=== PATIENT | female | born 1950 | race Caucasian/White ===

== ENCOUNTER 2016-12-21 11:36 | Inpatient (IN) | payer MEDICARE, BC ==
[2016-12-21 12:31] LABS: Potassium 4.2 mmol/L (3.5-5.0)
[2016-12-21 12:32] LABS: Albumin 3.4 g/dL (3.2-5.2); BUN/Creatinine Ratio 57.9 (8-20); Calcium 8.9 mg/dL (8.6-10.3); EGFR African American 36.7 (>60); EGFR Non-African American 28.5 (>60); Globulin 2.3 g/dL (2-4); Total Bilirubin 0.3 mg/dL (0.2-1.0); Total Protein 5.7 g/dL (6.4-8.9)
[2016-12-21 12:34] LABS: Hematocrit 17 % (35-47); Mean Corpuscular HGB Conc 33 g/dl (31-36); Mean Corpuscular Hemoglobin 36 pg (27-31); Mean Corpuscular Volume 108 fL (80-97); Mean Platelet Volume 7 um3 (7.4-10.4); Red Cell Distribution Width 18 % (10.5-15); White Blood Count 10.8 10^3/ul (3.5-10.8)
[2016-12-21 12:35] LABS: Comments Flag Yes
[2016-12-21 12:44] LABS: Hemoglobin 5.7 g/dl (12.0-16.0)
[2016-12-21] MEDS ORDERED: Pantoprazole IV* 40 MG IV ONE (12:58)
--- NOTE | 2016-12-21 13:32 | ED ---
Anirudh Herrera Billy, scribed for Ramesh Macias MD on 12/21/16 at 1255 . Complex/Multi-Sys Presentation - HPI Summary HPI Summary: Patient is a 66 year-old female coming to [facility] for evaluation of anemia. Patient had bloodwork drawn two days ago for evaluation of rheumatoid arthritis pain, and her PCP expressed concern for the results. She states that she felt dizzy when she was being moved onto the stretcher today. Patient, however, denies any blood in the stool or urine. She takes Coumadin for antiphospholipid antibody syndrome. Patient states that 1 month ago, she fell onto her buttocks, but she denies any new pain from that injury. - History Of Current Complaint Chief Complaint: EDBleedingDisorder Time Seen by Provider: 12/21/16 12:40 Hx Obtained From: Patient Onset/Duration: Gradual Onset Timing: Constant Severity Currently: Moderate Severity Initially: Moderate Aggravating Factor(s): none Alleviating Factor(s): none Associated Signs And Symptoms: Positive: Dizziness - Allergies/Home Medications Allergies/Adverse Reactions: Allergies Allergy/AdvReac Type Severity Reaction Status Date / Time Methotrexate Allergy Intermediate Difficulty Verified 12/21/16 11:49 Breathing Cephalexin [From Keflex] Allergy Rash Verified 12/21/16 11:49 Hydroxychloroquine Allergy Unknown Verified 12/21/16 11:49 [From Plaquenil] Reaction Details Home Medications: Home Medications Alendronate (NF) [Fosamax (NF)] 70 mg PO WEEKLY 12/21/16 [History Confirmed ] Cinacalcet TAB* [Sensipar TAB*] 30 mg PO BID 12/21/16 [History Confirmed ] Ferrous Gluconate TAB* [Fergon TAB*] 325 mg PO DAILY 12/21/16 [History Confirmed 12/21/16] Morphine ORAL.SOLN 10 mg* 2.5 ml SL Q6H PRN MDD 10ml 12/21/16 [History Confirmed 12/21/16] Salmeterol DISKUS (NF) [Serevent Diskus (NF)] 1 puff INH BID 12/21/16 [History Confirmed 12/21/16] metFORMIN* [Glucophage 500 MG TAB *] 500 mg PO BID 12/21/16 [History Confirmed 12/21/16] traMADol TAB* [Ultram*] 50 mg PO BID 12/21/16 [History Confirmed 12/21/16] PMH/Surg Hx/FS Hx/Imm Hx Endocrine/Hematology History: Reports: Hx Diabetes - TYPE II Denies: Hx Thyroid Disease Cardiovascular History: Reports: Hx Congestive Heart Failure, Hx Hypercholesterolemia, Hx Hypertension, Other Cardiovascular Problems/Disorders - MITRAL VALVE DISORDER,CHRONIC PUL.HEART DISESE,TACHYCARDIA Denies: Hx Angina, Hx Coronary Artery Disease, Hx Pacemaker/ICD, Hx Valvular Heart Disease Respiratory History: Reports: Hx Chronic Obstructive Pulmonary Disease (COPD) - ALSO OBSTRUCTIVE SLEEP APNEA(USES CPAP), Hx Sleep Apnea - new dx, needs equipment set up, Other Respiratory Problems/Disorders - RHEUMATOID LUNG, RIGHT SIDE LUNG IS PUSHING ON LUNG Denies: Hx Asthma GI History: Denies: Hx Ulcer Musculoskeletal History: Reports: Other Musculoskeletal History - see above surgeries/RA Denies: Hx Osteoporosis Sensory History: Reports: Hx Contacts or Glasses Opthamlomology History: Reports: Hx Contacts or Glasses Psychiatric History: Reports: Hx Anxiety, Hx Depression - Cancer History Hx Chemotherapy: No Hx Radiation Therapy: No - Surgical History Surgery Procedure, Year, and Place: appendix. tonsils. 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 Father - COPD/emphysema - Social History Alcohol Use: None Hx Substance Use: No Substance Use Type: Reports: None Hx Tobacco Use: Yes Smoking Status (MU): Light Every Day Tobacco Smoker Type: Cigarettes Amount Used/How Often: 7-8 cig day Length of Time of Smoking/Using Tobacco: 40 YEARS Have You Smoked in the Last Year: Yes Review of Systems Negative: Fever Neurological: Other - dizzy All Other Systems Reviewed And Are Negative: Yes Physical Exam Triage Information Reviewed: Yes Vital Signs On Initial Exam: Initial Vitals Temp Pulse Resp BP Pulse Ox 97.2 F 82 17 106/83 97 12/21/16 11:39 12/21/16 11:39 12/21/16 11:39 12/21/16 11:39 12/21/16 11:39 Vital Signs Reviewed: Yes Appearance: Positive: Well-Appearing, No Pain Distress Skin: Positive: Warm, Skin Color Reflects Adequate Perfusion Head/Face: Positive: Normal Head/Face Inspection Eyes: Positive: Other: - pallor conjunctiva ENT: Positive: Normal ENT inspection Neck: Positive: Supple Respiratory/Lung Sounds: Positive: Clear to Auscultation, Breath Sounds Present Cardiovascular: Positive: Normal, RRR. Negative: Murmur Abdomen Description: Positive: Nontender, Other: - rectal done and no blood on glove or melena Musculoskeletal: Positive: Normal, Strength/ROM Intact Neurological: Positive: Normal, Sensory/Motor Intact, Alert, Oriented to Person Place, Time, CN Intact II-III Psychiatric: Positive: Normal - Travon Coma Scale Best Eye Response: 4 - Spontaneous Best Motor Response: 6 - Obeys Commands Best Verbal Response: 5 - Oriented Coma Scale Total: 15 Glascow Coma Scale Comments: [id number] Diagnostics - Vital Signs Vital Signs Temp Pulse Resp BP Pulse Ox 12/21/16 12:00 76 9 99 12/21/16 11:40 97.3 F 83 17 106/83 97 12/21/16 11:39 97.2 F 82 17 106/83 97 - Laboratory Lab Results: Lab Results 12/21/16 12/21/16 12/21/16 Range/Units 11:50 11:50 11:50 WBC 10.8 (3.5-10.8) 10^3/ul RBC 1.60 L (4.0-5.4) 10^6/ul Hgb 5.7 L* (12.0-16.0) g/dl Hct 17 L (35-47) % MCV 108 H (80-97) fL MCH 36 H (27-31) pg MCHC 33 (31-36) g/dl RDW 18 H (10.5-15) % Plt Count 262 (150-450) 10^3/ul MPV 7 L (7.4-10.4) um3 Neut % (Auto) 78.4 (38-83) % Lymph % (Auto) 11.8 L (25-47) % [place] % (Auto) 8.7 (1-9) % Eos % (Auto) 0.7 (0-6) % Baso % (Auto) 0.4 (0-2) % Absolute Neuts (auto) 8.5 H (1.5-7.7) 10^3/ul Absolute Lymphs (auto) 1.3 (1.0-4.8) 10^3/ul Absolute Monos (auto) 0.9 H (0-0.8) 10^3/ul Absolute Eos (auto) 0.1 (0-0.6) 10^3/ul Absolute Basos (auto) 0 (0-0.2) 10^3/ul Absolute Nucleated RBC 0.05 10^3/ul Nucleated RBC % 0.5 Sodium 133 (133-145) mmol/L Potassium 4.2 (3.5-5.0) mmol/L Chloride 95 L (101-111) mmol/L Carbon Dioxide 32 (22-32) mmol/L Anion Gap 6 (2-11) mmol/L BUN 103 H (6-24) mg/dL Creatinine 1.78 H (0.51-0.95) mg/dL Est GFR ( Amer) 36.7 (>60) Est GFR (Non-Af Amer) 28.5 (>60) BUN/Creatinine Ratio 57.9 H (8-20) Glucose 228 H (70-100) mg/dL Lactic Acid 1.4 (0.5-2.0) mmol/L Calcium 8.9 (8.6-10.3) mg/dL Total Bilirubin 0.30 (0.2-1.0) mg/dL AST 16 (13-39) U/L ALT 14 (7-52) U/L Alkaline Phosphatase 52 (34-104) U/L Total Protein 5.7 L (6.4-8.9) g/dL Albumin 3.4 (3.2-5.2) g/dL Globulin 2.3 (2-4) g/dL Albumin/Globulin Ratio 1.5 (1-3) Blood Type Antibody Screen 12/21/16 Range/Units 11:50 WBC (3.5-10.8) 10^3/ul RBC (4.0-5.4) 10^6/ul Hgb (12.0-16.0) g/dl Hct (35-47) % MCV (80-97) fL MCH (27-31) pg MCHC (31-36) g/dl RDW (10.5-15) % Plt Count (150-450) 10^3/ul MPV (7.4-10.4) um3 Neut % (Auto) (38-83) % Lymph % (Auto) (25-47) % [place] % (Auto) (1-9) % Eos % (Auto) (0-6) % Baso % (Auto) (0-2) % Absolute Neuts (auto) (1.5-7.7) 10^3/ul Absolute Lymphs (auto) (1.0-4.8) 10^3/ul Absolute Monos (auto) (0-0.8) 10^3/ul Absolute Eos (auto) (0-0.6) 10^3/ul Absolute Basos (auto) (0-0.2) 10^3/ul Absolute Nucleated RBC 10^3/ul Nucleated RBC % Sodium (133-145) mmol/L Potassium (3.5-5.0) mmol/L Chloride (101-111) mmol/L Carbon Dioxide (22-32) mmol/L Anion Gap (2-11) mmol/L BUN (6-24) mg/dL Creatinine (0.51-0.95) mg/dL Est GFR ( Amer) (>60) Est GFR (Non-Af Amer) (>60) BUN/Creatinine Ratio (8-20) Glucose (70-100) mg/dL Lactic Acid (0.5-2.0) mmol/L Calcium (8.6-10.3) mg/dL Total Bilirubin (0.2-1.0) mg/dL AST (13-39) U/L ALT (7-52) U/L Alkaline Phosphatase (34-104) U/L Total Protein (6.4-8.9) g/dL Albumin (3.2-5.2) g/dL Globulin (2-4) g/dL Albumin/Globulin Ratio (1-3) Blood Type B Positive Antibody Screen Pending Result Diagrams: 12/21/16 11:50 12/21/16 11:50 Lab Statement: Any lab studies that have been ordered have been reviewed, and results considered in the medical decision making process. Complex Multi-Symp Course/Dx Course Of Treatment: 66 yr old with high INR, and low h and h . Transfusing ffp and prbc. The patient will be admitted by hospitalists. - Diagnoses Provider Diagnoses: Elevated INR, Anemia, Weakness, Dizziness - Critical Care Time Critical Care Time: 30-74 min - total critical care time 40 minutes Discharge - Discharge Plan Condition: Fair Disposition: ADMITTED TO [facility] Referrals: Kameron Travis MD [Primary Care Provider] - The documentation as recorded by the Anirudh fong Billy accurately reflects the service I personally performed and the decisions made by , Ramesh Macias MD.
[2016-12-21] MEDS ORDERED: Levalbuterol 0.63MG/3ML NEB INH PRN (14:35)
[2016-12-21] MEDS ORDERED: Morphine ORAL.SOLN 10 mg* 2 MG/ML UDC 5 ml PO PRN (14:35)
[2016-12-21] MEDS ORDERED: Dextrose 50% Syringe 50 ML* 25 GM/50 ML SYRINGE IV PUSH PRN (14:39)
[2016-12-21] MEDS ORDERED: Tiotropium CAP.INH* CAP.INH/18 MCG INH SCH (14:45)
[2016-12-21 15:01] LABS: Urine Bacteria 1+ (Absent); Urine Bilirubin Negative (Negative); Urine Glucose Negative (Negative); Urine Nitrite Negative (Negative)
--- NOTE | 2016-12-21 15:09 | RAD ---
Indication: Evaluate for abdominal hematoma, abdominal pain. CT of the abdomen and pelvis was performed without oral or IV contrast administration. Coronal and sagittal reconstructed images were obtained. Lung bases demonstrate some atelectasis noted in the right middle lobe. No masses identified. The heart demonstrates no pericardial effusion. Liver is normal in size. No focal lesions or intrahepatic ductal dilatation is noted although evaluation is limited due to lack of IV contrast. The spleen is normal in size. The pancreas demonstrates no mass or pancreatic duct dilatation. The common duct is prominent however this is unchanged from previous exam. The gallbladder demonstrates no calcified gallstones although low density material is noted within the gallbladder which may represent cholesterol stones. No pericholecystic fluid or wall thickening is noted. Atherosclerotic aorta is noted. No a residual dilatation is noted. Bilateral adrenal hyperplasia is noted. The kidneys demonstrate no focal masses or hydronephrosis. No retroperitoneal lymphadenopathy is noted. No dilated small bowel are noted. Urinary bladder is unremarkable. No hernias are noted. No free fluid is identified in the pelvis. The uterus and ovaries are grossly unremarkable. IMPRESSION: Likely atelectasis in the right middle lobe. Likely cholesterol gallstones in the gallbladder. No other masses or fluid collections are noted.
--- NOTE | 2016-12-21 16:08 | RAD ---
INDICATION: Short of breath COMPARISON: April 27, 2016 TECHNIQUE: An AP portable view obtained at 1544 hours is submitted. FINDINGS: Bones/Soft Tissues: There are no acute bony findings. Cardiomediastinal: The cardiomediastinal silhouette is normal. Lungs: There are no infiltrates. There is hyperinflation with mild chronic interstitial changes Pleura: There are no pleural effusions. Other: None IMPRESSION: HYPERINFLATION WITH MILD CHRONIC INTERSTITIAL CHANGES
[2016-12-21] MEDS: azaTHIOprine TAB(*) 50 MG TAB PO SCH (16:39)
[2016-12-21] MEDS: BuPROPion XL* 300 MG TAB.XL PO SCH (16:39)
[2016-12-21] MEDS: Insulin LISPRO* 1 UNITS UNIT SUBCUT SCH (16:40)
[2016-12-21] MEDS: HYDROcodone/ACETAMIN 5-325 MG* 1 TAB PO PRN (16:40)
--- NOTE | 2016-12-21 17:51 | HP ---
CC: Dr. Travis HISTORY AND PHYSICAL: DATE OF ADMISSION: 12/21/16 PRIMARY CARE PHYSICIAN: Dr. Travis. CHIEF COMPLAINT: Abnormal labs, fatigue, worsening rheumatoid arthritis. HISTORY OF PRESENT ILLNESS: Ms. Del Valle is a 66-year-old female with complicated medical history including COPD, on 2 L of oxygen; rheumatoid arthritis; antiphospholipid syndrome; hyperparathyroidism; diabetes; hypertension; hyperlipidemia; DAREK, on CPAP, who presents to the hospital after she was found to have significant anemia on outpatient labs. The patient states for the past weeks or so, she has felt like her RA is worsening. Pain has been progressively worse. She feels like this may be coinciding with decrease in her azathioprine, which was cut in half last month due to some renal dysfunction. She went to see Devin Cheatham at Dr. Martinez's office yesterday for evaluation. She states that prior to adjusting any medications, they wanted to get some blood work. She was found to have an INR of 6.9 yesterday and at that time, she was called by Devin and told to stop her Coumadin. This morning, her hemoglobin resulted, which was found to be 6.7. At this point, she was called again and told to come to the hospital. The patient does report some significant fatigue over the past days to weeks but she thought that it was mostly pain related. She states she has had good p.o. intake. She has not noticed any blood in the stool, urine or emesis. She has not had any nausea or vomiting. She states that her main issue has been progression of her joint pain due to rheumatoid arthritis. She states the pain extends from her neck all the way to her toes involving all her joints. She has just recently had to use a walker at home and has been having significant trouble getting around. She did note that she had a nosebleed on Sunday or Sunday night; however, this was limited and she did not have significant amount of blood loss with this. She denies any URI symptoms, chest pain, diarrhea, constipation, dyspnea on exertion. PAST MEDICAL HISTORY: COPD, on 2-3 L of oxygen. Depression, antiphospholipid syndrome with previous history of PEs and intracardiac thrombus, hyperlipidemia , hypertension. DAREK, on CPAP. Rheumatoid arthritis, anxiety, diabetes. PAST SURGICAL HISTORY: Appendectomy, tonsillectomy, multiple surgeries for her hand. MEDICATIONS: 1. Alendronate 70 mg by mouth weekly. 2. Lasix 40 mg by mouth daily. 3. Lantus 16 units subcutaneous daily. 4. Magnesium oxide 800 mg by mouth 2 times daily. 5. Vitamin D 1000 units by mouth daily. 6. Ferrous gluconate 325 mg by mouth daily. 7. Toprol XL 50 mg by mouth daily. 8. Zoloft 75 mg by mouth daily. 9. Azathioprine. 10. Bupropion 300 mg by mouth daily. 11. Metformin 500 mg by mouth 2 times daily. 12. Sensipar 30 mg by mouth 2 times daily. 13. Morphine 2.5 mL sublingual as needed every 6 hours for shortness of breath. 14. Tramadol 50 mg by mouth 2 times daily. 15. Atorvastatin 20 mg by mouth at bedtime. 16. Lisinopril 2.5 mg oral daily. 17. Warfarin 10 mg by mouth nightly. 18. Mantoloking 5-325 two tablets by mouth at bedtime as needed for pain. 19. Spiriva 2.5 mcg inhaled daily. 20. Budesonide 0.25 mg inhaled 2 times daily. 21. Atrovent 0.5 mg inhaled 2 times daily. 22. Solu-Medrol Diskus 1 puff inhaled 2 times daily. 23. Xopenex 0.63 mg inhaled 3 times daily as needed for shortness of breath or wheezing. ALLERGIES: KEFLEX, METHOTREXATE, and PLAQUENIL. FAMILY HISTORY: Significant for mother with CHF, father with COPD. SOCIAL HISTORY: The patient still smokes 3 cigarettes a day. She states she has been smoking for almost 40 years about a pack and a half per day at most. Denies any alcohol or illicit drug use. REVIEW OF SYSTEMS: A 12-point review of systems is negative except for that as noted in the HPI. PHYSICAL EXAMINATION GENERAL: The patient is a middle-aged female, appears older than stated age, lying in bed, in no apparent distress. VITAL SIGNS: On admission, temperature 97.2, heart rate of 82, respiratory rate of 17, O2 saturation 97% on room air, blood pressure 106/83. HEENT: Anicteric sclerae. Pale conjunctivae. Pupils are equal, round, and reactive to light and accommodation. Dry mucous membranes. No cervical adenopathy. CARDIOVASCULAR: Regular rate and rhythm. S1, S2 present. No murmurs, gallops , and rubs. LUNGS: Clear to auscultation bilaterally. No wheezes, rales, or rhonchi. ABDOMEN: Soft, nontender, nondistended. Bowel sounds positive. EXTREMITIES: No cyanosis, clubbing, or edema in lower extremities. The patient has chronic ulnar deviation from rheumatoid arthritis in bilateral hands. SKIN: The patient has a discrete 4 cm x 2 cm ecchymosis on her back in the left , also some smaller ecchymoses in the lower abdomen from Lantus injections. DIAGNOSTIC STUDIES/LAB DATA: White blood cell count of 10.8, hemoglobin of 5.7 , hematocrit of 17, platelets of 262, INR of 3.84. Sodium of 133, potassium 4.2 , chloride of 92, carbon dioxide 33, BUN of 103, creatinine of 1.78, glucose of 228, lactic acid of 1.4. LFTs within normal limits. Total protein 5.7. ASSESSMENT AND PLAN: Severe macrocytic anemia in a 66-year-old female with a past medical history of chronic obstructive pulmonary disease, antiphospholipid syndrome with history of pulmonary embolism and intracardiac thrombus, hypertension, hyperlipidemia, rheumatoid arthritis on azathioprine, and obstructive sleep apnea, on CPAP, and diabetes. 1. Anemia. The patient has had a significant drop from just last month. Her hemoglobin was in the 13 range. INR is 3.84. At this point, I will hold off on FFP that was ordered. I don't think she is having a GI bleed with a negative guaiac, normal stools. We will get a CT scan of the abdomen and pelvis to make sure she does not have any occult hematomas. We will transfuse 3 units of packed red blood cells right now that was ordered by the emergency department. I spoke to Dr. Callahan, who will evaluate the patient and added on B12, folate, iron studies, and reticulocyte count. The patient was started on Sensipar recently that can occasionally cause some anemia, also azathioprine can do this as well, although the dose was reduced recently and she has been on this for quite a while. 2. Rheumatoid arthritis. For now, we will continue with her azathioprine and pain medications. I tried to get in touch with Dr. Martinez's office but was unable to today. We can see how she is doing tomorrow and if we need to get Rheumatology involved. The patient is comfort measures only on her MOLST form. So this will obviously factor in to some of her decisions and treatment at this time. 3. Antiphospholipid syndrome. INR is 3.84. I am not clear whether there is bleeding going on, I am going to hold her Coumadin for now. As noted above, I have held FFP. INR is decreased from 6.9 yesterday to this today. We need to follow closely and recheck INR in the morning. 4. Hyperparathyroidism. Continue home Sensipar. 5. Diabetes. Continue home Lantus. Hold the metformin for now. Continue with Humalog insulin sliding scale. 6. Chronic obstructive pulmonary disease. Continue home meds 7. Obstructive sleep apnea. Continue home CPAP at night. 8. Code status. The patient is a DNR with comfort measures only. This was confirmed with the patient was stated she is a "emphatic DNR," May want to consider palliative consult in the future. 9. DVT prophylaxis. Supratherapeutic INR. TIME SPENT: Total time spent on this admission 50 minutes, with over half the time spent [id number] with the patient in counseling and coordinating care. [id number]/CPS #: [id number] LANRE
[2016-12-21] MEDS: Ipratropium 0.5MG/2.5ML NEB* 0.5 MG/2.5 ML NEB.SOLN INH SCH (20:01)
[2016-12-21] MEDS: Mometasone/Formoter 200/5 MDI INH SCH (20:02)
[2016-12-21] MEDS: Budesonide NEB* 0.25 MG/2 ML NEB.SOLN INH SCH (20:02)
[2016-12-21 21:00] LABS: Maturation Factor Retic 2.5
[2016-12-21 21:14] LABS: TSH (Thyroid Stimulating Horm) 2.61 mcIU/mL (0.34-5.60)
[2016-12-21 21:21] LABS: Ferritin 21.9 ng/mL (11-307)
[2016-12-21 21:26] LABS: Folate 7.97 ng/mL (>3.99)
[2016-12-21 21:26] LABS: Corrected Retic Count 3.6 % (0.5-1.5); Immature Retic Fraction 0.78
[2016-12-21] MEDS: SALMETEROL INH SCH (21:30)
[2016-12-21] MEDS: Cinacalcet TAB* 30 MG PO SCH (22:35)
[2016-12-21] MEDS: traMADol TAB* 50 MG PO SCH (22:35)
[2016-12-21] MEDS: Atorvastatin* 20 MG TAB PO SCH (22:35)
[2016-12-21] MEDS: Magnesium Oxide TAB* 400 MG PO SCH (22:36)
[2016-12-22] MEDS: HYDROcodone/ACETAMIN 5-325 MG* 1 TAB PO PRN ×4 (01:10→22:23)
[2016-12-22 06:09] LABS: Comments Flag Yes; Hematocrit 27 % (35-47); Hemoglobin 9.2 g/dl (12.0-16.0); Mean Corpuscular HGB Conc 34 g/dl (31-36); Mean Corpuscular Hemoglobin 33 pg (27-31); Mean Corpuscular Volume 96 fL (80-97); Mean Platelet Volume 7 um3 (7.4-10.4); Red Blood Count 2.77 10^6/ul (4.0-5.4); Red Cell Distribution Width 19 % (10.5-15); White Blood Count 10.6 10^3/ul (3.5-10.8)
[2016-12-22 06:10] LABS: Add Diff/Slide Review? Slide Review Added
[2016-12-22 06:23] LABS: BUN/Creatinine Ratio 41.5 (8-20); Calcium 8.1 mg/dL (8.6-10.3); EGFR African American 41.8 (>60); EGFR Non-African American 32.5 (>60); Potassium 4.1 mmol/L (3.5-5.0)
[2016-12-22] MEDS: Ipratropium 0.5MG/2.5ML NEB* 0.5 MG/2.5 ML NEB.SOLN INH SCH ×2 (07:32→19:59)
[2016-12-22] MEDS: Budesonide NEB* 0.25 MG/2 ML NEB.SOLN INH SCH ×2 (07:32→19:58)
[2016-12-22] MEDS: Mometasone/Formoter 200/5 MDI INH SCH ×2 (07:32→21:12)
[2016-12-22 07:38] LABS: Eosinophils % 2 % (0-6); Hypochromasia 1+; Neutrophil % 74 % (38-83); Polychromasia 1+
[2016-12-22] MEDS: Sertraline* 25 MG TAB PO SCH (08:58)
[2016-12-22] MEDS: Magnesium Oxide TAB* 400 MG PO SCH ×2 (08:58→20:39)
[2016-12-22] MEDS: Cholecalciferol TAB* 1000 UNITS PO SCH (08:58)
[2016-12-22] MEDS: Cinacalcet TAB* 30 MG PO SCH ×2 (08:58→20:39)
[2016-12-22] MEDS: azaTHIOprine TAB(*) 50 MG TAB PO SCH (08:58)
[2016-12-22] MEDS: traMADol TAB* 50 MG PO SCH ×2 (08:59→20:38)
[2016-12-22] MEDS: Ferrous Gluconate TAB* 324 MG TAB PO SCH (08:59)
[2016-12-22] MEDS: BuPROPion XL* 300 MG TAB.XL PO SCH (08:59)
[2016-12-22] MEDS: Insulin LISPRO* 1 UNITS UNIT SUBCUT SCH ×3 (09:00→17:16)
[2016-12-22] MEDS: Insulin GLARGINE(*) 1 UNITS UNIT SUBCUT SCH (09:00)
--- NOTE | 2016-12-22 10:59 | PN ---
Subjective Date of Service: 12/22/16 Interval History: Seen and examined with friend/HCP at bedside Has pain from head to toe consistent with RA, worse in clavicles today 7-8/10 Feels more energy since blood transfusion Objective Active Medications: Hydrocodone Bitart/Acetaminophen ([place] 5-325 Tab*) 2 tab PO BEDTIME PRN PRN Reason: PAIN Last Admin: 12/22/16 01:10 Dose: 2 tab Hydrocodone Bitart/Acetaminophen ([place] 5-325 Tab*) 1 tab PO Q6H PRN PRN Reason: PAIN Last Admin: 12/22/16 08:59 Dose: 1 tab Atorvastatin Calcium (Lipitor*) 20 mg PO BEDTIME [facility] Last Admin: 12/21/16 22:35 Dose: 20 mg Azathioprine (Imuran Tab(*)) 50 mg PO DAILY [facility] Last Admin: 12/22/16 08:58 Dose: 50 mg Budesonide (Pulmicort Neb*) 0.25 mg INH BID [facility] Last Admin: 12/22/16 07:32 Dose: 0.25 mg Bupropion HCl (Bupropion Xl*) 300 mg PO DAILY [facility] PRN Reason: Protocol Last Admin: 12/22/16 08:59 Dose: 300 mg Cholecalciferol (Vitamin D Tab*) 1,000 units PO DAILY [facility] Last Admin: 12/22/16 08:58 Dose: 1,000 units Cinacalcet (Sensipar Tab*) 30 mg PO BID [facility] Last Admin: 12/22/16 08:58 Dose: 30 mg Dextrose (D50w Syringe 50 Ml*) 12.5 gm IV PUSH .FOR FS < 60 - SS PRN PRN Reason: FS < 60 Ferrous Gluconate (Fergon Tab*) 324 mg PO DAILY [facility] Last Admin: 12/22/16 08:59 Dose: 324 mg Heparin Sodium (Porcine) (Heparin Vial(*)) 0 units IV .PER PROTOCOL [facility] PRN Reason: Protocol Heparin Sodium/Dextrose (Heparin Drip 25,000 Units(*)) 25,000 units in 500 mls @ 0 mls/hr IV .NO INITIAL BOLUS [facility]; As Directed PRN Reason: Protocol Insulin Glargine (Lantus(*)) 16 units SUBCUT QAM [facility] Last Admin: 12/22/16 09:00 Dose: 16 units Insulin Human Lispro (Humalog*) 0 - 10 units SUBCUT AC [facility] PRN Reason: Protocol Last Admin: 12/22/16 09:00 Dose: 2 units Ipratropium [place] (Atrovent 0.5 Mg Neb.Sarai*) 0.5 mg INH BID [facility] Last Admin: 12/22/16 07:32 Dose: 0.5 mg Levalbuterol HCl (Xopenex 0.63mg/3ml Neb*) 0.63 mg INH TID PRN PRN Reason: SHORTNESS OF BREATH Magnesium Oxide (Magox 400 Tab*) 800 mg PO BID [facility] Last Admin: 12/22/16 08:58 Dose: 800 mg Mometasone Furoate/Formoterol Fumar (Dulera 200/5 Mdi*) 2 puff INH BID [facility] Last Admin: 12/22/16 07:32 Dose: 2 puff Morphine Sulfate (Morphine Oral.Soln 10 Mg*) 5 mg PO Q6H PRN PRN Reason: Severe shortness of breath Last Admin: 12/22/16 02:26 Dose: 5 mg Salmeterol Xinafoate (Serevent Diskus (Nf)) 1 puff INH BID [facility] PRN Reason: Protocol Last Admin: 12/21/16 21:30 Dose: 1 puff Sertraline HCl (Zoloft*) 75 mg PO DAILY [facility] Last Admin: 12/22/16 08:58 Dose: 75 mg Tiotropium [place] (Spiriva Respimat 2.5 Mcg(Nf)) 1 puff INH DAILY [facility] Tramadol HCl (Ultram*) 50 mg PO BID [facility] Last Admin: 12/22/16 08:59 Dose: 50 mg Vital Signs 12/21/16 12/21/16 12/21/16 13:30 14:00 14:34 Temperature 98.1 F Pulse Rate 75 79 79 Respiratory 9 13 14 Rate Blood Pressure 88/43 107/46 99/51 (mmHg) O2 Sat by Pulse 100 99 Oximetry 12/21/16 12/21/16 12/21/16 15:25 15:30 16:40 Temperature 98.3 F 98.3 F Pulse Rate 84 84 Respiratory 18 18 18 Rate Blood Pressure 92/51 92/51 (mmHg) O2 Sat by Pulse 100 100 Oximetry 12/21/16 12/21/16 12/21/16 19:20 19:58 20:00 Temperature 98.4 F 98.7 F Pulse Rate 97 88 90 Respiratory 20 18 20 Rate Blood Pressure 127/50 96/31 (mmHg) O2 Sat by Pulse 98 97 100 Oximetry 12/21/16 12/21/16 12/21/16 22:35 22:57 23:30 Temperature 98.6 F 98.9 F Pulse Rate 82 87 Respiratory 20 20 20 Rate Blood Pressure 110/49 107/42 (mmHg) O2 Sat by Pulse 100 99 Oximetry 12/22/16 12/22/16 12/22/16 00:35 01:10 02:11 Temperature 98.4 F Pulse Rate 90 Respiratory 18 20 20 Rate Blood Pressure 125/60 (mmHg) O2 Sat by Pulse 95 Oximetry 12/22/16 12/22/16 12/22/16 02:26 02:37 03:10 Temperature 98.6 F Pulse Rate 83 Respiratory 20 20 18 Rate Blood Pressure 107/53 (mmHg) O2 Sat by Pulse 95 Oximetry 12/22/16 12/22/16 12/22/16 04:26 04:40 05:19 Temperature 98.1 F 98.1 F Pulse Rate 84 80 Respiratory 18 18 18 Rate Blood Pressure 110/54 112/54 (mmHg) O2 Sat by Pulse 93 93 Oximetry 12/22/16 12/22/16 12/22/16 05:43 07:23 07:35 Temperature 98.2 F 98.2 F Pulse Rate 78 79 78 Respiratory 18 16 12 Rate Blood Pressure 109/53 115/51 (mmHg) O2 Sat by Pulse 97 98 100 Oximetry 12/22/16 12/22/16 08:59 09:34 Temperature Pulse Rate Respiratory 18 18 Rate Blood Pressure (mmHg) O2 Sat by Pulse Oximetry Oxygen Devices in Use Now: Nasal Cannula Appearance: sitting in chair, older than stated age, NAD Eyes: No Scleral Icterus, PERRLA Ears/Nose/Mouth/Throat: Clear Oropharnyx, Mucous Membranes Moist Neck: NL Appearance and Movements; NL JVP, Trachea Midline Respiratory: Symmetrical Chest Expansion and Respiratory Effort, Clear to Auscultation Cardiovascular: RRR Abdominal: NL Sounds; No Tenderness; No Distention, No Hepatosplenomegaly Lymphatic: No Cervical Adenopathy Extremities: - - contracted hands Neurological: Alert and Oriented x 3 Result Diagrams: 12/22/16 05:54 12/22/16 05:54 Additional Lab and Data: Lab Results 12/21/16 12/21/16 12/21/16 Range/Units 11:50 11:50 11:50 WBC 10.8 (3.5-10.8) 10^3/ul RBC 1.60 L (4.0-5.4) 10^6/ul Hgb 5.7 L* (12.0-16.0) g/dl Hct 17 L (35-47) % MCV 108 H (80-97) fL MCH 36 H (27-31) pg MCHC 33 (31-36) g/dl RDW 18 H (10.5-15) % Plt Count 262 (150-450) 10^3/ul MPV 7 L (7.4-10.4) um3 Neut % (Auto) 78.4 (38-83) % Lymph % (Auto) 11.8 L (25-47) % [place] % (Auto) 8.7 (1-9) % Eos % (Auto) 0.7 (0-6) % Baso % (Auto) 0.4 (0-2) % Absolute Neuts (auto) 8.5 H (1.5-7.7) 10^3/ul Absolute Lymphs (auto) 1.3 (1.0-4.8) 10^3/ul Absolute Monos (auto) 0.9 H (0-0.8) 10^3/ul Absolute Eos (auto) 0.1 (0-0.6) 10^3/ul Absolute Basos (auto) 0 (0-0.2) 10^3/ul Absolute Nucleated RBC 0.05 10^3/ul Nucleated RBC % 0.5 Sodium 133 (133-145) mmol/L Potassium 4.2 (3.5-5.0) mmol/L Chloride 95 L (101-111) mmol/L Carbon Dioxide 32 (22-32) mmol/L Anion Gap 6 (2-11) mmol/L BUN 103 H (6-24) mg/dL Creatinine 1.78 H (0.51-0.95) mg/dL Est GFR ( Amer) 36.7 (>60) Est GFR (Non-Af Amer) 28.5 (>60) BUN/Creatinine Ratio 57.9 H (8-20) Glucose 228 H (70-100) mg/dL Lactic Acid 1.4 (0.5-2.0) mmol/L Calcium 8.9 (8.6-10.3) mg/dL Total Bilirubin 0.30 (0.2-1.0) mg/dL AST 16 (13-39) U/L ALT 14 (7-52) U/L Alkaline Phosphatase 52 (34-104) U/L Total Protein 5.7 L (6.4-8.9) g/dL Albumin 3.4 (3.2-5.2) g/dL Globulin 2.3 (2-4) g/dL Albumin/Globulin Ratio 1.5 (1-3) Blood Type Antibody Screen 12/21/16 Range/Units 11:50 WBC (3.5-10.8) 10^3/ul RBC (4.0-5.4) 10^6/ul Hgb (12.0-16.0) g/dl Hct (35-47) % MCV (80-97) fL MCH (27-31) pg MCHC (31-36) g/dl RDW (10.5-15) % Plt Count (150-450) 10^3/ul MPV (7.4-10.4) um3 Neut % (Auto) (38-83) % Lymph % (Auto) (25-47) % [place] % (Auto) (1-9) % Eos % (Auto) (0-6) % Baso % (Auto) (0-2) % Absolute Neuts (auto) (1.5-7.7) 10^3/ul Absolute Lymphs (auto) (1.0-4.8) 10^3/ul Absolute Monos (auto) (0-0.8) 10^3/ul Absolute Eos (auto) (0-0.6) 10^3/ul Absolute Basos (auto) (0-0.2) 10^3/ul Absolute Nucleated RBC 10^3/ul Nucleated RBC % Sodium (133-145) mmol/L Potassium (3.5-5.0) mmol/L Chloride (101-111) mmol/L Carbon Dioxide (22-32) mmol/L Anion Gap (2-11) mmol/L BUN (6-24) mg/dL Creatinine (0.51-0.95) mg/dL Est GFR ( Amer) (>60) Est GFR (Non-Af Amer) (>60) BUN/Creatinine Ratio (8-20) Glucose (70-100) mg/dL Lactic Acid (0.5-2.0) mmol/L Calcium (8.6-10.3) mg/dL Total Bilirubin (0.2-1.0) mg/dL AST (13-39) U/L ALT (7-52) U/L Alkaline Phosphatase (34-104) U/L Total Protein (6.4-8.9) g/dL Albumin (3.2-5.2) g/dL Globulin (2-4) g/dL Albumin/Globulin Ratio (1-3) Blood Type B Positive Antibody Screen Pending Microbiology and Other Data: Microbiology 12/22/16 23:50 Transfusion Reaction Gram Stain - Final Blood Bag 12/21/16 19:45 Transfusion Reaction Gram Stain - Final Blood Bag Assess/Plan/Problems-Billing Assessment: 66 yo F h/p APLS on AC, severe RA, DVT/PE on AC COPD with chronic respiratory failure (3L), p/w supratherapeutic INR and anemia - Patient Problems (1) Anemia Comment: Acute anemia Suspect slow GI bleed in setting of supratherapeutic anemia received 3 U PRBC 12/21 Repeat H/H this evening (2) Antiphospholipid syndrome Comment: Start heparin no bolus restart coumadin this evening 10mg unclear why she became supratherapeutic, no change in diet or medications except decrease in azathioprine 4 weeks prior last INR 3 weeks prior per pt (3) Rheumatoid arthritis Comment: azathioprine decraesed 1 month prior 2/2 c/f kidney injury Pain has increased since that time manage pain will need appropriate f/u with Zaina Maritnez (4) COPD exacerbation Code(s): J44.1 - CHRONIC OBSTRUCTIVE PULMONARY DISEASE W (ACUTE) EXACERBATION Comment: Not in exacerbation (5) Type 2 diabetes mellitus Comment: Basal bolus insulin (6) Obstructive sleep apnea Comment: Continue CPAP. (7) DVT prophylaxis Comment: coumadin heparin (8) DNR (do not resuscitate)
[2016-12-22] MEDS ORDERED: Heparin VIAL(*) 5000 UNITS/ML VIAL (FIVE THOUSAND) IV SCH (11:00)
[2016-12-22] MEDS: SALMETEROL INH SCH ×2 (11:58→21:54)
[2016-12-22] MEDS: Tiotropium Respimt 2.5 mcg(NF) 1 PUFF MDI INH SCH (11:58)
[2016-12-22] MEDS: Morphine ORAL.SOLN 10 mg* 2 MG/ML UDC 5 ml PO PRN ×2 (12:03→18:56)
[2016-12-22] MEDS: Heparin DRIP 25,000 UNITS(*) 25,000 UNITS/500 ML BAG IV SCH (12:56)
[2016-12-22 16:52] LABS: Hematocrit 27 % (35-47); Hemoglobin 9.5 g/dl (12.0-16.0)
[2016-12-22] MEDS: Warfarin TAB(*) 10 MG PO SCH (17:16)
--- NOTE | 2016-12-22 17:32 | CONS ---
HEMATOLOGY CONSULTATION: DATE OF CONSULT: 12/22/16 REFERRING PHYSICIAN: Dr. Acosta. PRIMARY CARE PHYSICIAN: Dr. Travis. RHEUMATOLOGY: Dr. Martinez. REASON FOR CONSULT: Anemia and fatigue. HISTORY OF PRESENT ILLNESS: Ms. Del Valle is a 66-year-old female with past medical history of rheumatoid arthritis as well as antiphospholipid antibody syndrome. She had been followed up with Dr. Martinez's office and generally sees Nigelofia. She is not treated with methotrexate secondary to shortness of breath. She has been on azathioprine, but with the dose recently reduced secondary to renal insufficiency, currently on 50 mg daily. She has had several weeks of not feeling well, some increasing fatigue, although with a decreased appetite, and had noted some shortness of breath. She also had marked increase in her pain after decreasing the azathioprine. She called Dr. Martinez's office and came in and saw Nigelofia. Blood work was ordered on December 21. She had white count of 10.8, normal differential. Hemoglobin was 5.7 with an MCV of 108. RDW was 18 and platelets of 262. Reticulocyte count was sent that was 9.6, but corrected at 3.6. She received 3 units of packed red blood cells and improved from 5.7 to 9.2. She also was noted to have increased INR 3.84, now improved at 1.67 after FFP. Increased creatinine of 2.2, first baseline of 1.93. Today , she is feeling better than admission. She has not had diarrhea, no change in stool, no change in urination. She has not been having any nosebleeds. PAST MEDICAL HISTORY: 1. Rheumatoid arthritis. Managed by Dr. Martinez. History of methotrexate, but stopped as noted above for pneumonitis. Currently, managed with Imuran. She has never been on steroids. 2. Antiphospholipid antibody syndrome. Complicated by pulmonary embolus. 3. She has a lupus anticoagulant panel from 12/20/16 that showed a dRVVT of 1.3 with a confirmation of 1.2. She is on long-term Coumadin, generally been consistent up until most recently. 4. Renal insufficiency. Creatinine 2.2 on admission, decreased to 1.59 with hydration. 5. COPD, on CPAP. 6. Depression. 7. Osteoarthritis. 8. High cholesterol. 9. Hypertension. 10. Diabetes. HOME MEDICATIONS: 1. Alendronate 70 mg weekly. 2. Lasix 40 mg daily. 3. Lantus mg daily. 4. Mag oxide 800 mg b.i.d. 5. Vitamin D 1000 daily. 6. Ferrous gluconate 125 daily. 7. Toprol-XL 50 mg daily. 8. Zoloft 75 mg daily. 9. Wellbutrin 300 mg daily. 10. Metformin 500 twice a day. 11. Sensipar 30 mg by mouth 2 times a day. 12. Morphine 2.5 mL subcu as needed every 6 hours for pain. 13. Tramadol 50 mg 2 times a day (had not been using as pain increase). 14. Atorvastatin 20 mg by mouth at bedtime. 15. Lisinopril 2.5 daily. 16. Warfarin 10 mg at night. 17. [place] 5/325 at bedtime as needed for pain. 18. Spiriva 2.5 mcg daily. 19. Budesonide 0.25 inhaled 2 times a day. 20. Atrovent 0.5 mg 2 times daily inhaled. 21. Solu-Medrol Diskus 1 puff 2 times daily. 22. Xopenex 0.63 mg inhaled three times daily as needed for shortness of breath. ALLERGIES: KEFLEX, METHOTREXATE, and PLAQUENIL. FAMILY HISTORY: CHF and COPD, no rheumatologic disease. SOCIAL HISTORY: Smokes 3 cigarettes a day. Denies alcohol or drug use. She is in clinic with her aide who is her primary nursing care partner. REVIEW OF SYSTEMS: Very fatigued. HEENT: Negative. Nodes: No swollen glands or lymph nodes. Skin: She has not noted any particular bruising or bleeding. Lungs: Shortness of breath with exertion, but this is chronic. Cardiac: Negative. GI: Eating little bit less, food from [employer]. : Negative. Hematologic: Anemia. Neurologic: Negative. PHYSICAL EXAM: Temperature 98.2, pulse 79, respirations 16, O2 sat 98%, BP 115/ 51. HEENT: She is pale. Mucosa moist. No lesions. No cervical or supraclavicular lymphadenopathy. Nodes: No lymphadenopathy. Lungs: Clear to auscultation. Heart: Regular rate and rhythm. S1, S2. No murmurs, rubs, gallops. Abdomen: I cannot palpate her spleen, soft. No liver edge. Good bowel sounds. Extremities: She has marked deformity consistent with rheumatoid arthritis. She does have pulses x4. Skin: I did not turn her over to do a full exam, but no evidence of bruising. She does have some bleeding around her IV site, but seems little excessive. DIAGNOSTIC STUDIES/LAB DATA: I reviewed the manual blood film, it is fairly unremarkable from yesterday. She has a mild macrocytosis. No evidence of hemolysis and no spherocytes. Hemoglobin today 9.2, normal differential. She does have an ESR of 97, recheck as noted above. Iron sat 84% with ferritin of 22 and she has an elevated serum iron, I am not sure, and a total iron-binding capacity of 336. C-reactive protein is 34. Methylmalonic acid was elevated at 10.7 in June of 2015. Her B12 is normal today at 295. Looking at her abdomen and pelvis CT scan, she has mild hepatomegaly, no splenomegaly, and no evidence of lymphadenopathy. ASSESSMENT AND PLAN: A 66-year-old female with lupus anticoagulant and rheumatoid arthritis, comes in with marked anemia. Differential includes medication effect from Imuran, but she has been on this medicine long-term, consumptive hemolysis, occult bleeding, functional B12 deficiency. 1. We will send additional blood work including Rachel for warm antibody hemolytic anemia as well as cold agglutinin and cryoglobulin. 2. She had elevated methylmalonic acid in the past and has borderline B12, recheck her methylmalonic acid today. 3. Given her lupus phospholipid antibody syndrome and a reduced INR today, I do recommend anticoagulation with Lovenox or heparin drip. Follow up for hemorrhage. 4. Elevated serum iron, difficult to interpret. Question whether or not it was after her blood transfusion. We will wait few days and recheck. 5. CBC daily, and we will see if her hemoglobin drops again. 6. I will put her on daily folic acid given the potential for anemia secondary to hemolysis. [id number]/[facility] #: [id number] [facility]
[2016-12-22] MEDS: Atorvastatin* 20 MG TAB PO SCH (20:39)
[2016-12-23] MEDS: Morphine ORAL.SOLN 10 mg* 2 MG/ML UDC 5 ml PO PRN ×3 (04:36→21:50)
[2016-12-23] MEDS: Ipratropium 0.5MG/2.5ML NEB* 0.5 MG/2.5 ML NEB.SOLN INH SCH ×2 (07:32→19:10)
[2016-12-23] MEDS: Budesonide NEB* 0.25 MG/2 ML NEB.SOLN INH SCH ×2 (07:33→19:09)
[2016-12-23 07:45] LABS: Hematocrit 27 % (35-47); Hemoglobin 9.1 g/dl (12.0-16.0); Mean Corpuscular HGB Conc 34 g/dl (31-36); Mean Corpuscular Hemoglobin 33 pg (27-31); Mean Corpuscular Volume 97 fL (80-97); Mean Platelet Volume 7 um3 (7.4-10.4); Red Blood Count 2.78 10^6/ul (4.0-5.4); Red Cell Distribution Width 21 % (10.5-15); White Blood Count 10.4 10^3/ul (3.5-10.8)
[2016-12-23 07:59] LABS: BUN/Creatinine Ratio 23.4 (8-20); Calcium 8.1 mg/dL (8.6-10.3); EGFR African American 55.7 (>60); EGFR Non-African American 43.3 (>60)
[2016-12-23] MEDS: Mometasone/Formoter 200/5 MDI INH SCH ×2 (08:47→19:10)
[2016-12-23] MEDS: Insulin LISPRO* 1 UNITS UNIT SUBCUT SCH ×3 (09:09→17:41)
[2016-12-23] MEDS: Insulin GLARGINE(*) 1 UNITS UNIT SUBCUT SCH (09:10)
[2016-12-23] MEDS: Ferrous Gluconate TAB* 324 MG TAB PO SCH (09:11)
[2016-12-23] MEDS: traMADol TAB* 50 MG PO SCH ×2 (09:11→21:41)
[2016-12-23] MEDS: Magnesium Oxide TAB* 400 MG PO SCH ×2 (09:11→21:40)
[2016-12-23] MEDS: Cinacalcet TAB* 30 MG PO SCH ×2 (09:11→21:41)
[2016-12-23] MEDS: Cholecalciferol TAB* 1000 UNITS PO SCH (09:11)
[2016-12-23] MEDS: BuPROPion XL* 300 MG TAB.XL PO SCH (09:12)
[2016-12-23] MEDS: Sertraline* 25 MG TAB PO SCH (09:12)
[2016-12-23] MEDS: azaTHIOprine TAB(*) 50 MG TAB PO SCH (09:12)
--- NOTE | 2016-12-23 11:05 | RAD ---
Indication: Right clavicle pain. 2 views of the right clavicle demonstrates no fracture. AC joint arthritis is noted. IMPRESSION: Right AC joint arthritis without fracture.
--- NOTE | 2016-12-23 11:05 | RAD ---
Indication: Left clavicle pain. 2 views of left clavicle demonstrates AC joint arthritis. No fracture is identified. IMPRESSION: AC joint arthritis without fracture.
[2016-12-23] MEDS: Tiotropium Respimt 2.5 mcg(NF) 1 PUFF MDI INH SCH (11:21)
[2016-12-23] MEDS: SALMETEROL INH SCH ×2 (11:22→21:39)
[2016-12-23] MEDS: Heparin DRIP 25,000 UNITS(*) 25,000 UNITS/500 ML BAG IV SCH (13:05)
--- NOTE | 2016-12-23 16:10 | PN ---
Subjective Date of Service: 12/23/16 Interval History: HOSPITALIST PROGRESS NOTE Patient seen and examined at bedside. Her major complaint is bilateral clavicle pain. Has more energy now after transfusions. Family History: Unchanged from Admission Social History: Unchanged from Admission Past Medical History: Unchanged from Admission Objective Active Medications: Hydrocodone Bitart/Acetaminophen ([place] 5-325 Tab*) 2 tab PO BEDTIME PRN PRN Reason: PAIN Last Admin: 12/22/16 22:23 Dose: 2 tab Hydrocodone Bitart/Acetaminophen ([place] 5-325 Tab*) 1 tab PO Q6H PRN PRN Reason: PAIN Last Admin: 12/22/16 16:12 Dose: 1 tab Atorvastatin Calcium (Lipitor*) 20 mg PO BEDTIME [facility] Last Admin: 12/22/16 20:39 Dose: 20 mg Azathioprine (Imuran Tab(*)) 50 mg PO DAILY [facility] Last Admin: 12/23/16 09:12 Dose: 50 mg Budesonide (Pulmicort Neb*) 0.25 mg INH BID [facility] Last Admin: 12/23/16 07:33 Dose: 0.25 mg Bupropion HCl (Bupropion Xl*) 300 mg PO DAILY [facility] PRN Reason: Protocol Last Admin: 12/23/16 09:12 Dose: 300 mg Cholecalciferol (Vitamin D Tab*) 1,000 units PO DAILY [facility] Last Admin: 12/23/16 09:11 Dose: 1,000 units Cinacalcet (Sensipar Tab*) 30 mg PO BID [facility] Last Admin: 12/23/16 09:11 Dose: 30 mg Dextrose (D50w Syringe 50 Ml*) 12.5 gm IV PUSH .FOR FS < 60 - SS PRN PRN Reason: FS < 60 Ferrous Gluconate (Fergon Tab*) 324 mg PO DAILY [facility] Last Admin: 12/23/16 09:11 Dose: 324 mg Heparin Sodium (Porcine) (Heparin Vial(*)) 0 units IV .PER PROTOCOL [facility] PRN Reason: Protocol Heparin Sodium/Dextrose (Heparin Drip 25,000 Units(*)) 25,000 units in 500 mls @ 0 mls/hr IV .NO INITIAL BOLUS [facility]; As Directed PRN Reason: Protocol Last Admin: 12/23/16 13:05 Dose: 19 mls/hr Insulin Glargine (Lantus(*)) 16 units SUBCUT QAM [facility] Last Admin: 12/23/16 09:10 Dose: 16 units Insulin Human Lispro (Humalog*) 0 - 10 units SUBCUT AC [facility] PRN Reason: Protocol Last Admin: 12/23/16 13:04 Dose: 4 units Ipratropium [place] (Atrovent 0.5 Mg Neb.Sarai*) 0.5 mg INH BID [facility] Last Admin: 12/23/16 07:32 Dose: 0.5 mg Levalbuterol HCl (Xopenex 0.63mg/3ml Neb*) 0.63 mg INH TID PRN PRN Reason: SHORTNESS OF BREATH Magnesium Oxide (Magox 400 Tab*) 800 mg PO BID [facility] Last Admin: 12/23/16 09:11 Dose: 800 mg Mometasone Furoate/Formoterol Fumar (Dulera 200/5 Mdi*) 2 puff INH BID [facility] Last Admin: 12/23/16 08:47 Dose: 2 puff Morphine Sulfate (Morphine Oral.Soln 10 Mg*) 5 mg PO Q6H PRN PRN Reason: PAIN Last Admin: 12/23/16 11:33 Dose: 5 mg Salmeterol Xinafoate (Serevent Diskus (Nf)) 1 puff INH BID [facility] PRN Reason: Protocol Last Admin: 12/23/16 11:22 Dose: Not Given Sertraline HCl (Zoloft*) 75 mg PO DAILY [facility] Last Admin: 12/23/16 09:12 Dose: 75 mg Tiotropium [place] (Spiriva Respimat 2.5 Mcg(Nf)) 1 puff INH DAILY [facility] Last Admin: 12/23/16 11:21 Dose: Not Given Tramadol HCl (Ultram*) 50 mg PO BID [facility] Last Admin: 12/23/16 09:11 Dose: 50 mg Warfarin Sodium (Coumadin Tab(*)) 10 mg PO DAILY@1700 [facility] PRN Reason: Protocol Last Admin: 12/22/16 17:16 Dose: 10 mg Vital Signs 12/23/16 12/23/16 12/23/16 07:22 07:39 08:00 Temperature 97.5 F Pulse Rate 94 90 Respiratory 16 16 18 Rate Blood Pressure 149/66 (mmHg) O2 Sat by Pulse 88 94 Oximetry Oxygen Devices in Use Now: Nasal Cannula Appearance: Elderly lady lying in bed in NAD. Eyes: No Scleral Icterus Ears/Nose/Mouth/Throat: Mucous Membranes Moist Neck: Trachea Midline Respiratory: Symmetrical Chest Expansion and Respiratory Effort, Clear to Auscultation Cardiovascular: RRR - Normal S1 and S2 Abdominal: NL Sounds; No Tenderness; No Distention Extremities: No Edema, - - RA deformities Neurological: Alert and Oriented x 3, NL Muscle Strength and Tone Lines/Tubes/Other Access: Clean, Dry and Intact Peripheral IV Nutrition: Taking PO's Result Diagrams: 12/23/16 07:08 12/23/16 07:08 Assess/Plan/Problems-Billing Assessment: Mrs. Del Valle is a 66 yo F h/o Antiphospholipid on AC, severe RA, DVT/PE on AC, COPD with chronic respiratory failure (3L), admitted with supratherapeutic INR and anemia. - Patient Problems (1) Anemia Comment: - Likely multifactorial - suspect slow GI bleed in setting of supratherapeutic INR, but hemolytic anemia, functional B12 deficiency may be playing a role. - S/p 3 PRBC 12/21. - Hb stable around 9, with symptomatic improvement. (2) Clavicle pain Comment: - This is her major concern at this time. - Suspect this is likely RA related, as her Azathioprine dose was recently decreased due to worsening renal function. - Check bilateral clavicles xray. (3) Rheumatoid arthritis Comment: - Continue Azathioprine. - Check sed rate and CRP. (4) Antiphospholipid syndrome Comment: - Continue Warfarin and heparin drip. (5) Type 2 diabetes mellitus Comment: - Increase Lantus to 20 units and continue SS. (6) Obstructive sleep apnea Comment: - Continue CPAP. (7) DVT prophylaxis Comment: - Continue Heparin drip and Warfarin. (8) DNR (do not resuscitate) Status and Disposition: Inpatient.
[2016-12-23] MEDS: HYDROcodone/ACETAMIN 5-325 MG* 1 TAB PO PRN (16:58)
[2016-12-23] MEDS: Warfarin TAB(*) 10 MG PO SCH (17:00)
[2016-12-23] MEDS: Atorvastatin* 20 MG TAB PO SCH (21:41)
[2016-12-24] MEDS: HYDROcodone/ACETAMIN 5-325 MG* 1 TAB PO PRN ×2 (04:18→20:54)
[2016-12-24] MEDS: Morphine ORAL.SOLN 10 mg* 2 MG/ML UDC 5 ml PO PRN (05:57)
[2016-12-24] MEDS: azaTHIOprine TAB(*) 50 MG TAB PO SCH (07:52)
[2016-12-24] MEDS: BuPROPion XL* 300 MG TAB.XL PO SCH (07:53)
[2016-12-24] MEDS: Sertraline* 25 MG TAB PO SCH (07:53)
[2016-12-24] MEDS: Magnesium Oxide TAB* 400 MG PO SCH ×2 (07:53→20:57)
[2016-12-24] MEDS: Ferrous Gluconate TAB* 324 MG TAB PO SCH (07:53)
[2016-12-24] MEDS: Cinacalcet TAB* 30 MG PO SCH ×2 (07:54→20:54)
[2016-12-24] MEDS: traMADol TAB* 50 MG PO SCH ×2 (07:54→20:55)
[2016-12-24] MEDS: Cholecalciferol TAB* 1000 UNITS PO SCH (07:54)
[2016-12-24] MEDS: Budesonide NEB* 0.25 MG/2 ML NEB.SOLN INH SCH ×2 (07:59→19:01)
[2016-12-24] MEDS: Mometasone/Formoter 200/5 MDI INH SCH ×2 (08:02→19:01)
[2016-12-24] MEDS: Ipratropium 0.5MG/2.5ML NEB* 0.5 MG/2.5 ML NEB.SOLN INH SCH ×2 (08:02→19:01)
[2016-12-24] MEDS: Insulin GLARGINE(*) 1 UNITS UNIT SUBCUT SCH (08:27)
[2016-12-24] MEDS: Insulin LISPRO* 1 UNITS UNIT SUBCUT SCH ×4 (08:28→17:52)
[2016-12-24 08:42] LABS: Hematocrit 25 % (35-47); Hemoglobin 8.7 g/dl (12.0-16.0); Mean Corpuscular HGB Conc 34 g/dl (31-36); Mean Corpuscular Hemoglobin 34 pg (27-31); Mean Corpuscular Volume 98 fL (80-97); Mean Platelet Volume 6 um3 (7.4-10.4); Red Blood Count 2.58 10^6/ul (4.0-5.4); Red Cell Distribution Width 22 % (10.5-15); White Blood Count 7.1 10^3/ul (3.5-10.8)
[2016-12-24 08:57] LABS: BUN/Creatinine Ratio 18.5 (8-20); C Reactive Protein 176.02 mg/L (< 5.00); Calcium 7.7 mg/dL (8.6-10.3); EGFR African American 55.7 (>60); EGFR Non-African American 43.3 (>60)
[2016-12-24 09:38] LABS: Erythrocyte Sed Rate 109 mm/Hr (0-40)
[2016-12-24] MEDS: SALMETEROL INH SCH ×3 (11:19→20:57)
[2016-12-24] MEDS: Tiotropium Respimt 2.5 mcg(NF) 1 PUFF MDI INH SCH (11:20)
--- NOTE | 2016-12-24 15:10 | PN ---
Subjective Date of Service: 12/24/16 Interval History: HOSPITALIST PROGRESS NOTE Patient seen and examined at bedside. She c/o clavicular pain and fatigue. Family History: Unchanged from Admission Social History: Unchanged from Admission Past Medical History: Unchanged from Admission Objective Active Medications: Hydrocodone Bitart/Acetaminophen ([place] 5-325 Tab*) 2 tab PO BEDTIME PRN PRN Reason: PAIN Last Admin: 12/23/16 16:58 Dose: 2 tab Hydrocodone Bitart/Acetaminophen ([place] 5-325 Tab*) 1 tab PO Q6H PRN PRN Reason: PAIN Last Admin: 12/24/16 04:18 Dose: 1 tab Atorvastatin Calcium (Lipitor*) 20 mg PO BEDTIME [facility] Last Admin: 12/23/16 21:41 Dose: 20 mg Azathioprine (Imuran Tab(*)) 50 mg PO DAILY [facility] Last Admin: 12/24/16 07:52 Dose: 50 mg Budesonide (Pulmicort Neb*) 0.25 mg INH BID [facility] Last Admin: 12/24/16 07:59 Dose: 0.25 mg Bupropion HCl (Bupropion Xl*) 300 mg PO DAILY [facility] PRN Reason: Protocol Last Admin: 12/24/16 07:53 Dose: 300 mg Cholecalciferol (Vitamin D Tab*) 1,000 units PO DAILY [facility] Last Admin: 12/24/16 07:54 Dose: 1,000 units Cinacalcet (Sensipar Tab*) 30 mg PO BID [facility] Last Admin: 12/24/16 07:54 Dose: 30 mg Dextrose (D50w Syringe 50 Ml*) 12.5 gm IV PUSH .FOR FS < 60 - SS PRN PRN Reason: FS < 60 Ferrous Gluconate (Fergon Tab*) 324 mg PO DAILY [facility] Last Admin: 12/24/16 07:53 Dose: 324 mg Heparin Sodium (Porcine) (Heparin Vial(*)) 0 units IV .PER PROTOCOL [facility] PRN Reason: Protocol Heparin Sodium/Dextrose (Heparin Drip 25,000 Units(*)) 25,000 units in 500 mls @ 0 mls/hr IV .NO INITIAL BOLUS [facility]; As Directed PRN Reason: Protocol Last Admin: 12/23/16 13:05 Dose: 19 mls/hr Insulin Glargine (Lantus(*)) 20 units SUBCUT QAM [facility] Last Admin: 12/24/16 08:27 Dose: 20 units Insulin Human Lispro (Humalog*) 0 - 10 units SUBCUT AC [facility] PRN Reason: Protocol Last Admin: 12/24/16 11:36 Dose: 8 units Ipratropium [place] (Atrovent 0.5 Mg Neb.Sarai*) 0.5 mg INH BID [facility] Last Admin: 12/24/16 08:02 Dose: 0.5 mg Levalbuterol HCl (Xopenex 0.63mg/3ml Neb*) 0.63 mg INH TID PRN PRN Reason: SHORTNESS OF BREATH Magnesium Oxide (Magox 400 Tab*) 800 mg PO BID [facility] Last Admin: 12/24/16 07:53 Dose: 800 mg Mometasone Furoate/Formoterol Fumar (Dulera 200/5 Mdi*) 2 puff INH BID [facility] Last Admin: 12/24/16 08:02 Dose: 2 puff Morphine Sulfate (Morphine Oral.Soln 10 Mg*) 5 mg PO Q6H PRN PRN Reason: PAIN Last Admin: 12/24/16 05:57 Dose: 5 mg Salmeterol Xinafoate (Serevent Diskus (Nf)) 1 puff INH BID [facility] PRN Reason: Protocol Last Admin: 12/24/16 11:32 Dose: 1 puff Sertraline HCl (Zoloft*) 75 mg PO DAILY [facility] Last Admin: 12/24/16 07:53 Dose: 75 mg Tiotropium [place] (Spiriva Respimat 2.5 Mcg(Nf)) 1 puff INH DAILY [facility] Last Admin: 12/24/16 11:20 Dose: Not Given Tramadol HCl (Ultram*) 50 mg PO BID [facility] Last Admin: 12/24/16 07:54 Dose: 50 mg Warfarin Sodium (Coumadin Tab(*)) 10 mg PO DAILY@1700 [facility] PRN Reason: Protocol Last Admin: 12/23/16 17:00 Dose: 10 mg Vital Signs 12/24/16 12/24/16 12/24/16 07:27 07:54 07:57 Temperature 98.1 F Pulse Rate 85 Respiratory 16 16 16 Rate Blood Pressure 114/64 (mmHg) O2 Sat by Pulse 99 Oximetry 12/24/16 12/24/16 12/24/16 08:00 08:04 09:54 Temperature Pulse Rate 85 Respiratory 16 16 16 Rate Blood Pressure (mmHg) O2 Sat by Pulse 98 Oximetry Oxygen Devices in Use Now: Nasal Cannula Appearance: Pleasant elderly lady lying in bed in NAD. Eyes: No Scleral Icterus Ears/Nose/Mouth/Throat: Mucous Membranes Moist Neck: Trachea Midline Respiratory: Symmetrical Chest Expansion and Respiratory Effort, Clear to Auscultation Cardiovascular: RRR - Normal S1 and S2 Abdominal: NL Sounds; No Tenderness; No Distention Neurological: Alert and Oriented x 3, NL Muscle Strength and Tone Lines/Tubes/Other Access: Clean, Dry and Intact Peripheral IV Nutrition: Taking PO's Result Diagrams: 12/24/16 08:08 12/24/16 08:08 Assess/Plan/Problems-Billing Assessment: Mrs. Del Valle is a 66 yo F h/o Antiphospholipid on AC, severe RA, DVT/PE on AC, COPD with chronic respiratory failure (3L), admitted with supratherapeutic INR and anemia. - Patient Problems (1) Anemia Comment: - Likely multifactorial - suspect slow GI bleed in setting of supratherapeutic INR, but hemolytic anemia, functional B12 deficiency may be playing a role. - S/p 3 PRBC 12/21. - Hb stable around 9, with symptomatic improvement. (2) Clavicle pain Comment: - This is her major concern at this time. - Suspect this is likely RA related, as her Azathioprine dose was recently decreased due to worsening renal function. - Clavicles xray show bilateral AC joint arthritis. (3) Rheumatoid arthritis Comment: - Continue Azathioprine. - Sed rate is 109 and CRP 176. - Suspect activity of disease is secondary to lower Azathioprine dose. - Will d/w Dr. Martinez if steroids should be started (especially if anemia is hemolytic - ?Felty syndrome). Will need another DMARD. (4) Antiphospholipid syndrome Comment: - Continue Warfarin and heparin drip. (5) Type 2 diabetes mellitus Comment: - Increase Lantus to 20 units and continue SS. (6) Obstructive sleep apnea Comment: - Continue CPAP. (7) DVT prophylaxis Comment: - Continue Heparin drip and Warfarin. (8) DNR (do not resuscitate) Status and Disposition: Inpatient.
[2016-12-24] MEDS ORDERED: Dextrose 50% Syringe 50 ML* 25 GM/50 ML SYRINGE IV PUSH PRN (15:17)
[2016-12-24] MEDS: Warfarin TAB(*) 10 MG PO SCH (17:51)
[2016-12-24] MEDS: Atorvastatin* 20 MG TAB PO SCH (20:56)
[2016-12-25 06:24] LABS: Hematocrit 28 % (35-47); Hemoglobin 9.1 g/dl (12.0-16.0)
[2016-12-25] MEDS: Budesonide NEB* 0.25 MG/2 ML NEB.SOLN INH SCH ×2 (08:21→20:43)
[2016-12-25] MEDS: traMADol TAB* 50 MG PO SCH ×2 (08:22→21:47)
[2016-12-25] MEDS: Ipratropium 0.5MG/2.5ML NEB* 0.5 MG/2.5 ML NEB.SOLN INH SCH ×2 (08:22→20:43)
[2016-12-25] MEDS: Sertraline* 25 MG TAB PO SCH (08:26)
[2016-12-25] MEDS: BuPROPion XL* 300 MG TAB.XL PO SCH (08:26)
[2016-12-25] MEDS: Ferrous Gluconate TAB* 324 MG TAB PO SCH (08:27)
[2016-12-25] MEDS: Magnesium Oxide TAB* 400 MG PO SCH ×2 (08:27→21:47)
[2016-12-25] MEDS: azaTHIOprine TAB(*) 50 MG TAB PO SCH (08:27)
[2016-12-25] MEDS: Cinacalcet TAB* 30 MG PO SCH ×2 (08:27→21:47)
[2016-12-25] MEDS: Cholecalciferol TAB* 1000 UNITS PO SCH (08:27)
[2016-12-25] MEDS: Mometasone/Formoter 200/5 MDI INH SCH ×2 (08:37→20:43)
[2016-12-25] MEDS: Insulin GLARGINE(*) 1 UNITS UNIT SUBCUT SCH (09:55)
[2016-12-25] MEDS: Insulin LISPRO* 1 UNITS UNIT SUBCUT SCH ×6 (09:56→17:49)
[2016-12-25] MEDS: predniSONE TAB* 20 MG PO SCH (11:21)
[2016-12-25] MEDS: SALMETEROL INH SCH ×2 (11:22→22:24)
[2016-12-25] MEDS: Tiotropium Respimt 2.5 mcg(NF) 1 PUFF MDI INH SCH (11:46)
[2016-12-25 12:11] LABS: Erythropoietin 148 mIU/mL (2.6 - 18.5)
--- NOTE | 2016-12-25 13:04 | CONSULT ---
Consult Consult: Patient seen and examined. Ms. Del Valle is a 66 year old woman with long standing rheumatoid arthritis, chronic anticoagulation related to APL syndrome, now admitted with severe hemolytic anemia, supratherapeutic INR, clavicular pain and elevated inflammatory markers. I agree that her symptoms are consistent with a flare of RA, and she is already noting some benefit from Prednisone at 40mg daily which was started this morning. assisted I agree that Orencia is an excellent steroid sparing medication and could be initiated as an outpatient. As it takes some time to get Orencia approved and then it can take several months for it to take effect, I recommend a very gradual taper of 10mg every week; follow up with us as an outpatient for further monitoring and tapering soon after discharge. I will follow; thanks!
[2016-12-25] MEDS: Morphine ORAL.SOLN 10 mg* 2 MG/ML UDC 5 ml PO PRN (14:11)
--- NOTE | 2016-12-25 15:26 | PN ---
Subjective Date of Service: 12/25/16 Interval History: HOSPITALIST PROGRESS NOTE Patient seen and examined at bedside. She feels better this AM, with more energy and less pain. Family History: Unchanged from Admission Social History: Unchanged from Admission Past Medical History: Unchanged from Admission Objective Active Medications: Hydrocodone Bitart/Acetaminophen ([place] 5-325 Tab*) 2 tab PO BEDTIME PRN PRN Reason: PAIN Last Admin: 12/24/16 20:54 Dose: 2 tab Hydrocodone Bitart/Acetaminophen ([place] 5-325 Tab*) 1 tab PO Q6H PRN PRN Reason: PAIN Last Admin: 12/24/16 04:18 Dose: 1 tab Atorvastatin Calcium (Lipitor*) 20 mg PO BEDTIME [facility] Last Admin: 12/24/16 20:56 Dose: 20 mg Azathioprine (Imuran Tab(*)) 50 mg PO DAILY [facility] Last Admin: 12/25/16 08:27 Dose: 50 mg Budesonide (Pulmicort Neb*) 0.25 mg INH BID [facility] Last Admin: 12/25/16 08:21 Dose: 0.25 mg Bupropion HCl (Bupropion Xl*) 300 mg PO DAILY [facility] PRN Reason: Protocol Last Admin: 12/25/16 08:26 Dose: 300 mg Cholecalciferol (Vitamin D Tab*) 1,000 units PO DAILY [facility] Last Admin: 12/25/16 08:27 Dose: 1,000 units Cinacalcet (Sensipar Tab*) 30 mg PO BID [facility] Last Admin: 12/25/16 08:27 Dose: 30 mg Dextrose (D50w Syringe 50 Ml*) 12.5 gm IV PUSH .FOR FS < 60 - SS PRN PRN Reason: FS < 60 Dextrose (D50w Syringe 50 Ml*) 12.5 gm IV PUSH .FOR FS < 60 - SS PRN PRN Reason: FS < 60 Ferrous Gluconate (Fergon Tab*) 324 mg PO DAILY [facility] Last Admin: 12/25/16 08:27 Dose: 324 mg Insulin Glargine (Lantus(*)) 20 units SUBCUT QAM [facility] Last Admin: 12/25/16 09:55 Dose: 20 units Insulin Human Lispro (Humalog*) 0 - 10 units SUBCUT AC [facility] PRN Reason: Protocol Last Admin: 12/25/16 13:08 Dose: 2 units Insulin Human Lispro (Humalog*) 0 units SUBCUT AC [facility] PRN Reason: Protocol Last Admin: 12/25/16 13:10 Dose: 6 unit Ipratropium [place] (Atrovent 0.5 Mg Neb.Sarai*) 0.5 mg INH BID [facility] Last Admin: 12/25/16 08:22 Dose: 0.5 mg Levalbuterol HCl (Xopenex 0.63mg/3ml Neb*) 0.63 mg INH TID PRN PRN Reason: SHORTNESS OF BREATH Magnesium Oxide (Magox 400 Tab*) 800 mg PO BID [facility] Last Admin: 12/25/16 08:27 Dose: 800 mg Mometasone Furoate/Formoterol Fumar (Dulera 200/5 Mdi*) 2 puff INH BID [facility] Last Admin: 12/25/16 08:37 Dose: 2 puff Morphine Sulfate (Morphine Oral.Soln 10 Mg*) 5 mg PO Q6H PRN PRN Reason: PAIN Last Admin: 12/25/16 14:11 Dose: 5 mg Prednisone (Deltasone Tab*) 40 mg PO DAILY [facility] Last Admin: 12/25/16 11:21 Dose: 40 mg Salmeterol Xinafoate (Serevent Diskus (Nf)) 1 puff INH BID [facility] PRN Reason: Protocol Last Admin: 12/25/16 11:22 Dose: 1 puff Sertraline HCl (Zoloft*) 75 mg PO DAILY [facility] Last Admin: 12/25/16 08:26 Dose: 75 mg Tiotropium [place] (Spiriva Respimat 2.5 Mcg(Nf)) 1 puff INH DAILY [facility] Last Admin: 12/25/16 11:46 Dose: Not Given Tramadol HCl (Ultram*) 50 mg PO BID [facility] Last Admin: 12/25/16 08:22 Dose: 50 mg Warfarin Sodium (Coumadin Tab(*)) 10 mg PO DAILY@1700 [facility] PRN Reason: Protocol Last Admin: 12/24/16 17:51 Dose: 10 mg Vital Signs 12/25/16 12/25/16 12/25/16 10:22 11:56 14:11 Temperature 97.9 F Pulse Rate 97 Respiratory 16 17 20 Rate Blood Pressure 143/69 (mmHg) O2 Sat by Pulse 99 Oximetry Oxygen Devices in Use Now: Nasal Cannula Appearance: Pleasant lady lying in bed in NAD. Eyes: No Scleral Icterus Ears/Nose/Mouth/Throat: Mucous Membranes Moist Neck: Trachea Midline Respiratory: Symmetrical Chest Expansion and Respiratory Effort, Clear to Auscultation Cardiovascular: RRR - Normal S1 and S2 Abdominal: NL Sounds; No Tenderness; No Distention Extremities: No Edema, - - RA deformities Neurological: Alert and Oriented x 3, NL Muscle Strength and Tone Lines/Tubes/Other Access: Clean, Dry and Intact Peripheral IV Nutrition: Taking PO's Result Diagrams: 12/25/16 05:56 12/24/16 08:08 Assess/Plan/Problems-Billing Assessment: Mrs. Del Valle is a 66 yo F h/o Antiphospholipid on AC, severe RA, DVT/PE on AC, COPD with chronic respiratory failure (3L), admitted with supratherapeutic INR and anemia. - Patient Problems (1) Anemia Comment: - Likely multifactorial - suspect slow GI bleed in setting of supratherapeutic INR, but hemolytic anemia, functional B12 deficiency may be playing a role. - S/p 3 PRBC 12/21. - Hb stable around 9, with symptomatic improvement. (2) Clavicle pain Comment: - This is her major concern at this time. - Suspect this is likely RA related, as her Azathioprine dose was recently decreased due to worsening renal function. - Clavicles xray show bilateral AC joint arthritis. (3) Rheumatoid arthritis Comment: - Continue Azathioprine. - Sed rate is 109 and CRP 176. - Suspect activity of disease is secondary to lower Azathioprine dose. - d/w Dr. Martinez - started on prednisone 40mg/day. Plan to start Orencia as outpatient. (4) Antiphospholipid syndrome Comment: - Continue Warfarin. (5) Type 2 diabetes mellitus Comment: - Continue Lantus and Lispro SS. (6) Obstructive sleep apnea Comment: - Continue CPAP. (7) DVT prophylaxis Comment: - Continue Warfarin. (8) DNR (do not resuscitate) Status and Disposition: Inpatient.
[2016-12-25] MEDS: Warfarin TAB(*) 10 MG PO SCH (17:50)
[2016-12-25] MEDS: Atorvastatin* 20 MG TAB PO SCH (21:47)
--- NOTE | 2016-12-26 02:12 | CONS ---
CONSULTATION REPORT: DATE OF CONSULT: 12/25/16 CONSULTING PHYSICIAN: Ingris Quintana MD REASON FOR CONSULTATION: Rheumatoid arthritis flare. HISTORY OF PRESENT ILLNESS: The patient is a 66-year-old woman with a longstanding history of rheumatoid arthritis. She also has emphysema and she is chronically oxygen dependent. She has prior complications of antiphospholipid antibody syndrome, requiring chronic anticoagulation with Coumadin and recently has been very supratherapeutic. She also has a history of hyperparathyroidism, diabetes, hypertension, hyperlipidemia, obstructive sleep apnea, and longstanding osteoarthritis. She presented with a supratherapeutic INR as well as significant anemia, which was hemolytic and found on at her outpatient labs. Symptomatically, she has noted that her rheumatoid arthritis symptoms have been gradually getting worse. She notes that it occurred since she has reduced her azathioprine. Tentatively, she is planning to switch this disease-modifying agent to Orencia. The azathioprine had been decreased because of some renal dysfunction. She was recently seen by Devin Cheatham, her nurse practitioner, and was noted that she had an INR of 6.9 and she was told therefore to stop Coumadin. On further evaluation, she was found to have a significant anemia and she was therefore admitted to the hospital. In terms of her symptoms, she has had worsening symptoms over the past couple of days and weeks, which has improved today. She also has had diffuse shoulder, hand, and wrist pain, which she attributed to her rheumatoid arthritis flares, which has occurred since she has reduced the azathioprine. In terms of her past rheumatologic history, she has been severely undertreated for her rheumatoid arthritis as she could not afford biologics and her RA was only partially controlled on METHOTREXATE 7.5 mg weekly, leflunomide 20 mg daily , diclofenac, and HYDROXYCHLOROQUINE. As noted above, she had the other significant complications including cor pulmonale. She has had bilateral pulmonary embolism, biventricular heart failure, and a possible left LV thrombus in September 2014 with an ejection fraction of 27%. Her labs were positive for lupus anticoagulant at the time and her HYDROXYCHLOROQUINE and prednisone were discontinued. Her treatment was switched to azathioprine as the disease-modifying agent was beneficial for treatment of rheumatoid arthritis with associated lung involvement. She has been seeing Dr. Ramirez, Dr. Flowers, Dr. Ballesteros, and Dr. Travis. For her osteoporosis, she has been on Reclast and she has a history of hyperparathyroidism. She has had recurrent pain as noted in her hands, feet, ankles, and wrist. Today, she is improved when she started the prednisone. She has considerable disabilities from her rheumatoid arthritis including difficulty using her hands and wrists and activities of daily living. She has required help with activities of daily living and able to drive for only short distances. She also has chronic shortness of breath, so that she can only walk a few yards before she gets severely short of breath on oxygen. She ambulates very little. She has been a smoker, but she has recently cut down to 6 cigarettes per day. PAST MEDICAL HISTORY: She has had a flu vaccine, this was a pandemic formulation. Past cardiac history includes cardiomyopathy. MEDICATIONS: Prior to her inpatient visit included: 1. Tramadol 50 mg as needed. 2. Ipratropium bromide. 3. Spiriva. 4. Xopenex. 5. Wellbutrin SR 450 mg daily. 6. Morphine sulfate 2.5 mg every 6 hours as needed. 7. Serevent. 8. Budesonide. 9. Oxygen. 10. Hydrocodone as needed. 11. Ferrous gluconate. 12. Atorvastatin 20 mg daily. 13. Azathioprine 50 mg daily. 14. Sertraline. 15. Vitamin D. 16. CPAP. 17. Lantus SoloSTAR. 18. Furosemide 40 mg daily. 19. Magnesium 400 mg b.i.d. 20. Toprol-XL 50 mg daily. 21. Warfarin 5 mg daily. 22. Lisinopril 5 mg half a tablet daily. 23. Metformin 500 mg b.i.d. 24. Metoprolol succinate ER 50 mg daily. 25. Sensipar 30 mg one daily. ALLERGIES: Include KEFLEX and HYDROXYCHLOROQUINE, which may have associated with cardiomyopathy, but this is questionable and METHOTREXATE per the patient. FAMILY HISTORY: Notable for osteoarthritis with his mother with CHF and father with COPD. SOCIAL HISTORY: She still smokes about 3 to 6 cigarettes per day. She has been smoking for almost 40 years and about a pack and a half per day smoker at most, but denies any alcohol or illicit drug use. She does exercise. REVIEW OF SYSTEMS: Constitutional: She denies fever or chills or significant weight loss or gain. She has had decreased activity level because of disability from her joint pain, which has been worsening. Eyes: Denied acute change in her vision or acute red eyes. ENT: Denies ulcerations in her mouth. Cardiovascular: She has a history of mitral valve disease and tachycardia, but she currently denies chest pain, pressure, chest tightness, or palpitations. Respiratory: She has chronic shortness of breath, emphysema, and use of oxygen as well as a CPAP and shortness of breath with minimal activity, but this has been stable. GI: She denies heartburn, cramping, diarrhea, or tarry stool. Musculoskeletal: As noted above with worsening symptoms. Skin: She denies rash, itching, or ulceration. Psychiatric: History of depression. Other 14-point review of systems were reviewed and were otherwise negative. PHYSICAL EXAM: Vital signs: Temperature of 97.9, pulse rate of 97, respiratory rate of 16 to 20, and blood pressure 143/69. General: She is pleasant, sitting up, nasal cannula in place, in no acute distress. Eyes: No scleral icterus. Ears: No abnormality. ENT: Mucous membranes moist. Pupils equal, round, reactive to light and accommodate. Neck: Trachea was midline. Endocrine: No thyromegaly. Respiratory: Symmetric chest expansion and respiratory effort, otherwise clear with a slightly barrel-shaped chest. Cardiovascular exam revealed regular rate and rhythm. Normal S1 and S2. No S3 or S4. Abdomen: Positive bowel sounds with no organomegaly. No hepatosplenomegaly with no distention. Extremities: No edema. Skin: Otherwise , her skin was intact and normal. : No CVA tenderness. Neurologic: Alert and oriented x3. Muscle strength and tone were intact. Nonfocal with full motor strength. She did have osteoarthritic deformities in her hands, however. Musculoskeletal exam: There is minimal fullness of the MCP joints as well as mild restriction of the shoulders bilaterally, but there is no overt synovitis. DIAGNOSTIC STUDIES/LAB DATA: She had a BUN of 23 and creatinine of 1.24. Hemoglobin of 9.1. She had a CBC on 12/22/16 revealing a white count of 11.5 with a hemoglobin of 6.7 and hematocrit of 20. Now, the hemoglobin is 9.1. ASSESSMENT: 1. Ms. Del Valle is a 66-year-old woman with a history of antiphospholipid antibody syndrome, on chronic anticoagulation, now with a supratherapeutic INR, now with hemolytic anemia, which is improved with packed red blood cell transfusions. At this point in time, I do agree that she most likely has a flare of her underlying rheumatoid arthritis. This is supported by elevated inflammatory markers and improvement already with steroids. She is on 40 mg prednisone. This can be tapered down to 5 or 10 mg daily. She is switching disease-modifying agents and tentatively planning to initiate Orencia therapy, which can be done as an outpatient. She also has severe diabetes mellitus and her sugars will need to be watched closely while she is on steroids. She has severe valvular disease and severe pulmonary dysfunction. We will continue to follow and follow inflammatory markers too. 2. Chronic obstructive pulmonary disease: She is on home oxygen. Continue present therapy. 3. Cardiomyopathy: She has multiple comorbidities. She has been followed by Dr. Ballesteros as well. 4. Chronic renal disease: Her creatinine seems to be stable. 5. History of pulmonary embolism: She is on chronic anticoagulation therapy. 6. Hemolytic anemia: Maybe secondary manifestation from rheumatoid arthritis. We will check a connective tissue panel to screen for lupus and overlap connective tissue disorders. TIME SPENT: Time spent with the patient was greater than 60 minutes with greater than 50% of the time spent counseling the patient and reviewing labs. [id number]/[facility] #: [id number] [place]
[2016-12-26] MEDS: HYDROcodone/ACETAMIN 5-325 MG* 1 TAB PO PRN (03:22)
[2016-12-26 07:43] VITALS: BP 127/58
[2016-12-26] MEDS: Budesonide NEB* 0.25 MG/2 ML NEB.SOLN INH SCH (07:50)
[2016-12-26] MEDS: Ipratropium 0.5MG/2.5ML NEB* 0.5 MG/2.5 ML NEB.SOLN INH SCH (07:50)
[2016-12-26] MEDS: Mometasone/Formoter 200/5 MDI INH SCH (07:50)
[2016-12-26] MEDS: Insulin LISPRO* 1 UNITS UNIT SUBCUT SCH ×2 (09:07→09:08)
[2016-12-26] MEDS: Insulin GLARGINE(*) 1 UNITS UNIT SUBCUT SCH (09:08)
[2016-12-26] MEDS: Cinacalcet TAB* 30 MG PO SCH (09:08)
[2016-12-26] MEDS: Magnesium Oxide TAB* 400 MG PO SCH (09:09)
[2016-12-26] MEDS: Cholecalciferol TAB* 1000 UNITS PO SCH (09:09)
[2016-12-26] MEDS: Ferrous Gluconate TAB* 324 MG TAB PO SCH (09:09)
[2016-12-26] MEDS: predniSONE TAB* 20 MG PO SCH (09:09)
[2016-12-26] MEDS: traMADol TAB* 50 MG PO SCH (09:09)
[2016-12-26] MEDS: BuPROPion XL* 300 MG TAB.XL PO SCH (09:09)
[2016-12-26] MEDS: azaTHIOprine TAB(*) 50 MG TAB PO SCH (09:09)
[2016-12-26] MEDS: Sertraline* 25 MG TAB PO SCH (09:17)
--- NOTE | 2016-12-27 02:09 | DS ---
DISCHARGE SUMMARY: DATE OF ADMISSION: 12/21/16 DATE OF DISCHARGE: 12/26/16 PRIMARY CARE PROVIDER: Kameron Travis MD MATERIALS ASSISTANT: Ivan Callahan MD PRINCIPAL ARCHITECTURAL FIRM: Rocky Martinez MD DISCHARGE DIAGNOSES: 1. 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 2. Rheumatoid arthritis with activity of disease. SECONDARY DIAGNOSES: 1. Antiphospholipid syndrome anticoagulation with history of pulmonary embolism and intracardiac thrombus. 2. Chronic obstructive pulmonary disease, on 2 to 3 L of oxygen at home. 3. Depression. 4. Hyperlipidemia. 5. Hypertension. 6. Obstructive sleep apnea, on CPAP. 7. Rheumatoid arthritis. 8. Anxiety. 9. Diabetes. MEDICATIONS: 1. Alendronate 70 mg p.o. weekly. 2. Atorvastatin 20 mg p.o. at bedtime. 3. Azathioprine 50 p.o. daily. 4. Budesonide 0.25 mg nebulized b.i.d. 5. Bupropion XL 300 mg tablet p.o. daily. 6. Cholecalciferol 1000 units p.o. daily. 7. Cinacalcet 30 mg p.o. b.i.d. 8. Ferrous gluconate 325 mg p.o. daily. 9. Furosemide 40 mg p.o. q.a.m. 10. Hydrocodone/acetaminophen 5/325 mg 1 tablet p.o. q.6 hours p.r.n. pain. 11. Lantus was increased from 16 to 22 units subcutaneous daily. 12. Ipratropium 0.5 mg inhaled b.i.d. 13. Levalbuterol 0.63 mg inhaled t.i.d. as needed for shortness of breath. 14. Lisinopril 2.5 mg p.o. q.p.m. 15. Magnesium oxide 800 mg p.o. b.i.d. 16. Metformin 500 mg p.o. b.i.d. 17. Metoprolol succinate 50 mg p.o. daily. 18. Morphine oral solution 10 mg 2.5 mL subinguinal q.6 hours p.r.n. shortness of breath. 19. Omeprazole 20 mg p.o. daily. 20. Prednisone 40 mg p.o. daily until you see Dr. Martinez. 21. Salmeterol Diskus 1 puff inhaled b.i.d. 22. Sertraline 75 mg p.o. daily. 23. Spiriva 2.5 mcg inhaled daily. 24. Tramadol 50 mg p.o. b.i.d. 25. Warfarin 10 mg p.o. at bedtime. HOSPITAL COURSE: Mrs. Del Valle is a 66-year-old lady with a past medical history as stated above that presented to the emergency room on 12/21/16 with complaints of fatigue, worsening symptoms of rheumatoid arthritis and due to abnormal labs. She was found to have INR of 6.9 and her hemoglobin was 6.7, so she was referred to the emergency room for further evaluation. In the emergency room, she was found to have a hemoglobin of 5.7 and an INR of 3.84. She was admitted to the medical floor and she received a total of 3 PRBCs and 1 FFP. The patient was seen in consultation by Hematology (Dr. Callahan) and his impression was that the patient's anemia differential diagnosis included medication affect from azathioprine, consumptive hemolysis, occult bleeding, and functional B12 deficiency. It was felt that the patient did have a component of possible hemolytic anemia and at the time of the dictation cryoglobulin and cold agglutinin titers are pending. Rachel for warm antibody hemolytic anemia is pending as well as methylmalonic acid. Her vitamin B12 level was 295. He recommended resuming heparin drip and starting warfarin and her last INR prior to discharge was 3.2. Her hemoglobin has remained stable around 9 since her transfusion. The patient was seen in consultation by Rheumatology as it was felt that she had activity of disease. The patient has been on azathioprine for a long time, but 4 weeks ago her dose was decreased due to worsening renal function. Since then, she has developed more joint pain and fatigue. Her ESR was markedly elevated at 109 and her CRP was 176. She was seen in consultation by Dr. Martinez and his impression is that the patient most likely has a flare of her underlying rheumatoid arthritis. This is supported by elevated inflammatory markers and improvement already with steroids. He recommended prednisone 40 mg a day, to be tapered slowly to 10 mg daily. The tentative plan is to initiate Orencia therapy and this will be done as outpatient. For her anemia, he also decided to check a connective tissue panel to screen for lupus and overlap connective tissue disorders. The patient had improvement of her symptoms. Her H and H has remained stable and she is stable for discharge at this time. She will need monitoring of her H and H and INR as outpatient and she will need to follow up with Dr. Callahan after the other test including the methylmalonic acid and Rachel test results are back. PHYSICAL EXAMINATION: Vital Signs: Temperature 98.0, heart rate is 73, respiratory rate is 16, oxygen saturation 98% on 2 L nasal cannula, blood pressure is 127/58. General: The patient is a pleasant elderly lady, lying in bed, in no acute distress. CVS: Normal S1, S2. Regular rate and rhythm. Chest: Breath sounds bilaterally with no added sounds. Extremities: No edema with multiple RA deformities. Neuro: She is alert and oriented x3. Able to move all 4 extremities. DIET: Heart-healthy, consistent carb diet. ACTIVITIES: As tolerated. DISPOSITION: To home. STATUS WHILE IN THE HOSPITAL: Inpatient. Please keep in mind this is a summarized version of this patient's hospital stay. If you need more information, please feel free to call me at [phone] or please obtain the full medical records. TIME SPENT: Approximately 45 minutes were spent to complete this discharge. CC: Dr. Travis; Dr. Callahan; Dr. Martinez* [id number]/[facility] #: [id number] MTDBladimir
== END 2016-12-26 11:30 | disposition home or self-care (01) | DRG 809 ==
LOC: ED 11:36 → MED 13:14
PROVIDERS: ADMIT Hospitalist; ATTEND Internal Medicine
PROC: 30233N1 Transfusion of Nonautologous Red Blood Cells into Peripheral Vein, Percutaneous Approach (ICD-10-PCS; principal; 2016-12-21)
PROC: 30233K1 Transfusion of Nonautologous Frozen Plasma into Peripheral Vein, Percutaneous Approach (ICD-10-PCS; 2016-12-21)
DX: D59.8 Other acquired hemolytic anemias (principal); D68.61 Antiphospholipid syndrome; Z99.81 Dependence on supplemental oxygen; D62 Acute posthemorrhagic anemia; D51.9 Vitamin B12 deficiency anemia, unspecified; M06.9 Rheumatoid arthritis, unspecified; J44.9 Chronic obstructive pulmonary disease, unspecified; F32.9 Major depressive disorder, single episode, unspecified; E78.5 Hyperlipidemia, unspecified; I10 Essential (primary) hypertension; G47.33 Obstructive sleep apnea (adult) (pediatric); F41.9 Anxiety disorder, unspecified; E11.9 Type 2 diabetes mellitus without complications; E21.3 Hyperparathyroidism, unspecified; Z79.84 Long term (current) use of oral hypoglycemic drugs; Z79.01 Long term (current) use of anticoagulants; Z79.4 Long term (current) use of insulin; Z79.899 Other long term (current) drug therapy; Z88.8 Allergy status to other drugs, medicaments and biological substances; Z82.5 Family history of asthma and other chronic lower respiratory diseases; F17.210 Nicotine dependence, cigarettes, uncomplicated; Z86.711 Personal history of pulmonary embolism; Z86.718 Personal history of other venous thrombosis and embolism; Z66 Do not resuscitate; M25.519 Pain in unspecified shoulder
CPT/HCPCS: 36415; 71010; 74176; 80048; 80053; 80074; 81003; 81015; 82272; 82595; 82607; 82668; 82728; 82746; 83540; 83550; 83605; 83921; 84443; 84466; 85014; 85018; 85025; 85027; 85045; 85610; 85613; 85652; 85730; 86038; 86078; 86140; 86147; 86157; 86200; 86480; 86850; 86880; 86900; 86901; 86922; 86927; 87086; 94640; 94660; 94760; 99254; A9270-GY; J7500; J7512; J7644; P9016; P9017; P9040

== ENCOUNTER 2017-01-24 11:55 | Emergency (ER) | payer MEDICARE, BC ==
[2017-01-24 14:38] VITALS: BP 102/58
--- NOTE | 2017-01-24 21:10 | ED ---
Anirudh Herrera Billy, scribed for Ramesh Morales MD on 01/24/17 at 1240 . Complex/Multi-Sys Presentation - HPI Summary HPI Summary: Patient is a 66 year-old female coming to [facility] for evaluation of an INR value of 8.0. She was evaluated by a visiting nurse and sent to the ED by her PCP, Dr. Travis. However, here in the ED, she denies any new symptoms such as bloody/ black stools, hematuria, hemoptysis. She complains of only chronic rheumatoid arthritic pain, no change from normal. - History Of Current Complaint Chief Complaint: EDGeneral Time Seen by Provider: 01/24/17 12:36 Hx Obtained From: Patient Onset/Duration: Gradual Onset Timing: Constant Severity Currently: None Location: Negative Associated Signs And Symptoms: Negative: Hemoptysis, Hematemesis - Allergies/Home Medications Allergies/Adverse Reactions: Allergies Allergy/AdvReac Type Severity Reaction Status Date / Time Methotrexate Allergy Intermediate Difficulty Verified 01/24/17 12:18 Breathing Cephalexin [From Keflex] Allergy Rash Verified 01/24/17 12:18 Hydroxychloroquine Allergy Unknown Verified 01/24/17 12:18 [From Plaquenil] Reaction Details PMH/Surg Hx/FS Hx/Imm Hx Endocrine/Hematology History: Reports: Hx Diabetes - TYPE II Denies: Hx Thyroid Disease Cardiovascular History: Reports: Hx Congestive Heart Failure, Hx Hypercholesterolemia, Hx Hypertension, Other Cardiovascular Problems/Disorders - MITRAL VALVE DISORDER,CHRONIC PUL.HEART DISESE,TACHYCARDIA Denies: Hx Angina, Hx Coronary Artery Disease, Hx Pacemaker/ICD, Hx Valvular Heart Disease Respiratory History: Reports: Hx Chronic Obstructive Pulmonary Disease (COPD) - ALSO OBSTRUCTIVE SLEEP APNEA(USES CPAP), Hx Sleep Apnea, Other Respiratory Problems/Disorders - RHEUMATOID LUNG, RIGHT SIDE LUNG IS PUSHING ON LUNG Denies: Hx Asthma GI History: Denies: Hx Ulcer Musculoskeletal History: Reports: Hx Rheumatoid Arthritis, Other Musculoskeletal History - see above surgeries/RA Denies: Hx Osteoporosis Sensory History: Denies: Hx Contacts or Glasses, Hx Hearing Aid Opthamlomology History: Denies: Hx Contacts or Glasses Psychiatric History: Reports: Hx Anxiety, Hx Depression - Cancer History Hx Chemotherapy: No Hx Radiation Therapy: No - Surgical History Surgery Procedure, Year, and Place: appendix. tonsils. 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 Father - COPD/emphysema - Social History Alcohol Use: Rare Hx Substance Use: No Substance Use Type: Reports: None Hx Tobacco Use: Yes Smoking Status (MU): Light Every Day Tobacco Smoker Type: Cigarettes Amount Used/How Often: 7-8 cig day Length of Time of Smoking/Using Tobacco: 40 YEARS Have You Smoked in the Last Year: Yes Review of Systems Constitutional: Other - INR value of 8.0 Negative: Chest Pain Negative: Shortness Of Breath All Other Systems Reviewed And Are Negative: Yes Physical Exam - Summary Physical Exam Summary: VITAL SIGNS: Reviewed. GENERAL: Patient is a well-developed and nourished female who is lying comfortable in the stretcher. Patient is not in any acute respiratory distress. HEAD AND FACE: No signs of trauma. No ecchymosis, hematomas or skull depressions. No sinus tenderness. EYES: PERRLA, EOMI x 2, No injected conjunctiva, no nystagmus. EARS: Hearing grossly intact. Ear canals and tympanic membranes are within normal limits. MOUTH: Oropharynx within normal limits. NECK: Supple, trachea is midline, no adenopathy, no JVD, no carotid bruit, no c- spine tenderness, neck with full ROM. CHEST: Symmetric, no tenderness at palpation LUNGS: Clear to auscultation bilaterally. No wheezing or crackles. CVS: Regular rate and rhythm, S1 and S2 present, no murmurs or gallops appreciated. ABDOMEN: Soft, non-tender. No signs of distention. No rebound no guarding, and no masses palpated. Bowel sounds are normal. EXTREMITIES: FROM in all major joints, no edema, no cyanosis. There is a visible deformity of the hands secondary to rheumatoid arthritis. NEURO: Alert and oriented x 3. No acute neurological deficits. Speech is normal and follows commands. SKIN: Dry and warm. There are no signs of bleeding, ecchymosis, or hematomas. Triage Information Reviewed: Yes Vital Signs On Initial Exam: Initial Vitals Temp Pulse Resp BP Pulse Ox 97.2 F 70 20 104/74 99 01/24/17 11:57 01/24/17 11:57 01/24/17 11:57 01/24/17 11:57 01/24/17 11:57 Vital Signs Reviewed: Yes - Travon Coma Scale Coma Scale Total: 15 Diagnostics - Vital Signs Vital Signs Temp Pulse Resp BP Pulse Ox 01/24/17 12:18 73 18 95 01/24/17 12:16 104/53 01/24/17 11:59 98.2 F 69 20 104/74 99 01/24/17 11:57 97.2 F 70 20 104/74 99 - Laboratory Lab Statement: Any lab studies that have been ordered have been reviewed, and results considered in the medical decision making process. Complex Multi-Symp Course/Dx Assessment/Plan: Patient is a 66 year-old female coming to [facility] for evaluation of an INR value of 8.0. She was evaluated by a visiting nurse and sent to the ED by her PCP, Dr. Travis. However, here in the ED, she denies any new symptoms such as bloody/black stools, hematuria, hemoptysis. She complains of only chronic rheumatoid arthritic pain, no change from normal. The INR is 6.19 in the ED. The patient continues to be stable and asymptomatic. She has no sites of bleeding, hematomas, or ecchymosis. I discussed the case with Dr. Travis who agrees for the patient to be discharged home to follow up at his office. He also reports that he will be referring the patient to Dr. Ballesteros for possibly changing the bloodthinner. I discussed these findings and test results with the patient and she agreed to return to the ED with epistaxis, rectal bleed, hematuria, or any signs of bleeding. The patient and her daughter agree and understand. She is hemodynamically stable, A&Ox3. - Diagnoses Provider Diagnoses: toxic INR - Physician Notifications Discussed Care Of Patient With: Dr. Travis (PCP) at 1415: recommends for patient to be discharged home. Discharge - Discharge Plan Condition: Stable Disposition: HOME Patient Education Materials: Elevated INR (ED) Referrals: Kameron Travis MD [Primary Care Provider] - The documentation as recorded by the Anirudh fong Billy accurately reflects the service I personally performed and the decisions made by Andrew chaudhary Walter, MD.
== END 2017-01-24 14:39 | disposition home or self-care (01) ==
LOC: ED 11:55
DX: T45.511A Poisoning by anticoagulants, accidental (unintentional), initial encounter (principal); I50.9 Heart failure, unspecified; I10 Essential (primary) hypertension; Z95.810 Presence of automatic (implantable) cardiac defibrillator; J44.9 Chronic obstructive pulmonary disease, unspecified; M06.9 Rheumatoid arthritis, unspecified; F41.9 Anxiety disorder, unspecified; F32.9 Major depressive disorder, single episode, unspecified; F17.210 Nicotine dependence, cigarettes, uncomplicated
CPT/HCPCS: 36415; 85610; 99282

== ENCOUNTER 2017-10-26 01:31 | Inpatient (IN) | payer MEDICARE, BC ==
[2017-10-26] MEDS ORDERED: methylPREDNISolone 125 MG* 2 ML VIAL IV ONE (01:53)
[2017-10-26] MEDS ORDERED: Albuterol/Ipratropium NEB.SOL* Albuterol 2.5 MG/Ipratropium 0.5 MG 3 ML INH ONE (01:53)
--- OUTSIDE RECORDS SUMMARY | 2017-10-26 01:56 | XMS REPORT ---
:1950 External Reference #:[id number] Author Organization [facility] Address [address] [place] [address] Phone [phone] Care Team Providers Name Role Phone Kameron Travis M.D. Primary Care Physician Unavailable Payers Type Date Identification Numbers Payment Provider Subscriber Medicare Primary Policy Number: [id number] Medicare - [employer] Delmi Aikenson PayID: [id number] [address] [place] [address] Medigap Part B Policy Number: [id number] [place] [employer] Delmi Aikenson Group Number: [id number] [address] [address] PayID: [id number] [place] [address] Problems Date Description Provider Status Onset: Essential hypertension Active Onset: Hypercholesterolemia Active Onset: Osteoarthritis Active Onset: Type 2 diabetes mellitus Active Onset: Rheumatoid arthritis Active Onset: 06/03/2015 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 Active Onset: 06/03/2015 Myopia Kiarra Guevara O.D. Active Onset: 06/03/2015 Regular astigmatism Kiarra Guevara O.D. Active Onset: 06/09/2016 Type 2 diab with mild nonp rtnop Kiarra Guevara O.D. Active without mclr edema, r eye Onset: 06/09/2016 Type 2 diab with mild nonp rtnop Kiarra Guevara O.D. Active without mclr edema, l eye Onset: Anemia Active Onset: Hyperparathyroidism Active Onset: 04/18/2017 Abnormal pupillary function Zena Carrington O.D. Active Onset: 04/18/2017 Type 2 diab with mild nonp rtnop Zena Carrington O.D. Active without macular edema, bi Onset: 04/18/2017 Combined form of senile cataract Zena Carrington O.D. Active Family History Date Family Member(s) Problem(s) Comments General No Current Problems Father No Current Problems Mother No Current Problems Social History Type Date Description Comments Marital Status Single Occupation [employer] Work Status Retired ETOH Use Denies alcohol use Smoking Heavy tobacco smoker (more than 10 cigarettes/day) Recreational Drug Use Denies Drug Use Daily Caffeine Does Not Consume Caffeine Allergies, Adverse Reactions, Alerts Date Description Reaction Status Severity Comments 06/03/2015 Keflex active 06/09/2016 Methotrexate active 06/09/2016 Plaquenil active Medications Medication Date Status Form Strength Qnty SIG Indications Ordering Provider Lantus Solostar / Active Solution 22Unit/ML Darlow, 0000 Pen-Inject Kameron A M.DAnnelise Furosemide / Active Tablets 40mg Darlow, 0000 Kameron A M.D. Azathioprine / Active Tablets 50mg 1 per Darlow, 0000 day Kameron A M.DAnnelise Sertraline HCL / Active Tablets 25mg Enrique Alan 0000 M.D. Magnesium Oxide / Active Tablets 250mg Unknown -MG Supplement 0000 Cholecalciferol / Active Powder Unknown 0000 Ferrous Gluconate / Active Tablets 225(27Fe) Unknown 0000 mg Metformin HCL ER / Active Tablets ER 500mg Unknown (Osm) 0000 24HR Warfarin Sodium / Active Tablets 1mg Unknown 0000 Lisinopril / Active Tablets 5mg Unknown 0000 Atorvastatin / Active Tablets 20mg Unknown Calcium 0000 Metoprolol / Active Tablets ER 50mg Darlow, Succinate ER 0000 24HR Kameron A M.DAnnelise Bupropion HCL ER / Active Tablets ER 150mg 2 tabs Unknown (SR) 0000 12HR po daily Omeprazole / Active Capsules 20mg Unknown [address] Censipar / Active 1pill Unknown 0000 2x per day Fosamax / Active Tablets 70mg 1x per Unknown 0000 week Tramadol HCL / Active Tablets 50mg 2x per Unknown 0000 day Prednisone 00/ Active Tablets 10mg 1x per Unknown 0000 day Orencia / Active Solution 250mg 1x per Unknown 0000 Rec week Metformin HCL / Hx Tablets 500mg Joselow, 0000 - Kameron A 04/16/ MAnneliseDAnnelise 2016 Tramadol HCL / Hx Tablets 50mg [place], 0000 - Zsofia [employer] 2015 Ferrous Gluconate / Hx Powder Unknown Dihydrate 0000 - 2015 Spiriva Handihaler / Hx Capsules 18mcg Unknown - 2015 Lovenox / Hx Solution 30mg/0.3ML Unknown - 2015 Results Description No Information Procedures Date CPT Code Description Status 04/18/2017 68846 Determination Of Refractive State Completed 04/18/2017 26104 Est Patient Comprehensive Exam Completed 06/09/2016 36993 Est Patient Comprehensive Exam Completed 06/03/2015 57440 Determination Of Refractive State Completed 06/03/2015 48880 Est Patient Comprehensive Exam Completed 06/03/2014 75794 Est Patient Comprehensive Exam Completed 02/26/2013 37613 Est Patient Comprehensive Exam Completed 02/07/2012 67958 Est Patient Comprehensive Exam Completed 02/14/2011 23413 Est Patient Comprehensive Exam Completed 01/11/2010 89450 Determination Of Refractive State Completed 01/11/2010 93797 Est Patient Comprehensive Exam Completed 07/14/2009 02649 Est Patient Comprehensive Exam Completed 06/04/2008 85075 Determination Of Refractive State Completed 06/04/2008 66298 New Patient Comprehensive Exam Completed Plan of Care 10/17/2017 - Zena Carrington O.D.[id number] Type 2 diab with mild nonp rtnop without macular edema, biComments:Smoking can increase the risk of developing or worsening any eye related disease, as well as affect your overall health. If you are a smoker, we strongly recommend that you quit.If you are not a smoker , we strongly recommend that you do not start.Follow up:6 Month Follow Up OCT MAC You can expect to have your eyes dilated at your next visit. If Dr. Carrington orders any additional testing, it may require extra time. We recommend that you bring sunglasses,as dilation drops often make you light sensitive until they wear off. We always recommend you bring someone to drive you home if you are uncomfortable driving with your eyes dilated. If you have any questions before your next visit, feel free to call our office at .H22.815 Combined forms of age-related cataract, bilateralComments:You have been diagnosed with cataracts. If you are happy with your vision as it is now, then we willsee you at your next scheduled appointment. If you feel like your vision is getting worse before your scheduled appointment, please call Lynn or Cally at [phone].
[2017-10-26 02:20] LABS: ABS Basophils 0 10^3/ul (0-0.2); ABS Eosinophils 0 10^3/ul (0-0.6); ABS Lymphocytes 0.2 10^3/ul (1.0-4.8); ABS Monocytes 0.8 10^3/ul (0-0.8); ABS Neutrophils 6.6 10^3/ul (1.5-7.7); ABS Nucleated RBC 0 10^3/ul; Eosinophil % 0.5 % (0-6); Hematocrit 37 % (35-47); Hemoglobin 12.5 g/dl (12.0-16.0); Lymphocyte % 2.9 % (25-47); Mean Corpuscular HGB Conc 34 g/dl (31-36); Mean Corpuscular Hemoglobin 31 pg (27-31); Mean Corpuscular Volume 94 fL (80-97); Mean Platelet Volume 7 um3 (7.4-10.4); Nucleated Red Blood Cells % 0.1; Platelet Count 232 10^3/ul (150-450); Red Blood Count 3.98 10^6/ul (4.0-5.4); Red Cell Distribution Width 17 % (10.5-15); White Blood Count 7.6 10^3/ul (3.5-10.8)
[2017-10-26 02:35] LABS: EGFR Non-African American 41.7 (>60)
[2017-10-26] MEDS ORDERED: Oseltamivir SUSP 75 MG dose* 75 MG/12.5 ML ORAL.SYRIN PO ONE (03:29)
[2017-10-26] MEDS ORDERED: Oseltamivir CAP* 75 MG CAP PO ONE (03:43)
--- NOTE | 2017-10-26 04:16 | HP ---
H&P (Free Text) History and Physical: PCP: Yvonne Travis MD Date/Time: 10/26/2017 0410 CC: SOB, fatigue HPI: Mrs Del Valle is a 66YO female HX 3L NC oxygen dependant COPD, RA on abatacept (next inj due 10/26/2017), antiphospholipid syndrome, pulmonary embolism, CKD, AFIB, & DAREK on CPAP who reports 2 days increasing fatigue, SOB, non-productive cough & congestion, decreased appetite, but no F/C, sweats, chest pain, palpitations, light-headedness, N/V, diarrhea, or other issues. She denies known sick contacts. ED evaluation is notable for positive influenza B and COPD exacerbation. PMedHx COPD, 3L NC oxygen continuously antiphospholipid syndrome pulmonary embolism intracardiac thrombus rheumatoid arthritis on abatacept DM2 HTN HLD DAREK on CPAP depression anxiety Ambulatory Orders Atorvastatin* [Lipitor 20 MG*] 20 mg PO BEDTIME 09/01/13 azaTHIOprine TAB(*) [Imuran TAB(*)] 50 mg PO DAILY 05/26/14 Budesonide NEB* [Pulmicort Neb*] 0.25 mg INH BID 04/27/16 Bupropion XL* [Wellbutrin XL *] 300 tab PO DAILY 04/27/16 Cholecalciferol TAB* [Vitamin D TAB*] 1,000 unit PO DAILY 04/27/16 Furosemide TAB* [Lasix TAB*] 40 mg PO QAM 04/27/16 Ipratropium 0.5MG/2.5ML NEB* [Atrovent 0.5 MG NEB.KARLY*] 0.5 mg INH BID 04/27/16 Levalbuterol 0.63MG/3ML NEB* [Xopenex 0.63MG/3ML NEB*] 0.63 mg INH TID PRN 04/27 Magnesium Oxide TAB* [MagOx 400 TAB*] 800 mg PO BID 04/27/16 Metoprolol Succinate XL TAB* [Toprol XL TAB*] 50 mg PO DAILY 04/27/16 Warfarin TAB(*) [Coumadin TAB(*)] 6 mg PO QPM 04/27/16 Sertraline* [Zoloft*] 75 mg PO DAILY tab 05/01/16 Tiotropium [place] [Spiriva Respimat] 2.5 mcg IN DAILY #1 aer 05/01/16 Alendronate (NF) [Fosamax (NF)] 70 mg PO WEEKLY 12/21/16 Cinacalcet TAB* [Sensipar TAB*] 30 mg PO BID 12/21/16 Ferrous Gluconate TAB* [Fergon TAB*] 325 mg PO DAILY 12/21/16 Morphine ORAL.SOLN 10 mg* 2.5 ml SL Q6H PRN MDD 10ml 12/21/16 Salmeterol DISKUS (NF) [Serevent Diskus (NF)] 1 puff INH BID 12/21/16 metFORMIN* [Glucophage 500 MG TAB *] 500 mg PO BID 12/21/16 HYDROcodone/ACETAMIN 5-325 MG* [[place] 5-325 TAB*] 1 tab PO Q6H PRN #0 12/26/16 Insulin GLARGINE(*) [Lantus(*)] 22 units SUBCUT QAM unit 12/26/16 Omeprazole CAP* [Prilosec CAP* 20 MG] 20 mg PO DAILY #30 cap. 12/26/16 Calcium 630 mg PO DAILY 10/26/17 Orencia Clickject WEEKLY 10/26/17 predniSONE TAB* [Deltasone TAB*] 5 mg PO DAILY 10/26/17 Allergies methotrexate Allergy (Severe, Verified 10/26/17 04:33) Difficulty Breathing cephalexin Allergy (Verified 10/26/17 04:33) Rash hydroxychloroquine Allergy (Verified 10/26/17 04:33) Unknown Reaction Details PSurgHx B hand tendon surgery for RA tonsillectomy SocHx: 1-2 cigarettes/day, no alcohol or recreational drugs; lives alone; DNR/I code status FamHx: reviewed and non-contributory to presentation ROS: as above, otherwise reviewed and all were negative vitals: Vital Signs Temp 37.1 C 10/26/17 05:30 Pulse 96 10/26/17 05:30 Resp 20 10/26/17 05:51 BP 97/73 10/26/17 05:30 Pulse Ox 95 10/26/17 05:30 Intake & Output 10/25/17 10/25/17 10/26/17 11:59 23:59 11:59 Intake Total 136 Output Total 0 Balance 136 Weight 67.812 kg Intake: IV Fluids 136 NS (0.9%) 136 Oral 0 Output: Urine 0 Other: # Bowel Movements 0 Constitutional: NAD, normally developed, well-nourished white female HEENM: atraumatic; sclera/conjunctiva: anicteric/clear; hearing: clinically intact; oropharynx: clear, mucosa tacky Neck: soft tissue: non-tender; thyroid: normal Pulmonary: markedly diminished B with bernal-expiratory wheeze, very poor aeration , no accessory muscle use CV: RR/RR, normal S1S2, no carotid bruit, no jugular venous distention, 2+ B DP/ PT, trace BLE edema Abdominal: soft, non-distended, non-tender, no rebound/guarding/rigidity, normoactive bowel sounds, no hepatosplenomegaly or masses, no costovertebral angle tenderness Musculoskeletal: general: grossly intact, no tenderness with palpation Integumental: normal appearance and texture of exposed skin Psychiatric orientation: AA&O to PPS affect: calm mood: cooperative eye contact: fair to good content: reliable responses: timely insight: fair Testing: Lab Results 10/26/17 10/26/17 10/26/17 Range/Units 02:09 02:09 02:09 WBC 7.6 (3.5-10.8) 10^3/ul RBC 3.98 L (4.0-5.4) 10^6/ul Hgb 12.5 (12.0-16.0) g/dl Hct 37 (35-47) % MCV 94 (80-97) fL MCH 31 (27-31) pg MCHC 34 (31-36) g/dl RDW 17 H (10.5-15) % Plt Count 232 (150-450) 10^3/ul MPV 7 L (7.4-10.4) um3 Neut % (Auto) 86.3 H (38-83) % Lymph % (Auto) 2.9 L (25-47) % [place] % (Auto) 10.0 H (0-7) % Eos % (Auto) 0.5 (0-6) % Baso % (Auto) 0.3 (0-2) % Absolute Neuts (auto) 6.6 (1.5-7.7) 10^3/ul Absolute Lymphs (auto) 0.2 L (1.0-4.8) 10^3/ul Absolute Monos (auto) 0.8 (0-0.8) 10^3/ul Absolute Eos (auto) 0 (0-0.6) 10^3/ul Absolute Basos (auto) 0 (0-0.2) 10^3/ul Absolute Nucleated RBC 0 10^3/ul Nucleated RBC % 0.1 INR (Anticoag Therapy) (0.77-1.02) APTT (26.0-36.3) seconds Patient Temperature ABG pH (7.35-7.45) ABG pH (Temp Correct) ABG pCO2 (35-45) mmHg ABG pCO2 (Temp Corrct ABG pO2 (80-100) mmHg ABG pO2 (Temp Correct ABG HCO3 (19-31) mmol/L ABG O2 Saturation (95-98) % ABG Base Excess (-2.0-2.0) Respiration Rate O2 Delivery Device Ventilator Type Vent Mode FiO2 Inspiratory Time PEEP Pressure Support Pressure Control EPAP IPAP BiPAP Sodium 134 (133-145) mmol/L Potassium 3.6 (3.5-5.0) mmol/L Chloride 92 L (101-111) mmol/L Carbon Dioxide 35 H (22-32) mmol/L Anion Gap 7 (2-11) mmol/L BUN 23 (6-24) mg/dL Creatinine 1.28 H (0.51-0.95) mg/dL Est GFR ( Amer) 53.7 (>60) Est GFR (Non-Af Amer) 41.7 (>60) BUN/Creatinine Ratio 18.0 (8-20) Glucose 115 H (70-100) mg/dL Lactic Acid (0.5-2.0) mmol/L Calcium 9.5 (8.6-10.3) mg/dL Total Bilirubin 0.20 (0.2-1.0) mg/dL AST 16 (13-39) U/L ALT 11 (7-52) U/L Alkaline Phosphatase 86 (34-104) U/L Troponin I 0.01 (<0.04) ng/mL B-Natriuretic Peptide 56 ( - 100) pg/mL Total Protein 7.1 (6.4-8.9) g/dL Albumin 4.1 (3.2-5.2) g/dL Globulin 3.0 (2-4) g/dL Albumin/Globulin Ratio 1.4 (1-3) Influenza A (Rapid) (Negative) Influenza B (Rapid) (Negative) 10/26/17 10/26/17 10/26/17 Range/Units 02:09 02:36 02:43 WBC (3.5-10.8) 10^3/ul RBC (4.0-5.4) 10^6/ul Hgb (12.0-16.0) g/dl Hct (35-47) % MCV (80-97) fL MCH (27-31) pg MCHC (31-36) g/dl RDW (10.5-15) % Plt Count (150-450) 10^3/ul MPV (7.4-10.4) um3 Neut % (Auto) (38-83) % Lymph % (Auto) (25-47) % [place] % (Auto) (0-7) % Eos % (Auto) (0-6) % Baso % (Auto) (0-2) % Absolute Neuts (auto) (1.5-7.7) 10^3/ul Absolute Lymphs (auto) (1.0-4.8) 10^3/ul Absolute Monos (auto) (0-0.8) 10^3/ul Absolute Eos (auto) (0-0.6) 10^3/ul Absolute Basos (auto) (0-0.2) 10^3/ul Absolute Nucleated RBC 10^3/ul Nucleated RBC % INR (Anticoag Therapy) (0.77-1.02) APTT (26.0-36.3) seconds Patient Temperature Not Reportable ABG pH 7.40 (7.35-7.45) ABG pH (Temp Correct) Not Reportable ABG pCO2 59 H (35-45) mmHg ABG pCO2 (Temp Corrct Not Reportable ABG pO2 100 (80-100) mmHg ABG pO2 (Temp Correct Not Reportable ABG HCO3 32.4 H (19-31) mmol/L ABG O2 Saturation 98.2 H (95-98) % ABG Base Excess 9.6 H (-2.0-2.0) Respiration Rate Not Reportable O2 Delivery Device nasal cannula Ventilator Type Not Reportable Vent Mode Not Reportable FiO2 40 Inspiratory Time Not Reportable PEEP Not Reportable Pressure Support Not Reportable Pressure Control Not Reportable EPAP Not Reportable IPAP Not Reportable BiPAP Not Reportable Sodium (133-145) mmol/L Potassium (3.5-5.0) mmol/L Chloride (101-111) mmol/L Carbon Dioxide (22-32) mmol/L Anion Gap (2-11) mmol/L BUN (6-24) mg/dL Creatinine (0.51-0.95) mg/dL Est GFR ( Amer) (>60) Est GFR (Non-Af Amer) (>60) BUN/Creatinine Ratio (8-20) Glucose (70-100) mg/dL Lactic Acid 1.7 (0.5-2.0) mmol/L Calcium (8.6-10.3) mg/dL Total Bilirubin (0.2-1.0) mg/dL AST (13-39) U/L ALT (7-52) U/L Alkaline Phosphatase (34-104) U/L Troponin I (<0.04) ng/mL B-Natriuretic Peptide ( - 100) pg/mL Total Protein (6.4-8.9) g/dL Albumin (3.2-5.2) g/dL Globulin (2-4) g/dL Albumin/Globulin Ratio (1-3) Influenza A (Rapid) Negative (Negative) Influenza B (Rapid) Positive H (Negative) 10/26/17 10/26/17 Range/Units 05:15 05:15 WBC (3.5-10.8) 10^3/ul RBC (4.0-5.4) 10^6/ul Hgb (12.0-16.0) g/dl Hct (35-47) % MCV (80-97) fL MCH (27-31) pg MCHC (31-36) g/dl RDW (10.5-15) % Plt Count (150-450) 10^3/ul MPV (7.4-10.4) um3 Neut % (Auto) (38-83) % Lymph % (Auto) (25-47) % [place] % (Auto) (0-7) % Eos % (Auto) (0-6) % Baso % (Auto) (0-2) % Absolute Neuts (auto) (1.5-7.7) 10^3/ul Absolute Lymphs (auto) (1.0-4.8) 10^3/ul Absolute Monos (auto) (0-0.8) 10^3/ul Absolute Eos (auto) (0-0.6) 10^3/ul Absolute Basos (auto) (0-0.2) 10^3/ul Absolute Nucleated RBC 10^3/ul Nucleated RBC % INR (Anticoag Therapy) 2.76 H (0.77-1.02) APTT 47.0 H (26.0-36.3) seconds Patient Temperature ABG pH (7.35-7.45) ABG pH (Temp Correct) ABG pCO2 (35-45) mmHg ABG pCO2 (Temp Corrct ABG pO2 (80-100) mmHg ABG pO2 (Temp Correct ABG HCO3 (19-31) mmol/L ABG O2 Saturation (95-98) % ABG Base Excess (-2.0-2.0) Respiration Rate O2 Delivery Device Ventilator Type Vent Mode FiO2 Inspiratory Time PEEP Pressure Support Pressure Control EPAP IPAP BiPAP Sodium 136 (133-145) mmol/L Potassium 4.0 (3.5-5.0) mmol/L Chloride 92 L (101-111) mmol/L Carbon Dioxide 35 H (22-32) mmol/L Anion Gap 9 (2-11) mmol/L BUN 23 (6-24) mg/dL Creatinine 1.31 H (0.51-0.95) mg/dL Est GFR ( Amer) 52.2 (>60) Est GFR (Non-Af Amer) 40.6 (>60) BUN/Creatinine Ratio 17.6 (8-20) Glucose 132 H (70-100) mg/dL Lactic Acid (0.5-2.0) mmol/L Calcium 9.5 (8.6-10.3) mg/dL Total Bilirubin (0.2-1.0) mg/dL AST (13-39) U/L ALT (7-52) U/L Alkaline Phosphatase (34-104) U/L Troponin I (<0.04) ng/mL B-Natriuretic Peptide ( - 100) pg/mL Total Protein (6.4-8.9) g/dL Albumin (3.2-5.2) g/dL Globulin (2-4) g/dL Albumin/Globulin Ratio (1-3) Influenza A (Rapid) (Negative) Influenza B (Rapid) (Negative) ECG, personally reviewed: NSR rate 90, mild ST depression V4-6 CXR, personally reviewed: stigmata of COPD Impression: 66F presenting with SIRS 2nd influenza B & COPD exacerbation DIAGNOSIS & PLAN Primary SIRS 2nd influenza B : renally dosed oseltamivir : IVFs : droplet isolation : supportive care COPD exacerbation : albuterol nebs : mometasone/formoterol : tiotropium : IV methylprednisolone : supplemental oxygen : smoking cessation counseled/advised, low motivation Secondary antiphospholipid syndrome HX pulmonary embolism HX intracardiac thrombus : continue warfarin rheumatoid arthritis : hold abatacept in setting of acute influenza : pain control DM2 : update A1c : decrease glargine from 22 to 16 units daily : insulin carb ratio diet : add bolus/correctional insulin while hospitalized HTN : review meds once reconciled HLD : review meds once reconciled DAREK : continue CPAP depression : review meds once reconciled anxiety : review meds once reconciled Admission Rational: inpatient for SIRS 2nd influenza B & COPD exacerbation in patient at high risk of mortality; inappropriate for outpatient setting DVTp: continue warfarin Code Status: DNR/I HCP: friendSvetlana
[2017-10-26] MEDS ORDERED: Acetaminophen TAB* 325 MG PO PRN (04:21)
[2017-10-26] MEDS ORDERED: Melatonin (NF) 3 MG TAB PO PRN (04:21)
[2017-10-26] MEDS ORDERED: Ondansetron INJ* 2 MG/ML VIAL IV PRN (04:22)
[2017-10-26] MEDS ORDERED: Nicotine Inhaler* 10 MG AMP INH PRN (04:22)
[2017-10-26] MEDS ORDERED: Mouth Piece, Nicotine* 1 EACH CARTRIDGE INH PRN (04:23)
[2017-10-26] MEDS ORDERED: Morphine ORAL.SOLN 10 mg* 2 MG/ML UDC 5 ml PO PRN (04:24)
--- NOTE | 2017-10-26 04:58 | ED ---
Steven Herrera Angela, scribed for Khang Camacho on 10/26/17 at 0253 . Shortness of Breath - HPI Summary HPI Summary: This pt is a 66 y/o female presenting to [facility] via EMS c/o increased SOB for 1 day. Pt reports she has a history of COPD and does wear 3L of O2 at home. She denies fever, swelling in LE. Per nurse's note, pt was administered 1 duoneb by EMS [employer] SERVIC[employer] REPRESENTATIVE. Pt states she smokes 1 cigarette every day. PMHx: atrial fibrillation, COPD. - History of Current Complaint Chief Complaint: EDShortnessOfBreath Time Seen by Provider: 10/26/17 01:37 Hx Obtained From: Patient Onset/Duration: Lasting Days - 1, Still Present Timing: Constant Current Severity: Moderate Dyspnea At: Rest Aggrevating Factors: Nothing Alleviating Factors: EMS Tx, Oxygen Associated Signs & Symptoms: Wheezing - Allergy/Home Medications Allergies/Adverse Reactions: Allergies Allergy/AdvReac Type Severity Reaction Status Date / Time methotrexate Allergy Severe Difficulty Verified 10/26/17 04:33 Breathing cephalexin Allergy Rash Verified 10/26/17 04:33 hydroxychloroquine Allergy Unknown Verified 10/26/17 04:33 Reaction Details Home Medications: Home Medications Calcium 630 mg PO DAILY 10/26/17 [History Confirmed 10/26/17] Orencia Clickject WEEKLY 10/26/17 [History] predniSONE TAB* [Deltasone TAB*] 5 mg PO DAILY 10/26/17 [History Confirmed 10/26] PMH/Surg Hx/FS Hx/Imm Hx Endocrine/Hematology History: Reports: Hx Diabetes - TYPE II Denies: Hx Thyroid Disease Cardiovascular History: Reports: Hx Atrial Fibrillation, Hx Congestive Heart Failure, Hx Hypercholesterolemia, Hx Hypertension, Other Cardiovascular Problems /Disorders - MITRAL VALVE DISORDER,CHRONIC PUL.HEART DISESE,TACHYCARDIA Denies: Hx Angina, Hx Coronary Artery Disease, Hx Pacemaker/ICD, Hx Valvular Heart Disease Respiratory History: Reports: Hx Chronic Obstructive Pulmonary Disease (COPD) - ALSO OBSTRUCTIVE SLEEP APNEA(USES CPAP), Hx Sleep Apnea, Other Respiratory Problems/Disorders - RHEUMATOID LUNG, RIGHT SIDE LUNG IS PUSHING ON LUNG Denies: Hx Asthma GI History: Denies: Hx Ulcer Musculoskeletal History: Reports: Hx Rheumatoid Arthritis, Other Musculoskeletal History - see above surgeries/RA Denies: Hx Osteoporosis Sensory History: Denies: Hx Contacts or Glasses, Hx Hearing Aid Opthamlomology History: Denies: Hx Contacts or Glasses Psychiatric History: Reports: Hx Anxiety, Hx Depression - Cancer History Hx Chemotherapy: No Hx Radiation Therapy: No - Surgical History Surgery Procedure, Year, and Place: appendix. tonsils. 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 Father - COPD/emphysema - Social History Alcohol Use: None Hx Substance Use: No Substance Use Type: Reports: None Hx Tobacco Use: Yes Smoking Status (MU): Light Every Day Tobacco Smoker Type: Cigarettes Amount Used/How Often: 7-8 cig day Length of Time of Smoking/Using Tobacco: 40 YEARS Have You Smoked in the Last Year: Yes Review of Systems Negative: Fever, Fatigue Positive: Shortness Of Breath, Cough Negative: Edema All Other Systems Reviewed And Are Negative: Yes Physical Exam - Summary Physical Exam Summary: Appearance: Well appearing, no pain distress Skin: warm, dry, reflects adequate perfusion Head/face: normal Eyes: EOMI, NOEL ENT: normal Neck: supple, nontender Respiratory: Bilateral wheezes Cardiovascular: Irregularly irregular rate and rhythm, pulses symmetrical Abdomen: nontender, soft Bowel: present Musculoskeletal: normal, strength/ROM intact Neuro: normal, sensory motor intact, A&Ox3 Triage Information Reviewed: Yes Vital Signs On Initial Exam: Initial Vitals Temp Pulse Resp BP Pulse Ox 97.6 F 87 20 103/69 98 10/26/17 01:31 10/26/17 01:31 10/26/17 01:31 10/26/17 01:31 10/26/17 01:31 Vital Signs Reviewed: Yes Diagnostics - Vital Signs Vital Signs Temp Pulse Resp BP Pulse Ox 10/26/17 01:48 87 23 98 10/26/17 01:46 92/72 10/26/17 01:31 97.6 F 87 20 103/69 98 - Laboratory Lab Results: Lab Results 10/26/17 10/26/17 10/26/17 Range/Units 02:09 02:09 02:09 WBC 7.6 (3.5-10.8) 10^3/ul RBC 3.98 L (4.0-5.4) 10^6/ul Hgb 12.5 (12.0-16.0) g/dl Hct 37 (35-47) % MCV 94 (80-97) fL MCH 31 (27-31) pg MCHC 34 (31-36) g/dl RDW 17 H (10.5-15) % Plt Count 232 (150-450) 10^3/ul MPV 7 L (7.4-10.4) um3 Neut % (Auto) 86.3 H (38-83) % Lymph % (Auto) 2.9 L (25-47) % [place] % (Auto) 10.0 H (0-7) % Eos % (Auto) 0.5 (0-6) % Baso % (Auto) 0.3 (0-2) % Absolute Neuts (auto) 6.6 (1.5-7.7) 10^3/ul Absolute Lymphs (auto) 0.2 L (1.0-4.8) 10^3/ul Absolute Monos (auto) 0.8 (0-0.8) 10^3/ul Absolute Eos (auto) 0 (0-0.6) 10^3/ul Absolute Basos (auto) 0 (0-0.2) 10^3/ul Absolute Nucleated RBC 0 10^3/ul Nucleated RBC % 0.1 Sodium 134 (133-145) mmol/L Potassium 3.6 (3.5-5.0) mmol/L Chloride 92 L (101-111) mmol/L Carbon Dioxide 35 H (22-32) mmol/L Anion Gap 7 (2-11) mmol/L BUN 23 (6-24) mg/dL Creatinine 1.28 H (0.51-0.95) mg/dL Est GFR ( Amer) 53.7 (>60) Est GFR (Non-Af Amer) 41.7 (>60) BUN/Creatinine Ratio 18.0 (8-20) Glucose 115 H (70-100) mg/dL Lactic Acid (0.5-2.0) mmol/L Calcium 9.5 (8.6-10.3) mg/dL Total Bilirubin 0.20 (0.2-1.0) mg/dL AST 16 (13-39) U/L ALT 11 (7-52) U/L Alkaline Phosphatase 86 (34-104) U/L Troponin I 0.01 (<0.04) ng/mL B-Natriuretic Peptide 56 ( - 100) pg/mL Total Protein 7.1 (6.4-8.9) g/dL Albumin 4.1 (3.2-5.2) g/dL Globulin 3.0 (2-4) g/dL Albumin/Globulin Ratio 1.4 (1-3) 10/26/17 Range/Units 02:09 WBC (3.5-10.8) 10^3/ul RBC (4.0-5.4) 10^6/ul Hgb (12.0-16.0) g/dl Hct (35-47) % MCV (80-97) fL MCH (27-31) pg MCHC (31-36) g/dl RDW (10.5-15) % Plt Count (150-450) 10^3/ul MPV (7.4-10.4) um3 Neut % (Auto) (38-83) % Lymph % (Auto) (25-47) % [place] % (Auto) (0-7) % Eos % (Auto) (0-6) % Baso % (Auto) (0-2) % Absolute Neuts (auto) (1.5-7.7) 10^3/ul Absolute Lymphs (auto) (1.0-4.8) 10^3/ul Absolute Monos (auto) (0-0.8) 10^3/ul Absolute Eos (auto) (0-0.6) 10^3/ul Absolute Basos (auto) (0-0.2) 10^3/ul Absolute Nucleated RBC 10^3/ul Nucleated RBC % Sodium (133-145) mmol/L Potassium (3.5-5.0) mmol/L Chloride (101-111) mmol/L Carbon Dioxide (22-32) mmol/L Anion Gap (2-11) mmol/L BUN (6-24) mg/dL Creatinine (0.51-0.95) mg/dL Est GFR ( Amer) (>60) Est GFR (Non-Af Amer) (>60) BUN/Creatinine Ratio (8-20) Glucose (70-100) mg/dL Lactic Acid 1.7 (0.5-2.0) mmol/L Calcium (8.6-10.3) mg/dL Total Bilirubin (0.2-1.0) mg/dL AST (13-39) U/L ALT (7-52) U/L Alkaline Phosphatase (34-104) U/L Troponin I (<0.04) ng/mL B-Natriuretic Peptide ( - 100) pg/mL Total Protein (6.4-8.9) g/dL Albumin (3.2-5.2) g/dL Globulin (2-4) g/dL Albumin/Globulin Ratio (1-3) Result Diagrams: 10/26/17 02:09 10/26/17 02:09 Lab Statement: Any lab studies that have been ordered have been reviewed, and results considered in the medical decision making process. - Radiology Chest XR Xray Interpretation: No Acute Changes - Negative chest XR. Radiology Interpretation Completed By: ED Physician - EKG 01:55 Cardiac Rate: NL EKG Rhythm: Sinus Rhythm - at [address] Segment: Non-Specific Course/Dx - Course Course Of Treatment: Pt is a 66 y/o female who presents with increased SOB x1 day. Pt reports she has a history of COPD and does wear 3L of O2 at home. Bloodwork and chest XR were obtained. In the ED course, the pt was given duoneb , solu-medrol, and Tamiflu. Chest XR is negative. I discussed pt care with Dr. Melendez, hospitalist, who has agreed to admit the pt. - Diagnoses Differential Diagnosis/HQI/PQRI: Positive: Asthma, Bronchitis, CHF, COPD Exacerbation, [place], Pneumonia, Pulmonary Edema Provider Diagnoses: COPD exacerbation, Influenza - Physician Notifications Discussed Care of Patient With: Abdiel Melendez Time Discussed With Above Provider: 03:34 Instructed by Provider To: Other - I discussed pt care with Dr. Melendez, hospitalist, who has agreed to admit the pt. - Critical Care Time Critical Care Time: 30-74 min Discharge - Discharge Plan Condition: Stable Disposition: ADMITTED TO [facility] Referrals: Kameron Travis MD [Primary Care Provider] - The documentation as recorded by the scribSteven quezada Angela accurately reflects the service I personally performed and the decisions made by me, Khang Camacho.
[2017-10-26 05:45] LABS: INR 2.76 (0.77-1.02)
[2017-10-26] MEDS ORDERED: Omeprazole CAP* 20 MG PO SCH (06:00)
[2017-10-26 06:43] LABS: EGFR Non-African American 40.6 (>60)
[2017-10-26] MEDS ORDERED: Spiriva Inhaler DEVICE* 1 EACH DEVICE SCH (08:00)
[2017-10-26] MEDS: Albuterol 2.5 MG/3 ML NEB.SOL* (0.083%) INH SCH ×3 (08:02→19:44)
--- NOTE | 2017-10-26 08:09 | RAD ---
INDICATION: Shortness of breath COMPARISON: Most recent comparison chest x-rays dated April 25, 2017 TECHNIQUE: Single AP portable view of the chest was obtained. FINDINGS: Image quality is compromised due to the relative inferiority of a portable chest x-ray. The heart and mediastinum exhibit normal size and contour. Similar the prior chest x-ray, the lungs appear hyperaerated in the AP projection. There is density obscuring the right lung base and bilateral costophrenic angle blunting similar in appearance to the previous chest x-ray. Visualized bones are normal for the patient's age. IMPRESSION: Chronic findings include appearance of obstructive pulmonary disease with bibasilar costophrenic angle blunting which could be seen with effusions or other consolidation at the lung bases.
[2017-10-26] MEDS: Mometasone/Formoter 200/5 MDI INH SCH ×2 (08:36→19:45)
[2017-10-26] MEDS: Tiotropium CAP.INH* CAP.INH/18 MCG (USE ORDER SET !) INH SCH (08:36)
[2017-10-26] MEDS ORDERED: predniSONE TAB* 10 MG PO SCH (09:00)
[2017-10-26] MEDS: azaTHIOprine TAB(*) 50 MG TAB PO SCH (09:41)
[2017-10-26] MEDS: Sertraline* 25 MG TAB PO SCH (09:42)
[2017-10-26] MEDS: Magnesium Oxide TAB* 400 MG PO SCH ×2 (09:42→21:48)
[2017-10-26] MEDS: oxyCODONE TAB* 5 MG TAB PO SCH ×3 (09:42→21:48)
[2017-10-26] MEDS: BuPROPion XL* 300 MG TAB.XL PO SCH (09:43)
[2017-10-26] MEDS: Docusate CAP* 100 MG PO SCH ×2 (09:43→21:48)
[2017-10-26] MEDS: guaiFENesin ER TAB 600 MG PO SCH ×2 (09:43→21:50)
[2017-10-26] MEDS: Omeprazole CAP* 20 MG PO SCH (09:43)
[2017-10-26] MEDS: Cinacalcet TAB* 30 MG PO SCH ×2 (09:43→21:47)
[2017-10-26] MEDS: Oseltamivir CAP* 30 MG CAP PO SCH ×2 (09:43→21:47)
[2017-10-26] MEDS: Metoprolol Succinate XL TAB* 50 MG PO SCH (09:44)
[2017-10-26] MEDS: Insulin LISPRO* 1 UNITS UNIT SUBCUT SCH ×5 (13:15→22:02)
--- NOTE | 2017-10-26 16:36 | PN ---
Subjective Date of Service: 10/26/17 Interval History: Patient states her breathing feels much better. Patient denies F/C, N/V, abdominal pain, diarrhea, CP, dysuria, or other new pain. Patient states her joint pain is at baseline. Patient states she is having trouble with coughing and feels like she is unable to bring up her phlegm. Family History: Unchanged from Admission Social History: Unchanged from Admission Past Medical History: Unchanged from Admission Objective Active Medications: Acetaminophen (Tylenol Tab*) 650 mg PO Q6H PRN PRN Reason: FEVER/PAIN Albuterol (Ventolin 2.5 Mg/3 Ml Neb.Sarai*) 2.5 mg INH Q2H PRN PRN Reason: SOB/WHEEZING Albuterol (Ventolin 2.5 Mg/3 Ml Neb.Sarai*) 2.5 mg INH RT.[id number] AWAKE [facility] Last Admin: 10/26/17 13:01 Dose: 2.5 mg Atorvastatin Calcium (Lipitor*) 20 mg PO BEDTIME [facility] Azathioprine (Imuran Tab(*)) 50 mg PO DAILY [facility] Last Admin: 10/26/17 09:41 Dose: 50 mg Bupropion HCl (Bupropion Xl*) 300 mg PO DAILY [facility] PRN Reason: Protocol Last Admin: 10/26/17 09:43 Dose: 300 mg Cinacalcet (Sensipar Tab*) 30 mg PO BID [facility] Last Admin: 10/26/17 09:43 Dose: 30 mg Device (Nicotine Mouth Piece*) 1 each INH .USE WITH NICOTROL PRN PRN Reason: CRAVING Device (Tiotropium Inhaler Device*) 1 each .SEE ORDER .USE w/ SPIRIVA CAPS [facility] Docusate Sodium (Colace Cap*) 200 mg PO BID [facility] Last Admin: 10/26/17 09:43 Dose: 200 mg Guaifenesin (Mucinex*) 1,200 mg PO BID [facility] Stop: 10/30/17 09:01 Last Admin: 10/26/17 09:43 Dose: 1,200 mg Sodium Chloride (Ns 0.9% 1000 Ml*) 1,000 mls @ 75 mls/hr IV PER RATE [facility] Insulin Glargine (Lantus(*)) 16 units 0.24 units/kg (16 units) SUBCUT 2100 [facility] Stop: 10/27/17 20:00 Insulin Human Lispro (Humalog*) 0 units SUBCUT AC [facility] PRN Reason: Protocol Last Admin: 10/26/17 13:15 Dose: 4 units Insulin Human Lispro (Humalog*) 0 units SUBCUT ACHS [facility] PRN Reason: Protocol Last Admin: 10/26/17 13:16 Dose: 3 units Magnesium Oxide (Magox 400 Tab*) 800 mg PO BID [facility] Last Admin: 10/26/17 09:42 Dose: 800 mg Melatonin (Melatonin (Nf)) 3 mg PO BEDTIME PRN; Protocol PRN Reason: Sleep Methylprednisolone Sodium Succinate (Solu-Medrol 40 Mg) 40 mg IV Q8H [facility] Metoprolol Succinate (Toprol Xl Tab*) 50 mg PO DAILY [facility] Last Admin: 10/26/17 09:44 Dose: Not Given Mometasone Furoate/Formoterol Fumar (Dulera 200/5 Mdi*) 2 puff INH BID [facility] Last Admin: 10/26/17 08:36 Dose: 2 puff Morphine Sulfate (Morphine Oral.Soln 10 Mg*) 5 mg PO Q6H PRN PRN Reason: Severe shortness of breath Nicotine (Nicotine Inhaler*) 10 mg INH Q2H PRN PRN Reason: CRAVING Omeprazole (Prilosec Cap*) 20 mg PO DAILY [facility] Last Admin: 10/26/17 09:43 Dose: 20 mg Ondansetron HCl (Zofran Inj*) 4 mg IV Q6H PRN PRN Reason: NAUSEA Oseltamivir Phosphate (Tamiflu Cap*) 30 mg PO BID [facility] Stop: 10/30/17 09:01 Last Admin: 10/26/17 09:43 Dose: 30 mg Oxycodone HCl (Roxycodone Tab*) 5 mg PO Q6H [facility] Last Admin: 10/26/17 13:15 Dose: 5 mg Sertraline HCl (Zoloft*) 75 mg PO DAILY [facility] Last Admin: 10/26/17 09:42 Dose: 75 mg Tiotropium [place] (Spiriva Cap.Inh*) 1 cap INH DAILY [facility] Last Admin: 10/26/17 08:36 Dose: 1 cap Warfarin Sodium (Coumadin Tab(*)) 6 mg PO 1700 [facility] PRN Reason: Protocol Vital Signs - 8 hr 10/26/17 10/26/17 10/26/17 09:42 11:20 13:03 Temperature 98.4 F Pulse Rate 83 78 Respiratory 22 16 20 Rate Blood Pressure 101/73 (mmHg) O2 Sat by Pulse 96 96 Oximetry 10/26/17 10/26/17 10/26/17 13:15 14:21 16:06 Temperature Pulse Rate Respiratory 20 20 20 Rate Blood Pressure (mmHg) O2 Sat by Pulse Oximetry Oxygen Devices in Use Now: Nasal Cannula - 3L Appearance: Patient is a 66yo female who appears stated age and is sitting in the bed in NAD. Eyes: No Scleral Icterus, PERRLA Ears/Nose/Mouth/Throat: NL Teeth, Lips, Gums, Clear Oropharnyx, Mucous Membranes Moist Neck: NL Appearance and Movements; NL JVP, Trachea Midline Respiratory: Symmetrical Chest Expansion and Respiratory Effort, - - Diminished throughout. Occasional slight wheezes. Cardiovascular: NL Sounds; No Murmurs; No JVD, RRR, No Edema, - - Pulses 2+. Abdominal: NL Sounds; No Tenderness; No Distention, No Hepatosplenomegaly Lymphatic: No Cervical Adenopathy Extremities: No Edema, No Clubbing, Cyanosis, - - Contractures and swollen joints consistent with advanced Rheumatoid Arthritis Skin: No Rash or Ulcers, No Nodules or Sclerosis Neurological: Alert and Oriented x 3, NL Sensation, NL Muscle Strength and Tone , - - CN II-XII intact. Result Diagrams: 10/26/17 02:09 10/26/17 05:15 Additional Lab and Data: Lab Results Assess/Plan/Problems-Billing Assessment: Patient is a 66yo female with a PMH significant for COPD with chronic hypoxic respiratory failure, RA, DM II, APL, DAREK, HTN, HLD who presents with Influenza B and COPD exacerbation. - Patient Problems (1) COPD exacerbation Current Visit: No Status: Acute Code(s): J44.1 - CHRONIC OBSTRUCTIVE PULMONARY DISEASE W (ACUTE) EXACERBATION SNOMED Code(s): 055356501410864 Comment: Improving. Continue steroids, plan to transition to oral tomorrow morning. Continue antibiotics, inhalers and follow up with Dr. Ramirez outpatient. On Home oxygen with improved lung exam. Likely exacerbated by flu. (2) Influenza B Current Visit: Yes Status: Acute Code(s): J10.1 - FLU DUE TO OTH IDENT INFLUENZA VIRUS W OTH RESP MANIFEST SNOMED Code(s): 48415516 Comment: Continue Tamiflu, on Home O2. (3) Chronic respiratory failure with hypoxia Current Visit: Yes Status: Acute Comment: On 3L O2 at home. O2 requirement at home level. ABG consistent with chronic respiratory failure. (4) Antiphospholipid syndrome Current Visit: No Status: Acute Code(s): D68.61 - ANTIPHOSPHOLIPID SYNDROME SNOMED Code(s): 11514162 Comment: Continue Warfarin. INR therapeutic (5) Depression Current Visit: No Status: Acute Code(s): F32.9 - MAJOR DEPRESSIVE DISORDER, SINGLE EPISODE, UNSPECIFIED SNOMED Code(s): 33360882 Comment: Euthymic, continue zoloft. (6) Pulmonary embolism Current Visit: No Status: Acute Priority: High Onset Date: 09/10/14 Code (s): I26.99 - OTHER PULMONARY EMBOLISM WITHOUT ACUTE COR PULMONALE SNOMED Code (s): 98514027 Comment: The patient has a h/o PE and is on coumadin. Her INR is therapeutic. Monitor INR. (7) Rheumatoid arthritis Current Visit: No Status: Acute Code(s): M06.9 - RHEUMATOID ARTHRITIS, UNSPECIFIED SNOMED Code(s): 88276114 Comment: Continue Azathioprine. High dose steroids for COPD exacerbation. Taper to 5mg PO daily which is outpatient dose. (8) Hyperlipidemia Current Visit: No Status: Chronic Code(s): E78.5 - HYPERLIPIDEMIA, UNSPECIFIED SNOMED Code(s): 75301564 Comment: Continue lipitor. (9) Hypertension Current Visit: No Status: Chronic Code(s): I10 - ESSENTIAL (PRIMARY) HYPERTENSION SNOMED Code(s): 81717046 Comment: BP borderline low. Metoprolol held today due to borderline hypotension. Will monitor. (10) Obstructive sleep apnea Current Visit: No Status: Chronic Code(s): G47.33 - OBSTRUCTIVE SLEEP APNEA (ADULT) (PEDIATRIC) SNOMED Code(s): 78184478 Comment: Continue CPAP. (11) Rheumatoid arthritis Current Visit: No Status: Chronic Code(s): M06.9 - RHEUMATOID ARTHRITIS, UNSPECIFIED SNOMED Code(s): 24064606 Comment: Continue azothioprine. (12) Type 2 diabetes mellitus Current Visit: No Status: Chronic Comment: Continue Lantus and Lispro SS. Blood Sugar slightly elevated. (13) DVT prophylaxis Current Visit: No Status: Acute Priority: Medium Onset Date: 09/10/14 Code(s): TQF8562 - SNOMED Code(s): 486997211 Comment: Continue Warfarin. Therapeutic.
[2017-10-26] MEDS: Warfarin TAB(*) 6 MG PO SCH (18:28)
[2017-10-26] MEDS: NS 0.9% 1000 ML* 1,000 ML IV SCH (19:43)
[2017-10-26] MEDS ORDERED: Insulin GLARGINE(*) 1 UNITS UNIT SUBCUT SCH (21:00)
[2017-10-26 21:44] LABS: Urine Appearance Clear; Urine Blood 2+ (Negative); Urine Color Yellow; Urine Ketones Negative (Negative); Urine Protein 1+(30 mg/dL) (Negative); Urine Specific Gravity 1.012 (1.010-1.030); Urine Urobilinogen Negative (Negative)
[2017-10-26] MEDS: Atorvastatin* 20 MG TAB PO SCH (21:48)
[2017-10-26] MEDS: Albuterol 2.5 MG/3 ML NEB.SOL* (0.083%) INH PRN (22:15)
[2017-10-27] MEDS: Albuterol 2.5 MG/3 ML NEB.SOL* (0.083%) INH SCH ×4 (01:16→19:21)
[2017-10-27] MEDS: Albuterol 2.5 MG/3 ML NEB.SOL* (0.083%) INH PRN ×2 (03:20→10:51)
[2017-10-27] MEDS: oxyCODONE TAB* 5 MG TAB PO SCH ×4 (03:24→19:52)
[2017-10-27] MEDS ORDERED: Heparin VIAL(*) 5000 UNITS/ML VIAL (FIVE THOUSAND) SUBCUT SCH (06:00)
[2017-10-27 06:03] LABS: ABS Basophils 0 10^3/ul (0-0.2); ABS Eosinophils 0 10^3/ul (0-0.6); ABS Lymphocytes 0.6 10^3/ul (1.0-4.8); ABS Monocytes 0.8 10^3/ul (0-0.8); ABS Nucleated RBC 0 10^3/ul; Eosinophil % 0.2 % (0-6); Hematocrit 33 % (35-47); Hemoglobin 11.1 g/dl (12.0-16.0); Lymphocyte % 9.2 % (25-47); Mean Corpuscular HGB Conc 34 g/dl (31-36); Mean Corpuscular Hemoglobin 32 pg (27-31); Mean Corpuscular Volume 94 fL (80-97); Mean Platelet Volume 7 um3 (7.4-10.4); Nucleated Red Blood Cells % 0.1; Platelet Count 204 10^3/ul (150-450); Red Blood Count 3.53 10^6/ul (4.0-5.4); Red Cell Distribution Width 17 % (10.5-15); White Blood Count 6.4 10^3/ul (3.5-10.8)
[2017-10-27 06:17] LABS: EGFR Non-African American 46.7 (>60)
[2017-10-27] MEDS: Mometasone/Formoter 200/5 MDI INH SCH ×2 (07:46→19:21)
[2017-10-27] MEDS: Tiotropium CAP.INH* CAP.INH/18 MCG (USE ORDER SET !) INH SCH (07:46)
[2017-10-27] MEDS: Insulin LISPRO* 1 UNITS UNIT SUBCUT SCH ×7 (09:22→21:07)
[2017-10-27] MEDS: Sertraline* 25 MG TAB PO SCH (09:25)
[2017-10-27] MEDS: Metoprolol Succinate XL TAB* 50 MG PO SCH (09:25)
[2017-10-27] MEDS: Magnesium Oxide TAB* 400 MG PO SCH ×2 (09:25→19:54)
[2017-10-27] MEDS: guaiFENesin ER TAB 600 MG PO SCH ×2 (09:25→19:55)
[2017-10-27] MEDS: Omeprazole CAP* 20 MG PO SCH (09:25)
[2017-10-27] MEDS: Oseltamivir CAP* 30 MG CAP PO SCH ×2 (09:25→19:54)
[2017-10-27] MEDS: Docusate CAP* 100 MG PO SCH ×2 (09:26→19:53)
[2017-10-27] MEDS: azaTHIOprine TAB(*) 50 MG TAB PO SCH (09:26)
[2017-10-27] MEDS: BuPROPion XL* 300 MG TAB.XL PO SCH (09:26)
[2017-10-27] MEDS: Cinacalcet TAB* 30 MG PO SCH ×2 (09:26→19:54)
[2017-10-27] MEDS: methylPREDNISolone SOD 40 MG* 1 ML VIAL IV SCH ×2 (09:28→17:55)
[2017-10-27] MEDS: NS 0.9% 1000 ML* 1,000 ML IV SCH (09:31)
[2017-10-27 13:33] LABS: INR 2.44 (0.77-1.02)
--- NOTE | 2017-10-27 15:08 | PN ---
Subjective Date of Service: 10/27/17 Interval History: Patient in general feeling about the same as yesterday but has been having repeated episodes of feeling like she's suffocating with increased oxygen demand and hyperventilation. Patient denies CP or other symptoms with these episodes. Patient states that these are consistent with what she felt like previously when she had a PE. Patient denies F/C, N/V, ABdominal pain, diarrhea , constipation, dysuria, or other pain. Family History: Unchanged from Admission Social History: Unchanged from Admission Past Medical History: Unchanged from Admission Objective Active Medications: Acetaminophen (Tylenol Tab*) 650 mg PO Q6H PRN PRN Reason: FEVER/PAIN Albuterol (Ventolin 2.5 Mg/3 Ml Neb.Sarai*) 2.5 mg INH Q2H PRN PRN Reason: SOB/WHEEZING Last Admin: 10/27/17 10:51 Dose: 2.5 mg Albuterol (Ventolin 2.5 Mg/3 Ml Neb.Sarai*) 2.5 mg INH [id number] AWAKE [facility] Last Admin: 10/27/17 14:09 Dose: 2.5 mg Atorvastatin Calcium (Lipitor*) 20 mg PO BEDTIME [facility] Last Admin: 10/26/17 21:48 Dose: 20 mg Azathioprine (Imuran Tab(*)) 50 mg PO DAILY [facility] Last Admin: 10/27/17 09:26 Dose: 50 mg Bupropion HCl (Bupropion Xl*) 300 mg PO DAILY [facility] PRN Reason: Protocol Last Admin: 10/27/17 09:26 Dose: 300 mg Cinacalcet (Sensipar Tab*) 30 mg PO BID [facility] Last Admin: 10/27/17 09:26 Dose: 30 mg Device (Nicotine Mouth Piece*) 1 each INH .USE WITH NICOTROL PRN PRN Reason: CRAVING Device (Tiotropium Inhaler Device*) 1 each .SEE ORDER .USE w/ SPIRIVA CAPS [facility] Docusate Sodium (Colace Cap*) 200 mg PO BID [facility] Last Admin: 10/27/17 09:26 Dose: 200 mg Guaifenesin (Mucinex*) 1,200 mg PO BID [facility] Stop: 10/30/17 09:01 Last Admin: 10/27/17 09:25 Dose: 1,200 mg Sodium Chloride (Ns 0.9% 1000 Ml*) 1,000 mls @ 75 mls/hr IV PER RATE [facility] Last Admin: 10/27/17 09:31 Dose: 75 mls/hr Insulin Glargine (Lantus(*)) 16 units 0.24 units/kg (16 units) SUBCUT 2100 [facility] Stop: 10/27/17 20:00 Last Admin: 10/26/17 21:50 Dose: 16 unit Insulin Human Lispro (Humalog*) 0 units SUBCUT AC [facility] PRN Reason: Protocol Last Admin: 10/27/17 13:06 Dose: 3 units Insulin Human Lispro (Humalog*) 0 units SUBCUT ACHS [facility] PRN Reason: Protocol Last Admin: 10/27/17 13:06 Dose: 1 units Lorazepam (Ativan Inj*) 0.5 mg IV PUSH Q4H PRN PRN Reason: ANXIETY Magnesium Oxide (Magox 400 Tab*) 800 mg PO BID [facility] Last Admin: 10/27/17 09:25 Dose: 800 mg Melatonin (Melatonin (Nf)) 3 mg PO BEDTIME PRN; Protocol PRN Reason: Sleep Methylprednisolone Sodium Succinate (Solu-Medrol 40 Mg) 40 mg IV Q8H [facility] Last Admin: 10/27/17 09:28 Dose: 40 mg Metoprolol Succinate (Toprol Xl Tab*) 50 mg PO DAILY [facility] Last Admin: 10/27/17 09:25 Dose: 50 mg Mometasone Furoate/Formoterol Fumar (Dulera 200/5 Mdi*) 2 puff INH BID [facility] Last Admin: 10/27/17 07:46 Dose: 2 puff Morphine Sulfate (Morphine Oral.Soln 10 Mg*) 5 mg PO Q6H PRN PRN Reason: Severe shortness of breath Nicotine (Nicotine Inhaler*) 10 mg INH Q2H PRN PRN Reason: CRAVING Omeprazole (Prilosec Cap*) 20 mg PO DAILY [facility] Last Admin: 10/27/17 09:25 Dose: 20 mg Ondansetron HCl (Zofran Inj*) 4 mg IV Q6H PRN PRN Reason: NAUSEA Oseltamivir Phosphate (Tamiflu Cap*) 30 mg PO BID [facility] Stop: 10/30/17 09:01 Last Admin: 10/27/17 09:25 Dose: 30 mg Oxycodone HCl (Roxycodone Tab*) 5 mg PO Q6H [facility] Last Admin: 10/27/17 13:05 Dose: 5 mg Sertraline HCl (Zoloft*) 75 mg PO DAILY [facility] Last Admin: 10/27/17 09:25 Dose: 75 mg Tiotropium [place] (Spiriva Cap.Inh*) 1 cap INH DAILY [facility] Last Admin: 10/27/17 07:46 Dose: 1 cap Warfarin Sodium (Coumadin Tab(*)) 6 mg PO 1700 [facility] PRN Reason: Protocol Last Admin: 10/26/17 18:28 Dose: 6 mg Vital Signs - 8 hr 10/27/17 10/27/17 10/27/17 07:27 07:49 07:54 Temperature 98.5 F Pulse Rate 91 88 Respiratory 18 20 20 Rate Blood Pressure 121/77 (mmHg) O2 Sat by Pulse 99 99 Oximetry 10/27/17 10/27/17 10/27/17 08:00 10:55 11:09 Temperature 97.7 F Pulse Rate 115 94 Respiratory 20 24 16 Rate Blood Pressure 105/79 (mmHg) O2 Sat by Pulse 97 99 Oximetry 10/27/17 13:05 Temperature Pulse Rate Respiratory 16 Rate Blood Pressure (mmHg) O2 Sat by Pulse Oximetry Oxygen Devices in Use Now: Nasal Cannula - 3-5L Appearance: Patient is a 66yo female who appears stated age and is sitting in the bed in [facility]. Eyes: No Scleral Icterus, PERRLA Ears/Nose/Mouth/Throat: NL Teeth, Lips, Gums, Clear Oropharnyx, Mucous Membranes Moist Neck: NL Appearance and Movements; NL JVP, Trachea Midline Respiratory: Symmetrical Chest Expansion and Respiratory Effort, Clear to Auscultation, - - Severely diminished. Cardiovascular: NL Sounds; No Murmurs; No JVD, RRR, No Edema Abdominal: NL Sounds; No Tenderness; No Distention, No Hepatosplenomegaly Lymphatic: No Cervical Adenopathy Extremities: No Edema, No Clubbing, Cyanosis, - - Contractures and swollen joints consistent with history of Rheumatoid Arthritis. Skin: No Rash or Ulcers, No Nodules or Sclerosis Neurological: Alert and Oriented x 3, NL Sensation, NL Muscle Strength and Tone , - - CN II-XII intact Result Diagrams: 10/27/17 05:49 10/27/17 05:49 Additional Lab and Data: Lab Results Assess/Plan/Problems-Billing Assessment: Patient is a 66yo female with a PMH significant for COPD with chronic hypoxic respiratory failure, RA, DM II, APL, DAREK, HTN, HLD who presents with Influenza B and COPD exacerbation. - Patient Problems (1) COPD exacerbation Current Visit: No Status: Acute Code(s): J44.1 - CHRONIC OBSTRUCTIVE PULMONARY DISEASE W (ACUTE) EXACERBATION SNOMED Code(s): 910423866089038 Comment: Improving. Continue steroids IV, plan to transition to oral tomorrow morning. Continue antibiotics, inhalers and follow up with Dr. Ramirez outpatient. On Home oxygen with improved lung exam. Likely exacerbated by flu. Intermittent episodes of increased hypoxia. Likely related to anxiety and air hunger from poor respiratory status. D-Dimer negative. (2) Influenza B Current Visit: Yes Status: Acute Code(s): J10.1 - FLU DUE TO OTH IDENT INFLUENZA VIRUS W OTH RESP MANIFEST SNOMED Code(s): 97093054 Comment: Continue Tamiflu, on Home O2. With intermittent episodes of increased hypoxia. (3) Anemia Current Visit: No Status: Acute Code(s): D64.9 - ANEMIA, UNSPECIFIED SNOMED Code(s): 604044040 Comment: Previous history of profound anemia from A[place], B12 deficiency and a combination of GI bleed and AOCD. Current Hgb at 11.1. Likely dilutiuonal from fluids. Will monitor. (4) Chronic respiratory failure with hypoxia Current Visit: Yes Status: Acute Comment: On 3L O2 at home. O2 requirement at home level. ABG consistent with chronic respiratory failure. (5) Antiphospholipid syndrome Current Visit: No Status: Acute Code(s): D68.61 - ANTIPHOSPHOLIPID SYNDROME SNOMED Code(s): 25861884 Comment: Continue Warfarin. INR therapeutic. D-Dimer negative. (6) Depression Current Visit: No Status: Acute Code(s): F32.9 - MAJOR DEPRESSIVE DISORDER, SINGLE EPISODE, UNSPECIFIED SNOMED Code(s): 64814097 Comment: Euthymic, continue zoloft. (7) Pulmonary embolism Current Visit: No Status: Acute Priority: High Onset Date: 09/10/14 Code (s): I26.99 - OTHER PULMONARY EMBOLISM WITHOUT ACUTE COR PULMONALE SNOMED Code (s): 10334362 Comment: The patient has a h/o PE and is on coumadin. Her INR is therapeutic. Monitor INR. (8) Rheumatoid arthritis Current Visit: No Status: Acute Code(s): M06.9 - RHEUMATOID ARTHRITIS, UNSPECIFIED SNOMED Code(s): 24554911 Comment: Continue Azathioprine. High dose steroids for COPD exacerbation. Taper to 5mg PO daily which is outpatient dose. (9) Hyperlipidemia Current Visit: No Status: Chronic Code(s): E78.5 - HYPERLIPIDEMIA, UNSPECIFIED SNOMED Code(s): 98628425 Comment: Continue lipitor. (10) Hypertension Current Visit: No Status: Chronic Code(s): I10 - ESSENTIAL (PRIMARY) HYPERTENSION SNOMED Code(s): 07509018 Comment: BP borderline low. Metoprolol held today due to borderline hypotension. Will monitor. (11) Obstructive sleep apnea Current Visit: No Status: Chronic Code(s): G47.33 - OBSTRUCTIVE SLEEP APNEA (ADULT) (PEDIATRIC) SNOMED Code(s): 18029371 Comment: Continue CPAP. (12) Rheumatoid arthritis Current Visit: No Status: Chronic Code(s): M06.9 - RHEUMATOID ARTHRITIS, UNSPECIFIED SNOMED Code(s): 94223726 Comment: Continue azothioprine. Hold Abatacept (13) Type 2 diabetes mellitus Current Visit: No Status: Chronic Comment: Continue Lantus and Lispro SS. Blood Sugar slightly elevated. (14) DVT prophylaxis Current Visit: No Status: Acute Priority: Medium Onset Date: 09/10/14 Code(s): JOZ4296 - SNOMED Code(s): 144228196 Comment: Continue Warfarin. Therapeutic.
[2017-10-27] MEDS: Warfarin TAB(*) 6 MG PO SCH (17:55)
[2017-10-27] MEDS: Atorvastatin* 20 MG TAB PO SCH (19:53)
[2017-10-27] MEDS: LORazepam INJ* 2 MG/ML 1 ML VIAL IV PUSH PRN (21:26)
[2017-10-28] MEDS: NS 0.9% 1000 ML* 1,000 ML IV SCH (00:46)
[2017-10-28] MEDS: Albuterol 2.5 MG/3 ML NEB.SOL* (0.083%) INH SCH ×4 (01:06→19:32)
[2017-10-28] MEDS: oxyCODONE TAB* 5 MG TAB PO SCH ×4 (02:08→21:01)
[2017-10-28] MEDS: methylPREDNISolone SOD 40 MG* 1 ML VIAL IV SCH ×3 (02:10→17:53)
[2017-10-28 05:43] LABS: ABS Basophils 0 10^3/ul (0-0.2); ABS Eosinophils 0 10^3/ul (0-0.6); ABS Lymphocytes 0.4 10^3/ul (1.0-4.8); ABS Monocytes 0.4 10^3/ul (0-0.8); ABS Neutrophils 4.6 10^3/ul (1.5-7.7); ABS Nucleated RBC 0 10^3/ul; Eosinophil % 0 % (0-6); Hematocrit 33 % (35-47); Hemoglobin 10.9 g/dl (12.0-16.0); Lymphocyte % 6.9 % (25-47); Mean Corpuscular HGB Conc 33 g/dl (31-36); Mean Corpuscular Hemoglobin 31 pg (27-31); Mean Corpuscular Volume 95 fL (80-97); Mean Platelet Volume 7 um3 (7.4-10.4); Nucleated Red Blood Cells % 0.2; Platelet Count 185 10^3/ul (150-450); Red Blood Count 3.52 10^6/ul (4.0-5.4); Red Cell Distribution Width 17 % (10.5-15); White Blood Count 5.4 10^3/ul (3.5-10.8)
[2017-10-28 05:58] LABS: EGFR Non-African American 52.4 (>60)
[2017-10-28] MEDS: Tiotropium CAP.INH* CAP.INH/18 MCG (USE ORDER SET !) INH SCH (07:12)
[2017-10-28] MEDS: Mometasone/Formoter 200/5 MDI INH SCH ×2 (07:13→19:33)
[2017-10-28] MEDS: azaTHIOprine TAB(*) 50 MG TAB PO SCH (08:46)
[2017-10-28] MEDS: Docusate CAP* 100 MG PO SCH ×2 (08:46→21:00)
[2017-10-28] MEDS: Magnesium Oxide TAB* 400 MG PO SCH ×2 (08:47→21:00)
[2017-10-28] MEDS: Cinacalcet TAB* 30 MG PO SCH ×2 (08:47→21:01)
[2017-10-28] MEDS: Sertraline* 25 MG TAB PO SCH (08:47)
[2017-10-28] MEDS: guaiFENesin ER TAB 600 MG PO SCH ×2 (08:47→21:01)
[2017-10-28] MEDS: Omeprazole CAP* 20 MG PO SCH (08:47)
[2017-10-28] MEDS: Metoprolol Succinate XL TAB* 50 MG PO SCH (08:48)
[2017-10-28] MEDS: BuPROPion XL* 300 MG TAB.XL PO SCH (08:48)
[2017-10-28] MEDS: Insulin LISPRO* 1 UNITS UNIT SUBCUT SCH ×7 (08:48→21:03)
[2017-10-28] MEDS: Oseltamivir CAP* 30 MG CAP PO SCH ×2 (08:48→21:01)
[2017-10-28] MEDS: LORazepam INJ* 2 MG/ML 1 ML VIAL IV PUSH PRN (08:49)
--- NOTE | 2017-10-28 11:56 | PN ---
Subjective Date of Service: 10/28/17 Interval History: Episodes of dyspnea with minimal exertion continue. Patient feels like she is suffocating when this happens. Patient denies chest pain with this. Patient requires long recovery time after ambulation to bathroom. Patient states that this is helped significantly with ativan. Patient denies any use of PRN anxiolytics outpatient. Patient denies F/C, N/V, abdominal pain, diarrhea, constipation, dysuria, or other pain. Patient does not feel as if she could function at home as her walk to the bathroom is much longer than it is here. Family History: Unchanged from Admission Social History: Unchanged from Admission Past Medical History: Unchanged from Admission Objective Active Medications: Acetaminophen (Tylenol Tab*) 650 mg PO Q6H PRN PRN Reason: FEVER/PAIN Albuterol (Ventolin 2.5 Mg/3 Ml Neb.Sarai*) 2.5 mg INH Q2H PRN PRN Reason: SOB/WHEEZING Last Admin: 10/27/17 10:51 Dose: 2.5 mg Albuterol (Ventolin 2.5 Mg/3 Ml Neb.Sarai*) 2.5 mg INH [id number] AWAKE [facility] Last Admin: 10/28/17 07:13 Dose: 2.5 mg Atorvastatin Calcium (Lipitor*) 20 mg PO BEDTIME [facility] Last Admin: 10/27/17 19:53 Dose: 20 mg Azathioprine (Imuran Tab(*)) 50 mg PO DAILY [facility] Last Admin: 10/28/17 08:46 Dose: 50 mg Bupropion HCl (Bupropion Xl*) 300 mg PO DAILY [facility] PRN Reason: Protocol Last Admin: 10/28/17 08:48 Dose: 300 mg Cinacalcet (Sensipar Tab*) 30 mg PO BID [facility] Last Admin: 10/28/17 08:47 Dose: 30 mg Device (Nicotine Mouth Piece*) 1 each INH .USE WITH NICOTROL PRN PRN Reason: CRAVING Device (Tiotropium Inhaler Device*) 1 each .SEE ORDER .USE w/ SPIRIVA CAPS [facility] Docusate Sodium (Colace Cap*) 200 mg PO BID [facility] Last Admin: 10/28/17 08:46 Dose: 200 mg Guaifenesin (Mucinex*) 1,200 mg PO BID [facility] Stop: 10/30/17 09:01 Last Admin: 10/28/17 08:47 Dose: 1,200 mg Insulin Human Lispro (Humalog*) 0 units SUBCUT AC [facility] PRN Reason: Protocol Last Admin: 10/28/17 08:48 Dose: 3 units Insulin Human Lispro (Humalog*) 0 units SUBCUT ACHS [facility] PRN Reason: Protocol Last Admin: 10/28/17 08:48 Dose: 1 units Lorazepam (Ativan Inj*) 0.5 mg IV PUSH Q4H PRN PRN Reason: ANXIETY Last Admin: 10/28/17 08:49 Dose: 0.5 mg Magnesium Oxide (Magox 400 Tab*) 800 mg PO BID [facility] Last Admin: 10/28/17 08:47 Dose: 800 mg Melatonin (Melatonin (Nf)) 3 mg PO BEDTIME PRN; Protocol PRN Reason: Sleep Methylprednisolone Sodium Succinate (Solu-Medrol 40 Mg) 40 mg IV Q8H [facility] Last Admin: 10/28/17 08:49 Dose: 40 mg Metoprolol Succinate (Toprol Xl Tab*) 50 mg PO DAILY [facility] Last Admin: 10/28/17 08:48 Dose: Not Given Mometasone Furoate/Formoterol Fumar (Dulera 200/5 Mdi*) 2 puff INH BID [facility] Last Admin: 10/28/17 07:13 Dose: 2 puff Morphine Sulfate (Morphine Oral.Soln 10 Mg*) 5 mg PO Q6H PRN PRN Reason: Severe shortness of breath Nicotine (Nicotine Inhaler*) 10 mg INH Q2H PRN PRN Reason: CRAVING Omeprazole (Prilosec Cap*) 20 mg PO DAILY [facility] Last Admin: 10/28/17 08:47 Dose: 20 mg Ondansetron HCl (Zofran Inj*) 4 mg IV Q6H PRN PRN Reason: NAUSEA Oseltamivir Phosphate (Tamiflu Cap*) 30 mg PO BID [facility] Stop: 10/30/17 09:01 Last Admin: 10/28/17 08:48 Dose: 30 mg Oxycodone HCl (Roxycodone Tab*) 5 mg PO Q6H [facility] Last Admin: 10/28/17 08:47 Dose: 5 mg Sertraline HCl (Zoloft*) 75 mg PO DAILY [facility] Last Admin: 10/28/17 08:47 Dose: 75 mg Tiotropium [place] (Spiriva Cap.Inh*) 1 cap INH DAILY [facility] Last Admin: 10/28/17 07:12 Dose: 1 cap Warfarin Sodium (Coumadin Tab(*)) 6 mg PO 1700 [facility] PRN Reason: Protocol Last Admin: 10/27/17 17:55 Dose: 6 mg Vital Signs - 8 hr 10/28/17 10/28/17 10/28/17 07:16 07:51 08:00 Temperature 97.5 F Pulse Rate 77 88 Respiratory 16 22 26 Rate Blood Pressure 114/59 (mmHg) O2 Sat by Pulse 98 96 Oximetry 10/28/17 10/28/17 10/28/17 08:47 08:49 10:15 Temperature Pulse Rate Respiratory 22 22 20 Rate Blood Pressure (mmHg) O2 Sat by Pulse Oximetry Oxygen Devices in Use Now: Nasal Cannula - 3L Appearance: Patient is a 66yo male who appears stated age and is sitting in the bed with moderately increased WOB. Eyes: No Scleral Icterus, PERRLA Ears/Nose/Mouth/Throat: NL Teeth, Lips, Gums, Clear Oropharnyx, Mucous Membranes Moist Neck: NL Appearance and Movements; NL JVP, Trachea Midline Respiratory: Symmetrical Chest Expansion and Respiratory Effort, - - Severely diminished throughout. Slight intermittent wheezes. Cardiovascular: NL Sounds; No Murmurs; No JVD, RRR, No Edema Abdominal: NL Sounds; No Tenderness; No Distention, No Hepatosplenomegaly Lymphatic: No Cervical Adenopathy Extremities: No Edema, No Clubbing, Cyanosis Skin: No Rash or Ulcers, No Nodules or Sclerosis Neurological: Alert and Oriented x 3, NL Sensation, NL Muscle Strength and Tone , - - CN II-XII Result Diagrams: 10/28/17 05:34 10/28/17 05:34 Additional Lab and Data: Lab Results Assess/Plan/Problems-Billing Assessment: Patient is a 66yo female with a PMH significant for COPD with chronic hypoxic respiratory failure, RA, DM II, APL, DAREK, HTN, HLD who presents with Influenza B and COPD exacerbation. - Patient Problems (1) COPD exacerbation Current Visit: No Status: Acute Code(s): J44.1 - CHRONIC OBSTRUCTIVE PULMONARY DISEASE W (ACUTE) EXACERBATION SNOMED Code(s): 819842797125022 Comment: Improving. Continue steroids IV, plan to transition to oral tomorrow morning. Continue antibiotics, inhalers and follow up with Dr. Ramirez outpatient. On Home oxygen with improved lung exam. Likely exacerbated by flu. Intermittent episodes of increased hypoxia. Likely related to anxiety and air hunger from poor respiratory status. D-Dimer negative. Continue ativan. (2) Influenza B Current Visit: Yes Status: Acute Code(s): J10.1 - FLU DUE TO OTH IDENT INFLUENZA VIRUS W OTH RESP MANIFEST SNOMED Code(s): 67813879 Comment: Continue Tamiflu, on Home O2. With intermittent episodes of increased hypoxia. Day 5 of symptoms. Counseled patient that her increased respiratory complaints were likely driven by her influenza infection which will pass. (3) Anemia Current Visit: No Status: Acute Code(s): D64.9 - ANEMIA, UNSPECIFIED SNOMED Code(s): 015229423 Comment: Previous history of profound anemia from AISSATOU, B12 deficiency and a combination of GI bleed and AOCD. Current Hgb at 11.1. Likely dilutiuonal from fluids which have been stopped. Will monitor. (4) Chronic respiratory failure with hypoxia Current Visit: Yes Status: Acute Comment: On 3L O2 at home. O2 requirement at home level. ABG consistent with chronic respiratory failure. (5) Antiphospholipid syndrome Current Visit: No Status: Acute Code(s): D68.61 - ANTIPHOSPHOLIPID SYNDROME SNOMED Code(s): 04318527 Comment: Continue Warfarin. INR therapeutic. D-Dimer negative. (6) Depression Current Visit: No Status: Acute Code(s): F32.9 - MAJOR DEPRESSIVE DISORDER, SINGLE EPISODE, UNSPECIFIED SNOMED Code(s): 22057323 Comment: Euthymic, continue zoloft. (7) Pulmonary embolism Current Visit: No Status: Acute Priority: High Onset Date: 09/10/14 Code (s): I26.99 - OTHER PULMONARY EMBOLISM WITHOUT ACUTE COR PULMONALE SNOMED Code (s): 34930188 Comment: The patient has a h/o PE and is on coumadin. Her INR is therapeutic. Monitor INR. (8) Rheumatoid arthritis Current Visit: No Status: Acute Code(s): M06.9 - RHEUMATOID ARTHRITIS, UNSPECIFIED SNOMED Code(s): 20390459 Comment: Continue Azathioprine. High dose steroids for COPD exacerbation. Taper to 5mg PO daily which is outpatient dose. (9) Hyperlipidemia Current Visit: No Status: Chronic Code(s): E78.5 - HYPERLIPIDEMIA, UNSPECIFIED SNOMED Code(s): 87061847 Comment: Continue lipitor. (10) Hypertension Current Visit: No Status: Chronic Code(s): I10 - ESSENTIAL (PRIMARY) HYPERTENSION SNOMED Code(s): 62817024 Comment: BP borderline low. Metoprolol held today due to borderline hypotension. Will monitor. (11) Obstructive sleep apnea Current Visit: No Status: Chronic Code(s): G47.33 - OBSTRUCTIVE SLEEP APNEA (ADULT) (PEDIATRIC) SNOMED Code(s): 25461851 Comment: Continue CPAP. (12) Rheumatoid arthritis Current Visit: No Status: Chronic Code(s): M06.9 - RHEUMATOID ARTHRITIS, UNSPECIFIED SNOMED Code(s): 89398861 Comment: Continue azothioprine. Hold Abatacept (13) Type 2 diabetes mellitus Current Visit: No Status: Chronic Comment: Continue Lantus and Lispro SS. Blood Sugar slightly elevated. (14) DVT prophylaxis Current Visit: No Status: Acute Priority: Medium Onset Date: 09/10/14 Code(s): YSQ9630 - SNOMED Code(s): 188972615 Comment: Continue Warfarin. Therapeutic. Status and Disposition: Inpatient. Discharge when able to function at home.
[2017-10-28] MEDS: Warfarin TAB(*) 6 MG PO SCH (17:53)
[2017-10-28] MEDS: Atorvastatin* 20 MG TAB PO SCH (21:00)
[2017-10-29] MEDS: Albuterol 2.5 MG/3 ML NEB.SOL* (0.083%) INH SCH ×4 (01:07→18:25)
[2017-10-29] MEDS: oxyCODONE TAB* 5 MG TAB PO SCH ×4 (02:05→20:02)
[2017-10-29] MEDS: methylPREDNISolone SOD 40 MG* 1 ML VIAL IV SCH ×3 (02:05→18:02)
[2017-10-29 06:29] LABS: ABS Basophils 0 10^3/ul (0-0.2); ABS Eosinophils 0 10^3/ul (0-0.6); ABS Lymphocytes 0.3 10^3/ul (1.0-4.8); ABS Monocytes 0.3 10^3/ul (0-0.8); ABS Neutrophils 5.9 10^3/ul (1.5-7.7); ABS Nucleated RBC 0 10^3/ul; Eosinophil % 0.1 % (0-6); Hematocrit 33 % (35-47); Hemoglobin 10.9 g/dl (12.0-16.0); Lymphocyte % 4.6 % (25-47); Mean Corpuscular HGB Conc 34 g/dl (31-36); Mean Corpuscular Hemoglobin 31 pg (27-31); Mean Corpuscular Volume 94 fL (80-97); Mean Platelet Volume 7 um3 (7.4-10.4); Nucleated Red Blood Cells % 0; Platelet Count 213 10^3/ul (150-450); Red Blood Count 3.49 10^6/ul (4.0-5.4); Red Cell Distribution Width 17 % (10.5-15); White Blood Count 6.5 10^3/ul (3.5-10.8)
[2017-10-29] MEDS: Mometasone/Formoter 200/5 MDI INH SCH ×2 (08:05→21:02)
[2017-10-29] MEDS: Tiotropium CAP.INH* CAP.INH/18 MCG (USE ORDER SET !) INH SCH (08:06)
[2017-10-29] MEDS: Metoprolol Succinate XL TAB* 50 MG PO SCH (10:12)
[2017-10-29] MEDS: Sertraline* 25 MG TAB PO SCH (10:14)
[2017-10-29] MEDS: Cinacalcet TAB* 30 MG PO SCH ×2 (10:16→20:01)
[2017-10-29] MEDS: Docusate CAP* 100 MG PO SCH ×2 (10:16→20:02)
[2017-10-29] MEDS: Oseltamivir CAP* 30 MG CAP PO SCH ×2 (10:17→20:03)
[2017-10-29] MEDS: BuPROPion XL* 300 MG TAB.XL PO SCH (10:17)
[2017-10-29] MEDS: guaiFENesin ER TAB 600 MG PO SCH ×2 (10:18→20:02)
[2017-10-29] MEDS: Magnesium Oxide TAB* 400 MG PO SCH ×2 (10:19→20:02)
[2017-10-29] MEDS: Omeprazole CAP* 20 MG PO SCH (10:19)
[2017-10-29] MEDS: azaTHIOprine TAB(*) 50 MG TAB PO SCH (10:20)
[2017-10-29] MEDS: Insulin LISPRO* 1 UNITS UNIT SUBCUT SCH ×7 (10:21→21:00)
--- NOTE | 2017-10-29 13:46 | PN ---
Subjective Date of Service: 10/29/17 Interval History: Patient seen and examined. Still SOB with increased WOB with ambulation. No chest pain, no fever or chills. Productive cough with scanty sputum. Family History: Unchanged from Admission Social History: Unchanged from Admission Past Medical History: Unchanged from Admission Objective Active Medications: Acetaminophen (Tylenol Tab*) 650 mg PO Q6H PRN PRN Reason: FEVER/PAIN Albuterol (Ventolin 2.5 Mg/3 Ml Neb.Sarai*) 2.5 mg INH Q2H PRN PRN Reason: SOB/WHEEZING Last Admin: 10/27/17 10:51 Dose: 2.5 mg Albuterol (Ventolin 2.5 Mg/3 Ml Neb.Sarai*) 2.5 mg INH [id number] AWAKE [facility] Last Admin: 10/29/17 08:05 Dose: 2.5 mg Atorvastatin Calcium (Lipitor*) 20 mg PO BEDTIME [facility] Last Admin: 10/28/17 21:00 Dose: 20 mg Azathioprine (Imuran Tab(*)) 50 mg PO DAILY [facility] Last Admin: 10/29/17 10:20 Dose: 50 mg Bupropion HCl (Bupropion Xl*) 300 mg PO DAILY [facility] PRN Reason: Protocol Last Admin: 10/29/17 10:17 Dose: 300 mg Cinacalcet (Sensipar Tab*) 30 mg PO BID [facility] Last Admin: 10/29/17 10:16 Dose: 30 mg Device (Nicotine Mouth Piece*) 1 each INH .USE WITH NICOTROL PRN PRN Reason: CRAVING Device (Tiotropium Inhaler Device*) 1 each .SEE ORDER .USE w/ SPIRIVA CAPS [facility] Docusate Sodium (Colace Cap*) 200 mg PO BID [facility] Last Admin: 10/29/17 10:16 Dose: 200 mg Azithromycin 500 mg/ Dextrose 250 mls @ 250 mls/hr IVPB Q24H [facility] Insulin Human Lispro (Humalog*) 0 units SUBCUT AC [facility] PRN Reason: Protocol Last Admin: 10/29/17 13:28 Dose: 7 units Insulin Human Lispro (Humalog*) 0 units SUBCUT ACHS [facility] PRN Reason: Protocol Last Admin: 10/29/17 13:29 Dose: 2 units Lorazepam (Ativan Inj*) 0.5 mg IV PUSH Q4H PRN PRN Reason: ANXIETY Last Admin: 10/28/17 08:49 Dose: 0.5 mg Magnesium Oxide (Magox 400 Tab*) 800 mg PO BID [facility] Last Admin: 10/29/17 10:19 Dose: 800 mg Melatonin (Melatonin (Nf)) 3 mg PO BEDTIME PRN; Protocol PRN Reason: Sleep Methylprednisolone Sodium Succinate (Solu-Medrol 40 Mg) 40 mg IV Q8H [facility] Last Admin: 10/29/17 10:03 Dose: 40 mg Metoprolol Succinate (Toprol Xl Tab*) 50 mg PO DAILY [facility] Last Admin: 10/29/17 10:12 Dose: Not Given Mometasone Furoate/Formoterol Fumar (Dulera 200/5 Mdi*) 2 puff INH BID [facility] Last Admin: 10/29/17 08:05 Dose: 2 puff Morphine Sulfate (Morphine Oral.Soln 10 Mg*) 5 mg PO Q6H PRN PRN Reason: Severe shortness of breath Nicotine (Nicotine Inhaler*) 10 mg INH Q2H PRN PRN Reason: CRAVING Omeprazole (Prilosec Cap*) 20 mg PO DAILY [facility] Last Admin: 10/29/17 10:19 Dose: 20 mg Oseltamivir Phosphate (Tamiflu Cap*) 30 mg PO BID [facility] Stop: 10/30/17 09:01 Last Admin: 10/29/17 10:17 Dose: 30 mg Oxycodone HCl (Roxycodone Tab*) 5 mg PO Q6H [facility] Last Admin: 10/29/17 13:27 Dose: 5 mg Sertraline HCl (Zoloft*) 75 mg PO DAILY [facility] Last Admin: 10/29/17 10:14 Dose: 75 mg Tiotropium [place] (Spiriva Cap.Inh*) 1 cap INH DAILY [facility] Last Admin: 10/29/17 08:06 Dose: 1 cap Warfarin Sodium (Coumadin Tab(*)) 6 mg PO 1700 [facility] PRN Reason: Protocol Last Admin: 10/28/17 17:53 Dose: 6 mg Vital Signs - 8 hr 10/29/17 10/29/17 10/29/17 08:00 08:10 10:23 Temperature 97.7 F Pulse Rate 80 105 Respiratory 18 16 16 Rate Blood Pressure 101/66 (mmHg) O2 Sat by Pulse 99 99 Oximetry 10/29/17 10/29/17 10/29/17 10:49 11:09 11:15 Temperature 97.8 F Pulse Rate 108 163 Respiratory 22 20 Rate Blood Pressure 114/67 (mmHg) O2 Sat by Pulse 99 Oximetry 10/29/17 10/29/17 12:34 13:27 Temperature Pulse Rate Respiratory 16 16 Rate Blood Pressure (mmHg) O2 Sat by Pulse Oximetry Oxygen Devices in Use Now: Nasal Cannula Appearance: Alert, tremulous Ears/Nose/Mouth/Throat: NL Teeth, Lips, Gums, Mucous Membranes Moist Neck: NL Appearance and Movements; NL JVP, Trachea Midline Respiratory: - - very tight, poor air exchange throughout lung ochoa with bilateral wheeze and some rhonchi Cardiovascular: NL Sounds; No Murmurs; No JVD, RRR, No Edema Abdominal: NL Sounds; No Tenderness; No Distention Neurological: Alert and Oriented x 3 Nutrition: Taking PO's Result Diagrams: 10/29/17 05:55 10/29/17 05:55 Additional Lab and Data: Lab Results Microbiology and Other Data: Microbiology 10/26/17 21:20 Urine Culture - Final Urine Diagnostic Imaging: Patient Name: CHITRA MAYER Medical Record#: [id number] Ordering Physician: Khang Camacho MD Acct.#: [id number] : 1950 Age: 66 Sex: F Location: [address] [place] [address] MEDICAL Exam Date: 10/26/17152 ADM Status: ADM IN Order Information: CHEST AP PORTABLE Accession Number: [id number] CPT: 20627 INDICATION: Shortness of breath COMPARISON: Most recent comparison chest x-rays dated April 25, 2017 TECHNIQUE: Single AP portable view of the chest was obtained. FINDINGS: Image quality is compromised due to the relative inferiority of a portable chest x-ray. The heart and mediastinum exhibit normal size and contour. Similar the prior chest x-ray, the lungs appear hyperaerated in the AP projection. There is density obscuring the right lung base and bilateral costophrenic angle blunting similar in appearance to the previous chest x-ray. Visualized bones are normal for the patient's age. IMPRESSION: Chronic findings include appearance of obstructive pulmonary disease with bibasilar costophrenic angle blunting which could be seen with effusions or other consolidation at the lung bases. <Electronically signed by Christophe Mcneil MD in [place]> 10/26/17805 Dictated By: Christophe Mcneil MD Dictated Date/Time: 10/26/17805 Transcribed Date/Time: 10/26/17803 Copy to: Assess/Plan/Problems-Billing Assessment: Patient is a 66yo female with a PMH significant for COPD with chronic hypoxic respiratory failure, RA, DM II, APL, DAREK, HTN, HLD who presents with Influenza B and COPD exacerbation and continued SOB. - Patient Problems (1) Influenza B Code(s): J10.1 - FLU DUE TO OTH IDENT INFLUENZA VIRUS W OTH RESP MANIFEST SNOMED Code(s): 37084741 Comment: - Continued poor air exchange and hypoxia with ambulation - Titrate O2, continue tamiflu (2) Chronic respiratory failure with hypoxia Comment: - Continuous O2, titrate as needed (3) COPD exacerbation Code(s): J44.1 - CHRONIC OBSTRUCTIVE PULMONARY DISEASE W (ACUTE) EXACERBATION SNOMED Code(s): 960624932200017 Comment: - Having issues today, continued SOB and difficulty with desats - Will start azithromycin today for anti-inflamatory properties as well as potential subclinical infection 2/2 influenza and immunosupression from azathoprine - Continue IV steroids for another 24h then change to PO taper - Nebs, flutter valve, mucinex to 600BID (4) Anemia Code(s): D64.9 - ANEMIA, UNSPECIFIED SNOMED Code(s): 444625002 Comment: - H&H stable, continue to monitor (5) Antiphospholipid syndrome Code(s): D68.61 - ANTIPHOSPHOLIPID SYNDROME SNOMED Code(s): 57768053 Comment: - Continue Warfarin. INR therapeutic. D-Dimer negative. (6) Depression Code(s): F32.9 - MAJOR DEPRESSIVE DISORDER, SINGLE EPISODE, UNSPECIFIED SNOMED Code(s): 73184095 Comment: - with comorbid anxiety - contineu zoloft and prn anxiolytics (7) Pulmonary embolism Onset Date: 09/10/14 Code(s): I26.99 - OTHER PULMONARY EMBOLISM WITHOUT ACUTE COR PULMONALE SNOMED Code(s): 80852276 Comment: - For hx of PE, on coumadin, monitor INR (8) Rheumatoid arthritis Code(s): M06.9 - RHEUMATOID ARTHRITIS, UNSPECIFIED SNOMED Code(s): 83960615 Comment: - Continue Azathioprine. - High dose steroids for COPD exacerbation. Taper to 5mg PO daily which is outpatient dose. (9) Type 2 diabetes mellitus Comment: - Continue Lantus and Lispro SS, likely elevated 2/2 steroids Status and Disposition: Remain inpatient. Dispo planning for home when stable.
[2017-10-29] MEDS: Azithromycin IV(*) 500 MG in NS 0.9% 250 ML* 250 ML IVPB SCH (15:02)
[2017-10-29] MEDS: Warfarin TAB(*) 6 MG PO SCH (18:02)
[2017-10-29] MEDS: Atorvastatin* 20 MG TAB PO SCH (20:02)
[2017-10-30] MEDS: Albuterol 2.5 MG/3 ML NEB.SOL* (0.083%) INH SCH ×4 (01:41→20:38)
[2017-10-30] MEDS: oxyCODONE TAB* 5 MG TAB PO SCH ×4 (02:15→20:43)
[2017-10-30] MEDS: methylPREDNISolone SOD 40 MG* 1 ML VIAL IV SCH ×3 (02:16→17:51)
[2017-10-30] MEDS: Mometasone/Formoter 200/5 MDI INH SCH ×2 (08:30→20:38)
[2017-10-30] MEDS: Tiotropium CAP.INH* CAP.INH/18 MCG (USE ORDER SET !) INH SCH (08:31)
[2017-10-30] MEDS: Insulin LISPRO* 1 UNITS UNIT SUBCUT SCH ×7 (09:09→20:44)
[2017-10-30] MEDS: Omeprazole CAP* 20 MG PO SCH (09:10)
[2017-10-30] MEDS: azaTHIOprine TAB(*) 50 MG TAB PO SCH (09:10)
[2017-10-30] MEDS: BuPROPion XL* 300 MG TAB.XL PO SCH (09:10)
[2017-10-30] MEDS: Oseltamivir CAP* 30 MG CAP PO SCH (09:10)
[2017-10-30] MEDS: Cinacalcet TAB* 30 MG PO SCH ×2 (09:10→20:43)
[2017-10-30] MEDS: Sertraline* 25 MG TAB PO SCH (09:11)
[2017-10-30] MEDS: Docusate CAP* 100 MG PO SCH ×2 (09:11→20:45)
[2017-10-30] MEDS: guaiFENesin ER TAB 600 MG PO SCH ×2 (09:11→20:42)
[2017-10-30] MEDS: Magnesium Oxide TAB* 400 MG PO SCH ×2 (09:11→20:43)
[2017-10-30] MEDS: Metoprolol Succinate XL TAB* 50 MG PO SCH (09:11)
--- NOTE | 2017-10-30 11:29 | PN ---
Subjective Date of Service: 10/30/17 Interval History: Patient seen and examined. States she can ambulate from bed to bathroom without having to stop and take a break which is an improvement from yesterday's exam. Appears less tremulous. Denies chest pain, no fevers or chills. Family History: Unchanged from Admission Social History: Unchanged from Admission Past Medical History: Unchanged from Admission Objective Active Medications: Acetaminophen (Tylenol Tab*) 650 mg PO Q6H PRN PRN Reason: FEVER/PAIN Albuterol (Ventolin 2.5 Mg/3 Ml Neb.Sarai*) 2.5 mg INH Q2H PRN PRN Reason: SOB/WHEEZING Last Admin: 10/27/17 10:51 Dose: 2.5 mg Albuterol (Ventolin 2.5 Mg/3 Ml Neb.Sarai*) 2.5 mg INH [id number] AWAKE [facility] Last Admin: 10/30/17 06:26 Dose: 2.5 mg Atorvastatin Calcium (Lipitor*) 20 mg PO BEDTIME [facility] Last Admin: 10/29/17 20:02 Dose: 20 mg Azathioprine (Imuran Tab(*)) 50 mg PO DAILY [facility] Last Admin: 10/30/17 09:10 Dose: 50 mg Bupropion HCl (Bupropion Xl*) 300 mg PO DAILY [facility] PRN Reason: Protocol Last Admin: 10/30/17 09:10 Dose: 300 mg Cinacalcet (Sensipar Tab*) 30 mg PO BID [facility] Last Admin: 10/30/17 09:10 Dose: 30 mg Device (Nicotine Mouth Piece*) 1 each INH .USE WITH NICOTROL PRN PRN Reason: CRAVING Device (Tiotropium Inhaler Device*) 1 each .SEE ORDER .USE w/ SPIRIVA CAPS [facility] Docusate Sodium (Colace Cap*) 200 mg PO BID [facility] Last Admin: 10/30/17 09:11 Dose: 200 mg Guaifenesin (Mucinex*) 600 mg PO BID [facility] Last Admin: 10/30/17 09:11 Dose: 600 mg Azithromycin 500 mg/ Sodium (Chloride) 250 mls @ 250 mls/hr IVPB Q24H [facility] Last Admin: 10/29/17 15:02 Dose: 250 mls/hr Insulin Human Lispro (Humalog*) 0 units SUBCUT AC [facility] PRN Reason: Protocol Last Admin: 10/30/17 09:09 Dose: 3 units Insulin Human Lispro (Humalog*) 0 units SUBCUT ACHS [facility] PRN Reason: Protocol Last Admin: 10/30/17 09:09 Dose: 3 units Lorazepam (Ativan Inj*) 0.5 mg IV PUSH Q4H PRN PRN Reason: ANXIETY Last Admin: 10/28/17 08:49 Dose: 0.5 mg Magnesium Oxide (Magox 400 Tab*) 800 mg PO BID [facility] Last Admin: 10/30/17 09:11 Dose: 800 mg Melatonin (Melatonin (Nf)) 3 mg PO BEDTIME PRN; Protocol PRN Reason: Sleep Methylprednisolone Sodium Succinate (Solu-Medrol 40 Mg) 40 mg IV Q8H [facility] Last Admin: 10/30/17 09:11 Dose: 40 mg Metoprolol Succinate (Toprol Xl Tab*) 50 mg PO DAILY [facility] Last Admin: 10/30/17 09:11 Dose: 50 mg Mometasone Furoate/Formoterol Fumar (Dulera 200/5 Mdi*) 2 puff INH BID [facility] Last Admin: 10/30/17 08:30 Dose: 2 puff Morphine Sulfate (Morphine Oral.Soln 10 Mg*) 5 mg PO Q6H PRN PRN Reason: Severe shortness of breath Nicotine (Nicotine Inhaler*) 10 mg INH Q2H PRN PRN Reason: CRAVING Omeprazole (Prilosec Cap*) 20 mg PO DAILY [facility] Last Admin: 10/30/17 09:10 Dose: 20 mg Oxycodone HCl (Roxycodone Tab*) 5 mg PO Q6H [facility] Last Admin: 10/30/17 09:10 Dose: 5 mg Sertraline HCl (Zoloft*) 75 mg PO DAILY [facility] Last Admin: 10/30/17 09:11 Dose: 75 mg Tiotropium [place] (Spiriva Cap.Inh*) 1 cap INH DAILY [facility] Last Admin: 10/30/17 08:31 Dose: 1 cap Warfarin Sodium (Coumadin Tab(*)) 6 mg PO 1700 [facility] PRN Reason: Protocol Last Admin: 10/29/17 18:02 Dose: 6 mg Vital Signs - 8 hr 10/30/17 10/30/17 10/30/17 04:45 06:27 07:59 Temperature 97.8 F Pulse Rate 74 85 Respiratory 18 16 22 Rate Blood Pressure 120/76 (mmHg) O2 Sat by Pulse 100 95 Oximetry 10/30/17 10/30/17 10/30/17 08:00 08:34 09:10 Temperature Pulse Rate 104 Respiratory 18 18 18 Rate Blood Pressure (mmHg) O2 Sat by Pulse 95 Oximetry Oxygen Devices in Use Now: Nasal Cannula Appearance: Alert, NAD Ears/Nose/Mouth/Throat: Mucous Membranes Moist Neck: Trachea Midline Respiratory: Symmetrical Chest Expansion and Respiratory Effort, - - remains tight with diminished breath sounds but slightly imrpoved air exchange, no rhonchi Cardiovascular: NL Sounds; No Murmurs; No JVD, RRR, No Edema Extremities: - - severe rheumatoid changes/deformity to fingers Neurological: Alert and Oriented x 3 Nutrition: Taking PO's Result Diagrams: 10/29/17 05:55 10/29/17 05:55 Additional Lab and Data: Lab Results Microbiology and Other Data: Microbiology 10/26/17 21:20 Urine Culture - Final Urine Diagnostic Imaging: Patient Name: CHITRA MAYER Medical Record#: [id number] Ordering Physician: Khang Camacho MD Acct.#: [id number] : 1950 Age: 66 Sex: F Location: [address] [place] [address] - MEDICAL Exam Date: 10/26/17 0153 ADM Status: ADM IN Order Information: CHEST AP PORTABLE Accession Number: [id number] CPT: 12070 INDICATION: Shortness of breath COMPARISON: Most recent comparison chest x-rays dated April 25, 2017 TECHNIQUE: Single AP portable view of the chest was obtained. FINDINGS: Image quality is compromised due to the relative inferiority of a portable chest x-ray. The heart and mediastinum exhibit normal size and contour. Similar the prior chest x-ray, the lungs appear hyperaerated in the AP projection. There is density obscuring the right lung base and bilateral costophrenic angle blunting similar in appearance to the previous chest x-ray. Visualized bones are normal for the patient's age. IMPRESSION: Chronic findings include appearance of obstructive pulmonary disease with bibasilar costophrenic angle blunting which could be seen with effusions or other consolidation at the lung bases. <Electronically signed by Christophe Mcneil MD in [place]> 10/26/17805 Dictated By: Christophe Mcneil MD Dictated Date/Time: 10/26/17805 Transcribed Date/Time: 10/26/17803 Copy to: Assess/Plan/Problems-Billing Assessment: Patient is a 66yo female with a PMH significant for COPD with chronic hypoxic respiratory failure, RA, DM II, APL, DAREK, HTN, HLD who presents with Influenza B and COPD exacerbation and continued SOB. - Patient Problems (1) Influenza B Code(s): J10.1 - FLU DUE TO OTH IDENT INFLUENZA VIRUS W OTH RESP MANIFEST SNOMED Code(s): 98508845 Comment: - Poor but slowly improving air exchange and hypoxia with ambulation - Titrate O2, continue tamiflu (2) Chronic respiratory failure with hypoxia Comment: - Continuous O2, titrate as needed (3) COPD exacerbation Code(s): J44.1 - CHRONIC OBSTRUCTIVE PULMONARY DISEASE W (ACUTE) EXACERBATION SNOMED Code(s): 971397193282434 Comment: - Continue azithromycin for anti-inflamatory properties, Day 2 of 5, as well as potential subclinical infection 2/2 influenza and immunosupression from azathoprine - Transition to PO steroids after next dose - Nebs, flutter valve, mucinex to 600BID (4) Anemia Code(s): D64.9 - ANEMIA, UNSPECIFIED SNOMED Code(s): 325155941 Comment: - H&H stable, continue to monitor (5) Antiphospholipid syndrome Code(s): D68.61 - ANTIPHOSPHOLIPID SYNDROME SNOMED Code(s): 19277418 Comment: - Continue Warfarin. INR therapeutic. D-Dimer negative. (6) Depression Code(s): F32.9 - MAJOR DEPRESSIVE DISORDER, SINGLE EPISODE, UNSPECIFIED SNOMED Code(s): 02697320 Comment: - with comorbid anxiety - contineu zoloft and prn anxiolytics (7) Pulmonary embolism Onset Date: 09/10/14 Code(s): I26.99 - OTHER PULMONARY EMBOLISM WITHOUT ACUTE COR PULMONALE SNOMED Code(s): 29195914 Comment: - For hx of PE, on coumadin, monitor INR (8) Rheumatoid arthritis Code(s): M06.9 - RHEUMATOID ARTHRITIS, UNSPECIFIED SNOMED Code(s): 69224103 Comment: - Continue Azathioprine. - Transition from IV steroids later today and slow taper to 5mg PO daily which is outpatient dose. (9) Type 2 diabetes mellitus Comment: - Continue Lantus and Lispro SS, likely elevated 2/2 steroids Status and Disposition: Remain inpatient. Dispo planning for home when stable.
[2017-10-30] MEDS: Azithromycin IV(*) 500 MG in NS 0.9% 250 ML* 250 ML IVPB SCH (13:57)
[2017-10-30] MEDS: Warfarin TAB(*) 6 MG PO SCH (17:51)
[2017-10-30] MEDS: Atorvastatin* 20 MG TAB PO SCH (20:43)
[2017-10-31] MEDS: Albuterol 2.5 MG/3 ML NEB.SOL* (0.083%) INH SCH ×4 (01:22→19:39)
[2017-10-31] MEDS: oxyCODONE TAB* 5 MG TAB PO SCH ×4 (02:44→20:47)
[2017-10-31] MEDS: methylPREDNISolone SOD 40 MG* 1 ML VIAL IV SCH ×2 (02:44→09:29)
[2017-10-31] MEDS: Omeprazole CAP* 20 MG PO SCH (09:25)
[2017-10-31] MEDS: Cinacalcet TAB* 30 MG PO SCH ×2 (09:25→20:46)
[2017-10-31] MEDS: guaiFENesin ER TAB 600 MG PO SCH ×2 (09:26→20:48)
[2017-10-31] MEDS: Magnesium Oxide TAB* 400 MG PO SCH ×2 (09:26→20:46)
[2017-10-31] MEDS: Docusate CAP* 100 MG PO SCH ×2 (09:27→20:48)
[2017-10-31] MEDS: Sertraline* 25 MG TAB PO SCH (09:27)
[2017-10-31] MEDS: BuPROPion XL* 300 MG TAB.XL PO SCH (09:28)
[2017-10-31] MEDS: azaTHIOprine TAB(*) 50 MG TAB PO SCH (09:28)
[2017-10-31] MEDS: Insulin LISPRO* 1 UNITS UNIT SUBCUT SCH ×7 (09:35→20:48)
[2017-10-31] MEDS: Tiotropium CAP.INH* CAP.INH/18 MCG (USE ORDER SET !) INH SCH (09:57)
[2017-10-31] MEDS: Mometasone/Formoter 200/5 MDI INH SCH ×2 (10:00→19:39)
[2017-10-31] MEDS: Metoprolol Succinate XL TAB* 50 MG PO SCH (10:03)
[2017-10-31] MEDS: Azithromycin IV(*) 500 MG in NS 0.9% 250 ML* 250 ML IVPB SCH (13:19)
[2017-10-31 14:52] LABS: INR 4.76 (0.77-1.02)
--- NOTE | 2017-10-31 15:25 | PN ---
Subjective Date of Service: 10/31/17 Interval History: Patient seen and examined. States she still feels very SOB when ambulating and has some sputum production. Denies fever or chills, no chest pain, no fatigue or weakness. Family History: Unchanged from Admission Social History: Unchanged from Admission Past Medical History: Unchanged from Admission Objective Active Medications: Acetaminophen (Tylenol Tab*) 650 mg PO Q6H PRN PRN Reason: FEVER/PAIN Last Admin: 10/31/17 04:43 Dose: 650 mg Albuterol (Ventolin 2.5 Mg/3 Ml Neb.Sarai*) 2.5 mg INH Q2H PRN PRN Reason: SOB/WHEEZING Last Admin: 10/27/17 10:51 Dose: 2.5 mg Albuterol (Ventolin 2.5 Mg/3 Ml Neb.Sarai*) 2.5 mg INH [id number] AWAKE [facility] Last Admin: 10/31/17 13:25 Dose: 2.5 mg Atorvastatin Calcium (Lipitor*) 20 mg PO BEDTIME [facility] Last Admin: 10/30/17 20:43 Dose: 20 mg Azathioprine (Imuran Tab(*)) 50 mg PO DAILY [facility] Last Admin: 10/31/17 09:28 Dose: 50 mg Bupropion HCl (Bupropion Xl*) 300 mg PO DAILY [facility] PRN Reason: Protocol Last Admin: 10/31/17 09:28 Dose: 300 mg Cinacalcet (Sensipar Tab*) 30 mg PO BID [facility] Last Admin: 10/31/17 09:25 Dose: 30 mg Device (Nicotine Mouth Piece*) 1 each INH .USE WITH NICOTROL PRN PRN Reason: CRAVING Device (Tiotropium Inhaler Device*) 1 each .SEE ORDER .USE w/ SPIRIVA CAPS [facility] Docusate Sodium (Colace Cap*) 200 mg PO BID [facility] Last Admin: 10/31/17 09:27 Dose: 200 mg Guaifenesin (Mucinex*) 600 mg PO BID [facility] Last Admin: 10/31/17 09:26 Dose: 600 mg Azithromycin 500 mg/ Sodium (Chloride) 250 mls @ 250 mls/hr IVPB Q24H [facility] Last Admin: 10/31/17 13:19 Dose: 250 mls/hr Insulin Human Lispro (Humalog*) 0 units SUBCUT AC [facility] PRN Reason: Protocol Last Admin: 10/31/17 13:19 Dose: 3 units Insulin Human Lispro (Humalog*) 0 units SUBCUT ACHS [facility] PRN Reason: Protocol Last Admin: 10/31/17 13:20 Dose: 3 units Lorazepam (Ativan Inj*) 0.5 mg IV PUSH Q4H PRN PRN Reason: ANXIETY Last Admin: 10/28/17 08:49 Dose: 0.5 mg Magnesium Oxide (Magox 400 Tab*) 800 mg PO BID [facility] Last Admin: 10/31/17 09:26 Dose: 800 mg Melatonin (Melatonin (Nf)) 3 mg PO BEDTIME PRN; Protocol PRN Reason: Sleep Metoprolol Succinate (Toprol Xl Tab*) 50 mg PO DAILY [facility] Last Admin: 10/31/17 10:03 Dose: 50 mg Mometasone Furoate/Formoterol Fumar (Dulera 200/5 Mdi*) 2 puff INH BID [facility] Last Admin: 10/31/17 10:00 Dose: 2 puff Morphine Sulfate (Morphine Oral.Soln 10 Mg*) 5 mg PO Q6H PRN PRN Reason: Severe shortness of breath Nicotine (Nicotine Inhaler*) 10 mg INH Q2H PRN PRN Reason: CRAVING Omeprazole (Prilosec Cap*) 20 mg PO DAILY [facility] Last Admin: 10/31/17 09:25 Dose: 20 mg Oxycodone HCl (Roxycodone Tab*) 5 mg PO Q6H [facility] Last Admin: 10/31/17 13:20 Dose: 5 mg Prednisone (Deltasone Tab*) 60 mg PO DAILY [facility] Sertraline HCl (Zoloft*) 75 mg PO DAILY [facility] Last Admin: 10/31/17 09:27 Dose: 75 mg Tiotropium [place] (Spiriva Cap.Inh*) 1 cap INH DAILY [facility] Last Admin: 10/31/17 09:57 Dose: 1 cap Warfarin Sodium (Coumadin Tab(*)) 6 mg PO 1700 [facility] PRN Reason: Protocol Last Admin: 10/30/17 17:51 Dose: 6 mg Vital Signs - 8 hr 10/31/17 10/31/17 10/31/17 07:28 08:00 09:29 Temperature 97.5 F Pulse Rate 64 Respiratory 16 20 22 Rate Blood Pressure 88/57 (mmHg) O2 Sat by Pulse 99 Oximetry 0210/31/17 10/31/17 09:57 10:44 13:19 Temperature 97.5 F Pulse Rate 80 64 Respiratory 22 18 Rate Blood Pressure 142/78 (mmHg) O2 Sat by Pulse 99 99 Oximetry 10/31/17 10/31/17 13:20 13:25 Temperature Pulse Rate 80 Respiratory 18 Rate Blood Pressure (mmHg) O2 Sat by Pulse Oximetry Oxygen Devices in Use Now: Nasal Cannula Appearance: Alert, tremulous, NAD Eyes: No Scleral Icterus Ears/Nose/Mouth/Throat: NL Teeth, Lips, Gums, Mucous Membranes Moist Neck: Trachea Midline Respiratory: Symmetrical Chest Expansion and Respiratory Effort - remains diminished throughout with expiratory wheeze and some ronchi Cardiovascular: NL Sounds; No Murmurs; No JVD, RRR Abdominal: NL Sounds; No Tenderness; No Distention Extremities: No Edema, - - RA deformity bilateral hands/fingers Skin: No Rash or Ulcers Neurological: Alert and Oriented x 3, NL Sensation, NL Gait Nutrition: Taking PO's Result Diagrams: 10/29/17 05:55 10/29/17 05:55 Additional Lab and Data: Lab Results Microbiology and Other Data: Microbiology 10/26/17 21:20 Urine Culture - Final Urine Diagnostic Imaging: Patient Name: CHITRA MAYER Medical Record#: [id number] Ordering Physician: Khang Camacho MD Acct.#: [id number] : 1950 Age: 66 Sex: F Location: [address] [place] [address] MEDICAL Exam Date: 10/26/17 0153 ADM Status: ADM IN Order Information: CHEST AP PORTABLE Accession Number: [id number] CPT: 28718 INDICATION: Shortness of breath COMPARISON: Most recent comparison chest x-rays dated April 25, 2017 TECHNIQUE: Single AP portable view of the chest was obtained. FINDINGS: Image quality is compromised due to the relative inferiority of a portable chest x-ray. The heart and mediastinum exhibit normal size and contour. Similar the prior chest x-ray, the lungs appear hyperaerated in the AP projection. There is density obscuring the right lung base and bilateral costophrenic angle blunting similar in appearance to the previous chest x-ray. Visualized bones are normal for the patient's age. IMPRESSION: Chronic findings include appearance of obstructive pulmonary disease with bibasilar costophrenic angle blunting which could be seen with effusions or other consolidation at the lung bases. <Electronically signed by Christophe Mcneil MD in [place]> 10/26/17805 Dictated By: Christophe Mcneil MD Dictated Date/Time: 10/26/17805 Transcribed Date/Time: 10/26/17803 Copy to: Assess/Plan/Problems-Billing Assessment: Patient is a 66yo female with a PMH significant for COPD with chronic hypoxic respiratory failure, RA, DM II, APL, DAREK, HTN, HLD who presents with Influenza B and COPD exacerbation and continued SOB. - Patient Problems (1) Influenza B Code(s): J10.1 - FLU DUE TO OTH IDENT INFLUENZA VIRUS W OTH RESP MANIFEST SNOMED Code(s): 36595470 Comment: - Poor but slowly improving air exchange and hypoxia with ambulation - Titrate O2 PRN - Tamiflu completed (2) Chronic respiratory failure with hypoxia Comment: - Continuous O2, titrate as needed (3) COPD exacerbation Code(s): J44.1 - CHRONIC OBSTRUCTIVE PULMONARY DISEASE W (ACUTE) EXACERBATION SNOMED Code(s): 001017146788605 Comment: - Continue azithromycin day 3 of 5 switch to PO - DC IV steroids, start PO prednisone tomorrow - Nebs, flutter valve, mucinex to 600BID - Supportive care (4) Anemia Code(s): D64.9 - ANEMIA, UNSPECIFIED SNOMED Code(s): 852874843 Comment: - H&H stable, continue to monitor (5) Antiphospholipid syndrome Code(s): D68.61 - ANTIPHOSPHOLIPID SYNDROME SNOMED Code(s): 28143928 Comment: - Hold coumadin, supratherapeutic INR today 4.76 (6) Depression Code(s): F32.9 - MAJOR DEPRESSIVE DISORDER, SINGLE EPISODE, UNSPECIFIED SNOMED Code(s): 50460398 Comment: - with comorbid anxiety - contineu zoloft and prn anxiolytics (7) Pulmonary embolism Onset Date: 09/10/14 Code(s): I26.99 - OTHER PULMONARY EMBOLISM WITHOUT ACUTE COR PULMONALE SNOMED Code(s): 67696719 Comment: - For hx of PE, on coumadin, monitor INR (8) Rheumatoid arthritis Code(s): M06.9 - RHEUMATOID ARTHRITIS, UNSPECIFIED SNOMED Code(s): 78729564 Comment: - Continue Azathioprine. - Slow taper prednisone outpatient back to 5 mg daily (9) Type 2 diabetes mellitus Comment: - Continue Lantus and Lispro SS, likely elevated 2/2 steroids Status and Disposition: Remain inpatient. Dispo planning for STR likely tomorrow Counseling and/or Coordination of Care Minutes: coordinated with CM
[2017-10-31] MEDS: Azithromycin TAB* 250 MG PO SCH (15:27)
[2017-10-31] MEDS: Warfarin TAB(*) 6 MG PO SCH (15:27)
[2017-10-31] MEDS: Atorvastatin* 20 MG TAB PO SCH (20:47)
[2017-11-01] MEDS: Albuterol 2.5 MG/3 ML NEB.SOL* (0.083%) INH SCH ×2 (00:55→07:25)
[2017-11-01] MEDS: oxyCODONE TAB* 5 MG TAB PO SCH ×3 (01:49→13:37)
[2017-11-01] MEDS: Tiotropium CAP.INH* CAP.INH/18 MCG (USE ORDER SET !) INH SCH (07:26)
[2017-11-01] MEDS: Mometasone/Formoter 200/5 MDI INH SCH (07:27)
[2017-11-01] MEDS ORDERED: predniSONE TAB* 20 MG PO SCH (09:00)
[2017-11-01] MEDS: Magnesium Oxide TAB* 400 MG PO SCH (09:55)
[2017-11-01] MEDS: Sertraline* 25 MG TAB PO SCH (09:55)
[2017-11-01] MEDS: Insulin LISPRO* 1 UNITS UNIT SUBCUT SCH ×4 (09:56→13:40)
[2017-11-01] MEDS: guaiFENesin ER TAB 600 MG PO SCH (09:57)
[2017-11-01] MEDS: azaTHIOprine TAB(*) 50 MG TAB PO SCH (09:57)
[2017-11-01] MEDS: Cinacalcet TAB* 30 MG PO SCH (09:57)
[2017-11-01] MEDS: Metoprolol Succinate XL TAB* 50 MG PO SCH (09:57)
[2017-11-01] MEDS: BuPROPion XL* 300 MG TAB.XL PO SCH (09:57)
[2017-11-01] MEDS: Docusate CAP* 100 MG PO SCH (09:57)
[2017-11-01] MEDS: Omeprazole CAP* 20 MG PO SCH (09:58)
[2017-11-01 10:15] VITALS: BP 135/56
[2017-11-01] MEDS: Azithromycin TAB* 250 MG PO SCH (13:38)
--- NOTE | 2017-11-03 15:29 | DS ---
CC: Darrin Killian MD; Kameron Travis MD; Dr. Beckman* DISCHARGE SUMMARY: DATE OF ADMISSION: 10/26/17 DATE OF DISCHARGE: 11/01/17 PRIMARY CARE PHYSICIAN: Kameron Travis MD. ATTENDING FOR THIS ADMISSION: Darrin Killian MD MY ATTENDING FOR THE DATE OF DISCHARGE: Darrin Killian MD* (dictated by Malorie Carpenter NP). HOSPITAL COURSE: This is a 66-year-old female patient who was admitted on 10/26 with a complaint of chronic hypoxic respiratory failure with influenza B and exacerbation of her existing COPD. Patient does have history of oxygen dependence at home, rheumatoid arthritis, diabetes, obstructive sleep apnea, hypertension, hyperlipidemia. Patient stated that for several days she had been feeling more and more short of breath, had some chills and subjective fevers at home, came to the emergency department for evaluation and was found to have influenza B, increased oxygen need secondary to her chronic respiratory failure and acute exacerbation of COPD, anemia, history of antiphospholipid syndrome, depression, history of PE, rheumatoid arthritis and type 2 diabetes. Patient was aggressively treated with steroids, antibiotics, nebulizer treatments and increase in her oxygen therapy. Patient responded well to all interventions; however, she was seeming rather weak. She does have a care provider at home. It was questionable whether she would go home for discharge versus going to a subacute rehab; however, ultimately, the patient was ambulatory and although she still clinically is short of breath secondary to her chronic hypoxic respiratory failure, she felt well enough to go home with the care of her aid. PHYSICAL EXAMINATION: Vital Signs: At the time of discharge, blood pressure 117/50, heart rate 57, respiratory rate 20, satting 100% on 3 L nasal cannula, temperature is 97.7. HEENT: Patient is atraumatic, normocephalic. PERRLA with nonicteric sclerae. Neck is supple, nontender. No JVD noted. No carotid bruits auscultated. Normal S1, S2. No murmurs, gallops, or rubs. Lungs: With bilateral expiratory wheeze and some scattered rhonchi which improved and quite diminished throughout her lung ochoa. Abdomen: Soft, nontender, nondistended. Positive bowel sounds in all 4 quadrants. Extremities: She has no edema. However, she has a significant deformity of the upper extremities or bilateral hands and fingers secondary to her rheumatoid arthritis. The skin is warm, dry, and intact. Neurologic: She is alert and oriented x3. She has normal sensation and normal gait with minimal assistance. LABORATORY DATA: WBC 6.5, hemoglobin 10.9, hematocrit 33, platelets 213,000. Sodium 137, potassium 4.3, chloride 101, CO2 of 32, BUN 22, creatinine 1.04. IMAGING: Chest x-ray shows chronic findings including the appearance of obstructive pulmonary disease with bibasilar costophrenic angle blunting, which could be seen with effusions or other consolidation of the lung bases. Again, patient was discharged in stable condition to home in the care of her assistance provider. She was discharged on azithromycin for 2 additional days, prednisone taper x6 days, continue her nebulizers, flutter valve and Mucinex 600 two times a day. Her Coumadin on a daily basis. Her INR had been supratherapeutic while she was in the hospital at 4.76. It was held for a day. Patient was instructed to follow up on her therapeutic INR. For her history of anxiety and depression, she was told to continue her Zoloft and Xanax as needed. For her rheumatoid arthritis, she was told she can continue her azathioprine and when she was done with her prednisone taper, go back to her 5 mg per day as she was before her hospitalization. DISCHARGE DIAGNOSES: 1. Chronic hypoxic respiratory failure with chronic obstructive pulmonary disease and acute exacerbation. 2. Anemia. 3. Antiphospholipid syndrome. 4. Depression. 5. History of pulmonary embolism. 6. Rheumatoid arthritis. 7. Diabetes mellitus type 2. Again, the patient was discharged in stable condition. All questions were answered. Patient understood her followup and medications at the time of discharge. MALORIE CARPENTER, XI [id number] #: [id number] LAN[place]
== END 2017-11-01 15:40 | disposition home health service (06) | DRG 194 ==
LOC: ED 01:31 → MED 04:16
PROVIDERS: ADMIT Hospitalist; ATTEND Internal Medicine
PROC: 5A09357 Assistance with Respiratory Ventilation, Less than 24 Consecutive Hours, Continuous Positive Airway Pressure (ICD-10-PCS; principal; 2017-10-26)
DX: J10.1 Influenza due to other identified influenza virus with other respiratory manifestations (principal); J44.1 Chronic obstructive pulmonary disease with (acute) exacerbation; J96.11 Chronic respiratory failure with hypoxia; D68.61 Antiphospholipid syndrome; E11.22 Type 2 diabetes mellitus with diabetic chronic kidney disease; I27.9 Pulmonary heart disease, unspecified; I50.9 Heart failure, unspecified; I13.0 Hypertensive heart and chronic kidney disease with heart failure and stage 1 through stage 4 chronic kidney disease, or unspecified chronic kidney disease; M05.142 Rheumatoid lung disease with rheumatoid arthritis of left hand; M05.141 Rheumatoid lung disease with rheumatoid arthritis of right hand; I48.91 Unspecified atrial fibrillation; E78.00 Pure hypercholesterolemia, unspecified; F41.9 Anxiety disorder, unspecified; F32.9 Major depressive disorder, single episode, unspecified; G47.33 Obstructive sleep apnea (adult) (pediatric); F17.210 Nicotine dependence, cigarettes, uncomplicated; N18.9 Chronic kidney disease, unspecified; Z66 Do not resuscitate; D64.9 Anemia, unspecified; Z86.14 Personal history of Methicillin resistant Staphylococcus aureus infection; Z82.49 Family history of ischemic heart disease and other diseases of the circulatory system; Z82.5 Family history of asthma and other chronic lower respiratory diseases; Z99.81 Dependence on supplemental oxygen; Z86.711 Personal history of pulmonary embolism; Z88.1 Allergy status to other antibiotic agents; Z88.8 Allergy status to other drugs, medicaments and biological substances
CPT/HCPCS: 36415; 36600; 71045; 80048; 80053; 81003; 81015; 82803; 83036; 83605; 83735; 83880; 84484; 85025; 85379; 85610; 85730; 87040; 87086; 87502; 93005; 94640; 94660; 94760; 99285; A9270-GY; J0456; J2060; J2920; J2930; J7500; J7512

== ENCOUNTER → 2018-05-23 13:10 | Emergency (ER) | payer MEDICARE, BC ==
--- NOTE | 2018-05-23 16:57 | UC ---
Lower Extremity/Ankle HPI - HPI Summary HPI Summary: 67 yo female presents with RIGHT ankle pain. She tells me that 3 days ago she tripped and twisted her right ankle. Since that time has had swelling and pain. She normally is able to walk around without assistance, but lately has been using her walker due to pain. Denies numbness or tingling. She does have a hx of severe RA. - History of Current Complaint Hx Obtained From: Patient Onset/Duration: Sudden Onset Severity Initially: Moderate Severity Currently: Moderate Pain Intensity: 6 Pain Scale Used: 0-10 Numeric Aggravating Factor(s): Standing, Ambulation Alleviating Factor(s): Rest Able to Bear Weight: Yes - Allergies/Home Medications Allergies/Adverse Reactions: Allergies Allergy/AdvReac Type Severity Reaction Status Date / Time methotrexate Allergy Severe Difficulty Verified 10/26/17 04:33 Breathing cephalexin Allergy Rash Verified 10/26/17 04:33 hydroxychloroquine Allergy Unknown Verified 10/26/17 04:33 Reaction Details PMH/Surg Hx/FS Hx/Imm Hx - Additional Past Medical History Additional PMH: Rheumatoid Arthritis Sleep Apnea PE Endocrine History: Diabetes, Dyslipidemia Cardiovascular History: Hypertension Respiratory History: COPD Psychological History: Anxiety, Depression - Surgical History Surgical History: Yes Surgery Procedure, Year, and Place: appendix. tonsils. 15+surgeries on her hands r/t arthritis - Family History Known Family History: Positive: Cardiac Disease Family History: Mother - CHF in 60. Father - COPD/emphysema - Social History Alcohol Use: None Substance Use Type: None Smoking Status (MU): Light Every Day Tobacco Smoker Type: Cigarettes Amount Used/How Often: 7-8 cig day Length of Time of Smoking/Using Tobacco: 40 YEARS Have You Smoked in the Last Year: Yes When Did the Patient Quit Smoking/Using Tobacco: ATTEMPTING TO QUIT Household Exposure Type: Cigarettes - Immunization History Most Recent Influenza Vaccination: 2016 Most Recent Tetanus Shot: unknown Most Recent Pneumonia Vaccination: 2016 Review of Systems Constitutional: Negative Skin: Negative Respiratory: Negative Cardiovascular: Negative Musculoskeletal: Other: - Right ankle pain Neurological: Negative Psychological: Negative All Other Systems Reviewed And Are Negative: Yes Physical Exam - Summary Physical Exam Summary: GENERAL: NAD. WDWN. No pain distress. SKIN: No rashes, sores, lesions, or open wounds. CHEST: No accessory muscle use. Breathing comfortably and in no distress. CV: Pulses intact PT and DP. Cap refill <2seconds MSK: RIGHT ANKLE: Mild TTP about lateral malleolus. Moderate edema. FROM. Strength 5/5. Negative talar tilt. No increased laxity. NEURO: Alert. Sensations intact and symmetric B/L LEs PSYCH: Age appropriate behavior. Triage Information Reviewed: Yes Vital Signs Reviewed: Yes Lower Extremity Course/Dx - Course Course Of Treatment: XR: IMPRESSION: Soft tissue swelling. No fracture of the right ankle is noted. Advised pt to continue RICE therapy and take tylenol for pain. Activities as tolerated. F/u with Ortho or PCP if needed. - Differential Dx/Diagnosis Provider Diagnoses: Right ankle pain Discharge - Sign-Out/Discharge Documenting (check all that apply): Patient Departure All imaging exams completed and their final reports reviewed: Yes - Discharge Plan Condition: Stable Disposition: HOME Referrals: Kameron Travis MD [Primary Care Provider] - - Billing Disposition and Condition Condition: STABLE Disposition: Home
--- NOTE | 2018-05-23 18:29 | RAD ---
Indication: Right ankle injury. 3 views of the right ankle demonstrate soft tissue swelling. No fracture is identified. Arterial calcifications are noted. IMPRESSION: Soft tissue swelling. No fracture of the right ankle is noted.
== END | disposition home or self-care (01) ==
LOC: UCEAST 13:10
DX: M25.571 Pain in right ankle and joints of right foot (principal); Z88.1 Allergy status to other antibiotic agents; Z88.8 Allergy status to other drugs, medicaments and biological substances; F17.210 Nicotine dependence, cigarettes, uncomplicated

== ENCOUNTER 2019-03-21 11:38 | Inpatient (IN) | payer MEDICARE, BC ==
[2019-03-21 12:15] LABS: ABS Eosinophils 0.2 10^3/ul (0-0.6); ABS Lymphocytes 0.4 10^3/ul (1.0-4.8); ABS Monocytes 0.9 10^3/ul (0-0.8); ABS Neutrophils 7.5 10^3/ul (1.5-7.7); Hematocrit 24 % (35-47); Hemoglobin 7.6 g/dL (12.0-16.0); Lymphocyte % 4.4 %; Mean Corpuscular HGB Conc 32 g/dL (31-36); Mean Corpuscular Hemoglobin 26 pg (27-31); Mean Corpuscular Volume 82 fL (80-97); Mean Platelet Volume 6.2 fL (7.4-10.4); Platelet Count 488 10^3/uL (150-450); Red Cell Distribution Width 20 % (10-15)
--- NOTE | 2019-03-21 12:23 | ED ---
Shortness of Breath - HPI Summary HPI Summary: This pt is a 68 y/o female presenting to [facility] via EMS for progressively worsening SOB for the past 3 days. Pt states she has hx of COPD and smokes 4 cigarettes a day. She wears 3L of oxygen at all times. Pt has a medicare sales executive who visits her at home 2-3 times a week and she told the patient to come to the ED. Patient notes her SOB now feels like her COPD but worse and feels like her "lungs are starting to fill up a little bit". SOB is aggravated with ambulation , notes she has to stop and pant. Pt received a nebulizer treatment [employer] with some relief. She has not had Spiriva or "green" spray yet today. She reports feeling diaphoretic at home, some abd pain. Pt is unsure if she has had a fever. Denies diarrhea, bloody stools, melena. Her last bowel movement was about "a day or so" but denies feeling constipation. Pt states she was admitted in the past for anemia, her last admission was "at least one year ago." Pt notes she was recently dx with UTI on 03/18/19 by Luisa Martinez, rheumatology [employer] POWERPL[employer] SUPERVISOR , and is unable to remember the name of her antibiotic. Pt has hx of rheumatoid arthritis for which she takes medications for but is unable to remember the name of it. Additionally takes 5 mg of prednisone. She also has hx of PE, notes she had to be transferred to [facility] a couple of years ago and was started on Coumadin then. Denies missing any doses of Coumadin since then. She has not had Coumadin yet today, usually takes them at night time. Patient has also been losing weight because she has kidney problems for which she sees Dr. Lazar, is consultant. She is not on dialysis. Pt is followed up by Dr. Callahan for antiphospholipid syndrome. Denies missing any doses of her medications. Allergic to Keflex, methotrexate, hydroxychloroquine. Pt's medications reviewed this visit. - History of Current Complaint Chief Complaint: EDShortnessOfBreath Time Seen by Provider: 03/21/19 11:52 Hx Obtained From: Patient Onset/Duration: Lasting Days, Still Present Timing: Constant Current Severity: Moderate Dyspnea At: Rest Aggravating Factors: Nothing Alleviating Factors: Nothing Associated Signs & Symptoms: Diaphoresis - Allergy/Home Medications Allergies/Adverse Reactions: Allergies Allergy/AdvReac Type Severity Reaction Status Date / Time methotrexate Allergy Severe Difficulty Verified 06/17/18 12:00 Breathing cephalexin Allergy Rash Verified 06/17/18 12:00 hydroxychloroquine Allergy Unknown Verified 06/17/18 12:00 Reaction Details Home Medications: Home Medications Ciprofloxacin TAB* [Cipro 500 MG TAB*] 500 mg PO BID 03/21/19 [History Confirmed 03/21/19] Furosemide TAB* [Lasix TAB*] 40 mg PO MOTHSA 03/21/19 [History Confirmed ] Gabapentin CAP(*) [Neurontin 100 mg CAP(*)] 200 mg PO QPM 03/21/19 [History Confirmed 03/21/19] Insulin GLARGINE(*) [Lantus(*)] 16 units SUBCUT QAM 03/21/19 [History Confirmed 03/21/19] Iron Polysaccharide Complex [Ferrex 150] 150 mg PO QPM 03/21/19 [History Confirmed 03/21/19] azaTHIOprine TAB(*) [Imuran TAB(*)] 50 mg PO QAM 03/21/19 [History Confirmed ] PMH/Surg Hx/FS Hx/Imm Hx Previously Healthy: No Endocrine/Hematology History: Reports: Hx Anticoagulant Therapy, Hx Diabetes - TYPE II Denies: Hx Thyroid Disease Cardiovascular History: Reports: Hx Atrial Fibrillation, Hx Congestive Heart Failure, Hx Hypercholesterolemia, Hx Hypertension, Other Cardiovascular Problems /Disorders - MITRAL VALVE DISORDER,CHRONIC PUL.HEART DISESE,TACHYCARDIA Denies: Hx Angina, Hx Coronary Artery Disease, Hx Pacemaker/ICD, Hx Valvular Heart Disease Respiratory History: Reports: Hx Chronic Obstructive Pulmonary Disease (COPD) - ALSO OBSTRUCTIVE SLEEP APNEA(USES CPAP), Hx Sleep Apnea, Other Respiratory Problems/Disorders - RHEUMATOID LUNG, RIGHT SIDE LUNG IS PUSHING ON LUNG Denies: Hx Asthma GI History: Denies: Hx Ulcer Musculoskeletal History: Reports: Hx Rheumatoid Arthritis, Other Musculoskeletal History - see above surgeries/RA Denies: Hx Osteoporosis Sensory History: Reports: Hx Contacts or Glasses Denies: Hx Hearing Aid Opthamlomology History: Reports: Hx Contacts or Glasses Psychiatric History: Reports: Hx Anxiety, Hx Depression - Cancer History Hx Chemotherapy: No Hx Radiation Therapy: No - Surgical History Surgical History: Yes Surgery Procedure, Year, and Place: appendix when she was in 8th grade. tonsils. 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 Father - COPD/emphysema - Social History Alcohol Use: None Hx Substance Use: No Substance Use Type: Reports: None Hx Tobacco Use: Yes Smoking Status (MU): Light Every Day Tobacco Smoker Type: Cigarettes Amount Used/How Often: 7-8 cig day Length of Time of Smoking/Using Tobacco: 40 YEARS Have You Smoked in the Last Year: Yes Review of Systems Constitutional: Other - POSITIVE: weight loss Positive: Skin Diaphoresis. Negative: Fever Positive: Shortness Of Breath Positive: Abdominal Pain. Negative: Diarrhea, Other - NEGATIVE: melena, bloody stools, constipation All Other Systems Reviewed And Are Negative: Yes Physical Exam - Summary Physical Exam Summary: Vital Signs Reviewed: Yes A+Ox3, no distress, speaking full easy sentences Eyes: Conjunctiva Clear, NOEL. EOM intact and full ENT: Hearing grossly normal TM x 2 clear, mmoist, uvula midline, no exudate, no erythema Neck: Positive: Supple Respiratory: Positive: No respiratory distress, No accessory muscle use speaking full sentences, decreased BS bases, scattered wheeze,no accessory muscle use Cardiovascular: RRR nl s1, s2 no m/r CBT <2 sec abd soft + BS nt/nd no guarding, no distension Musculoskeletal Exam: PEREZ x 4 without difficulty Strength Intact, ROM Intact Neurological: Positive: Alert, + sensation throughout Psychological: Positive: Normal Response To Family Skin: Positive: no rash, extremity bruises "bump self" Triage Information Reviewed: Yes Vital Signs On Initial Exam: Initial Vitals Temp Pulse Resp BP Pulse Ox 97.6 F 77 16 119/58 98 03/21/19 11:43 03/21/19 11:43 03/21/19 11:43 03/21/19 11:43 03/21/19 11:43 Diagnostics - Vital Signs Vital Signs Temp Pulse Resp BP Pulse Ox 03/21/19 12:00 72 7 100 03/21/19 11:48 77 18 119/58 100 03/21/19 11:43 97.6 F 77 16 119/58 98 - Laboratory Lab Results: Lab Results 03/21/19 Range/Units 12:07 WBC 9.0 (3.5-10.8) 10^3/uL RBC 2.90 L (3.70-4.87) 10^6 /uL Hgb 7.6 L (12.0-16.0) g/dL Hct 24 L (35-47) % MCV 82 (80-97) fL MCH 26 L (27-31) pg MCHC 32 (31-36) g/dL RDW 20 H (10-15) % Plt Count 488 H D (150-450) 10^3/uL MPV 6.2 L (7.4-10.4) fL Neut % (Auto) 83.4 % Lymph % (Auto) 4.4 % [place] % (Auto) 9.7 % Eos % (Auto) 2.0 % Baso % (Auto) 0.5 % Absolute Neuts (auto) 7.5 (1.5-7.7) 10^3/ul Absolute Lymphs (auto) 0.4 L (1.0-4.8) 10^3/ul Absolute Monos (auto) 0.9 H (0-0.8) 10^3/ul Absolute Eos (auto) 0.2 (0-0.6) 10^3/ul Absolute Basos (auto) 0.0 (0-0.2) 10^3/ul Absolute Nucleated RBC 0.0 10^3/ul Nucleated RBC % 0.0 Result Diagrams: 03/21/19 20:51 03/21/19 12:07 Lab Statement: Any lab studies that have been ordered have been reviewed, and results considered in the medical decision making process. - Radiology Chest XR Radiology Interpretation Completed By: Radiologist Summary of Radiographic Findings: IMPRESSION: #. Large lesion at the peripheral posterior segment of the RIGHT upper lobe based on the imaging appearance is suspicious for neoplasm with chest wall invasion based on correlation with CT. As the finding is entirely new compared with the December 06, 2018 chest radiograph infectious etiology should also be considered. The lesion would be amenable to ultrasound-guided fine-needle aspiration biopsy. #. Small RIGHT pleural effusion. #. COPD and associated interstitial fibrosis. Dr. Acosta has reviewed this report. - EKG 12:13 Cardiac Rate: NL - at 70 bpm EKG Rhythm: Sinus Rhythm Summary of EKG Findings: No acute changes. Re-Evaluation - Re-Evaluation First Eval Re-Evaluation Time: 12:59 Comment: Reviewed chest XR results with the patient. She is aware of having an abnormal finding in her lungs - concerning for PNA vs mass vs both. Pt states feels much improved following neb - will get CT Discussed admission plan and she understands and agrees. Course/Dx - Course Course Of Treatment: Pt with complex med hx including chf, copd on oxygen, PE, RA presents wit progressive sob and weakness. no cp, n/v fevers. VSS. pt with decreased BS bases. will check labs, cxr, ekg. duoneb, reassess - Diagnoses Provider Diagnoses: Mass of right lung, Supratherapeutic INR, Pneumonia - Physician Notifications Discussed Care of Patient With: Shelia Madera Time Discussed With Above Provider: 12:55 Instructed by Provider To: Other - Discussed with Dr. Madera, hospitalist, who accepted the pt for admission. Discharge - Sign-Out/Discharge Documenting (check all that apply): Patient Departure - [place] [facility] [place] exams completed and their final reports reviewed: Yes Patient Received Moderate/Deep Sedation with Procedure: No - Discharge Plan Condition: Stable Disposition: ADMITTED TO [facility] - Billing Disposition and Condition Condition: STABLE Disposition: Admitted to [facility] - Attestation Statements Document Initiated by Elza: Yes Documenting Scribe: Sugar Harris Provider For Whom Elza is Documenting (Include Credential): Regina Acosta MD Scribe Attestation: Sugar Herrera, scribed for Regina Acosta MD on 03/22/19 at 0407. Scribe Documentation Reviewed: Yes Provider Attestation: The documentation as recorded by the Sugar fong accurately reflects the service I personally performed and the decisions made by me, Regina Acosta MD Status of Scribe Document: Viewed
[2019-03-21 12:25] LABS: Activated Partial Thrombo Time 54.2 seconds (26.0-38.0); INR 4.58 (0.82-1.09)
[2019-03-21] MEDS ORDERED: Albuterol/Ipratropium NEB.SOL* Albuterol 2.5 MG/Ipratropium 0.5 MG 3 ML INH ONE (12:33)
[2019-03-21 12:44] LABS: Albumin 3.5 g/dL (3.2-5.2); Albumin/Globulin Ratio 1.3 (1-3); BUN/Creatinine Ratio 24.7 (8-20); Calcium 9.3 mg/dL (8.6-10.3); EGFR African American 43.1 (>60); EGFR Non-African American 35.6 (>60); Globulin 2.8 g/dL (2-4); Magnesium 2.2 mg/dL (1.9-2.7); Potassium 4.3 mmol/L (3.5-5.0); Total Bilirubin 0.2 mg/dL (0.2-1.0); Total Protein 6.3 g/dL (6.4-8.9)
[2019-03-21] MEDS ORDERED: Phytonadione Oral Solution* 5 MG/25 ML UDC PO ONE (13:10)
[2019-03-21 13:18] LABS: C Reactive Protein 91.64 mg/L (<8.01)
[2019-03-21] MEDS ORDERED: Al Hydrox/Mg Hydrox/Simet LIQ* 30 ML UDC PO PRN (14:20)
[2019-03-21] MEDS ORDERED: Budesonide NEB* 0.25 MG/2 ML NEB.SOLN INH PRN (14:25)
[2019-03-21] MEDS ORDERED: Dextrose 50% Syringe 50 ML* 25 GM/50 ML SYRINGE IV PUSH PRN (14:36)
[2019-03-21] MEDS: Pantoprazole IV* 40 MG IV SCH (15:09)
[2019-03-21] MEDS: NS 0.9% 1000 ML** 1,000 ML IV SCH (16:08)
--- NOTE | 2019-03-21 16:22 | HP ---
CC: Dr. Travis; Dr. Callahan; Dr. Dugan; Dr. Cheatham, JEWELRY FACER; Dr. Rivera; Dr. Ballesteros * HISTORY AND PHYSICAL: DATE OF ADMISSION: 03/21/19 PRIMARY CARE PROVIDER: Dr. Travis. CHIEF COMPLAINT: Shortness of breath. HISTORY OF PRESENT ILLNESS: Delmi Del Valle is a 68-year-old female with history of oxygen-dependent COPD, who is still currently smoking, who also has had problems with chronic anemia due to chronic disease, under the care of Dr. Callahan, as well as history of PE and DVT, on Coumadin. The patient presented with shortness of breath for the past several days. Three days ago, she was diagnosed with possibility of UTI. She stated that her symptoms were related to right-sided flank pain. At that point, the patient was seen by Dr. Cheatham, urinalysis was performed, and she was prescribed ciprofloxacin. She continues to feel more short of breath for the past several days. She has had dry cough that had been unchanged. She denies any fevers. Of note, she has no other urinary symptoms when she was diagnosed with a UTI that she remembers of. Here, she is noted to be anemic with right-sided lung mass versus pneumonia and heme-positive stool. She is going to be admitted with a diagnosis of GI bleed and pneumonia as well as possibility of lung mass. PAST MEDICAL HISTORY: 1. History of COPD with chronic hypoxemic respiratory failure, on 3 L of oxygen via nasal cannula continuously. 2. Rheumatoid arthritis, on chronic prednisone. 3. History of antiphospholipid antibody syndrome with history of pulmonary embolism, on Coumadin, approximately 5 years ago. 4. Chronic kidney disease, stage 3. 5. Atrial fibrillation, paroxysmal. 6. Obstructive sleep apnea, on CPAP. 7. Diabetes type 2. 8. Hypertension. 9. Hyperlipidemia. 10. Depression. 11. Anxiety. 12. History of anemia of chronic disease, on iron infusions, under the care of Dr. Callahan. MEDICATIONS AT HOME: Include: 1. Imuran 50 mg daily. 2. Atrovent nebulizer 0.5 mg b.i.d. p.r.n. 3. Ciprofloxacin 500 mg b.i.d., started for her UTI 3 days ago. 4. Spiriva Respimat 2.5 mcg inhalation daily. 5. Serevent Diskus 1 puff b.i.d. 6. Hydrocodone with acetaminophen 5/325 mg, the patient takes 2 tabs at bedtime p.r.n. 7. Pulmicort nebulizer 1 inhalation b.i.d. 8. Gabapentin 200 mg q.p.m. 9. Coumadin 6 mg daily. 10. Metoprolol succinate 50 mg daily. 11. Iron polysaccharide complex 150 mg q.p.m. 12. Orencia 125 mg subcutaneously weekly. 13. Lipitor 20 mg q.p.m. 14. Tramadol 50 mg b.i.d. p.r.n. 15. Prednisone 5 mg daily. 16. Omeprazole 20 mg daily. 17. Magnesium oxide 800 mg daily. 18. Vitamin D3 1000 units daily. 19. Metformin 500 mg b.i.d. 20. Zoloft 75 mg daily. 21. Insulin glargine 16 units subcutaneously q.a.m. 22. Wellbutrin XL 300 mg daily. 23. Furosemide that she takes 40 mg Mondays, , and Saturdays. ALLERGIES: Include METHOTREXATE, CEPHALEXIN, HYDROXYCHLOROQUINE. CEPHALEXIN causes rash, METHOTREXATE causes difficulty breathing. FAMILY HISTORY: Positive for mother with history of CHF, father with history of COPD, and brother with history of genitourinary cancer. SOCIAL HISTORY: The patient has history of smoking for over 30 years approximately 3 packs a day. She started cutting down over the past couple of years and currently she smokes 3 to 4 cigarettes a day. She denies any alcohol or drug use. She lives alone and her good friend, Barby, is taking care of her frequently. The patient asks that her friend, Barby, be notified about any change of status. Her brother, who lives in [place], is her surrogate. REVIEW OF SYSTEMS: Please see history of present illness. All the remaining 12 systems were reviewed with the patient and were otherwise negative. PHYSICAL EXAMINATION GENERAL: The patient is a pleasant 68-year-old female, who is in no acute distress. Alert, awake, and oriented x3. VITAL SIGNS: Blood pressure of 144/68, heart rate 76 and regular, respiratory rate 22, oxygen saturation 98% on 3 L of oxygen via nasal cannula, temperature of 97.6. HEENT: Head: Atraumatic, normocephalic. Eyes: Pupils are equal, reactive to light and accommodation. Oropharynx is clear. Mucosa moist. NECK: Supple. No JVD. No adenopathy bilaterally. RESPIRATORY: Crackles at right mid lung with scant rhonchi and possible mild pleural rub in the area. CARDIOVASCULAR: Regular rate and rhythm. No murmur. ABDOMEN: Soft, nontender. Bowel sounds are present in all 4 quadrants. EXTREMITIES: There is no edema. Pulses are +2 bilaterally. There is no clubbing or cyanosis. NEUROLOGIC: Speech is clear. Cranial nerves II through XII grossly intact. Motor strength 5/5 bilaterally. DIAGNOSTIC STUDIES/LAB DATA: Laboratory data and studies performed during the ED stay included: The patient's EKG showed normal sinus rhythm with a heart rate of 70 beats per minute with no significant ST changes. The patient's white blood cell count was 9.0, hemoglobin of 7.6, hematocrit of 24, MCV of 82, and platelets of 488. Sodium of 135, potassium of 4.3, chloride 90, carbon dioxide 36, BUN 36, creatinine 1.46. Liver function tests unremarkable. C-reactive protein of 91.6 , which appears to be almost the same compared from 03/18/19. Troponin of 0. The patient's CT of the chest, impression: "Complex study with multiple nodular and more confluent infiltrates suggestive of pneumonia. In addition, there is a more mass-like pleural based density adjacent to the infiltrate in the posterior aspect of the right upper lobe. This is suspicious for a malignant process, although it is new from a prior chest x-ray study from December of 2018 and this likely represents part of the infectious process. This would be amenable to ultrasound-guided needle biopsy as previously noted. There are also more discrete small nodular densities within both lungs, which may represent metastatic disease or infectious etiology. Mildly enlarged mediastinal lymph nodes. Emphysema and findings suggestive of pulmonary arterial hypertension." The patient's INR was 4.58. ASSESSMENT AND PLAN: The patient's shortness of breath is multifactorial and likely related to the patient's pneumonia as well as anemia. At this point, the patient is going to be admitted to the hospital on full inpatient status. 1. In regards to the patient's anemia, I suspect that the patient, due to being on immunosuppressants, did not have that many symptoms. She did complain of right- sided flank pain that was probably referred pain from the pleural mass /pneumonia. At this point, the patient is going to be placed on Levaquin since she is allergic to CEPHALEXIN. Blood cultures are going to be obtained. She does not produce any sputum. Due to the mass-like appearance and due to that that Dr. Callahan knows the patient from outpatient setting, I will ask Dr. Callahan to see the patient for evaluation. The lesion would be amenable for CT-guided or ultrasound-guided biopsy, but unfortunately, the patient's, at this point, INR is above 4. I will give the patient a small dose of 5 mg of vitamin K IV and continue to check INRs daily. 2. In regards to the patient's gastrointestinal bleed, the patient's shortness of breath is likely due to/exacerbated by her anemia. Stool is heme-positive, but she did not notice any change in bowel habits and she did not notice any bright red blood per rectum or melena. She also is markedly supratherapeutic on her Coumadin. Her Coumadin is going to be held. I will reverse the patient' s INR mildly with vitamin K p.o. I will check the patient's INR daily and continue checking her H and Hs. She is going to be placed on Protonix IV twice a day. I asked Gastroenterology consult and to see the patient in the morning and Dr. Dugan was notified. 3. For diabetes type 2, the patient's insulin is going to be held. She is going to be placed on insulin sliding scale. 4. For chronic obstructive pulmonary disease, the patient does not appear to be in exacerbation. She is on chronic oxygen at 3 L, which is going to be continued. I will continue the patient's inhalers. 5. The patient has history of pulmonary embolism and antiphospholipid antibody syndrome. At this time, we are holding her Coumadin due to supratherapeutic INR that is going to be checked. The patient's Coumadin also needs to be checked due to her gastrointestinal bleed. It is possible that Dr. Callahan will be able to address the patient's anticoagulation in the near future. 6. For obstructive sleep apnea, CPAP from home is going to be continued. 7. The patient has chronic kidney disease stage 3 with creatinine at baseline. 8. The patient has history of paroxysmal atrial fibrillation, currently in sinus rhythm. As mentioned above, she is going to be reversed with her anticoagulation with vitamin K. 9. Questionable mass in the right lung. I will ask Dr. Callahan to see the patient in consultation and recommend further treatment/plan. At this point, the patient's INR is supratherapeutic and she is not a candidate for needle biopsy. 10. For the patient's rheumatoid arthritis, the patient's Imuran as well as Orencia are going to be held. The patient is on chronic prednisone and due to her gastrointestinal bleed, I am going to place her on small dose of Solu- Medrol intravenously. 11. For DVT prophylaxis, the patient is going to be placed on sequential compression devices and anticoagulation is going to be held due to both supratherapeutic INR and due to that she has gastrointestinal bleed. 12. The patient's code status is full and her surrogate is her brother, Sergio Del Valle. TIME SPENT: Approximately 75 minutes was spent on admission of this patient, more than half that time was spent [id number] with the patient during the interview and physical exam. [id number]/[facility] #: [id number] LANRE
[2019-03-21] MEDS: Levofloxacin 500 MG IVPREMIX(* 500 MG/100 ML BAG IVPB SCH (16:48)
[2019-03-21] MEDS: Insulin LISPRO* 1 UNITS UNIT SUBCUT SCH ×2 (17:08→20:42)
[2019-03-21] MEDS: Atorvastatin* 20 MG TAB PO SCH (17:17)
[2019-03-21] MEDS: Gabapentin CAP(*) 100 MG PO SCH (17:17)
[2019-03-21] MEDS: Docusate CAP* 100 MG PO SCH (20:44)
[2019-03-21] MEDS: traMADol TAB* 50 MG PO SCH (20:44)
[2019-03-21] MEDS: Magnesium Oxide TAB* 400 MG PO SCH (20:44)
[2019-03-21 20:58] LABS: Hematocrit 22 % (35-47); Hemoglobin 7.1 g/dL (12.0-16.0)
[2019-03-21] MEDS: HYDROcodone/ACETAMIN 5-325 MG* 1 TAB PO PRN (23:19)
[2019-03-22] MEDS: Acetaminophen TAB* 325 MG PO PRN ×2 (02:01→16:27)
[2019-03-22] MEDS: Pantoprazole IV* 40 MG IV SCH ×2 (02:01→15:01)
[2019-03-22] MEDS: NS 0.9% 1000 ML** 1,000 ML IV SCH (02:43)
[2019-03-22] MEDS: Albuterol/Ipratropium NEB.SOL* Albuterol 2.5 MG/Ipratropium 0.5 MG 3 ML INH PRN ×2 (07:13→18:47)
[2019-03-22] MEDS: Insulin LISPRO* 1 UNITS UNIT SUBCUT SCH ×4 (08:23→21:28)
[2019-03-22 08:29] LABS: ABS Eosinophils 0.2 10^3/ul (0-0.6); ABS Lymphocytes 0.5 10^3/ul (1.0-4.8); ABS Monocytes 0.9 10^3/ul (0-0.8); ABS Neutrophils 5.8 10^3/ul (1.5-7.7); Eosinophil % 2.2 %; Hematocrit 22 % (35-47); Hemoglobin 6.9 g/dL (12.0-16.0); Mean Corpuscular HGB Conc 32 g/dL (31-36); Mean Corpuscular Hemoglobin 26 pg (27-31); Mean Corpuscular Volume 82 fL (80-97); Mean Platelet Volume 6.4 fL (7.4-10.4); Nucleated Red Blood Cells % 0.1; Platelet Count 452 10^3/uL (150-450); Red Blood Count 2.63 10^6 /uL (3.70-4.87); Red Cell Distribution Width 19 % (10-15); White Blood Count 7.4 10^3/uL (3.5-10.8)
[2019-03-22 08:31] LABS: Hematocrit 22 % (35-47)
[2019-03-22 08:32] LABS: INR 2.42 (0.82-1.09)
[2019-03-22 08:36] LABS: BUN/Creatinine Ratio 19.4 (8-20); EGFR African American 45.6 (>60); EGFR Non-African American 37.7 (>60); Potassium 4.2 mmol/L (3.5-5.0)
[2019-03-22] MEDS ORDERED: Insulin GLARGINE(*) 1 UNITS UNIT SUBCUT SCH (09:00)
[2019-03-22] MEDS: Docusate CAP* 100 MG PO SCH ×3 (09:22→21:30)
[2019-03-22] MEDS: traMADol TAB* 50 MG PO SCH ×2 (09:22→21:31)
[2019-03-22] MEDS: Sertraline* 25 MG TAB PO SCH (09:23)
[2019-03-22] MEDS: Cholecalciferol TAB* 1000 UNITS PO SCH (09:23)
[2019-03-22] MEDS: BuPROPion XL* 300 MG TAB.XL PO SCH (09:23)
[2019-03-22] MEDS: Magnesium Oxide TAB* 400 MG PO SCH ×2 (09:24→21:28)
[2019-03-22] MEDS: methylPREDNISolone SOD 40 MG* 1 ML VIAL IV SCH (09:24)
[2019-03-22] MEDS: Metoprolol Succinate XL TAB* 50 MG PO SCH (09:25)
--- NOTE | 2019-03-22 12:49 | CONSULT ---
Consultation - Reason for Consultation Reason for Consultation: possible lung mass Ordering Provider: Shelia Madera Chief Complaint: SOB History of Present Illness: This is an unfortunate 68 yo female with severe RA as well as antiphospholipid syndrome and prior bilateral PEs with DVT for which she is anticoagulated with Coumadin who presented yesterday to the ER with c/o increasing SOB. Reports some circumferential "rib pain" in at the level of the xiphoid process and slight increase in cough. Reports feeling "clammy", no measured fevers or chills. In the ER a CXR was done which showed a RUL infiltrate v mass for which a CT was completed which shows diffuse emphysematous changes in addition to a multifocal infiltrate and a denser possible mass like consultation in the RUL for which heme/onc was asked to consult. Additionally Hgb was 7.6 at admission with heme positive stool. She does have a h/o anemia which is at least in part related to her chronic inflammatory state and prior bone marrow bx has confirmed iron deficiency. Review of her labs over the last several months shows that her Hgb has been stable at ~11 g/dl for a long period of time , but over the last 6 weeks ago it has slowly fallen to ~ 7g/dl. Regarding her bowel habits she reports some constipation over the last several days without specific abd pain, bloating or cramping. Reports she has been using her hydrocodone more the last few days to control her arthralgias and recent rib pain. Denies any melena or hematachezia. She does report that she has been steadily losing weight over a period of at least several months. She has a very poor appetite, but does her best to eat. No n/v. Per our clinic records she weighed ~150 lbs 1 year ago and was 133 lbs last month and has a recorded weight of ~130 pounds on admission. Today, she reports feeling slightly better. No cough or fever. Allergies/Medications Medication: Acetaminophen (Tylenol Tab*) 650 mg PO Q4H PRN PRN Reason: FEVER/PAIN Last Admin: 03/22/19 02:01 Dose: 650 mg Hydrocodone Bitart/Acetaminophen ([place] 5-325 Tab*) 2 tab PO BEDTIME PRN PRN Reason: PAIN Last Admin: 03/21/19 23:19 Dose: 2 tab Al Hydrox/Mg Hydrox/Simethicone (Maalox Plus*) 30 ml PO Q6H PRN PRN Reason: INDIGESTION Albuterol/Ipratropium (Duoneb (Albuterol 2.5 Mg/Ipratropium 0.5 Mg)) 1 neb INH [id number] AWAKE PRN PRN Reason: sob/wheexing Last Admin: 03/22/19 07:13 Dose: 1 neb Atorvastatin Calcium (Lipitor*) 20 mg PO QPM [facility] Last Admin: 03/21/19 17:17 Dose: 20 mg Budesonide (Pulmicort Neb*) 0.25 mg INH BID PRN PRN Reason: SHORTNESS OF BREATH Bupropion HCl (Bupropion Xl*) 300 mg PO DAILY [facility] Last Admin: 03/22/19 09:23 Dose: 300 mg Cholecalciferol (Vitamin D Tab*) 1,000 units PO DAILY [facility] Last Admin: 03/22/19 09:23 Dose: 1,000 units Dextrose (D50w Syringe 50 Ml*) 12.5 gm IV PUSH .FOR FS < 60 - SS PRN PRN Reason: FS < 60 Docusate Sodium (Colace Cap*) 100 mg PO BID [facility] Last Admin: 03/22/19 09:22 Dose: 100 mg Gabapentin (Neurontin Cap(*)) 200 mg PO QPM [facility] Last Admin: 03/21/19 17:17 Dose: 200 mg Sodium Chloride (Ns 0.9% 1000 Ml) 1,000 mls @ 75 mls/hr IV PER RATE [facility] Last Admin: 03/22/19 02:43 Dose: 75 mls/hr Levofloxacin/Dextrose (Levaquin 500 Mg Ivpremix(*)) 500 mg in 100 mls @ 100 mls /hr IVPB Q24H [facility]; Protocol Last Admin: 03/21/19 16:48 Dose: 100 mls/hr Insulin Human Lispro (Humalog*) 0 units SUBCUT ACHS [facility]; Protocol Last Admin: 03/22/19 12:30 Dose: 1 unit Magnesium Oxide (Magox 400 Tab*) 800 mg PO BID [facility] Last Admin: 03/22/19 09:24 Dose: 800 mg Methylprednisolone Sodium Succinate (Solu-Medrol 40 Mg) 10 mg IV DAILY [facility] Last Admin: 03/22/19 09:24 Dose: 10 mg Metoprolol Succinate (Toprol Xl Tab*) 50 mg PO DAILY [facility] Last Admin: 03/22/19 09:25 Dose: Not Given Pantoprazole Sodium (Protonix Iv*) 40 mg IV Q12H [facility] Last Admin: 03/22/19 02:01 Dose: 40 mg Sertraline HCl (Zoloft*) 75 mg PO DAILY [facility] Last Admin: 03/22/19 09:23 Dose: 75 mg Tramadol HCl (Ultram*) 50 mg PO BID [facility] Last Admin: 03/22/19 09:22 Dose: 50 mg Allergies/Adverse Reactions: Allergies Allergy/AdvReac Type Severity Reaction Status Date / Time methotrexate Allergy Severe Difficulty Verified 06/17/18 12:00 Breathing cephalexin Allergy Rash Verified 06/17/18 12:00 hydroxychloroquine Allergy Unknown Verified 06/17/18 12:00 Reaction Details History - Past Medical History Hx Arthritis: Yes - RA Hx Blood Dyscrasias: Yes - AISSATOU Hx Cancer: No Hx Cardiac Disorders: Yes - afib Hx Circulatory Problems: Yes - PVD Hx Diabetes: Yes Hx Hypercholesterolemia: Yes Hx Musculoskeletal Deformity: Yes - RA Review of Systems - Review of Systems Constitutional Symptoms: Positive: Weight Loss Dermatology: Positive: Normal HEENT: Positive: Normal Eyes: Positive: Normal Thyroid: Positive: Normal Pulmonary: Positive: Cough, Shortness of Breath, COPD, Home Oxygen Cardiology: Positive: Shortness of Breath, Peripheral Vascular Dis Gastroenterology: Positive: Anorexia, Constipation Musculoskeletal: Positive: Joint Pain Hematologic/Lymphatic: Positive: Anemia Psychiatry: Positive: Normal Physical Exam - Physical Exam Physical Examination: Gen: chronically ill and frail appearing 68 yo female in NAD HEENT: MMM CV: RRR, no m/r/g Resp: diffuse wheezing and rhonchi Abd: soft and nonTTP Ext: severe valgus deformity of the hands, no edema Skin: no rash Results - Lab Results Lab Results: 03/21/19 03/21/19 03/21/19 12:07 12:07 12:07 WBC 9.0 RBC 2.90 L Hgb 7.6 L Hct 24 L MCV 82 MCH 26 L MCHC 32 RDW 20 H Plt Count 488 H D MPV 6.2 L Neut % (Auto) 83.4 Lymph % (Auto) 4.4 [place] % (Auto) 9.7 Eos % (Auto) 2.0 Baso % (Auto) 0.5 Absolute Neuts (auto) 7.5 Absolute Lymphs (auto) 0.4 L Absolute Monos (auto) 0.9 H Absolute Eos (auto) 0.2 Absolute Basos (auto) 0.0 Absolute Nucleated RBC 0.0 Nucleated RBC % 0.0 INR (Anticoag Therapy) APTT Sodium 135 Potassium 4.3 Chloride 90 L Carbon Dioxide 36 H Anion Gap 9 BUN 36 H Creatinine 1.46 H Est GFR ( Amer) 43.1 Est GFR (Non-Af Amer) 35.6 BUN/Creatinine Ratio 24.7 H Glucose 149 H POC Glucose (mg/dL) Lactic Acid Calcium 9.3 Magnesium 2.2 Total Bilirubin 0.20 AST 10 L ALT 6 L Alkaline Phosphatase 83 Troponin I 0.00 C-Reactive Protein 91.64 H B-Natriuretic Peptide 40 Total Protein 6.3 L Albumin 3.5 Globulin 2.8 Albumin/Globulin Ratio 1.3 Blood Type Antibody Screen 03/21/19 03/21/19 03/21/19 12:07 12:08 12:08 WBC RBC Hgb Hct MCV MCH MCHC RDW Plt Count MPV Neut % (Auto) Lymph % (Auto) [place] % (Auto) Eos % (Auto) Baso % (Auto) Absolute Neuts (auto) Absolute Lymphs (auto) Absolute Monos (auto) Absolute Eos (auto) Absolute Basos (auto) Absolute Nucleated RBC Nucleated RBC % INR (Anticoag Therapy) 4.58 H APTT 54.2 H Sodium Potassium Chloride Carbon Dioxide Anion Gap BUN Creatinine Est GFR ( Amer) Est GFR (Non-Af Amer) BUN/Creatinine Ratio Glucose POC Glucose (mg/dL) Lactic Acid 1.1 Calcium Magnesium Total Bilirubin AST ALT Alkaline Phosphatase Troponin I C-Reactive Protein B-Natriuretic Peptide Total Protein Albumin Globulin Albumin/Globulin Ratio Blood Type B Positive Antibody Screen Negative 03/21/19 03/21/19 03/21/19 16:58 20:35 20:51 WBC RBC Hgb 7.1 L Hct 22 L MCV MCH MCHC RDW Plt Count MPV Neut % (Auto) Lymph % (Auto) [place] % (Auto) Eos % (Auto) Baso % (Auto) Absolute Neuts (auto) Absolute Lymphs (auto) Absolute Monos (auto) Absolute Eos (auto) Absolute Basos (auto) Absolute Nucleated RBC Nucleated RBC % INR (Anticoag Therapy) APTT Sodium Potassium Chloride Carbon Dioxide Anion Gap BUN Creatinine Est GFR ( Amer) Est GFR (Non-Af Amer) BUN/Creatinine Ratio Glucose POC Glucose (mg/dL) 140 H 176 H Lactic Acid Calcium Magnesium Total Bilirubin AST ALT Alkaline Phosphatase Troponin I C-Reactive Protein B-Natriuretic Peptide Total Protein Albumin Globulin Albumin/Globulin Ratio Blood Type Antibody Screen 03/22/19 03/22/19 03/22/19 07:54 07:54 07:54 WBC RBC Hgb 7.0 L Hct 22 L MCV MCH MCHC RDW Plt Count MPV Neut % (Auto) Lymph % (Auto) [place] % (Auto) Eos % (Auto) Baso % (Auto) Absolute Neuts (auto) Absolute Lymphs (auto) Absolute Monos (auto) Absolute Eos (auto) Absolute Basos (auto) Absolute Nucleated RBC Nucleated RBC % INR (Anticoag Therapy) 2.42 H APTT Sodium 137 Potassium 4.2 Chloride 97 L Carbon Dioxide 34 H Anion Gap 6 BUN 27 H Creatinine 1.39 H Est GFR ( Amer) 45.6 Est GFR (Non-Af Amer) 37.7 BUN/Creatinine Ratio 19.4 Glucose 133 H POC Glucose (mg/dL) Lactic Acid Calcium 8.0 L Magnesium Total Bilirubin AST ALT Alkaline Phosphatase Troponin I C-Reactive Protein B-Natriuretic Peptide Total Protein Albumin Globulin Albumin/Globulin Ratio Blood Type Antibody Screen 03/22/19 03/22/19 03/22/19 07:54 08:05 12:15 WBC 7.4 RBC 2.63 L Hgb 6.9 L Hct 22 L MCV 82 MCH 26 L MCHC 32 RDW 19 H Plt Count 452 H MPV 6.4 L Neut % (Auto) 78.2 Lymph % (Auto) 7.0 [place] % (Auto) 12.1 Eos % (Auto) 2.2 Baso % (Auto) 0.5 Absolute Neuts (auto) 5.8 Absolute Lymphs (auto) 0.5 L Absolute Monos (auto) 0.9 H Absolute Eos (auto) 0.2 Absolute Basos (auto) 0.0 Absolute Nucleated RBC 0.0 Nucleated RBC % 0.1 INR (Anticoag Therapy) APTT Sodium Potassium Chloride Carbon Dioxide Anion Gap BUN Creatinine Est GFR ( Amer) Est GFR (Non-Af Amer) BUN/Creatinine Ratio Glucose POC Glucose (mg/dL) 145 H 192 H Lactic Acid Calcium Magnesium Total Bilirubin AST ALT Alkaline Phosphatase Troponin I C-Reactive Protein B-Natriuretic Peptide Total Protein Albumin Globulin Albumin/Globulin Ratio Blood Type Antibody Screen - Radiology Radiology Results: CT chest: multifocal infiltrate with mass like consolidation in the RUL Assessment and Plan Impression: This is a 68 yo female with severe RA, AISSATOU, antiphospholipid antibody syndrome with prior DVT and bilateral PEs anticoagulated with Coumadin, IDDM and afib who presents with c/o SOB with worsening anemia and multifocal infiltrate on CT. Heme/onc was asked to consult due to the primary concern of possible malignancy. Plan: 1. PNA/COPD - CT scan appears more c/w an inflammatory process with a multifocal infiltrate as opposed to a malignant process - recommend continuing treatment for PNA and repeating a CT scan in ~4 weeks - if there is a persistent dense infiltrate then biopsy would be appropriate at that time 2. GIB - worsening anemia appears c/w GIB - would recommend transfusion of at least 1U PRBCs and GI evaluation 3. Antiphospholipid syndrome - vit K has been given and INR in a therapeutic range today, anticoagulation should be interrupted for as little time as possible - depending on results of upper endoscopy should consider IVC filter placement if her anticoagulation needs to be held for longer than a couple of days - bridge back with Lovenox when appropriate to resume anticoagulation 4. Anorexia/weight loss - concerning for possible malignancy - if upper endoscopy is unrevealing, then colonoscopy would be warranted as I do not see a recent lower endoscopy on record 5. RA 6. Afib Dispo: heme/onc will follow along as necessary during her hospitalization and will order a repeat CT for 4 weeks time. No indication for urgent lung biopsy at this time
[2019-03-22 13:16] LABS: Hematocrit 23 % (35-47); Hemoglobin 7.3 g/dL (12.0-16.0)
[2019-03-22] MEDS ORDERED: Pantoprazole IV* 40 MG IV ONE (13:30)
[2019-03-22] MEDS: Levofloxacin 500 MG IVPREMIX(* 500 MG/100 ML BAG IVPB SCH (14:45)
--- NOTE | 2019-03-22 17:24 | PN ---
Subjective Date of Service: 03/22/19 Interval History: Reports some improvement in breathing. Did not see any blood in stool Objective Active Medications: Acetaminophen (Tylenol Tab*) 650 mg PO Q4H PRN PRN Reason: FEVER/PAIN Last Admin: 03/22/19 16:27 Dose: 650 mg Hydrocodone Bitart/Acetaminophen ([place] 5-325 Tab*) 2 tab PO BEDTIME PRN PRN Reason: PAIN Last Admin: 03/21/19 23:19 Dose: 2 tab Al Hydrox/Mg Hydrox/Simethicone (Maalox Plus*) 30 ml PO Q6H PRN PRN Reason: INDIGESTION Albuterol/Ipratropium (Duoneb (Albuterol 2.5 Mg/Ipratropium 0.5 Mg)) 1 neb INH [id number] AWAKE PRN PRN Reason: sob/wheexing Last Admin: 03/22/19 07:13 Dose: 1 neb Atorvastatin Calcium (Lipitor*) 20 mg PO QPM [facility] Last Admin: 03/21/19 17:17 Dose: 20 mg Budesonide (Pulmicort Neb*) 0.25 mg INH BID PRN PRN Reason: SHORTNESS OF BREATH Bupropion HCl (Bupropion Xl*) 300 mg PO DAILY [facility] Last Admin: 03/22/19 09:23 Dose: 300 mg Cholecalciferol (Vitamin D Tab*) 1,000 units PO DAILY [facility] Last Admin: 03/22/19 09:23 Dose: 1,000 units Dextrose (D50w Syringe 50 Ml*) 12.5 gm IV PUSH .FOR FS < 60 - SS PRN PRN Reason: FS < 60 Docusate Sodium (Colace Cap*) 100 mg PO BID [facility] Last Admin: 03/22/19 09:22 Dose: 100 mg Gabapentin (Neurontin Cap(*)) 200 mg PO QPM [facility] Last Admin: 03/21/19 17:17 Dose: 200 mg Sodium Chloride (Ns 0.9% 1000 Ml) 1,000 mls @ 75 mls/hr IV PER RATE [facility] Last Admin: 03/22/19 02:43 Dose: 75 mls/hr Levofloxacin/Dextrose (Levaquin 500 Mg Ivpremix(*)) 500 mg in 100 mls @ 100 mls /hr IVPB Q24H [facility]; Protocol Last Admin: 03/22/19 14:45 Dose: 100 mls/hr Insulin Human Lispro (Humalog*) 0 units SUBCUT ACHS [facility]; Protocol Last Admin: 03/22/19 12:30 Dose: 1 unit Magnesium Oxide (Magox 400 Tab*) 800 mg PO BID [facility] Last Admin: 03/22/19 09:24 Dose: 800 mg Methylprednisolone Sodium Succinate (Solu-Medrol 40 Mg) 10 mg IV DAILY [facility] Last Admin: 03/22/19 09:24 Dose: 10 mg Metoprolol Succinate (Toprol Xl Tab*) 50 mg PO DAILY [facility] Last Admin: 03/22/19 09:25 Dose: Not Given Pantoprazole Sodium (Protonix Iv*) 40 mg IV Q12H [facility] Last Admin: 03/22/19 15:01 Dose: 40 mg Sertraline HCl (Zoloft*) 75 mg PO DAILY [facility] Last Admin: 03/22/19 09:23 Dose: 75 mg Tramadol HCl (Ultram*) 50 mg PO BID [facility] Last Admin: 03/22/19 09:22 Dose: 50 mg Vital Signs - 8 hr 03/22/19 03/22/19 03/22/19 09:22 11:01 12:30 Temperature 98.2 F Pulse Rate 83 Respiratory 19 16 20 Rate Blood Pressure 118/56 (mmHg) O2 Sat by Pulse 99 Oximetry Oxygen Devices in Use Now: Nasal Cannula Eyes: No Scleral Icterus Ears/Nose/Mouth/Throat: NL Teeth, Lips, Gums Neck: NL Appearance and Movements; NL JVP Respiratory: Symmetrical Chest Expansion and Respiratory Effort, Clear to Auscultation Cardiovascular: NL Sounds; No Murmurs; No JVD, RRR Abdominal: NL Sounds; No Tenderness; No Distention Extremities: No Edema Neurological: Alert and Oriented x 3 Result Diagrams: 03/22/19 12:53 03/22/19 07:54 Additional Lab and Data: Lab Results 03/21/19 Range/Units 12:07 WBC 9.0 (3.5-10.8) 10^3/uL RBC 2.90 L (3.70-4.87) 10^6 /uL Hgb 7.6 L (12.0-16.0) g/dL Hct 24 L (35-47) % MCV 82 (80-97) fL MCH 26 L (27-31) pg MCHC 32 (31-36) g/dL RDW 20 H (10-15) % Plt Count 488 H D (150-450) 10^3/uL MPV 6.2 L (7.4-10.4) fL Neut % (Auto) 83.4 % Lymph % (Auto) 4.4 % [place] % (Auto) 9.7 % Eos % (Auto) 2.0 % Baso % (Auto) 0.5 % Absolute Neuts (auto) 7.5 (1.5-7.7) 10^3/ul Absolute Lymphs (auto) 0.4 L (1.0-4.8) 10^3/ul Absolute Monos (auto) 0.9 H (0-0.8) 10^3/ul Absolute Eos (auto) 0.2 (0-0.6) 10^3/ul Absolute Basos (auto) 0.0 (0-0.2) 10^3/ul Absolute Nucleated RBC 0.0 10^3/ul Nucleated RBC % 0.0 Microbiology and Other Data: Microbiology 03/21/19 14:44 Aerobic Blood Culture - Preliminary Blood Venous No Growth Day 1 Anaerobic Blood Culture - Preliminary No Growth Day 1 03/21/19 14:43 Aerobic Blood Culture - Preliminary Blood Venous No Growth Day 1 Anaerobic Blood Culture - Preliminary No Growth Day 1 03/21/19 12:31 Stool Occult Blood (JOVANNA) - Final Stool Assess/Plan/Problems-Billing Assessment: - Patient Problems (1) GI bleed Current Visit: Yes Status: Acute Code(s): K92.2 - GASTROINTESTINAL HEMORRHAGE, UNSPECIFIED SNOMED Code(s): 68148590 Comment: Coumadin supratherapeutic intiially Stool guiac pos Dark stool Will transfuse 1 unit PRBC hb 6.9 and 1 unit ffp to stabililize instead of more vit k as inr still therapeutic this am given her h/o antiphospholipid syndrome continue ppi bid pt describes gastritis symptoms and says ppi helping if hb drops further will switch to ppi drip gi will see pt.poss egd on sunday (2) Anti-phospholipid antibody syndrome Current Visit: Yes Status: Acute Code(s): D68.61 - ANTIPHOSPHOLIPID SYNDROME SNOMED Code(s): 21318386 Comment: anticoag on hold due to bleeding h/o pe reviewed onc note if need to stop anticoagulation for longer period, kami consider ivc filter as suggested and restart lovenox when stable (3) Atrial fibrillation Current Visit: No Status: Acute Code(s): I48.91 - UNSPECIFIED ATRIAL FIBRILLATION SNOMED Code(s): 45656284 Comment: anti coag on hold (4) NORA (acute kidney injury) Current Visit: Yes Status: Acute Code(s): N17.9 - ACUTE KIDNEY FAILURE, UNSPECIFIED SNOMED Code(s): 34694459 Comment: improving (5) Pneumonia Current Visit: Yes Status: Acute Code(s): J18.9 - PNEUMONIA, UNSPECIFIED ORGANISM SNOMED Code(s): 541000147 Comment: multi focal infiltrate on ct was started on levaquin for CAP coverage if no improvement, will expand antibiotics (6) Lung mass Current Visit: Yes Status: Acute Code(s): R91.8 - OTHER NONSPECIFIC ABNORMAL FINDING OF LUNG FIELD SNOMED Code(s): 149674923 Comment: in the setting of pneumonia and multifocal infiltrates, will treat pcn first and onc rec repeat imaging in 4 weeks to assess
[2019-03-22] MEDS: Atorvastatin* 20 MG TAB PO SCH (17:40)
[2019-03-22] MEDS: Gabapentin CAP(*) 100 MG PO SCH (17:40)
[2019-03-22] MEDS: HYDROcodone/ACETAMIN 5-325 MG* 1 TAB PO PRN (22:35)
[2019-03-23] MEDS: Pantoprazole IV* 40 MG IV SCH ×2 (02:27→15:12)
[2019-03-23] MEDS: NS 0.9% 1000 ML** 1,000 ML IV SCH (02:27)
[2019-03-23] MEDS: Acetaminophen TAB* 325 MG PO PRN (04:00)
[2019-03-23 04:32] LABS: ABS Eosinophils 0.2 10^3/ul (0-0.6); ABS Lymphocytes 0.6 10^3/ul (1.0-4.8); ABS Monocytes 0.9 10^3/ul (0-0.8); ABS Neutrophils 8.6 10^3/ul (1.5-7.7); Eosinophil % 1.4 %; Hematocrit 27 % (35-47); Hemoglobin 8.9 g/dL (12.0-16.0); Lymphocyte % 5.8 %; Mean Corpuscular HGB Conc 32 g/dL (31-36); Mean Corpuscular Hemoglobin 27 pg (27-31); Mean Corpuscular Volume 84 fL (80-97); Mean Platelet Volume 6.4 fL (7.4-10.4); Platelet Count 438 10^3/uL (150-450); Red Blood Count 3.26 10^6 /uL (3.70-4.87); Red Cell Distribution Width 19 % (10-15); White Blood Count 10.4 10^3/uL (3.5-10.8)
[2019-03-23 04:37] LABS: INR 1.59 (0.82-1.09)
[2019-03-23 04:49] LABS: Anion Gap 5 mmol/L (2-11); BUN/Creatinine Ratio 16.8 (8-20); Blood Urea Nitrogen 19 mg/dL (6-24); CO2 Carbon Dioxide 31 mmol/L (22-32); Calcium 8.5 mg/dL (8.6-10.3); Chloride 100 mmol/L (101-111); EGFR African American 57.9 (>60); EGFR Non-African American 47.9 (>60); Glucose 182 mg/dL (70-100); Potassium 3.9 mmol/L (3.5-5.0); Sodium 136 mmol/L (135-145)
[2019-03-23] MEDS: Morphine 4 MG/ML VIAL (1 ml) 4 MG/ML VIAL IV PRN (04:50)
[2019-03-23 04:53] LABS: Troponin I 0.53 ng/mL (<0.04)
[2019-03-23] MEDS ORDERED: Aspirin TAB* 325 MG PO ONE (05:08)
[2019-03-23] MEDS ORDERED: Nitroglycerin TAB 0.4 MG* 0.4 MG TAB SL PRN (05:13)
--- NOTE | 2019-03-23 05:27 | PN ---
Hospitalist Progress Note Date of Service: 03/23/19 RODRIGUEZ Allen called to report patient c/o central chest pain. This is a new symptom for this patient. Troponin, CBC, and EKG ordered stat. While pending, patient ambulated to commode and afterward was feeling severely short of breath. Additionally experiencing orthopnea. Gave IV morphine to alleviate chest pain enough to obtain EKG. Patient started on O2 via NC. Evaluated patient at bedside. Central chest pain is far improved and shortness of breath is resolved after morphine administration. Patient notes lower rib pain which has been ongoing during this hospital stay. Denies radiation of pain , abd pain, nausea. Patient coughed up sputum that was slightly blood-tinged with <0.5cc blood. Exam: General: Thin elderly white female, laying upright in bed appearing comfortable and in NAD Resp: very faint crackles in bilateral lung bases; no cough present; resps symmetrical; not using accessory muscles Cardio: RRR without m/r/g; PT pulses 2/4 Abd: soft, nontender Extremities: no clubbing, cyanosis Neuro: pt a&Ox3 Diagnostics: -Troponin elevated to 0.53 -EKG with T wave inversions in leads V1-V3 and change in QRS morphology in isolated lead III (? maybe new LBBB) Patient has had these T wave inversions in the past, however did not have them at admission (had T wave flattening at admission in these leads). Plan: -ordered tele -ordered SL nitro prn angina -continue prn morphine and O2 via NC -repeat trop and EKG in 3 hours -ordered echo -given that H&H is increased from yesterday, and RN reports no BRBPR, ordered 325 mg ASA
[2019-03-23 08:09] LABS: Troponin I 0.45 ng/mL (<0.04)
[2019-03-23] MEDS: methylPREDNISolone SOD 40 MG* 1 ML VIAL IV SCH (08:48)
[2019-03-23] MEDS: Metoprolol Succinate XL TAB* 50 MG PO SCH (08:48)
[2019-03-23] MEDS: Insulin LISPRO* 1 UNITS UNIT SUBCUT SCH ×4 (08:48→21:38)
[2019-03-23] MEDS: traMADol TAB* 50 MG PO SCH ×2 (08:49→21:37)
[2019-03-23] MEDS: Cholecalciferol TAB* 1000 UNITS PO SCH (08:49)
[2019-03-23] MEDS: BuPROPion XL* 300 MG TAB.XL PO SCH (08:49)
[2019-03-23] MEDS: Sertraline* 25 MG TAB PO SCH (08:49)
[2019-03-23] MEDS: Magnesium Oxide TAB* 400 MG PO SCH ×2 (08:49→21:37)
[2019-03-23] MEDS: Docusate CAP* 100 MG PO SCH ×2 (08:49→21:37)
[2019-03-23] MEDS ORDERED: Furosemide IV* 10 MG/ML VIAL (40 MG) IV ONE (08:59)
[2019-03-23] MEDS ORDERED: Iodixanol* (CONTRAST) 320 MG/ML 100 ML SDV IV ONE (09:47)
[2019-03-23] MEDS ORDERED: Vancomycin(*) 1,000 MG in NS 0.9% 250 ML* 250 ML IVPB ONE ×3 (13:00→14:00)
[2019-03-23] MEDS ORDERED: Piperacillin/Tazobac ADVAN(*) 3.375 GM in NS 0.9% 100 ML* 100 ML IVPB ONE (13:15)
[2019-03-23] MEDS ORDERED: Zosyn per Pharmacy* NOTE FOLLOW UP SCH (14:00)
--- NOTE | 2019-03-23 14:04 | CONS ---
CC: Dr. Ballesteros; Dr. Pitts; Hospitalist Service; Dr. Travis CARDIOLOGY CONSULTATION: DATE OF CONSULT: 03/23/19 PASTEURIZING SUPERVISOR: Dr. Ballesteros. HISTORY OF PRESENT ILLNESS: I was asked by the hospitalist service to see this 68- year-old female p jay, who has known history of severe COPD, cor pulmonale, oxygen dependent, and admitted on for pneumonia and shortness of breath. Cardiology consult was further requested because the patien t earlier had an episode of chest pain and it was noticed that her troponin did go up and actually pe aked at 0.53 and then did go down to 0.45. The patient is currently chest pain free. The patient do es have extensive cardiac history. In reviewing Dr. Ballesteros's notes, who saw the patient on 07/09/18, she had history of nonischemic cardiomyopathy and recovered EF. Actually she had an echo with him o n 07/30/18 with an EF of 60% to 65%. She does have mild pulmonary hypertension and trace tricuspid i nsufficiency, trace mitral insufficiency at that time. She does have known history of severe COPD. She still continues to smoke. She is oxygen dependent. She does have history of hyperlipidemia, sev ere rheumatoid arthritis, history of pulmonary embolism in the past, history of DVTs in the past, and history of antiphospholipid antibody syndrome. She does have also history of anemia and history of transfusion. Cardiology consult was requested because of the troponin. Her hemoglobin on 03/22/19 w as 6.9. She did receive blood transfusion. Her hemoglobin now is 8.9 this morning. She gives no sy mptoms at the present time or chest pain. She does have chronic shortness of breath. No dizziness, n o syncope, no fever, no chills, no nausea, no vomiting, no hematochezia, no skin rash, no tremors, no orthopnea, no major swelling of the lower extremities appreciated. She does have history of periphe ral arterial disease. PAST MEDICAL HISTORY: Her past medical history is extensive, which includes history of hyperlipidemi a, chronic obstructive pulmonary disease, severe, she is oxygen dependent, sleep apnea, cor pulmonale , history of cardiomyopathy that recovered, diabetes mellitus, severe rheumatoid arthritis, pulmonary embolism, DVT, antiphospholipid antibody syndrome, osteoporosis, hypertension, and history of tachyc ardia. She does have also history of pulmonary hypertension. PAST SURGICAL HISTORY: History of left hand surgery in 2010. She is status post appendicectomy and tonsillectomy. MEDICATIONS: Her current medications in the hospital include: 1. Tylenol 650 mg p.o. q.4 hours p.r.n. 2. She is on Maalox 30 mL p.o. q.6 hours. 3. Lipitor 20 mg p.o. q.p.m. 4. She is also on Pulmicort nebulizer. 5. Vitamin D 1000 units daily. 6. Colace 100 mg twice a day. 7. Neurontin 200 mg daily. 8. Humalog insulin adjusted to her blood sugar. 9. She is on Levaquin as per hospitalist service. 10. She is on magnesium 400 mg twice a day. 11. Solu-Medrol 10 mg IV daily. 12. Toprol-XL 50 mg daily. 13. Nitro sublingual p.r.n. for chest pain. 14. Zoloft 75 mg daily. 15. Protonix 40 mg IV q.12 hours. 16. Tramadol 50 mg p.o. b.i.d. ALLERGIES: She is allergic to KEFLEX, HYDROXYCHLOROQUINE, and METHOTREXATE. FAMILY HISTORY: No family history of premature coronary artery disease. SOCIAL HISTORY: She gives no history of drinking. She does smoke a little, about 4 cigarettes daily . No history of illicit drug use. REVIEW OF SYSTEMS: Review of all other systems essentially is negative. PHYSICAL EXAM: On exam, she is awake, alert, and oriented. She is on oxygen. She does have obvious severe rheumatoid arthritis in her hands. She has no symptoms of chest pain. Vitals: Blood pressu re 112/55, pulse 74, respiratory rate 18, temperature 98.1. Head and Neck Exam: Normocephalic and a traumatic head. Ears, Nose, and Throat: Essentially benign. Neck is supple. JVP is not elevated. No carotid bruits. No masses in the neck are appreciated. Chest: Diminished air entry at the base s with rhonchi. Heart: Normal S1 and S2. No added sounds. No gallops, no rubs. Abdomen: Benign. Positive bowel sounds. Extremities: No edema, no cyanosis, no clubbing. Skin exam is normal. Ps ych: Normal affect and mood. BENZOL OPERATOR: No focal deficits appreciated. DIAGNOSTIC STUDIES/LAB DATA: Labs showed the following: White blood cell 10.4, hemoglobin 8.9, lindsay tocrit 27, and platelets 438. Her chemistry showed sodium 136, potassium 3.9, chloride 100, BUN 19, creatinine 1.13. She did have troponin peaked at 0.53. Her CTA just done today showed no evidence of aortic dissection, no pulmonary embolism. She does hav e pneumonia and consolidation and pleural effusion. Her EKG showed the patient to be in normal sinus rhythm, heart rate 70 beats per minute, and no acute ST-T changes. IMPRESSION: The patient is a 68-year-old female with complex medical history and presentation with: 1. Presentation with pneumonia and anemia. She is on antibiotic treatment. She is status post bloo d transfusion. 2. Known history of severe chronic obstructive pulmonary disease, cor pulmonale. 3. Severe rheumatoid arthritis. 4. Known history of pulmonary embolism. 5. Known history of deep venous thromboses. 6. Peripheral arterial disease. 7. Current tobacco consumption. 8. Known history of anemia and blood transfusion. 9. Oxygen dependent. 10. History of cardiomyopathy with recovered EF by an echo done in July 2018, 60% to 65%. 11. Diabetes mellitus. 12. Hyperlipidemia. 13. Antiphospholipid antibody syndrome. 14. Elevated troponin mildly. She is chest pain free. PLAN: The patient, as outlined above, has very complex medical issues. It is not immediately clear the elevation of her troponins, which is mild, is related to her complex medical issues including her acute illness with anemia, pleural effusion and also acute pneumonia that could be a demand mechanis m here. Although because of her comorbidities, someone cannot rule out an atherosclerotic coronary a rtery disease. For the time being, I agree with the current management you are already doing, she is chest pain free, and attention to her anemia and treatment for her pneumonia as you are already krystyna lopez. I think a followup echocardiogram will be helpful to follow up her left ventricular systolic func tion, cor pulmonale, valvular disease, and once she is more stabilized, at some point a noninvasive L exiscan Myoview nuclear stress test might be helpful to risk stratify her. I instructed her to quit tobacco consumption and continue aggressive lifestyle modification and risk factor management as you are already doing. I answered all her concerns and questions up to her satisfaction. TIME SPENT: More than half of at least 60 to 65-plus minutes was [id number] in the education and c ounseling mode, explaining all of the above to the patient and answering all her concerns. [id number]/[facility] #: [id number]
[2019-03-23] MEDS ORDERED: Vancomycin per Pharmacy* NOTE FOLLOW UP PRN (16:11)
--- NOTE | 2019-03-23 16:54 | PN ---
Subjective Date of Service: 03/23/19 Interval History: Very sob and CP this am.Mild elevation in troponin overnight.Transfered to Telemetry, CTA to r/o PE in light of anti phospholipid syndrome, lasix 40 mg iv in setting of sob, volume overload and chf in setting of receiving blood products.Pt seen early am and plan per above and reevaluated in the day and improved Objective Active Medications: Acetaminophen (Tylenol Tab*) 650 mg PO Q4H PRN PRN Reason: FEVER/PAIN Last Admin: 03/23/19 04:00 Dose: 650 mg Hydrocodone Bitart/Acetaminophen ([place] 5-325 Tab*) 2 tab PO BEDTIME PRN PRN Reason: PAIN Last Admin: 03/22/19 22:35 Dose: 2 tab Al Hydrox/Mg Hydrox/Simethicone (Maalox Plus*) 30 ml PO Q6H PRN PRN Reason: INDIGESTION Albuterol/Ipratropium (Duoneb (Albuterol 2.5 Mg/Ipratropium 0.5 Mg)) 1 neb INH [id number] AWAKE PRN PRN Reason: sob/wheexing Last Admin: 03/22/19 18:47 Dose: 1 neb Atorvastatin Calcium (Lipitor*) 20 mg PO QPM [facility] Last Admin: 03/22/19 17:40 Dose: 20 mg Budesonide (Pulmicort Neb*) 0.25 mg INH BID PRN PRN Reason: SHORTNESS OF BREATH Bupropion HCl (Bupropion Xl*) 300 mg PO DAILY [facility] Last Admin: 03/23/19 08:49 Dose: 300 mg Cholecalciferol (Vitamin D Tab*) 1,000 units PO DAILY [facility] Last Admin: 03/23/19 08:49 Dose: 1,000 units Dextrose (D50w Syringe 50 Ml*) 12.5 gm IV PUSH .FOR FS < 60 - SS PRN PRN Reason: FS < 60 Docusate Sodium (Colace Cap*) 100 mg PO BID [facility] Last Admin: 03/23/19 08:49 Dose: 100 mg Furosemide (Lasix Tab*) 40 mg PO DAILY [facility] Gabapentin (Neurontin Cap(*)) 200 mg PO QPM [facility] Last Admin: 03/22/19 17:40 Dose: 200 mg Piperacillin Sod/Tazobactam (Sod 3.375 gm/ Sodium Chloride) 100 mls @ 25 mls/ hr IVPB Q8H [facility] Vancomycin HCl 1,000 mg/ (Sodium Chloride) 250 mls @ 166.667 mls/hr IVPB Q12H [facility] Insulin Human Lispro (Humalog*) 0 units SUBCUT ACHS [facility]; Protocol Last Admin: 03/23/19 11:49 Dose: Not Given Magnesium Oxide (Magox 400 Tab*) 800 mg PO BID [facility] Last Admin: 03/23/19 08:49 Dose: 800 mg Methylprednisolone Sodium Succinate (Solu-Medrol 40 Mg) 10 mg IV DAILY [facility] Last Admin: 03/23/19 08:48 Dose: 10 mg Metoprolol Succinate (Toprol Xl Tab*) 50 mg PO DAILY [facility] Last Admin: 03/23/19 08:48 Dose: 50 mg Morphine Sulfate (Morphine 4 Mg/Ml Vial (1 Ml)) 2 mg IV Q2H PRN PRN Reason: Pain 6-10 Last Admin: 03/23/19 04:50 Dose: 2 mg Nitroglycerin (Nitroglycerin Tab 0.4 Mg*) 0.4 mg SL Q5M PRN PRN Reason: ANGINA Pantoprazole Sodium (Protonix Iv*) 40 mg IV Q12H [facility] Last Admin: 03/23/19 15:12 Dose: 40 mg Pharmacy Consult (Zosyn Per Pharmacy*) 1 note FOLLOW UP .ZOSYN PER PHARMACY [facility] Pharmacy Consult (Vancomycin Per Pharmacy*) 1 note FOLLOW UP . PRN PRN Reason: PER PROTOCOL Pharmacy Profile Note (Vancomycin Trough Check) 1 note FOLLOW UP 1430 ONE Stop: 03/25/19 14:31 Sertraline HCl (Zoloft*) 75 mg PO DAILY [facility] Last Admin: 03/23/19 08:49 Dose: 75 mg Tramadol HCl (Ultram*) 50 mg PO BID [facility] Last Admin: 03/23/19 08:49 Dose: 50 mg Vital Signs - 8 hr 03/23/19 03/23/19 03/23/19 10:58 10:59 12:02 Temperature 98.1 F 97.8 F Pulse Rate 74 86 Respiratory 18 18 20 Rate Blood Pressure 112/55 141/58 (mmHg) O2 Sat by Pulse 100 100 Oximetry Oxygen Devices in Use Now: Nasal Cannula Eyes: No Scleral Icterus Ears/Nose/Mouth/Throat: NL Teeth, Lips, Gums Neck: NL Appearance and Movements; NL JVP Respiratory: Clear to Palpation, - - crackles bilaterally Cardiovascular: NL Sounds; No Murmurs; No JVD Abdominal: NL Sounds; No Tenderness; No Distention Extremities: No Edema Neurological: Alert and Oriented x 3 Result Diagrams: 03/23/19 04:23 03/23/19 04:18 Additional Lab and Data: Lab Results 03/21/19 Range/Units 12:07 WBC 9.0 (3.5-10.8) 10^3/uL RBC 2.90 L (3.70-4.87) 10^6 /uL Hgb 7.6 L (12.0-16.0) g/dL Hct 24 L (35-47) % MCV 82 (80-97) fL MCH 26 L (27-31) pg MCHC 32 (31-36) g/dL RDW 20 H (10-15) % Plt Count 488 H D (150-450) 10^3/uL MPV 6.2 L (7.4-10.4) fL Neut % (Auto) 83.4 % Lymph % (Auto) 4.4 % Emanuel % (Auto) 9.7 % Eos % (Auto) 2.0 % Baso % (Auto) 0.5 % Absolute Neuts (auto) 7.5 (1.5-7.7) 10^3/ul Absolute Lymphs (auto) 0.4 L (1.0-4.8) 10^3/ul Absolute Monos (auto) 0.9 H (0-0.8) 10^3/ul Absolute Eos (auto) 0.2 (0-0.6) 10^3/ul Absolute Basos (auto) 0.0 (0-0.2) 10^3/ul Absolute Nucleated RBC 0.0 10^3/ul Nucleated RBC % 0.0 Microbiology and Other Data: Microbiology 03/21/19 14:44 Aerobic Blood Culture - Preliminary Blood Venous No Growth Day 1 Anaerobic Blood Culture - Preliminary No Growth Day 1 03/21/19 14:43 Aerobic Blood Culture - Preliminary Blood Venous No Growth Day 1 Anaerobic Blood Culture - Preliminary No Growth Day 1 03/21/19 12:31 Stool Occult Blood (JOVANNA) - Final Stool Assess/Plan/Problems-Billing Assessment: - Patient Problems (1) GI bleed Current Visit: Yes Status: Acute Code(s): K92.2 - GASTROINTESTINAL HEMORRHAGE, UNSPECIFIED SNOMED Code(s): 04840238 Comment: Coumadin supratherapeutic intiially Stool guiac pos Dark stool Transfused 1 unit PRBC hb 6.9 yesterday and 1 unit ffp to stabililize instead of more vit k as inr still therapeutic yesterday given her h/o antiphospholipid syndrome continue ppi bid pt describes gastritis symptoms and says ppi helping if hb drops further will switch to ppi drip Discussed with GI. Plan for EGD in am H/H stable NPO after midnight in anticipation of EGD (2) Anti-phospholipid antibody syndrome Current Visit: Yes Status: Acute Code(s): D68.61 - ANTIPHOSPHOLIPID SYNDROME SNOMED Code(s): 03107796 Comment: anticoag on hold due to bleeding h/o pe reviewed onc note if need to stop anticoagulation for longer period, kami consider ivc filter as suggested and restart lovenox when stable.More eval after EGD In light of am symptoms and anticoagulation being interupted, CTA was done which does not show acute PE (3) Atrial fibrillation Current Visit: No Status: Acute Code(s): I48.91 - UNSPECIFIED ATRIAL FIBRILLATION SNOMED Code(s): 02746485 Comment: paroxysmal anti coag on hold (4) NORA (acute kidney injury) Current Visit: Yes Status: Acute Code(s): N17.9 - ACUTE KIDNEY FAILURE, UNSPECIFIED SNOMED Code(s): 28832441 Comment: improving (5) Pneumonia Current Visit: Yes Status: Acute Code(s): J18.9 - PNEUMONIA, UNSPECIFIED ORGANISM SNOMED Code(s): 132091462 Comment: multi focal infiltrate on ct was on levaquin for CAP coverage per admit team but pneumonia worsening still sob.will switch to hcap coverage with zosyn and vanco.pt chroniclaly immunosuppressed in the setting of her RA (6) CHF (congestive heart failure) Current Visit: Yes Status: Acute Code(s): I50.9 - HEART FAILURE, UNSPECIFIED SNOMED Code(s): 96564916 Comment: Repeat Echo LAsix 40 mg IV this am for acute sob volume overloaded improved lasix 40 mg po home dose restarted ivf held (7) Lung mass Current Visit: Yes Status: Acute Code(s): R91.8 - OTHER NONSPECIFIC ABNORMAL FINDING OF LUNG FIELD SNOMED Code(s): 380439021 Comment: in the setting of pneumonia and multifocal infiltrates, will treat pcn first and onc rec repeat imaging in 4 weeks to assess (8) Troponin level elevated Current Visit: Yes Status: Acute Code(s): R74.8 - ABNORMAL LEVELS OF OTHER SERUM ENZYMES SNOMED Code(s): 383483767 Comment: Likely demand ischemia Cardiology consulted Poss stress test when medically optimized Echo Acute PE ruled out
[2019-03-23] MEDS: ZOSYN 3.375 GM Q8H per EXTENDED INFUSION IVPB SCH ×2 (17:42)
[2019-03-23] MEDS: Gabapentin CAP(*) 100 MG PO SCH (17:43)
[2019-03-23] MEDS: Atorvastatin* 20 MG TAB PO SCH (17:43)
--- NOTE | 2019-03-23 19:48 | CONS ---
CC: Dr. Multani * GASTROENTEROLOGY CONSULTATION: DATE OF CONSULT: 03/23/19 REQUESTING HEAD GREENSKEEPER: Dr. Multani. REASON FOR CONSULT: Anemia. HISTORY OF PRESENT ILLNESS: Ms. Del Valle is a 68-year-old woman with a history of COPD, DAREK, severe rheumatoid arthritis, antiphospholipid syndrome with prior bilateral PEs and DVT, on Coumadin, who was admitted with symptomatic anemia and pneumonia. Ms. Del Valle presented to the ER on 03/21/19. She had noticed shortness of breath as well as lower rib pain. Chest x-ray revealed right upper lobe infiltrate versus mass. Follow-up CT demonstrated multifocal infiltrate and possible mass. Hemoglobin 7.6 on admission with heme positive stools. The patient has a long standing history of anemia, although she has been stable in the 11 to 12 range for some time. Hemoglobin was noted to go to 10 on 02/25/19 and 8.3 on 03/18/19. Since she has been in the hospital, hemoglobin went from 7.6 to 7 range and has remained stable at this level. She did receive a unit of blood with perhaps an overcorrection to 8.9. She was noted to have supratherapeutic INR on admission to 4.58 and was given a unit of FFP. Her Coumadin has been held. Repeat INR is 1.59 today. GI consult had given the concern for the anemia of unclear etiology. On interview, Ms. Del Valle states that she is not seen any overt GI bleeding. She normally has a bowel movements once a day, although she did have some constipation several days prior to admission. She did have bowel movement when she was admitted, which was not consistent with melena or hematochezia. She denies any nausea or vomiting. No abdominal pain. She has had some of the chest pain and rib pain, which prompted the evaluation with chest x-ray and CT scan. She has had about 20 pounds of weight loss in the last year, which has been unintentional. No NSAID use. She thinks her last colonoscopy was approximately 5 years ago. I have a record of colonoscopy from 2003, which was negative. Possible that she may have had this done at a different facility, although we do not have records of such procedure. Of note, the patient had an episode of increased chest pain earlier today. She was given morphine with some improvement. Her troponin was noted to rise to 0.53 and then down to 0.45. Cardiology consulted. PAST MEDICAL HISTORY: Hyperlipidemia, COPD (on oxygen), sleep apnea, diabetes, severe RA, history of antiphospholipid syndrome with DVT and PE in the past, osteoporosis, and pulmonary hypertension. PAST SURGICAL HISTORY: Left hand surgery, appendectomy, tonsillectomy. MEDICATIONS: 1. Tylenol. 2. Maalox. 3. Lipitor. 4. Pulmicort. 5. Vitamin D. 6. Colace. 7. Neurontin. 8. Insulin. 9. Levaquin. 10. Magnesium. 11. Solu-Medrol. 12. Toprol. 13. Nitroglycerin p.r.n. 14. Zoloft. 15. Protonix IV q.12. 16. Tramadol. ALLERGIES: Allergic to KEFLEX, HYDROXYCHLOROQUINE, and METHOTREXATE. FAMILY HISTORY: No known GI or liver disease. SOCIAL HISTORY: Nonsmoker. Smokes several cigarettes per day. No drug use. REVIEW OF SYSTEMS: Review of systems is negative, except as above. PHYSICAL EXAM: Vital Signs: Afebrile. Heart rate 70s to 80s, 100% on 6 L, blood pressure 141/ 58. General: Chronically ill appearing woman. Appears short of breath with conversation. HEENT: Mucous membranes are moist. Cardiovascular: Regular rate and rhythm. Pulm: Short of breath with conversation. Decreased breath sounds and some rhonchi. Abdomen: Soft, nontender, nondistended. Positive bowel sounds. Extremities: No significant edema. DIAGNOSTIC STUDIES/LAB DATA: White count 10.4, hemoglobin 8.9, with hematocrit 27. This lab is after one unit of packed red cells. Platelet count normal, MCV 84. INR 1.59. Creatinine 1.13. BUN 19. Troponin 0.45. Imaging: Chest thorax CTA performed early this morning for the chest pain demonstrated a right upper lobe consolidation consistent with pneumonia, loculated right pleural effusion, progressive right lower lobe pneumonia, progressive infiltrates in the left upper lobe with nodularity, and left infrahilar density. No PE. IMPRESSION AND RECOMMENDATION: Ms. Del Valle is a 68-year-old woman with extensive medical history including severe chronic obstructive pulmonary disease , severe rheumatoid arthritis, history of antiphospholipid syndrome with deep vein thrombosis and pulmonary embolism, on Coumadin (now being held), chronic mild anemia, and diabetes, who is admitted with multifocal pneumonia and acute on chronic anemia. The patient is hemodynamically stable. No overt GI bleeding. It does appear that the hemoglobin dropped within the last few weeks. Possible that this may have been related to a slow oozing source, which was exacerbated in the setting of supra-therapeutic INR. No overt GI bleeding. H/H stable since INR reversed. The patient is currently on antibiotics for multifocal pneumonia. She did have an episode of chest pain today with an associated slight bump in her troponin. Anemia: 1. Will tentatively plan for EGD tomorrow to assess for possible bleeding source. We will touch base with Cardiology before the procedure to ensure that she is an appropriate candidate for this procedure. If EGD is negative, then patient will like need inpatient colonoscopy set up for Sunday as she requires long-term anticoagulation given her antiphospholipid history with prior DVT and PE. 2. Regular diet okay. NPO after midnight. 3. PPI b.i.d. 4. Discussed case with Hematology (Syd Barnett). The patient will be continued off anticoagulation for the short term while endoscopic work up is in progress. Thank you very much for this consult. Please update GI with any acute clinic changes. [id number]/[facility] #: [id number] LANRE
[2019-03-23] MEDS: Albuterol/Ipratropium NEB.SOL* Albuterol 2.5 MG/Ipratropium 0.5 MG 3 ML INH PRN (20:09)
[2019-03-24] MEDS: Vancomycin(*) 1,000 MG in NS 0.9% 250 ML* 250 ML IVPB SCH ×2 (01:57→18:07)
[2019-03-24] MEDS: Pantoprazole IV* 40 MG IV SCH ×2 (01:57→14:41)
[2019-03-24] MEDS: HYDROcodone/ACETAMIN 5-325 MG* 1 TAB PO PRN (03:06)
[2019-03-24] MEDS: ZOSYN 3.375 GM Q8H per EXTENDED INFUSION IVPB SCH ×8 (04:13→21:18)
[2019-03-24 06:41] LABS: ABS Basophils 0.1 10^3/ul (0-0.2); ABS Eosinophils 0.2 10^3/ul (0-0.6); ABS Lymphocytes 0.6 10^3/ul (1.0-4.8); ABS Monocytes 0.8 10^3/ul (0-0.8); Eosinophil % 2.7 %; Hematocrit 27 % (35-47); Hemoglobin 8.9 g/dL (12.0-16.0); Lymphocyte % 6.7 %; Mean Corpuscular HGB Conc 33 g/dL (31-36); Mean Corpuscular Hemoglobin 27 pg (27-31); Mean Corpuscular Volume 83 fL (80-97); Mean Platelet Volume 6.2 fL (7.4-10.4); Platelet Count 434 10^3/uL (150-450); Red Blood Count 3.24 10^6 /uL (3.70-4.87); Red Cell Distribution Width 19 % (10-15); White Blood Count 8.7 10^3/uL (3.5-10.8)
[2019-03-24 06:44] LABS: INR 1.36 (0.82-1.09)
[2019-03-24 06:54] LABS: BUN/Creatinine Ratio 15.3 (8-20); Calcium 8.1 mg/dL (8.6-10.3); EGFR African American 55.1 (>60); EGFR Non-African American 45.6 (>60); Potassium 3.9 mmol/L (3.5-5.0)
[2019-03-24] MEDS: Insulin LISPRO* 1 UNITS UNIT SUBCUT SCH ×4 (08:30→21:21)
[2019-03-24] MEDS: Albuterol/Ipratropium NEB.SOL* Albuterol 2.5 MG/Ipratropium 0.5 MG 3 ML INH PRN ×2 (09:05→18:12)
--- NOTE | 2019-03-24 10:17 | PN ---
Progress Note - Progress Note Date of Service: 03/24/19 SOAP: Subjective: []Breathing a little better today. Progressive SOB x 3 days prior to admission, no fevers or chills at home. No cough. Had been on Abx for UTI, no urinary symptoms. Blood transfusion x U PRBC, improved energy but not breathing. Acetaminophen (Tylenol Tab*) 650 mg PO Q4H PRN PRN Reason: FEVER/PAIN Last Admin: 03/23/19 04:00 Dose: 650 mg Hydrocodone Bitart/Acetaminophen ([place] 5-325 Tab*) 2 tab PO BEDTIME PRN PRN Reason: PAIN Last Admin: 03/24/19 03:06 Dose: 2 tab Al Hydrox/Mg Hydrox/Simethicone (Maalox Plus*) 30 ml PO Q6H PRN PRN Reason: INDIGESTION Albuterol/Ipratropium (Duoneb (Albuterol 2.5 Mg/Ipratropium 0.5 Mg)) 1 neb INH [id number] AWAKE PRN PRN Reason: sob/wheexing Last Admin: 03/24/19 09:05 Dose: 1 neb Atorvastatin Calcium (Lipitor*) 20 mg PO QPM [facility] Last Admin: 03/23/19 17:43 Dose: 20 mg Budesonide (Pulmicort Neb*) 0.25 mg INH BID PRN PRN Reason: SHORTNESS OF BREATH Bupropion HCl (Bupropion Xl*) 300 mg PO DAILY [facility] Last Admin: 03/23/19 08:49 Dose: 300 mg Cholecalciferol (Vitamin D Tab*) 1,000 units PO DAILY [facility] Last Admin: 03/23/19 08:49 Dose: 1,000 units Dextrose (D50w Syringe 50 Ml*) 12.5 gm IV PUSH .FOR FS < 60 - SS PRN PRN Reason: FS < 60 Docusate Sodium (Colace Cap*) 100 mg PO BID [facility] Last Admin: 03/23/19 21:37 Dose: 100 mg Furosemide (Lasix Tab*) 40 mg PO DAILY [facility] Gabapentin (Neurontin Cap(*)) 200 mg PO QPM [facility] Last Admin: 03/23/19 17:43 Dose: 200 mg Piperacillin Sod/Tazobactam (Sod 3.375 gm/ Sodium Chloride) 100 mls @ 25 mls/ hr IVPB Q8H [facility] Last Admin: 03/24/19 04:13 Dose: 25 mls/hr Vancomycin HCl 1,000 mg/ (Sodium Chloride) 250 mls @ 166.667 mls/hr IVPB Q12H [facility] Last Admin: 03/24/19 01:57 Dose: 166.667 mls/hr Insulin Human Lispro (Humalog*) 0 units SUBCUT ACHS [facility]; Protocol Last Admin: 03/24/19 08:30 Dose: 1 unit Magnesium Oxide (Magox 400 Tab*) 800 mg PO BID [facility] Last Admin: 03/23/19 21:37 Dose: 800 mg Methylprednisolone Sodium Succinate (Solu-Medrol 40 Mg) 10 mg IV DAILY [facility] Last Admin: 03/23/19 08:48 Dose: 10 mg Metoprolol Succinate (Toprol Xl Tab*) 50 mg PO DAILY [facility] Last Admin: 03/23/19 08:48 Dose: 50 mg Morphine Sulfate (Morphine 4 Mg/Ml Vial (1 Ml)) 2 mg IV Q2H PRN PRN Reason: Pain 6-10 Last Admin: 03/23/19 04:50 Dose: 2 mg Nitroglycerin (Nitroglycerin Tab 0.4 Mg*) 0.4 mg SL Q5M PRN PRN Reason: ANGINA Pantoprazole Sodium (Protonix Iv*) 40 mg IV Q12H [facility] Last Admin: 03/24/19 01:57 Dose: 40 mg Pharmacy Consult (Zosyn Per Pharmacy*) 1 note FOLLOW UP .ZOSYN PER PHARMACY [facility] Pharmacy Consult (Vancomycin Per Pharmacy*) 1 note FOLLOW UP . PRN PRN Reason: PER PROTOCOL Pharmacy Profile Note (Vancomycin Trough Check) 1 note FOLLOW UP 1430 ONE Stop: 03/25/19 14:31 Sertraline HCl (Zoloft*) 75 mg PO DAILY [facility] Last Admin: 03/23/19 08:49 Dose: 75 mg Tramadol HCl (Ultram*) 50 mg PO BID [facility] Last Admin: 03/23/19 21:37 Dose: 50 mg Objective: [] Vital Signs Temp Pulse Resp BP Pulse Ox 97.4 F 86 20 112/55 95 03/24/19 07:43 03/24/19 07:43 03/24/19 07:58 03/24/19 07:43 03/24/19 09:09 HEENT: Mucosa moist, conjuctiva pale CTA but course BS RRR S1S2 +BS NT ND Ext marked deformity from RA Assesment: This is a 68 yo female with severe inflammatory disease with RA and antiphospholipid antibody syndrome. She has a history of DVT and bilateral PEs anticoagulated with Coumadin. Presents with 3 days of progressive SOB and found to have progressive anemia with Hgb down to 6.9, CT and question of underlying fibrosis. Plan: 1. PNA/COPD. Differential is pneumonia, flair inflammatory disease, lung toxicity second to MTX/immunosupresive medication, malignancy is unlikely. - Continue antibiotics - If dose not improve consider consultation Rheumatology - Will re-check CT chest 4-6 weeks 2. Anemia. H/o AISSATOU and low B12. She did respond appropriately for PRBC - EGD today, may be reasonable to delay colonoscopy to out-patient if EGD negative and CBC stable - Will re-check MMA and check iron studies tomorrow. - Can consider IV if remains AISSATOU 3. Antiphospholipid syndrome - Recommend heparin drip if EGD negative and follow Hgb 4. Anorexia/weight loss with broad ddx. Will follow closely through and after this acute episode.
--- NOTE | 2019-03-24 13:52 | CONS ---
CONSULTATION REPORT: DATE OF CONSULT: 03/24/19 REQUESTING PHYSICIAN: Dr. Bui. CONSULTING SERVICE: Infectious Disease. REASON FOR CONSULTATION: Pulmonary infiltrates. IMPRESSION: 1. Few days of severe dyspnea with increasing supplemental oxygen requirement. CT of the chest shows right upper and middle lobe infiltrates, and a small loculated pleural effusion on the right. The infiltrate on the right does spare the apex. She has had a negative QuantiFERON about 2 years ago and no epidemiologic history to suggest TB exposure, so I think pulmonary tuberculosis is less likely. This could be a community-acquired pneumonia. It could be a more primary pleural process including parapneumonic effusion or there is the possibility this is all related to underlying rheumatoid arthritis. She does have mild immunocompromise with low-dose corticosteroid, azathioprine, and Orencia therapy. 2. She has history of dyspnea, on methotrexate. 3. Rheumatoid arthritis. RECOMMENDATION: We will continue broad-spectrum antibiotics here and see if Interventional Radiology can aspirate a small pleural collection for cultures. She has not been able to produce a sputum for culture at this point. HISTORY OF PRESENT ILLNESS: This is a 68-year-old woman with chronic kidney disease, anemia, rheumatoid arthritis, admitted with about a week of worsening dyspnea, including at rest. She had been on ciprofloxacin for a few days as an outpatient for E coli in the urine. Because of her symptoms and a history of PE , she had a CT of the chest that showed no pulmonary embolism. There was a right upper lobe consolidation, a loculated right pleural effusion, right lower lobe pneumonia, left upper lobe infiltrate, and a left infrahilar density. Here , she has had no fevers and did not remember fevers, chills or sweats at home, though she has had weight loss over the last few weeks. She has occasional cough and right- sided chest pain. That has been going on for about a week. She has been on 3 to 4 L of supplemental oxygen here, feels about the same. Her microbiologic workup included blood cultures that were negative. She was able to produce a sputum yesterday. Gram-stain showed neutrophils and mixed morphotypes. She was noted to have worsening anemia here and a guaiac-positive stool and is being evaluated for GI bleed. PAST MEDICAL HISTORY: 1. Rheumatoid arthritis. 2. COPD and chronic hypoxemic respiratory failure, on supplemental oxygen. 3. Antiphospholipid antibody syndrome and a history of pulmonary embolism. 4. Stage 3 chronic kidney disease. 5. Atrial fibrillation. 6. Obstructive sleep apnea, on CPAP. 7. Type 2 diabetes mellitus. 8. Hypertension. 9. Hyperlipidemia. 10. Depression. 11. Anxiety. 12. Anemia of chronic disease. MEDICATIONS: 1. Tylenol. 2. Lipitor. 3. Budesonide inhaler. 4. Bupropion. 5. Cholecalciferol. 6. Docusate. 7. Furosemide. 8. Gabapentin. 9. Hydrocodone. 10. Insulin lispro. 11. Magnesium oxide. 12. Methylprednisolone. 13. Metoprolol. 14. Nitroglycerin as needed. 15. Pantoprazole. 16. Zosyn 3.375 g every 8 hours. 17. Zoloft. 18. Tramadol. 19. Vancomycin 1 g every 12 hours. ALLERGIES: METHOTREXATE, CEPHALEXIN, HYDROXYCHLOROQUINE. FAMILY HISTORY: Mother had heart failure and father had COPD. SOCIAL HISTORY: She lives by herself. She is a past smoker and now down to 3 to 4 cigarettes a day. No alcohol use. She has no pets, no travel, no sick contacts. REVIEW OF SYSTEMS: A 14-point review of systems was all negative, except as noted above in the history of present illness. PHYSICAL EXAMINATION: Vital Signs: Temperature 36.3, heart rate 80, respiratory rate 20, blood pressure 112/55, oxygen saturation 95% on 4 L. In general, she is awake, appears comfortable, and not in distress. Neurologic: She is oriented x3. Follows all commands. HEENT: There is no conjunctival hemorrhage. Oropharynx without lesions. Neck: Supple, without mass. Heart: Regular rate and rhythm, without murmurs, rubs or gallops. Lungs: Decreased breath sounds at the base, without wheeze or rale. Abdomen: Soft, nontender, and nondistended. There are bowel sounds present. Skin: There is no rash or splinter hemorrhages. Musculoskeletal: There is no spine tenderness to palpation. On bilateral hands there are deviation of the fingers. LABORATORY DATA: White blood cell count 8, hemoglobin 8.9, MCV is 83, platelets 434. Creatinine is 1.1. CRP 91. Please see impression and recommendations outlined above. Thank you for asking me to see Ms. Del Valle in consultation. [id number]/[facility] #: [id number] [facility]
[2019-03-24] MEDS: methylPREDNISolone SOD 40 MG* 1 ML VIAL IV SCH (14:41)
[2019-03-24] MEDS ORDERED: Midazolam* 1 MG/ML 10 ML VIAL (10 MG) ONE (15:28)
[2019-03-24] MEDS ORDERED: fentaNYL* 50 MCG/ML 2 ML VIAL (100 MCG VIAL) ONE (15:28)
--- NOTE | 2019-03-24 16:37 | ECHO ---
*[facility]* [place] [address] Fax #: [phone] Transthoracic Echocardiogram Patient: Delmi Del Valle : 1950 Study Date: 03/24/2019 Age: 68 Gender: F HR: Height: 66 in /167.6 cm BSA: 1.65 m^2 Weight: 128.7 lb /58.5 kg BMI: 20.8 kg/m^2 *[employer]: * Sabra Roberts RDCS RN *Referring Physician: * O'Rachel Bang *Reading Physician: * Pranay Simmons MD Indications: Abnormal EKG. History: PMH: Pulmonary embolus. Deep vein thrombosis. COPD. Antiphospholipid antibody syndrome. Rheumatoid arthritis. Functional status: Obstructive sleep apnea. Risk factors: Former tobacco use. Hypertension. Diabetes mellitus. Conclusions Summary: 1. Left ventricle: Systolic function is normal. The estimated ejection fraction is 60-65%. Wall motion is normal; there are no regional wall motion abnormalities. 2. Atrial septum: The septum bows from right to left, consistent with increased right atrial pressure. 3. Mitral valve: There is trace to mild regurgitation. 4. Aortic valve: There is no evidence of stenosis. There is no regurgitation. 5. Tricuspid valve: There is mild-moderate regurgitation. 6. Pulmonic valve: There is trace regurgitation. 7. Pericardium, extracardiac: There is no significant pericardial effusion. 8. Compared to study of 07/30/18, there is little change Study data: Transthoracic echocardiogram. Procedure: Transthoracic echocardiography was performed. The study was technically limited due to COPD and Smoking history. Complete 2D, spectral Doppler, and color flow Doppler. Location: Procedure room. Patient status: Inpatient. Patient room number: 450-02. Rhythm: Normal sinus rhythm with PAC's. Findings Left ventricle: The cavity size is normal. Septal wall thickness is mildly increased. Systolic function is normal. The estimated ejection fraction is 60-65%. Wall motion is normal; there are no regional wall motion abnormalities. There is no consistent Doppler evidence of clinically significant diastolic dysfunction. Right ventricle: The cavity size is mildly dilated. Systolic function is mildly reduced. Ventricular septum: There is septal flattening. Left atrium: The atrium is normal in size. Right atrium: The atrium is normal in size. Atrial septum: The septum bows from right to left, consistent with increased right atrial pressure. Mitral valve: The leaflets are mildly thickened. There is no evidence of stenosis. There is trace to mild regurgitation. Aortic valve: The valve is trileaflet. The leaflets are mildly thickened. There is no evidence of stenosis. There is no regurgitation. Tricuspid valve: The leaflets are normal thickness. There is no evidence of stenosis. There is mild-moderate regurgitation. Pulmonic valve: Not well visualized. There is no evidence of stenosis. There is trace regurgitation. Aorta: Aortic root: The aortic root is not dilated. Ascending aorta: The ascending aorta is not visualized. Aortic arch: The aortic arch is not visualized. Pericardium: There is no significant pericardial effusion. Pulmonary arteries: Not well visualized. Systolic pressure can not be accurately estimated. Systemic veins: Inferior vena cava: The vessel is normal in size. The respirophasic diameter changes are in the normal range (>= 50%). Measurements Left ventricle Value Ref Right atrium Value Ref ERASTO, LAX 4.3 cm 3.8 - ML dim, ES, A4C 3.8 cm 2.6 - 4.4 5.2 SI dim, ES, A4C 4.5 cm 3.4 - 5.3 ESD, LAX 3.0 cm 2.2 - Estimated RAP 3 mm Hg --------- 3.5 FS, LAX 30 % 27 - 45 Aortic valve Value Ref PW, ED 0.8 cm 0.6 - Peak v, S 1.35 m/sec --------- 0.9 VTI, S 26.9 cm --------- IVS/PW, ED 1.25 -------- Mean grad, S 4.2 mm Hg --------- E', lat greg, TDI 11.8 cm/sec >=10.0 Peak grad, S 7.3 mm Hg ---- ----- E/e', lat greg, TDI 7 -------- LVOT/AV, VTI ratio 0.66 ------- -- E', med greg, TDI 7.0 cm/sec >=7.0 E/e', med greg, TDI 11 -------- Mitral valve Value Ref E', avg, TDI 9.4 cm/sec -------- Peak E 0.77 m/sec ------- -- E/e', avg, TDI 8 <=14 Peak A 1.05 m/sec ---- ----- Decel time 263 ms --------- LVOT Value Ref Peak grad, D 2.4 mm Hg --------- Peak giovanni, S 0.81 m/sec -------- Peak E/A ratio 0.74 --------- VTI, S 17.7 cm -------- Peak grad, S 3 mm Hg -------- Pulmonic valve Value Ref Mean grad, S 2 mm Hg -------- Peak v, S 0.95 m/sec --------- Peak grad, S 3.6 mm Hg --------- Ventricular septum Value Ref IVS, ED (H) 1.1 cm 0.6 - Aortic root Value Ref 0.9 Root diam 2.9 cm <3.9 Right ventricle Value Ref Inferior vena cava Value Ref ERASTO minor ax, A4C (H) 4.3 cm 1.9 - Diam 1.5 cm --------- mid 3.5 Left atrium Value Ref SI dim ES, LAX 2.7 cm -------- ML dim, A4C 3.8 cm -------- SI dim, A4C 5.2 cm -------- Vol, ES, 2-p 44 ml -------- Vol/bsa, ES, 2-p 26 ml/m^2 16 - 34 Legend: (L) and (H) sivan values outside specified reference range. Prepared and electronically signed by Pranay Simmons MD 03/24/2019 16:37
[2019-03-24] MEDS: Magnesium Oxide TAB* 400 MG PO SCH ×2 (17:23→21:21)
[2019-03-24] MEDS: Docusate CAP* 100 MG PO SCH ×2 (17:23→21:21)
[2019-03-24] MEDS: traMADol TAB* 50 MG PO SCH ×3 (17:24→21:26)
--- NOTE | 2019-03-24 17:30 | PN ---
Subjective Date of Service: 03/24/19 Interval History: Patient states her breathing "sucks" and is no better than yesterday. She is asking for endoscopy results. Today she had echo, and EGD, was off the floor for many hours. She has some appetite. No N/V, no blood in stool. Family History: Unchanged from Admission Social History: Unchanged from Admission Past Medical History: Unchanged from Admission Objective Active Medications: Acetaminophen (Tylenol Tab*) 650 mg PO Q4H PRN PRN Reason: FEVER/PAIN Last Admin: 03/23/19 04:00 Dose: 650 mg Hydrocodone Bitart/Acetaminophen ([place] 5-325 Tab*) 2 tab PO BEDTIME PRN PRN Reason: PAIN Last Admin: 03/24/19 03:06 Dose: 2 tab Al Hydrox/Mg Hydrox/Simethicone (Maalox Plus*) 30 ml PO Q6H PRN PRN Reason: INDIGESTION Albuterol/Ipratropium (Duoneb (Albuterol 2.5 Mg/Ipratropium 0.5 Mg)) 1 neb INH [id number] AWAKE PRN PRN Reason: sob/wheexing Last Admin: 03/24/19 09:05 Dose: 1 neb Atorvastatin Calcium (Lipitor*) 20 mg PO QPM [facility] Last Admin: 03/23/19 17:43 Dose: 20 mg Budesonide (Pulmicort Neb*) 0.25 mg INH BID PRN PRN Reason: SHORTNESS OF BREATH Bupropion HCl (Bupropion Xl*) 300 mg PO DAILY [facility] Last Admin: 03/23/19 08:49 Dose: 300 mg Cholecalciferol (Vitamin D Tab*) 1,000 units PO DAILY [facility] Last Admin: 03/23/19 08:49 Dose: 1,000 units Dextrose (D50w Syringe 50 Ml*) 12.5 gm IV PUSH .FOR FS < 60 - SS PRN PRN Reason: FS < 60 Docusate Sodium (Colace Cap*) 100 mg PO BID [facility] Last Admin: 03/24/19 17:23 Dose: Not Given Furosemide (Lasix Tab*) 40 mg PO DAILY [facility] Gabapentin (Neurontin Cap(*)) 200 mg PO QPM [facility] Last Admin: 03/23/19 17:43 Dose: 200 mg Piperacillin Sod/Tazobactam (Sod 3.375 gm/ Sodium Chloride) 100 mls @ 25 mls/ hr IVPB Q8H [facility] Last Admin: 03/24/19 13:21 Dose: 25 mls/hr Vancomycin HCl 1,000 mg/ (Sodium Chloride) 250 mls @ 166.667 mls/hr IVPB Q12H [facility] Last Admin: 03/24/19 01:57 Dose: 166.667 mls/hr Insulin Human Lispro (Humalog*) 0 units SUBCUT ACHS [facility]; Protocol Last Admin: 03/24/19 13:21 Dose: 1 unit Magnesium Oxide (Magox 400 Tab*) 800 mg PO BID [facility] Last Admin: 03/24/19 17:23 Dose: Not Given Methylprednisolone Sodium Succinate (Solu-Medrol 40 Mg) 10 mg IV DAILY [facility] Last Admin: 03/24/19 14:41 Dose: 10 mg Metoprolol Succinate (Toprol Xl Tab*) 50 mg PO DAILY [facility] Last Admin: 03/23/19 08:48 Dose: 50 mg Morphine Sulfate (Morphine 4 Mg/Ml Vial (1 Ml)) 2 mg IV Q2H PRN PRN Reason: Pain 6-10 Last Admin: 03/23/19 04:50 Dose: 2 mg Nitroglycerin (Nitroglycerin Tab 0.4 Mg*) 0.4 mg SL Q5M PRN PRN Reason: ANGINA Pantoprazole Sodium (Protonix Iv*) 40 mg IV Q12H [facility] Last Admin: 03/24/19 14:41 Dose: 40 mg Sertraline HCl (Zoloft*) 75 mg PO DAILY [facility] Last Admin: 03/23/19 08:49 Dose: 75 mg Tramadol HCl (Ultram*) 50 mg PO BID [facility] Last Admin: 03/24/19 17:24 Dose: Not Given Vital Signs - 8 hr 03/24/19 11:05 Temperature 36.4 C Pulse Rate 84 Respiratory 20 Rate Blood Pressure 145/58 (mmHg) O2 Sat by Pulse 90 Oximetry Oxygen Devices in Use Now: Nasal Cannula Appearance: alert, no distress Eyes: No Scleral Icterus Ears/Nose/Mouth/Throat: Clear Oropharnyx Neck: NL Appearance and Movements; NL JVP Respiratory: Symmetrical Chest Expansion and Respiratory Effort, - - diminished at RT base Cardiovascular: NL Sounds; No Murmurs; No JVD, RRR, No Edema Abdominal: NL Sounds; No Tenderness; No Distention, No Hepatosplenomegaly Lymphatic: No Cervical Adenopathy Extremities: - - severe ulnar deviation fingers UE Neurological: Alert and Oriented x 3 Lines/Tubes/Other Access: Clean, Dry and Intact Peripheral IV Nutrition: Taking PO's Result Diagrams: 03/24/19 06:30 03/24/19 06:30 Additional Lab and Data: Laboratory Tests 03/23/19 03/24/19 03/24/19 20:51 06:30 07:46 Glucose 185 H POC Glucose (mg/dL) 222 H 192 H Calcium 8.1 L 03/24/19 12:54 Glucose POC Glucose (mg/dL) 178 H Calcium Microbiology and Other Data: Microbiology 03/23/19 05:00 Sputum Expectorated Gram Stain - Final 03/21/19 12:31 Stool Stool Occult Blood (JOVANNA) - Final 03/21/19 14:44 Blood Venous Aerobic Blood Culture - Preliminary 03/21/19 14:44 Blood Venous Anaerobic Blood Culture - Preliminary No Growth Day 3 No Growth Day 3 03/21/19 14:43 Blood Venous Aerobic Blood Culture - Preliminary 03/21/19 14:43 Blood Venous Anaerobic Blood Culture - Preliminary No Growth Day 3 No Growth Day 3 Assess/Plan/Problems-Billing Assessment: 68 year old woman with antiphospholipid Ab syndrome, RA, here with GI hemorrhage and pulmonary infiltrates - Patient Problems (1) Pneumonia Current Visit: Yes Status: Acute Priority: High Code(s): J18.9 - PNEUMONIA , UNSPECIFIED ORGANISM SNOMED Code(s): 685509459 Comment: -Not improving on zosyn and vanco -Patient immunosuppressed in the setting of her RA -Appreciate ID consult, will not pursue TB workup, will arrange thoracentesis (2) Anti-phospholipid antibody syndrome Current Visit: Yes Status: Acute Priority: Medium Code(s): D68.61 - ANTIPHOSPHOLIPID SYNDROME SNOMED Code(s): 11583730 Comment: -Patient has h/o PE, anticoagulation on hold due to bleeding -Will start IV heparin if EGD negative (3) GI bleed Current Visit: Yes Status: Acute Priority: Medium Code(s): K92.2 - GASTROINTESTINAL HEMORRHAGE, UNSPECIFIED SNOMED Code(s): 38123918 Comment: - Patient describes gastritis symptoms and says PPI helping - Source unclear, will discuss EGD results with Dr. Oakes - outpatient colonoscopy if HGB remains stable (4) DVT prophylaxis Current Visit: No Status: Acute Priority: Low Onset Date: 09/10/14 Code( s): FMW4413 - SNOMED Code(s): 254862661 Comment: - Hold coumadin d/t supratherapeutic INR - SCDs (5) Type 2 diabetes mellitus Current Visit: No Status: Chronic Priority: Medium Comment: - Continue lispro SS - Restart lantus at half normal dose Status and Disposition: inpatient
[2019-03-24] MEDS: Sertraline* 25 MG TAB PO SCH (18:01)
[2019-03-24] MEDS: Atorvastatin* 20 MG TAB PO SCH (18:01)
[2019-03-24] MEDS: BuPROPion XL* 300 MG TAB.XL PO SCH (18:02)
[2019-03-24] MEDS: Furosemide TAB* 40 MG PO SCH (18:02)
[2019-03-24] MEDS: Gabapentin CAP(*) 100 MG PO SCH (18:02)
[2019-03-24] MEDS: Cholecalciferol TAB* 1000 UNITS PO SCH (18:02)
[2019-03-24] MEDS: Metoprolol Succinate XL TAB* 50 MG PO SCH (18:03)
[2019-03-24] MEDS: Insulin GLARGINE(*) 1 UNITS UNIT SUBCUT SCH (18:04)
--- NOTE | 2019-03-24 23:28 | PRO ---
CC: Dr. Travis * DATE OF PROCEDURE: 03/24/19 - ROOM #450 PROCEDURE PERFORMED: EGD. INDICATION: Anemia. REFERRING PHYSICIAN: Dr. Travis. MEDICATIONS GIVEN: No fentanyl, 3 mg IV Versed. PROCEDURE: After the EGD procedure, including the risks, benefits, and alternatives, not limited to perforation, surgery, and/or were explained to Mrs. Del Valle, written consent was then obtained, IV medication was given, and a bite-block was placed between the teeth. An Olympus gastroscope was then inserted into the patient's mouth, advanced down the esophagus, into the stomach , and into the distal duodenum. In the esophagus at the GE junction, the Z- line was intact. No erosive esophagitis, stricture, or ring was seen. The scope was advanced through the GE junction into the body of the stomach. Retroflexed view was unremarkable except for nodular cardia with some slight oozing of blood. No active ulcers or lesions were seen. A biopsy was obtained of this nodular cardia. Scope was advanced to the antrum where there was moderate gastritis. Biopsy was obtained for H. pylori. The scope was advanced thorough a widely patent pylorus into the duodenal bulb, into the distal duodenum, both of which were unremarkable. The scope was then withdrawn from the patient. She tolerated the procedure well and was returned to the recovery room in stable condition. IMPRESSION: 1. Complete upper endoscopy into the distal duodenum with biopsies. 2. Nodular cardia. 3. Gastritis, status post biopsies. 4. I will follow up on all the biopsies. She should be maintained on a PPI. We will follow up on the biopsies. [id number]/[facility] #: [id number] [facility]
[2019-03-25] MEDS: HYDROcodone/ACETAMIN 5-325 MG* 1 TAB PO PRN (01:11)
[2019-03-25] MEDS: Vancomycin(*) 1,000 MG in NS 0.9% 250 ML* 250 ML IVPB SCH ×2 (02:20→15:36)
[2019-03-25] MEDS: Pantoprazole IV* 40 MG IV SCH ×2 (02:21→13:54)
[2019-03-25] MEDS: ZOSYN 3.375 GM Q8H per EXTENDED INFUSION IVPB SCH ×6 (05:03→22:21)
[2019-03-25] MEDS: Insulin LISPRO* 1 UNITS UNIT SUBCUT SCH ×4 (07:43→22:08)
[2019-03-25] MEDS: Albuterol/Ipratropium NEB.SOL* Albuterol 2.5 MG/Ipratropium 0.5 MG 3 ML INH PRN (08:07)
[2019-03-25] MEDS: Sertraline* 25 MG TAB PO SCH (08:25)
[2019-03-25] MEDS: Cholecalciferol TAB* 1000 UNITS PO SCH (08:26)
[2019-03-25] MEDS: Furosemide TAB* 40 MG PO SCH (08:26)
[2019-03-25] MEDS: Docusate CAP* 100 MG PO SCH ×2 (08:26→22:20)
[2019-03-25] MEDS: methylPREDNISolone SOD 40 MG* 1 ML VIAL IV SCH (08:26)
[2019-03-25] MEDS: Magnesium Oxide TAB* 400 MG PO SCH ×2 (08:26→22:20)
[2019-03-25] MEDS: Metoprolol Succinate XL TAB* 50 MG PO SCH (08:26)
[2019-03-25] MEDS: traMADol TAB* 50 MG PO SCH ×2 (08:27→22:20)
[2019-03-25] MEDS: BuPROPion XL* 300 MG TAB.XL PO SCH (09:33)
[2019-03-25 09:44] LABS: Total Iron Binding Capacity 318 mcg/dL (250-450); Transferrin 227 mg/dL (203-362)
[2019-03-25 09:46] LABS: % Iron Saturation 6 % (15-55); Iron < 20 ug/dL (50-212)
[2019-03-25 10:04] LABS: Ferritin 14.5 ng/mL (11-307)
--- NOTE | 2019-03-25 10:10 | PN ---
Progress Note - Progress Note Date of Service: 03/25/19 SOAP: Subjective: []EGD yesterday with gastritis. Biopsies obtained that GI will follow. Breathing is stable from her perspective, jemal. post breathing tx. Several questions regarding plan of care Medications: Acetaminophen (Tylenol Tab*) 650 mg PO Q4H PRN PRN Reason: FEVER/PAIN Last Admin: 03/23/19 04:00 Dose: 650 mg Hydrocodone Bitart/Acetaminophen ([employer] 5-325 Tab*) 2 tab PO BEDTIME PRN PRN Reason: PAIN Last Admin: 03/25/19 01:11 Dose: 2 tab Al Hydrox/Mg Hydrox/Simethicone (Maalox Plus*) 30 ml PO Q6H PRN PRN Reason: INDIGESTION Albuterol/Ipratropium (Duoneb (Albuterol 2.5 Mg/Ipratropium 0.5 Mg)) 1 neb INH [id number] AWAKE PRN PRN Reason: sob/wheexing Last Admin: 03/25/19 08:07 Dose: 1 neb Atorvastatin Calcium (Lipitor*) 20 mg PO QPM [facility] Last Admin: 03/24/19 18:01 Dose: 20 mg Budesonide (Pulmicort Neb*) 0.25 mg INH BID PRN PRN Reason: SHORTNESS OF BREATH Bupropion HCl (Bupropion Xl*) 300 mg PO DAILY [facility] Last Admin: 03/25/19 09:33 Dose: 300 mg Cholecalciferol (Vitamin D Tab*) 1,000 units PO DAILY [facility] Last Admin: 03/25/19 08:26 Dose: 1,000 units Dextrose (D50w Syringe 50 Ml*) 12.5 gm IV PUSH .FOR FS < 60 - SS PRN PRN Reason: FS < 60 Docusate Sodium (Colace Cap*) 100 mg PO BID [facility] Last Admin: 03/25/19 08:26 Dose: 100 mg Furosemide (Lasix Tab*) 40 mg PO DAILY [facility] Last Admin: 03/25/19 08:26 Dose: 40 mg Gabapentin (Neurontin Cap(*)) 200 mg PO QPM [facility] Last Admin: 03/24/19 18:02 Dose: 200 mg Vancomycin HCl 1,000 mg/ (Sodium Chloride) 250 mls @ 166.667 mls/hr IVPB Q12H [facility] Last Admin: 03/25/19 02:20 Dose: 166.667 mls/hr Piperacillin Sod/Tazobactam (Sod 3.375 gm/ Sodium Chloride) 100 mls @ 25 mls/ hr IVPB 0500,1300,2100 [facility] Last Admin: 03/25/19 05:03 Dose: 25 mls/hr Insulin Glargine (Lantus(*)) 8 units SUBCUT Q24H [facility] Last Admin: 03/24/19 18:04 Dose: 8 units Insulin Human Lispro (Humalog*) 0 units SUBCUT ACHS [facility]; Protocol Last Admin: 03/25/19 07:43 Dose: Not Given Magnesium Oxide (Magox 400 Tab*) 800 mg PO BID [facility] Last Admin: 03/25/19 08:26 Dose: 800 mg Methylprednisolone Sodium Succinate (Solu-Medrol 40 Mg) 10 mg IV DAILY [facility] Last Admin: 03/25/19 08:26 Dose: 10 mg Metoprolol Succinate (Toprol Xl Tab*) 50 mg PO DAILY [facility] Last Admin: 03/25/19 08:26 Dose: 50 mg Morphine Sulfate (Morphine 4 Mg/Ml Vial (1 Ml)) 2 mg IV Q2H PRN PRN Reason: Pain 6-10 Last Admin: 03/23/19 04:50 Dose: 2 mg Nitroglycerin (Nitroglycerin Tab 0.4 Mg*) 0.4 mg SL Q5M PRN PRN Reason: ANGINA Pantoprazole Sodium (Protonix Iv*) 40 mg IV Q12H [facility] Last Admin: 03/25/19 02:21 Dose: 40 mg Pharmacy Consult (Zosyn Per Pharmacy*) 1 note FOLLOW UP .ZOSYN PER PHARMACY [facility] Pharmacy Consult (Vancomycin Per Pharmacy*) 1 note FOLLOW UP . PRN PRN Reason: PER PROTOCOL Pharmacy Profile Note (Vancomycin Trough Check) 1 note FOLLOW UP 1430 ONE Stop: 03/25/19 14:31 Sertraline HCl (Zoloft*) 75 mg PO DAILY [facility] Last Admin: 03/25/19 08:25 Dose: 75 mg Tramadol HCl (Ultram*) 50 mg PO BID [facility] Last Admin: 03/25/19 08:27 Dose: 50 mg Objective: [] Vital Signs Temp Pulse Resp BP Pulse Ox 98 F 59 18 121/61 98 03/25/19 07:32 03/25/19 08:10 03/25/19 08:27 03/25/19 07:32 03/25/19 08:10 A&Ox3, EOMI, forgetful HRR, S1S2, tele SR LS dim. bilat L>R, resp. even and non-labored +BS, abd. soft without Laboratory Results - last 24 hr 03/25/19 03/25/19 07:04 07:24 POC Glucose (mg/dL) 138 H Iron < 20 L TIBC 318 % Saturation 6 L Unsat Iron Binding < 303 Transferrin 227 Ferritin 14.5 Assessment: []68 yo female with severe inflammatory disease d/t RA and high clotting risk due to antiphospholipid antibody syndrome. She has a history of DVT and bilateral PEs anticoagulated with Coumadin. Mrs. Del Valle presented with 3 days of progressive SOB and was found to have progressive anemia as well as question of PNA vs. mass vs. fibrosis on CT of the chest. Plan: []1. PNA/COPD. Differential is pneumonia, flair inflammatory disease, lung toxicity second to MTX/immunosupresive medication, malignancy is unlikely. - Continue antibiotics and work-up per ID/hospitalist - can consider consultation with Rheumatology - Repeat CT in 4 weeks, ordered by onc, scheduled 04/21 @ [address] @ [facility], but can reschedule as indicated 2. Iron deficient anemia 2/2 blood loss: stable post transfusion - EGD with gastritis and no acute bleed, cont PPI - +/- outpatient colonoscopy per GI - Start IV Ferritin 125 mg daily 3. Antiphospholipid syndrome - will need to resume anticoagulation MEET - if no further diagnostics start Lovenox-coumadin bridge with daily CBCs - if further intervention indicated, Case discussed with pt.'s primary communications representative, Dr. Callahan, and attending hospitalist, Dr. Ramya Balderas per hospitalist, Hem to cont. to follow
[2019-03-25] MEDS ORDERED: fentaNYL* 50 MCG/ML 2 ML VIAL (100 MCG VIAL) ONE (12:13)
[2019-03-25] MEDS ORDERED: Naloxone* 0.4 MG/ML 1 ML VIAL ONE (12:13)
[2019-03-25] MEDS: Ferric Gluconate IV* 125 MG in NS 0.9% 100 ML* 100 ML IVPB SCH (13:54)
[2019-03-25] MEDS ORDERED: Vancomycin Trough Check NOTE FOLLOW UP ONE (14:30)
[2019-03-25 14:49] LABS: Body Fluid Source Pleural Fluid
[2019-03-25] MEDS ORDERED: Vancomycin(*) 750 MG in NS 0.9% 250 ML* 250 ML IVPB SCH (16:00)
--- NOTE | 2019-03-25 16:45 | PN ---
Subjective Date of Service: 03/25/19 Interval History: Patient feels less dyspneic today. Generally she is independent at home, on O2 24h/day. She lives alone. Now she has severe dyspnea even going to bathroom. Had R-sided thoracentesis today, notes this was very painful. Family History: Unchanged from Admission Social History: Unchanged from Admission Past Medical History: Unchanged from Admission Objective Active Medications: Acetaminophen (Tylenol Tab*) 650 mg PO Q4H PRN PRN Reason: FEVER/PAIN Last Admin: 03/23/19 04:00 Dose: 650 mg Hydrocodone Bitart/Acetaminophen ([place] 5-325 Tab*) 2 tab PO BEDTIME PRN PRN Reason: PAIN Last Admin: 03/25/19 01:11 Dose: 2 tab Al Hydrox/Mg Hydrox/Simethicone (Maalox Plus*) 30 ml PO Q6H PRN PRN Reason: INDIGESTION Albuterol/Ipratropium (Duoneb (Albuterol 2.5 Mg/Ipratropium 0.5 Mg)) 1 neb INH [id number] AWAKE PRN PRN Reason: sob/wheexing Last Admin: 03/25/19 08:07 Dose: 1 neb Atorvastatin Calcium (Lipitor*) 20 mg PO QPM [facility] Last Admin: 03/24/19 18:01 Dose: 20 mg Budesonide (Pulmicort Neb*) 0.25 mg INH BID PRN PRN Reason: SHORTNESS OF BREATH Bupropion HCl (Bupropion Xl*) 300 mg PO DAILY [facility] Last Admin: 03/25/19 09:33 Dose: 300 mg Cholecalciferol (Vitamin D Tab*) 1,000 units PO DAILY [facility] Last Admin: 03/25/19 08:26 Dose: 1,000 units Dextrose (D50w Syringe 50 Ml*) 12.5 gm IV PUSH .FOR FS < 60 - SS PRN PRN Reason: FS < 60 Docusate Sodium (Colace Cap*) 100 mg PO BID [facility] Last Admin: 03/25/19 08:26 Dose: 100 mg Furosemide (Lasix Tab*) 40 mg PO DAILY [facility] Last Admin: 03/25/19 08:26 Dose: 40 mg Gabapentin (Neurontin Cap(*)) 200 mg PO QPM [facility] Last Admin: 03/24/19 18:02 Dose: 200 mg Piperacillin Sod/Tazobactam (Sod 3.375 gm/ Sodium Chloride) 100 mls @ 25 mls/ hr IVPB 0500,1300,2100 [facility] Last Admin: 03/25/19 14:10 Dose: 25 mls/hr Ferric Sodium Gluconate Complex 125 mg/ Sodium Chloride 110 mls @ 110 mls/hr IVPB DAILY [facility] Last Admin: 03/25/19 13:54 Dose: 110 mls/hr Vancomycin HCl 750 mg/ Sodium (Chloride) 250 mls @ 166.667 mls/hr IVPB Q12H [facility] Insulin Glargine (Lantus(*)) 8 units SUBCUT Q24H [facility] Last Admin: 03/24/19 18:04 Dose: 8 units Insulin Human Lispro (Humalog*) 0 units SUBCUT ACHS [facility]; Protocol Last Admin: 03/25/19 12:16 Dose: 5 unit Magnesium Oxide (Magox 400 Tab*) 800 mg PO BID [facility] Last Admin: 03/25/19 08:26 Dose: 800 mg Methylprednisolone Sodium Succinate (Solu-Medrol 40 Mg) 10 mg IV DAILY [facility] Last Admin: 03/25/19 08:26 Dose: 10 mg Metoprolol Succinate (Toprol Xl Tab*) 50 mg PO DAILY [facility] Last Admin: 03/25/19 08:26 Dose: 50 mg Morphine Sulfate (Morphine 4 Mg/Ml Vial (1 Ml)) 2 mg IV Q2H PRN PRN Reason: Pain 6-10 Last Admin: 03/23/19 04:50 Dose: 2 mg Nitroglycerin (Nitroglycerin Tab 0.4 Mg*) 0.4 mg SL Q5M PRN PRN Reason: ANGINA Pantoprazole Sodium (Protonix Iv*) 40 mg IV Q12H [facility] Last Admin: 03/25/19 13:54 Dose: 40 mg Sertraline HCl (Zoloft*) 75 mg PO DAILY [facility] Last Admin: 03/25/19 08:25 Dose: 75 mg Tramadol HCl (Ultram*) 50 mg PO BID [facility] Last Admin: 03/25/19 08:27 Dose: 50 mg Vital Signs - 8 hr 03/25/19 03/25/19 03/25/19 11:11 11:41 12:36 Temperature 36.7 C 36.7 C Pulse Rate 58 60 Respiratory 18 18 18 Rate Blood Pressure 113/46 112/54 (mmHg) O2 Sat by Pulse 98 94 Oximetry 03/25/19 03/25/19 03/25/19 13:13 15:15 15:56 Temperature 36.6 C Pulse Rate 64 78 Respiratory 18 18 Rate Blood Pressure 130/49 85/52 89/41 (mmHg) O2 Sat by Pulse 98 100 Oximetry Oxygen Devices in Use Now: Nasal Cannula Appearance: alert, no distress Eyes: No Scleral Icterus Ears/Nose/Mouth/Throat: Clear Oropharnyx Neck: NL Appearance and Movements; NL JVP, No Thyroid Enlargement, Masses Respiratory: Symmetrical Chest Expansion and Respiratory Effort, Clear to Percussion, - - diminished throughout Cardiovascular: NL Sounds; No Murmurs; No JVD Abdominal: NL Sounds; No Tenderness; No Distention Lymphatic: No Cervical Adenopathy Neurological: Alert and Oriented x 3 Lines/Tubes/Other Access: Clean, Dry and Intact Peripheral IV Nutrition: Taking PO's Result Diagrams: 03/24/19 06:30 03/24/19 06:30 Additional Lab and Data: Laboratory Tests 03/25/19 11:02 Fluid Source Pleural fluid Fluid Volume 5 Fluid Color Red Fluid Appearance Bloody Fluid WBC 4086 Fluid RBC [id number] Fluid Tot Cell Count 100 Fluid Neutrophils 99 Fluid Lymphocytes 1 Fluid Cell Count Rvw By Pending Microbiology and Other Data: Microbiology 03/24/19 16:43 Gastric Antrum CLOtest - Final 03/23/19 05:00 Sputum Expectorated Gram Stain - Final 03/23/19 05:00 Sputum Expectorated Sputum Culture - Preliminary MOLD 03/21/19 14:44 Blood Venous Aerobic Blood Culture - Preliminary 03/21/19 14:44 Blood Venous Anaerobic Blood Culture - Preliminary No Growth Day 4 No Growth Day 4 03/21/19 14:43 Blood Venous Aerobic Blood Culture - Preliminary 03/21/19 14:43 Blood Venous Anaerobic Blood Culture - Preliminary No Growth Day 4 No Growth Day 4 Assess/Plan/Problems-Billing Assessment: 68 year old woman with antiphospholipid Ab syndrome, RA, here with GI hemorrhage and pulmonary infiltrates - Patient Problems (1) Pneumonia Current Visit: Yes Status: Acute Priority: High Code(s): J18.9 - PNEUMONIA , UNSPECIFIED ORGANISM SNOMED Code(s): 325431365 Comment: -Slow improvement on zosyn and vanco -Mold growing on sputum culture, may have blastomycosis -Patient immunosuppressed in the setting of her RA (2) Anti-phospholipid antibody syndrome Current Visit: Yes Status: Acute Priority: Medium Code(s): D68.61 - ANTIPHOSPHOLIPID SYNDROME SNOMED Code(s): 94973208 Comment: -Patient has h/o PE, anticoagulation on hold due to bleeding -Discussed with Sampson Hamm [employer]ULT[employer] today, startin back on Lovenox as EGD negative (3) GI bleed Current Visit: Yes Status: Acute Priority: Medium Code(s): K92.2 - GASTROINTESTINAL HEMORRHAGE, UNSPECIFIED SNOMED Code(s): 27953776 Comment: - Patient describes gastritis symptoms, continue PPI - Source unclear, will discuss EGD results with Dr. Oakes - outpatient colonoscopy if HGB remains stable (4) DVT prophylaxis Current Visit: No Status: Acute Priority: Low Onset Date: 09/10/14 Code( s): HUS7516 - SNOMED Code(s): 698764790 Comment: - Lovenox - SCDs (5) Type 2 diabetes mellitus Current Visit: No Status: Chronic Priority: Medium Comment: - Continue lispro SS - Continue lantus at half normal dose, sugars improving (6) Pleural effusion Current Visit: Yes Status: Acute Priority: Medium Code(s): J90 - PLEURAL EFFUSION, NOT ELSEWHERE CLASSIFIED SNOMED Code(s): 64507546 Comment: -Differential includes neoplasm, RA, parapneumonic effusion, TB. -Bloody effusion suggests neoplasm -Will follow cultures, cytology (7) COPD exacerbation Current Visit: No Status: Acute Priority: Medium Code(s): J44.1 - CHRONIC OBSTRUCTIVE PULMONARY DISEASE W (ACUTE) EXACERBATION SNOMED Code(s): 342795024 Comment: - DC IV steroids, start PO prednisone - Chronically on nebulizer, inhaled steroids, O2 Status and Disposition: inpatient
[2019-03-25] MEDS: Enoxaparin(*) 60 MG/0.6 ML SYR SUBCUT SCH (17:20)
[2019-03-25] MEDS: Atorvastatin* 20 MG TAB PO SCH (17:20)
[2019-03-25] MEDS: Gabapentin CAP(*) 100 MG PO SCH (17:20)
[2019-03-25] MEDS: Insulin GLARGINE(*) 1 UNITS UNIT SUBCUT SCH (17:21)
[2019-03-25] MEDS: Acetaminophen TAB* 325 MG PO PRN (22:04)
[2019-03-26] MEDS: Pantoprazole IV* 40 MG IV SCH ×2 (02:46→12:35)
[2019-03-26] MEDS: HYDROcodone/ACETAMIN 5-325 MG* 1 TAB PO PRN (02:53)
[2019-03-26] MEDS: Albuterol/Ipratropium NEB.SOL* Albuterol 2.5 MG/Ipratropium 0.5 MG 3 ML INH PRN ×3 (03:17→21:29)
[2019-03-26] MEDS ORDERED: Vancomycin(*) 750 MG in NS 0.9% 250 ML* 250 ML IVPB SCH (04:00)
[2019-03-26] MEDS: ZOSYN 3.375 GM Q8H per EXTENDED INFUSION IVPB SCH ×6 (05:56→21:12)
[2019-03-26] MEDS: Enoxaparin(*) 60 MG/0.6 ML SYR SUBCUT SCH ×2 (05:56→16:33)
[2019-03-26 07:00] LABS: BUN/Creatinine Ratio 16.3 (8-20); Calcium 8.5 mg/dL (8.6-10.3); EGFR African American 49.7 (>60); EGFR Non-African American 41.1 (>60); Potassium 3.5 mmol/L (3.5-5.0)
[2019-03-26] MEDS: Insulin LISPRO* 1 UNITS UNIT SUBCUT SCH ×5 (07:16→20:24)
[2019-03-26] MEDS: BuPROPion XL* 300 MG TAB.XL PO SCH (08:13)
[2019-03-26] MEDS: Cholecalciferol TAB* 1000 UNITS PO SCH (08:13)
[2019-03-26] MEDS: predniSONE TAB* 20 MG PO SCH (08:13)
[2019-03-26] MEDS: Docusate CAP* 100 MG PO SCH ×2 (08:13→20:25)
[2019-03-26] MEDS: Sertraline* 25 MG TAB PO SCH (08:13)
[2019-03-26] MEDS: Furosemide TAB* 40 MG PO SCH (08:13)
[2019-03-26] MEDS: Magnesium Oxide TAB* 400 MG PO SCH ×2 (08:13→20:25)
[2019-03-26] MEDS: Metoprolol Succinate XL TAB* 50 MG PO SCH (08:15)
[2019-03-26] MEDS: traMADol TAB* 50 MG PO SCH ×3 (08:16→20:25)
[2019-03-26] MEDS: Morphine 4 MG/ML VIAL (1 ml) 4 MG/ML VIAL IV PRN (09:49)
[2019-03-26] MEDS: Ferric Gluconate IV* 125 MG in NS 0.9% 100 ML* 100 ML IVPB SCH (10:37)
--- NOTE | 2019-03-26 13:44 | PN ---
Progress Note - Progress Note Date of Service: 03/26/19 SOAP: Subjective: CC: cough HPI: 68 year old woman with RA, COPD and right sided chest pain, cough, worsening shortness of breath. She had a thoracentesis and tolerated it well, tired today. Feels about the same. Objective: Vital Signs Temp 36.3 C 03/26/19 11:15 Pulse 64 03/26/19 11:15 Resp 16 03/26/19 11:15 BP 111/47 03/26/19 11:15 Pulse Ox 96 03/26/19 11:15 Intake & Output 03/25/19 03/26/19 03/26/19 18:59 06:59 18:59 Intake Total 1555 0 1500 Output Total 0 Balance 1555 0 1500 Intake: IV Fluids 25 50 Zosyn 25 50 Oral 1530 0 1450 Output: Urine 0 Other: # Bowel Movements 1 Estimated Stool Amount Small # Voids 3 Gen:awake, no distress HEENT: no thrush Heart:RRR no murmur Lungs:decreased BS at bases Abd:+BS NT ND soft Skin: no rash Laboratory Results - last 24 hr 03/25/19 03/25/19 03/25/19 11:02 13:50 16:18 Sodium Potassium Chloride Carbon Dioxide Anion Gap BUN Creatinine Est GFR ( Amer) Est GFR (Non-Af Amer) BUN/Creatinine Ratio Glucose POC Glucose (mg/dL) 306 H Hemoglobin A1c Calcium Lactate Dehydrogenase Fluid Source Pleural fluid Fluid Volume 5 Fluid Color Red Fluid Appearance Bloody Fluid WBC 4086 Fluid RBC [id number] Fluid Tot Cell Count 100 Fluid Neutrophils 99 Fluid Lymphocytes 1 Vancomycin Trough 20.0 03/25/19 03/26/19 03/26/19 22:07 06:32 06:32 Sodium 140 Potassium 3.5 Chloride 99 L Carbon Dioxide 34 H Anion Gap 7 BUN 21 Creatinine 1.29 H Est GFR ( Amer) 49.7 Est GFR (Non-Af Amer) 41.1 BUN/Creatinine Ratio 16.3 Glucose 142 H POC Glucose (mg/dL) 140 H Hemoglobin A1c 6.1 H Calcium 8.5 L Lactate Dehydrogenase 183 Fluid Source Fluid Volume Fluid Color Fluid Appearance Fluid WBC Fluid RBC Fluid Tot Cell Count Fluid Neutrophils Fluid Lymphocytes Vancomycin Trough 03/26/19 03/26/19 07:31 11:00 Sodium Potassium Chloride Carbon Dioxide Anion Gap BUN Creatinine Est GFR ( Amer) Est GFR (Non-Af Amer) BUN/Creatinine Ratio Glucose POC Glucose (mg/dL) 160 H 357 H Hemoglobin A1c Calcium Lactate Dehydrogenase Fluid Source Fluid Volume Fluid Color Fluid Appearance Fluid WBC Fluid RBC Fluid Tot Cell Count Fluid Neutrophils Fluid Lymphocytes Vancomycin Trough Microbiology 03/23/19 05:00 Gram Stain - Final Sputum Expectorated Sputum Culture - Preliminary Yamilet Albicans 03/21/19 14:43 Aerobic Blood Culture - Preliminary Blood Venous No Growth Day 4 Anaerobic Blood Culture - Preliminary No Growth Day 4 03/21/19 14:44 Aerobic Blood Culture - Preliminary Blood Venous No Growth Day 4 Anaerobic Blood Culture - Preliminary No Growth Day 4 Assessment: 1. loculated pleural effusion, had thoracentesis 2. Right lung infiltrate, Yamilet in sputum I believe is colonization of abnormal airways and not a pathogen 3. COPD 4. Rheumatoid arthritis Plan: Antibiotics day 6, will stop vancomycin, she will still be therapeutic for 2 more days, continue zosyn until 03/28, await pleural fluid results.
--- NOTE | 2019-03-26 16:09 | PN ---
Subjective Date of Service: 03/26/19 Interval History: Patient states breathing is a bit better. She cannot go home until she can walk to the bathroom. Had some pain RT hemithorax this AM, where thoracentesis occurred. Family History: Unchanged from Admission Social History: Unchanged from Admission Past Medical History: Unchanged from Admission Objective Active Medications: Acetaminophen (Tylenol Tab*) 650 mg PO Q4H PRN PRN Reason: FEVER/PAIN Last Admin: 03/25/19 22:04 Dose: 650 mg Hydrocodone Bitart/Acetaminophen ([place] 5-325 Tab*) 2 tab PO BEDTIME PRN PRN Reason: PAIN Last Admin: 03/26/19 02:53 Dose: 2 tab Al Hydrox/Mg Hydrox/Simethicone (Maalox Plus*) 30 ml PO Q6H PRN PRN Reason: INDIGESTION Albuterol/Ipratropium (Duoneb (Albuterol 2.5 Mg/Ipratropium 0.5 Mg)) 1 neb INH [id number] AWAKE PRN PRN Reason: sob/wheexing Last Admin: 03/26/19 09:31 Dose: 1 neb Atorvastatin Calcium (Lipitor*) 20 mg PO QPM [facility] Last Admin: 03/25/19 17:20 Dose: 20 mg Budesonide (Pulmicort Neb*) 0.25 mg INH BID PRN PRN Reason: SHORTNESS OF BREATH Bupropion HCl (Bupropion Xl*) 300 mg PO DAILY [facility] [place] Last Admin: 03/26/19 08:13 Dose: 300 mg Cholecalciferol (Vitamin D Tab*) 1,000 units PO DAILY [facility] [place] Last Admin: 03/26/19 08:13 Dose: 1,000 units Dextrose (D50w Syringe 50 Ml*) 12.5 gm IV PUSH .FOR FS < 60 - SS PRN PRN Reason: FS < 60 Docusate Sodium (Colace Cap*) 100 mg PO BID [facility] [place] Last Admin: 03/26/19 08:13 Dose: 100 mg Enoxaparin Sodium (Lovenox(*)) 60 mg SUBCUT Q12H [facility] [place] Last Admin: 03/26/19 05:56 Dose: 60 mg Furosemide (Lasix Tab*) 40 mg PO DAILY [facility] [place] Last Admin: 03/26/19 08:13 Dose: 40 mg Gabapentin (Neurontin Cap(*)) 200 mg PO QPM [facility] [place] Last Admin: 03/25/19 17:20 Dose: 200 mg Piperacillin Sod/Tazobactam (Sod 3.375 gm/ Sodium Chloride) 100 mls @ 25 mls/ hr IVPB 0500,1300,2100 [facility] [place] Last Admin: 03/26/19 12:35 Dose: 25 mls/hr Ferric Sodium Gluconate Complex 125 mg/ Sodium Chloride 110 mls @ 110 mls/hr IVPB DAILY [facility] [place] Last Admin: 03/26/19 10:37 Dose: 110 mls/hr Insulin Glargine (Lantus(*)) 8 units SUBCUT Q24H [facility] [place] Last Admin: 03/25/19 17:21 Dose: 8 units Insulin Human Lispro (Humalog*) 0 units SUBCUT ACHS [facility] [place]; Protocol Last Admin: 03/26/19 11:50 Dose: 5 unit Magnesium Oxide (Magox 400 Tab*) 800 mg PO BID [facility] [place] Last Admin: 03/26/19 08:13 Dose: 800 mg Metoprolol Succinate (Toprol Xl Tab*) 50 mg PO DAILY [facility] [place] Last Admin: 03/26/19 08:15 Dose: 50 mg Morphine Sulfate (Morphine 4 Mg/Ml Vial (1 Ml)) 2 mg IV Q2H PRN PRN Reason: Pain 6-10 Last Admin: 03/26/19 09:49 Dose: 2 mg Nitroglycerin (Nitroglycerin Tab 0.4 Mg*) 0.4 mg SL Q5M PRN PRN Reason: ANGINA Pantoprazole Sodium (Protonix Iv*) 40 mg IV Q12H [facility] [place] Last Admin: 03/26/19 12:35 Dose: 40 mg Prednisone (Deltasone Tab*) 40 mg PO DAILY [facility] [place] Last Admin: 03/26/19 08:13 Dose: 40 mg Sertraline HCl (Zoloft*) 75 mg PO DAILY [facility] [place] Last Admin: 03/26/19 08:13 Dose: 75 mg Tramadol HCl (Ultram*) 50 mg PO BID [facility] [place] Last Admin: 03/26/19 08:18 Dose: 50 mg Warfarin Sodium (Coumadin Tab(*)) 6 mg PO 1700 [facility] [place]; Protocol Vital Signs - 8 hr 03/26/19 03/26/19 03/26/19 08:18 09:35 09:49 Temperature Pulse Rate 66 Respiratory 20 16 20 Rate Blood Pressure (mmHg) O2 Sat by Pulse 98 Oximetry 07/24/19 07/24/19 07/24/19 10:37 11:15 15:15 Temperature 36.3 C 36.5 C Pulse Rate 64 76 Respiratory 20 16 18 Rate Blood Pressure 111/47 144/66 (mmHg) O2 Sat by Pulse 96 97 Oximetry Oxygen Devices in Use Now: Nasal Cannula Appearance: alert, no distress Eyes: No Scleral Icterus Ears/Nose/Mouth/Throat: NL Teeth, Lips, Gums Neck: NL Appearance and Movements; NL JVP Respiratory: Symmetrical Chest Expansion and Respiratory Effort, Clear to Auscultation, - - diminished throughout Cardiovascular: NL Sounds; No Murmurs; No JVD Abdominal: NL Sounds; No Tenderness; No Distention Lymphatic: No Cervical Adenopathy Neurological: Alert and Oriented x 3 Lines/Tubes/Other Access: Clean, Dry and Intact Peripheral IV Result Diagrams: 03/24/19 06:30 03/26/19 06:32 Additional Lab and Data: Laboratory Tests 03/25/19 03/25/19 03/26/19 13:50 22:07 06:32 Glucose 142 H POC Glucose (mg/dL) 140 H Hemoglobin A1c Vancomycin Trough 20.0 03/26/19 03/26/19 03/26/19 06:32 07:31 11:00 Glucose POC Glucose (mg/dL) 160 H 357 H Hemoglobin A1c 6.1 H Vancomycin Trough Microbiology and Other Data: Microbiology 03/24/19 16:43 Gastric Antrum CLOtest - Final 03/23/19 05:00 Sputum Expectorated Gram Stain - Final 03/21/19 14:44 Blood Venous Aerobic Blood Culture - Final 03/21/19 14:44 Blood Venous Anaerobic Blood Culture - Final No Growth Day 5 No Growth Day 5 03/21/19 14:43 Blood Venous Aerobic Blood Culture - Final 03/21/19 14:43 Blood Venous Anaerobic Blood Culture - Final No Growth Day 5 No Growth Day 5 03/23/19 05:00 Sputum Expectorated Sputum Culture - Preliminary Yamilet Albicans Assess/Plan/Problems-Billing Assessment: 68 year old woman with antiphospholipid Ab syndrome, RA, here with GI hemorrhage and effusion/pulmonary infiltrates - Patient Problems (1) Pneumonia Current Visit: Yes Status: Acute Priority: High Code(s): J18.9 - PNEUMONIA , UNSPECIFIED ORGANISM SNOMED Code(s): 703438919 Comment: -Slow improvement on zosyn and vanco, Dr. Redman stopped vanco today -Yeast on sputum culture thought to be commensal -Patient immunosuppressed in the setting of her RA (2) Anti-phospholipid antibody syndrome Current Visit: Yes Status: Acute Priority: Medium Code(s): D68.61 - ANTIPHOSPHOLIPID SYNDROME SNOMED Code(s): 14138802 Comment: -Patient has h/o PE, anticoagulation was on hold due to bleeding -Started back on Lovenox/warfarin as EGD negative -INR daily (3) GI bleed Current Visit: Yes Status: Acute Priority: Medium Code(s): K92.2 - GASTROINTESTINAL HEMORRHAGE, UNSPECIFIED SNOMED Code(s): 81462093 Comment: - Patient describes gastritis symptoms, continue PPI - Stable HGB. - outpatient colonoscopy if HGB remains stable (4) DVT prophylaxis Current Visit: No Status: Acute Priority: Low Onset Date: 09/10/14 Code( s): XSG0334 - SNOMED Code(s): 781030834 Comment: - Lovenox - SCDs (5) Type 2 diabetes mellitus Current Visit: No Status: Chronic Priority: Medium Comment: - Continue lispro SS - Continue lantus at half normal dose, sugars improving (6) Pleural effusion Current Visit: Yes Status: Acute Priority: Medium Code(s): J90 - PLEURAL EFFUSION, NOT ELSEWHERE CLASSIFIED SNOMED Code(s): 77640814 Comment: -Differential includes neoplasm, RA, parapneumonic effusion, TB. -Bloody effusion raises concern of neoplasm -Will follow cultures, cytology (7) COPD exacerbation Current Visit: No Status: Acute Priority: Medium Code(s): J44.1 - CHRONIC OBSTRUCTIVE PULMONARY DISEASE W (ACUTE) EXACERBATION SNOMED Code(s): 635627412 Comment: - Breathing has improved on PO prednisone, Zosyn - Chronically on nebulizer, inhaled steroids, O2 Status and Disposition: inpatient
[2019-03-26] MEDS: Atorvastatin* 20 MG TAB PO SCH (16:33)
[2019-03-26] MEDS: Insulin GLARGINE(*) 1 UNITS UNIT SUBCUT SCH (16:33)
[2019-03-26] MEDS: Warfarin TAB(*) 6 MG PO SCH (16:33)
[2019-03-26] MEDS: Gabapentin CAP(*) 100 MG PO SCH (16:34)
[2019-03-27] MEDS: HYDROcodone/ACETAMIN 5-325 MG* 1 TAB PO PRN ×2 (01:33→11:14)
[2019-03-27] MEDS: Pantoprazole IV* 40 MG IV SCH ×2 (01:54→14:09)
[2019-03-27] MEDS: ZOSYN 3.375 GM Q8H per EXTENDED INFUSION IVPB SCH ×6 (04:31→21:59)
[2019-03-27] MEDS: Enoxaparin(*) 60 MG/0.6 ML SYR SUBCUT SCH ×2 (04:31→17:39)
[2019-03-27 06:44] LABS: INR 1.37 (0.82-1.09)
[2019-03-27 06:55] LABS: EGFR African American 43.8 (>60); EGFR Non-African American 36.2 (>60)
[2019-03-27] MEDS: Insulin LISPRO* 1 UNITS UNIT SUBCUT SCH ×4 (08:20→21:58)
[2019-03-27] MEDS: Morphine 4 MG/ML VIAL (1 ml) 4 MG/ML VIAL IV PRN (08:21)
[2019-03-27] MEDS: Albuterol/Ipratropium NEB.SOL* Albuterol 2.5 MG/Ipratropium 0.5 MG 3 ML INH PRN (08:41)
[2019-03-27] MEDS: traMADol TAB* 50 MG PO SCH ×2 (10:21→21:58)
[2019-03-27] MEDS: Docusate CAP* 100 MG PO SCH ×2 (10:21→21:57)
[2019-03-27] MEDS: Sertraline* 25 MG TAB PO SCH (10:21)
[2019-03-27] MEDS: Magnesium Oxide TAB* 400 MG PO SCH ×2 (10:21→21:58)
[2019-03-27] MEDS: predniSONE TAB* 20 MG PO SCH (10:22)
[2019-03-27] MEDS: Cholecalciferol TAB* 1000 UNITS PO SCH (10:22)
[2019-03-27] MEDS: BuPROPion XL* 300 MG TAB.XL PO SCH (10:27)
[2019-03-27] MEDS: Ferric Gluconate IV* 125 MG in NS 0.9% 100 ML* 100 ML IVPB SCH (11:14)
--- NOTE | 2019-03-27 11:27 | PN ---
Subjective Date of Service: 03/27/19 Interval History: Patient walked to bathroom but had severe dyspnea walking back. Cough is same. Feels tired this AM. Still has pain in RT thoracentesis site. Family History: Unchanged from Admission Social History: Unchanged from Admission Past Medical History: Unchanged from Admission Objective Active Medications: Acetaminophen (Tylenol Tab*) 650 mg PO Q4H PRN PRN Reason: FEVER/PAIN Last Admin: 03/25/19 22:04 Dose: 650 mg Hydrocodone Bitart/Acetaminophen ([place] 5-325 Tab*) 2 tab PO BEDTIME PRN PRN Reason: PAIN Last Admin: 03/27/19 01:33 Dose: 2 tab Al Hydrox/Mg Hydrox/Simethicone (Maalox Plus*) 30 ml PO Q6H PRN PRN Reason: INDIGESTION Albuterol/Ipratropium (Duoneb (Albuterol 2.5 Mg/Ipratropium 0.5 Mg)) 1 neb INH [id number] AWAKE PRN PRN Reason: sob/wheexing Last Admin: 03/27/19 08:41 Dose: 1 neb Atorvastatin Calcium (Lipitor*) 20 mg PO QPM [facility] Last Admin: 03/26/19 16:33 Dose: 20 mg Budesonide (Pulmicort Neb*) 0.25 mg INH RT.BID [facility] Bupropion HCl (Bupropion Xl*) 300 mg PO DAILY [facility] Last Admin: 03/27/19 10:27 Dose: 300 mg Cholecalciferol (Vitamin D Tab*) 1,000 units PO DAILY [facility] Last Admin: 03/27/19 10:22 Dose: 1,000 units Dextrose (D50w Syringe 50 Ml*) 12.5 gm IV PUSH .FOR FS < 60 - SS PRN PRN Reason: FS < 60 Docusate Sodium (Colace Cap*) 100 mg PO BID [facility] Last Admin: 03/27/19 10:21 Dose: 100 mg Enoxaparin Sodium (Lovenox(*)) 60 mg SUBCUT Q12H [facility] Last Admin: 03/27/19 04:31 Dose: 60 mg Furosemide (Lasix Tab*) 40 mg PO DAILY [facility] Last Admin: 03/26/19 08:13 Dose: 40 mg Gabapentin (Neurontin Cap(*)) 200 mg PO QPM [facility] Last Admin: 03/26/19 16:34 Dose: 200 mg Piperacillin Sod/Tazobactam (Sod 3.375 gm/ Sodium Chloride) 100 mls @ 25 mls/ hr IVPB 0500,1300,2100 [facility] Last Admin: 03/27/19 04:31 Dose: 25 mls/hr Ferric Sodium Gluconate Complex 125 mg/ Sodium Chloride 110 mls @ 110 mls/hr IVPB DAILY [facility] Last Admin: 03/26/19 10:37 Dose: 110 mls/hr Insulin Glargine (Lantus(*)) 8 units SUBCUT Q24H [facility] Last Admin: 03/26/19 16:33 Dose: 8 units Insulin Human Lispro (Humalog*) 0 units SUBCUT ACHS [facility]; Protocol Last Admin: 03/27/19 08:20 Dose: Not Given Magnesium Oxide (Magox 400 Tab*) 800 mg PO BID [facility] Last Admin: 03/27/19 10:21 Dose: 800 mg Metoprolol Succinate (Toprol Xl Tab*) 50 mg PO DAILY [facility] Last Admin: 03/26/19 08:15 Dose: 50 mg Morphine Sulfate (Morphine 4 Mg/Ml Vial (1 Ml)) 2 mg IV Q2H PRN PRN Reason: Pain 6-10 Last Admin: 03/27/19 08:21 Dose: 2 mg Nitroglycerin (Nitroglycerin Tab 0.4 Mg*) 0.4 mg SL Q5M PRN PRN Reason: ANGINA Pantoprazole Sodium (Protonix Iv*) 40 mg IV Q12H [facility] Last Admin: 03/27/19 01:54 Dose: 40 mg Prednisone (Deltasone Tab*) 40 mg PO DAILY [facility] Last Admin: 03/27/19 10:22 Dose: 40 mg Sertraline HCl (Zoloft*) 75 mg PO DAILY [facility] Last Admin: 03/27/19 10:21 Dose: 75 mg Tramadol HCl (Ultram*) 50 mg PO BID [facility] Last Admin: 03/27/19 10:21 Dose: 50 mg Warfarin Sodium (Coumadin Tab(*)) 6 mg PO 1700 [facility]; Protocol Last Admin: 03/26/19 16:33 Dose: 6 mg Vital Signs - 8 hr 03/27/19 03/27/19 03/27/19 03:28 07:35 08:21 Temperature 36.7 C 36.4 C Pulse Rate 63 59 Respiratory 15 18 12 Rate Blood Pressure 120/42 108/47 (mmHg) O2 Sat by Pulse 97 96 Oximetry 03/27/19 03/27/19 03/27/19 08:41 09:30 10:21 Temperature Pulse Rate 63 78 Respiratory 16 12 Rate Blood Pressure 91/46 (mmHg) O2 Sat by Pulse 98 Oximetry 03/27/19 10:33 Temperature Pulse Rate Respiratory 12 Rate Blood Pressure (mmHg) O2 Sat by Pulse Oximetry Oxygen Devices in Use Now: Nasal Cannula Appearance: alert, looks fatigued Eyes: No Scleral Icterus Ears/Nose/Mouth/Throat: NL Teeth, Lips, Gums Neck: NL Appearance and Movements; NL JVP Respiratory: Symmetrical Chest Expansion and Respiratory Effort, - - diminished throughout Cardiovascular: NL Sounds; No Murmurs; No JVD, RRR Abdominal: NL Sounds; No Tenderness; No Distention Extremities: No Edema Neurological: Alert and Oriented x 3 Lines/Tubes/Other Access: Clean, Dry and Intact Peripheral IV Nutrition: Taking PO's Result Diagrams: 03/24/19 06:30 03/27/19 05:50 Microbiology and Other Data: Microbiology 03/24/19 16:43 Gastric Antrum CLOtest - Final 03/23/19 05:00 Sputum Expectorated Gram Stain - Final 03/21/19 14:44 Blood Venous Aerobic Blood Culture - Final 03/21/19 14:44 Blood Venous Anaerobic Blood Culture - Final No Growth Day 5 No Growth Day 5 03/21/19 14:43 Blood Venous Aerobic Blood Culture - Final 03/21/19 14:43 Blood Venous Anaerobic Blood Culture - Final No Growth Day 5 No Growth Day 5 03/23/19 05:00 Sputum Expectorated Sputum Culture - Preliminary Yamilet Albicans Assess/Plan/Problems-Billing Assessment: 68 year old woman with antiphospholipid Ab syndrome, RA, here with GI hemorrhage and effusion/pulmonary infiltrates - Patient Problems (1) Pneumonia Current Visit: Yes Status: Acute Priority: High Code(s): J18.9 - PNEUMONIA , UNSPECIFIED ORGANISM SNOMED Code(s): 539396689 Comment: -Dr. Redman stopped vanco yesterday, will finish Zosyn tomorrow -Yeast on sputum culture thought to be commensal -Patient immunosuppressed in the setting of her RA (2) Anti-phospholipid antibody syndrome Current Visit: Yes Status: Acute Priority: Medium Code(s): D68.61 - ANTIPHOSPHOLIPID SYNDROME SNOMED Code(s): 93256913 Comment: -Patient has h/o PE, anticoagulation was on hold due to bleeding -Started back on Lovenox/warfarin as EGD negative -INR daily (3) GI bleed Current Visit: Yes Status: Acute Priority: Medium Code(s): K92.2 - GASTROINTESTINAL HEMORRHAGE, UNSPECIFIED SNOMED Code(s): 04880024 Comment: - Patient has gastritis symptoms, continue PPI - Stable HGB. - outpatient colonoscopy if HGB remains stable (4) DVT prophylaxis Current Visit: No Status: Acute Priority: Low Onset Date: 09/10/14 Code( s): SSD5539 - SNOMED Code(s): 917456393 Comment: - Lovenox - SCDs (5) Type 2 diabetes mellitus Current Visit: No Status: Chronic Priority: Medium Comment: - Continue lispro SS - increase lantus as sugars high on prednisone (6) Pleural effusion Current Visit: Yes Status: Acute Priority: Medium Code(s): J90 - PLEURAL EFFUSION, NOT ELSEWHERE CLASSIFIED SNOMED Code(s): 62994616 Comment: -Differential includes neoplasm, RA, parapneumonic effusion, TB. -Bloody effusion raises concern of neoplasm -Will follow cultures, cytology (7) COPD exacerbation Current Visit: No Status: Acute Priority: Medium Code(s): J44.1 - CHRONIC OBSTRUCTIVE PULMONARY DISEASE W (ACUTE) EXACERBATION SNOMED Code(s): 166323364 Comment: - Breathing minimally improved on PO prednisone, Zosyn - Chronically on nebulizer, inhaled steroids, O2 - Will ask Dr. Ramirez to see. Status and Disposition: inpatient
[2019-03-27] MEDS: Metoprolol Succinate XL TAB* 50 MG PO SCH (12:06)
[2019-03-27] MEDS: Furosemide TAB* 40 MG PO SCH (12:06)
[2019-03-27] MEDS: Insulin GLARGINE(*) 1 UNITS UNIT SUBCUT SCH (14:07)
[2019-03-27] MEDS ORDERED: Vancomycin Trough Check NOTE FOLLOW UP ONE (15:30)
[2019-03-27] MEDS: Warfarin TAB(*) 6 MG PO SCH (17:41)
[2019-03-27] MEDS: Atorvastatin* 20 MG TAB PO SCH (18:17)
[2019-03-27] MEDS: Gabapentin CAP(*) 100 MG PO SCH (18:17)
--- NOTE | 2019-03-27 18:36 | CONS ---
PULMONARY CONSULTATION REPORT: DATE OF CONSULT: 03/27/19 CONSULTATION REQUESTED BY: Dr. Bui. REASON FOR CONSULT: Evaluation of shortness of breath and abnormal CT. HISTORY OF PRESENT ILLNESS: The patient is a 68-year-old female, smoker, with significant smoking history, has been continuing to smoke, with history of COPD , chronic hypoxemic respiratory failure, rheumatoid arthritis; on chronic therapy with extremity deformities, antiphospholipid antibody syndrome, with history of prior pulmonary embolism; on Coumadin, chronic kidney disease; obstructive sleep apnea; on CPAP. The patient presents for evaluation of worsening shortness of breath. The patient has been having gradually worsening of shortness of breath over the past several days prior to the admission. She was recently diagnosed with UTI and was started on antibiotics. She initially thought her symptoms were related to urine infection and flank pain. She continued to have worsening shortness of breath and decided to come into the emergency room for further evaluation. She denied fevers or chills. She was noted to be significantly anemic and was found to have right lung abnormality and heme-positive stool. The patient was admitted for further evaluation of shortness of breath, abnormality on the CT, and also for evaluation of GI bleed. The patient underwent EGD on 03/24/19. She was found to have some gastritis and had biopsies. No active bleeding or ulcer disease was noted. Biopsy showed reactive foveolar hyperplasia and moderate gastritis. The patient had CT scan of the chest on admission, which was personally reviewed by me in comparison with repeat CTA that was done on 03/23/19. The patient with patchy airspace opacities in the upper lung zones, more prominent in the right upper lobe above the fissure. The patient also with atelectasis and airspace disease in the right lower lobe and middle lobe. The patient also with atelectasis in the right lower lobe with surrounding effusion, which appeared to be loculated. The patient also with emphysematous changes, mildly prominent mediastinal lymph nodes. CTA also demonstrated the same changes. The patient underwent thoracentesis on 03/25/19 and only about 20 mL of viscous hematogenous fluid was aspirated. Cytology negative for malignancy. Fluid characteristics suggestive of neutrophil-predominant effusion with exudative nature with elevated protein. Rest of the studies were not done. Acute inflammation noted in the fluid. The patient was started on broad-spectrum antibiotics. The patient completed vancomycin and she is currently receiving Zosyn. The patient continued to have dyspnea with minimal exertion like walking to the bathroom. She also has been having active rheumatoid arthritis symptoms with inflammation in her joints recently. Her immunosuppressive medications were held given the current concern. She is, however, started on prednisone 40 mg daily for possible COPD exacerbation. She does not have much wheezing on auscultation today. The patient reports improvement slightly in her breathing. Denies significant cough or mucus production. The patient has not had fevers since admission. Her white count is not elevated. She did have significantly low hemoglobin on admission. She has received 1 unit PRBC with improvement in her hemoglobin levels. PAST MEDICAL HISTORY: 1. COPD with home O2 at 3 L. 2. Rheumatoid arthritis, on chronic prednisone. 3. Antiphospholipid antibody syndrome, with pulmonary embolism, on Coumadin. 4. Chronic kidney disease stage 3. 5. Obstructive sleep apnea, on CPAP. 6. Paroxysmal atrial fibrillation. 7. Diabetes type 2. 8. Hypertension. 9. Dyslipidemia. 10. Depression/anxiety. 11. History of anemia of chronic disease secondary to underlying rheumatoid arthritis, receives iron infusions. MEDICATIONS AT HOME: 1. Imuran. 2. Atrovent. 3. Ciprofloxacin. 4. Spiriva. 5. Serevent. 6. Hydrocodone with acetaminophen. 7. Pulmicort. 8. Gabapentin. 9. Coumadin. 10. Metoprolol. 11. Iron polysaccharide complex. 12. Orencia. 13. Lipitor. 14. Tramadol. 15. Prednisone 5 mg daily. 16. Omeprazole. 17. Magnesium. 18. Vitamin D3. 19. Metformin. 20. Zoloft. 21. Insulin. 22. Wellbutrin. 23. Furosemide. ALLERGIES: METHOTREXATE, CEPHALEXIN, HYDROXYCHLOROQUINE. FAMILY HISTORY: Mother with history of CHF. Father with COPD. Brother with genitourinary cancer. SOCIAL HISTORY: Significant smoking history for over 30 years approximately 3 packs a day, has been trying to cut down. Over the past few years, has been smoking 3 to 4 cigarettes per day. No alcohol or drug abuse. REVIEW OF SYSTEMS: All 12 systems were reviewed and as per HPI. PHYSICAL EXAM: The patient is in bed, in no apparent distress. Vital Signs: Temperature 98.2, pulse 75 beats per minute, respiratory rate 18 per minute, O2 sat 93% on 3 L, blood pressure 107/46. DIAGNOSTIC STUDIES: Chest x-ray and CT of the chest as described above in HPI. IMPRESSION AND RECOMMENDATIONS: 68-year-old female with significant smoking history, admitted with worsening shortness of breath, being treated for pneumonia; also found to have pleural effusion, appeared to be loculated, status post thoracentesis, negative cytology, fluid characteristics suggestive of acute inflammation with exudative pleural effusion. The patient also with guaiac positive stools and worsening anemia of chronic disease, status post 1 unit PRBC. The patient had EGD, which revealed gastritis. The patient is on PPI at home, which was increased to b.i.d. The patient was started on broad- spectrum antibiotics. The patient with improvement with pneumonia treatment. I personally reviewed her CT chest. She does have airspace opacities, which could be consistent with pneumonia with parapneumonic effusion around it. The patient also with left infrahilar density, unclear if it is enlarged lymph node or rheumatoid nodule. She is immunocompromised from underlying rheumatoid arthritis and also on chronic prednisone, azathioprine, and Orencia, which might have resulted in the pneumonia. Would continue with antibiotics. Cultures from the pleural fluid have not been reported yet. She is clinically appearing to be improving. Did not have wheezing on auscultation today. Would continue with bronchodilators p.r.n. Can start tapering her prednisone. Would recommend repeat CT in 4 to 6 weeks for followup of resolution. Thank you for allowing me to participate in the care of your patient. Will follow up with you. [id number]/CPS #: [id number] LANRE
[2019-03-27] MEDS: Budesonide NEB* 0.25 MG/2 ML NEB.SOLN INH SCH (19:50)
[2019-03-28] MEDS: HYDROcodone/ACETAMIN 5-325 MG* 1 TAB PO PRN ×2 (03:04→10:28)
[2019-03-28] MEDS: Pantoprazole IV* 40 MG IV SCH ×2 (03:07→13:24)
[2019-03-28] MEDS: Enoxaparin(*) 60 MG/0.6 ML SYR SUBCUT SCH ×2 (06:15→17:14)
[2019-03-28] MEDS: ZOSYN 3.375 GM Q8H per EXTENDED INFUSION IVPB SCH ×6 (06:15→22:44)
[2019-03-28 07:21] LABS: INR 1.61 (0.82-1.09)
[2019-03-28] MEDS: Insulin LISPRO* 1 UNITS UNIT SUBCUT SCH ×4 (08:51→22:42)
[2019-03-28] MEDS: Budesonide NEB* 0.25 MG/2 ML NEB.SOLN INH SCH ×2 (09:14→19:36)
[2019-03-28] MEDS: traMADol TAB* 50 MG PO SCH ×2 (09:57→22:39)
[2019-03-28] MEDS: predniSONE TAB* 20 MG PO SCH (09:58)
[2019-03-28] MEDS: Cholecalciferol TAB* 1000 UNITS PO SCH (10:00)
[2019-03-28] MEDS: BuPROPion XL* 300 MG TAB.XL PO SCH (10:00)
[2019-03-28] MEDS: Metoprolol Succinate XL TAB* 50 MG PO SCH (10:00)
[2019-03-28] MEDS: Furosemide TAB* 40 MG PO SCH (10:00)
[2019-03-28] MEDS: Magnesium Oxide TAB* 400 MG PO SCH ×2 (10:00→22:39)
[2019-03-28] MEDS: Docusate CAP* 100 MG PO SCH ×2 (10:01→22:39)
[2019-03-28] MEDS: Sertraline* 25 MG TAB PO SCH (10:27)
[2019-03-28] MEDS: Ferric Gluconate IV* 125 MG in NS 0.9% 100 ML* 100 ML IVPB SCH (10:29)
--- NOTE | 2019-03-28 12:04 | PN ---
Subjective Date of Service: 03/28/19 Interval History: Reports Dyspnea on exertion when she walked to the bathroom requiring more oxygen than her baseline of 3 liters. Family History: Unchanged from Admission Social History: Unchanged from Admission Past Medical History: Unchanged from Admission Objective Active Medications: Acetaminophen (Tylenol Tab*) 650 mg PO Q4H PRN PRN Reason: FEVER/PAIN Last Admin: 03/25/19 22:04 Dose: 650 mg Hydrocodone Bitart/Acetaminophen ([place] 5-325 Tab*) 2 tab PO QID PRN PRN Reason: PAIN - MODERATE Last Admin: 03/28/19 10:28 Dose: 2 tab Al Hydrox/Mg Hydrox/Simethicone (Maalox Plus*) 30 ml PO Q6H PRN PRN Reason: INDIGESTION Albuterol/Ipratropium (Duoneb (Albuterol 2.5 Mg/Ipratropium 0.5 Mg)) 1 neb INH [id number] AWAKE PRN PRN Reason: sob/wheexing Last Admin: 03/27/19 08:41 Dose: 1 neb Atorvastatin Calcium (Lipitor*) 20 mg PO QPM [facility] Last Admin: 03/27/19 18:17 Dose: 20 mg Budesonide (Pulmicort Neb*) 0.25 mg INH RT.BID [facility] Last Admin: 03/28/19 09:14 Dose: 0.25 mg Bupropion HCl (Bupropion Xl*) 300 mg PO DAILY [facility] Last Admin: 03/28/19 10:00 Dose: 300 mg Cholecalciferol (Vitamin D Tab*) 1,000 units PO DAILY [facility] Last Admin: 03/28/19 10:00 Dose: 1,000 units Dextrose (D50w Syringe 50 Ml*) 12.5 gm IV PUSH .FOR FS < 60 - SS PRN PRN Reason: FS < 60 Docusate Sodium (Colace Cap*) 100 mg PO BID [facility] Last Admin: 03/28/19 10:01 Dose: 100 mg Enoxaparin Sodium (Lovenox(*)) 60 mg SUBCUT Q12H [facility] Last Admin: 03/28/19 06:15 Dose: 60 mg Furosemide (Lasix Tab*) 40 mg PO DAILY [facility] Last Admin: 03/28/19 10:00 Dose: 40 mg Gabapentin (Neurontin Cap(*)) 200 mg PO QPM [facility] Last Admin: 03/27/19 18:17 Dose: 200 mg Piperacillin Sod/Tazobactam (Sod 3.375 gm/ Sodium Chloride) 100 mls @ 25 mls/ hr IVPB 0500,1300,2100 [facility] Last Admin: 03/28/19 06:15 Dose: 25 mls/hr Ferric Sodium Gluconate Complex 125 mg/ Sodium Chloride 110 mls @ 110 mls/hr IVPB DAILY [facility] Last Admin: 03/28/19 10:29 Dose: 110 mls/hr Insulin Glargine (Lantus(*)) 16 units SUBCUT Q24H [facility] Last Admin: 03/27/19 14:07 Dose: 16 units Insulin Human Lispro (Humalog*) 0 units SUBCUT ACHS [facility]; Protocol Last Admin: 03/28/19 08:51 Dose: Not Given Magnesium Oxide (Magox 400 Tab*) 800 mg PO BID [facility] Last Admin: 03/28/19 10:00 Dose: 800 mg Metoprolol Succinate (Toprol Xl Tab*) 50 mg PO DAILY [facility] Last Admin: 03/28/19 10:00 Dose: 50 mg Nitroglycerin (Nitroglycerin Tab 0.4 Mg*) 0.4 mg SL Q5M PRN PRN Reason: ANGINA Pantoprazole Sodium (Protonix Iv*) 40 mg IV Q12H [facility] Last Admin: 03/28/19 03:07 Dose: 40 mg Pharmacy Consult (Zosyn Per Pharmacy*) 1 note FOLLOW UP .ZOSYN PER PHARMACY [facility] Prednisone (Deltasone Tab*) 40 mg PO DAILY [facility] Last Admin: 03/28/19 09:58 Dose: 40 mg Sertraline HCl (Zoloft*) 75 mg PO DAILY [facility] Last Admin: 03/28/19 10:27 Dose: 75 mg Tramadol HCl (Ultram*) 50 mg PO BID [facility] Last Admin: 03/28/19 09:57 Dose: 50 mg Warfarin Sodium (Coumadin Tab(*)) 6 mg PO 1700 [facility]; Protocol Last Admin: 03/27/19 17:41 Dose: 6 mg Vital Signs - 8 hr 03/28/19 03/28/19 03/28/19 05:30 07:45 09:33 Pulse Rate 60 60 Respiratory 18 18 17 Rate Blood Pressure 115/61 (mmHg) O2 Sat by Pulse 100 99 Oximetry 03/28/19 03/28/19 09:57 10:28 Pulse Rate Respiratory 14 14 Rate Blood Pressure (mmHg) O2 Sat by Pulse Oximetry Oxygen Devices in Use Now: Nasal Cannula Appearance: lying in bed, not in distress Ears/Nose/Mouth/Throat: Mucous Membranes Moist Respiratory: - - tachypnea mild with expiratory wheezing Cardiovascular: NL Sounds; No Murmurs; No JVD, RRR Abdominal: NL Sounds; No Tenderness; No Distention, No Hepatosplenomegaly Extremities: No Edema Neurological: Alert and Oriented x 3 Result Diagrams: 03/24/19 06:30 03/27/19 05:50 Additional Lab and Data: Laboratory Tests 03/25/19 03/25/19 03/26/19 13:50 22:07 06:32 Glucose 142 H POC Glucose (mg/dL) 140 H Hemoglobin A1c Vancomycin Trough 20.0 03/26/19 03/26/19 03/26/19 06:32 07:31 11:00 Glucose POC Glucose (mg/dL) 160 H 357 H Hemoglobin A1c 6.1 H Vancomycin Trough Microbiology and Other Data: Microbiology 03/24/19 16:43 Gastric Antrum CLOtest - Final 03/23/19 05:00 Sputum Expectorated Gram Stain - Final 03/21/19 14:44 Blood Venous Aerobic Blood Culture - Final 03/21/19 14:44 Blood Venous Anaerobic Blood Culture - Final No Growth Day 5 No Growth Day 5 03/21/19 14:43 Blood Venous Aerobic Blood Culture - Final 03/21/19 14:43 Blood Venous Anaerobic Blood Culture - Final No Growth Day 5 No Growth Day 5 03/23/19 05:00 Sputum Expectorated Sputum Culture - Preliminary Yamilet Albicans Assess/Plan/Problems-Billing Assessment: 68 year old woman with antiphospholipid Ab syndrome, RA, here with GI hemorrhage and effusion/pulmonary infiltrates - Patient Problems (1) Anti-phospholipid antibody syndrome Current Visit: Yes Status: Acute Priority: Medium Code(s): D68.61 - ANTIPHOSPHOLIPID SYNDROME SNOMED Code(s): 97605994 Comment: -Patient has h/o PE, anticoagulation was on hold due to bleeding -Started back on Lovenox/warfarin as EGD negative -INR daily (2) Pleural effusion Current Visit: Yes Status: Acute Priority: Medium Code(s): J90 - PLEURAL EFFUSION, NOT ELSEWHERE CLASSIFIED SNOMED Code(s): 81058497 Comment: -Differential includes neoplasm, RA, parapneumonic effusion, TB. cytology is negative for malignancy (3) COPD exacerbation Current Visit: No Status: Acute Priority: Medium Code(s): J44.1 - CHRONIC OBSTRUCTIVE PULMONARY DISEASE W (ACUTE) EXACERBATION SNOMED Code(s): 574316740 Comment: - Breathing minimally improved on PO prednisone, Zosyn - Chronically on nebulizer, inhaled steroids, O2 pulmonary consult (4) DNR (do not resuscitate) Current Visit: No Status: Acute Priority: High (5) Upper GI bleed Current Visit: Yes Status: Acute Code(s): K92.2 - GASTROINTESTINAL HEMORRHAGE, UNSPECIFIED SNOMED Code(s): 34362105 Comment: no further bleeding continue PPI monitor, consider outpatient GI workup Status and Disposition: inpatient
[2019-03-28] MEDS: Insulin GLARGINE(*) 1 UNITS UNIT SUBCUT SCH (13:22)
[2019-03-28] MEDS: Atorvastatin* 20 MG TAB PO SCH (17:14)
[2019-03-28] MEDS: Gabapentin CAP(*) 100 MG PO SCH (17:14)
[2019-03-28] MEDS: Warfarin TAB(*) 6 MG PO SCH (17:15)
[2019-03-29] MEDS: HYDROcodone/ACETAMIN 5-325 MG* 1 TAB PO PRN ×2 (00:31→22:39)
[2019-03-29] MEDS: Pantoprazole IV* 40 MG IV SCH ×2 (03:34→13:58)
[2019-03-29] MEDS: Acetaminophen TAB* 325 MG PO PRN (03:53)
[2019-03-29] MEDS: Albuterol/Ipratropium NEB.SOL* Albuterol 2.5 MG/Ipratropium 0.5 MG 3 ML INH PRN ×2 (05:18→17:57)
[2019-03-29] MEDS: ZOSYN 3.375 GM Q8H per EXTENDED INFUSION IVPB SCH ×6 (05:50→21:47)
[2019-03-29] MEDS: Enoxaparin(*) 60 MG/0.6 ML SYR SUBCUT SCH (05:50)
[2019-03-29 08:04] LABS: Hematocrit 28 % (35-47); Hemoglobin 8.9 g/dL (12.0-16.0); Mean Corpuscular HGB Conc 32 g/dL (31-36); Mean Corpuscular Hemoglobin 27 pg (27-31); Mean Corpuscular Volume 85 fL (80-97); Mean Platelet Volume 6.6 fL (7.4-10.4); Platelet Count 522 10^3/uL (150-450); Red Blood Count 3.28 10^6 /uL (3.70-4.87); Red Cell Distribution Width 20 % (10-15); White Blood Count 10.4 10^3/uL (3.5-10.8)
[2019-03-29 08:10] LABS: INR 2.74 (0.82-1.09)
[2019-03-29 08:18] LABS: Calcium 8.7 mg/dL (8.6-10.3); EGFR African American 47.2 (>60); Potassium 3.3 mmol/L (3.5-5.0)
[2019-03-29] MEDS: Budesonide NEB* 0.25 MG/2 ML NEB.SOLN INH SCH ×2 (08:42→19:49)
[2019-03-29] MEDS: Metoprolol Succinate XL TAB* 50 MG PO SCH (09:02)
[2019-03-29] MEDS: Furosemide TAB* 40 MG PO SCH (09:02)
[2019-03-29] MEDS: predniSONE TAB* 20 MG PO SCH (09:02)
[2019-03-29] MEDS: Docusate CAP* 100 MG PO SCH ×2 (09:02→21:46)
[2019-03-29] MEDS: Cholecalciferol TAB* 1000 UNITS PO SCH (09:02)
[2019-03-29] MEDS: Magnesium Oxide TAB* 400 MG PO SCH ×2 (09:02→21:46)
[2019-03-29] MEDS: BuPROPion XL* 300 MG TAB.XL PO SCH (09:02)
[2019-03-29] MEDS: traMADol TAB* 50 MG PO SCH ×2 (09:02→21:46)
[2019-03-29] MEDS: Sertraline* 25 MG TAB PO SCH (09:02)
[2019-03-29] MEDS: Insulin LISPRO* 1 UNITS UNIT SUBCUT SCH ×4 (09:21→21:46)
[2019-03-29] MEDS ORDERED: Potassium Chlor TAB* 20 MEQ TAB.ER PO ONE (09:26)
[2019-03-29] MEDS ORDERED: Cyclobenzaprine TAB* 10 MG PO ONE (09:39)
--- NOTE | 2019-03-29 09:43 | PN ---
Subjective Date of Service: 03/29/19 Interval History: She reports her breathing has improved. Continues to have occasional cough Has a bruise at the right posterior lower chest/flank region Having pain at the right flank region. Family History: Unchanged from Admission Social History: Unchanged from Admission Past Medical History: Unchanged from Admission Objective Active Medications: Acetaminophen (Tylenol Tab*) 650 mg PO Q4H PRN PRN Reason: FEVER/PAIN Last Admin: 03/29/19 03:53 Dose: 650 mg Hydrocodone Bitart/Acetaminophen ([place] 5-325 Tab*) 2 tab PO QID PRN PRN Reason: PAIN - MODERATE Last Admin: 03/29/19 00:31 Dose: 2 tab Al Hydrox/Mg Hydrox/Simethicone (Maalox Plus*) 30 ml PO Q6H PRN PRN Reason: INDIGESTION Albuterol/Ipratropium (Duoneb (Albuterol 2.5 Mg/Ipratropium 0.5 Mg)) 1 neb INH [id number] AWAKE PRN PRN Reason: sob/wheexing Last Admin: 03/29/19 05:18 Dose: 1 neb Atorvastatin Calcium (Lipitor*) 20 mg PO QPM [facility] Last Admin: 03/28/19 17:14 Dose: 20 mg Budesonide (Pulmicort Neb*) 0.25 mg INH RT.BID [facility] Last Admin: 03/29/19 08:42 Dose: 0.25 mg Bupropion HCl (Bupropion Xl*) 300 mg PO DAILY [facility] Last Admin: 03/29/19 09:02 Dose: 300 mg Cholecalciferol (Vitamin D Tab*) 1,000 units PO DAILY [facility] Last Admin: 03/29/19 09:02 Dose: 1,000 units Dextrose (D50w Syringe 50 Ml*) 12.5 gm IV PUSH .FOR FS < 60 - SS PRN PRN Reason: FS < 60 Docusate Sodium (Colace Cap*) 100 mg PO BID [facility] Last Admin: 03/29/19 09:02 Dose: 100 mg Enoxaparin Sodium (Lovenox(*)) 60 mg SUBCUT Q12H [facility] Last Admin: 03/29/19 05:50 Dose: 60 mg Furosemide (Lasix Tab*) 20 mg PO DAILY [facility] Gabapentin (Neurontin Cap(*)) 200 mg PO QPM [facility] Last Admin: 03/28/19 17:14 Dose: 200 mg Piperacillin Sod/Tazobactam (Sod 3.375 gm/ Sodium Chloride) 100 mls @ 25 mls/ hr IVPB 0500,1300,2100 [facility] Last Admin: 03/29/19 05:50 Dose: 25 mls/hr Ferric Sodium Gluconate Complex 125 mg/ Sodium Chloride 110 mls @ 110 mls/hr IVPB DAILY [facility] Last Admin: 03/28/19 10:29 Dose: 110 mls/hr Insulin Glargine (Lantus(*)) 16 units SUBCUT Q24H [facility] Last Admin: 03/28/19 13:22 Dose: 16 units Insulin Human Lispro (Humalog*) 0 units SUBCUT ACHS [facility]; Protocol Last Admin: 03/29/19 09:21 Dose: Not Given Magnesium Oxide (Magox 400 Tab*) 800 mg PO BID [facility] Last Admin: 03/29/19 09:02 Dose: 800 mg Metoprolol Succinate (Toprol Xl Tab*) 50 mg PO DAILY [facility] Last Admin: 03/29/19 09:02 Dose: 50 mg Nitroglycerin (Nitroglycerin Tab 0.4 Mg*) 0.4 mg SL Q5M PRN PRN Reason: ANGINA Pantoprazole Sodium (Protonix Iv*) 40 mg IV Q12H [facility] Last Admin: 03/29/19 03:34 Dose: 40 mg Pharmacy Consult (Zosyn Per Pharmacy*) 1 note FOLLOW UP .ZOSYN PER PHARMACY [facility] Prednisone (Deltasone Tab*) 20 mg PO DAILY [facility] Sertraline HCl (Zoloft*) 75 mg PO DAILY [facility] Last Admin: 03/29/19 09:02 Dose: 75 mg Tramadol HCl (Ultram*) 50 mg PO BID [facility] Last Admin: 03/29/19 09:02 Dose: 50 mg Warfarin Sodium (Coumadin Tab(*)) 6 mg PO 1700 [facility]; Protocol Last Admin: 03/28/19 17:15 Dose: 6 mg Vital Signs - 8 hr 03/29/19 03/29/19 03/29/19 02:38 03:49 04:42 Temperature 97.5 F Pulse Rate 68 Respiratory 16 16 16 Rate Blood Pressure 116/56 (mmHg) O2 Sat by Pulse 97 Oximetry 03/29/19 03/29/19 03/29/19 05:19 07:15 08:47 Temperature 96.9 F Pulse Rate 70 55 55 Respiratory 18 18 18 Rate Blood Pressure 116/48 (mmHg) O2 Sat by Pulse 97 100 98 Oximetry 03/29/19 09:02 Temperature Pulse Rate Respiratory 20 Rate Blood Pressure (mmHg) O2 Sat by Pulse Oximetry Oxygen Devices in Use Now: Nasal Cannula Appearance: Elderly female in bed, not in distress, has nasal canula in. Ears/Nose/Mouth/Throat: Mucous Membranes Moist Respiratory: - - No tachypnea, no use of accessory muscles, scattered wheezing with lower lung base rhonchi Cardiovascular: NL Sounds; No Murmurs; No JVD, RRR Abdominal: NL Sounds; No Tenderness; No Distention, No Hepatosplenomegaly Extremities: No Edema Skin: - - Bruising noted at the right flank region. Neurological: Alert and Oriented x 3 Result Diagrams: 03/29/19 07:40 03/29/19 07:40 Additional Lab and Data: Laboratory Tests 03/25/19 03/25/19 03/26/19 13:50 22:07 06:32 Glucose 142 H POC Glucose (mg/dL) 140 H Hemoglobin A1c Vancomycin Trough 20.0 03/26/19 03/26/19 03/26/19 06:32 07:31 11:00 Glucose POC Glucose (mg/dL) 160 H 357 H Hemoglobin A1c 6.1 H Vancomycin Trough Microbiology and Other Data: Microbiology 03/24/19 16:43 Gastric Antrum CLOtest - Final 03/23/19 05:00 Sputum Expectorated Gram Stain - Final 03/21/19 14:44 Blood Venous Aerobic Blood Culture - Final 03/21/19 14:44 Blood Venous Anaerobic Blood Culture - Final No Growth Day 5 No Growth Day 5 03/21/19 14:43 Blood Venous Aerobic Blood Culture - Final 03/21/19 14:43 Blood Venous Anaerobic Blood Culture - Final No Growth Day 5 No Growth Day 5 03/23/19 05:00 Sputum Expectorated Sputum Culture - Preliminary Yamilet Albicans Assess/Plan/Problems-Billing Assessment: 68 year old woman with antiphospholipid Ab syndrome, RA, here with GI hemorrhage and effusion/pulmonary infiltrates - Patient Problems (1) Anti-phospholipid antibody syndrome Current Visit: Yes Status: Acute Priority: Medium Code(s): D68.61 - ANTIPHOSPHOLIPID SYNDROME SNOMED Code(s): 92218159 Comment: -Patient has h/o PE, anticoagulation was on hold due to bleeding - lovenox- coumadin bridge---d/c lovenox today and INR is elevated. -INR daily - Bruising at the right flank region noted- CT abdomen ruled out hemorrhage/ bleeding. (2) Pleural effusion Current Visit: Yes Status: Acute Priority: Medium Code(s): J90 - PLEURAL EFFUSION, NOT ELSEWHERE CLASSIFIED SNOMED Code(s): 65091313 Comment: -Differential includes neoplasm, RA, parapneumonic effusion, TB. cytology is negative for malignancy (3) COPD exacerbation Current Visit: No Status: Acute Priority: Medium Code(s): J44.1 - CHRONIC OBSTRUCTIVE PULMONARY DISEASE W (ACUTE) EXACERBATION SNOMED Code(s): 148267692 Comment: - Breathing minimally improved on PO prednisone, Zosyn - Chronically on nebulizer, inhaled steroids, O2 pulmonary consult - tapering prednisone from 40mg to 20mg (home dose is 5mg) (4) DNR (do not resuscitate) Current Visit: No Status: Acute Priority: High (5) Upper GI bleed Current Visit: Yes Status: Acute Code(s): K92.2 - GASTROINTESTINAL HEMORRHAGE, UNSPECIFIED SNOMED Code(s): 98312428 Comment: no further bleeding continue PPI EGD showed gastritis. (6) Anemia Current Visit: Yes Status: Acute Code(s): D64.9 - ANEMIA, UNSPECIFIED SNOMED Code(s): 083973690 Comment: acute with chronic Received one unit PRBC this admission, EGD showed gastritis. (7) Muscle ache Current Visit: Yes Status: Acute Code(s): M79.10 - MYALGIA, UNSPECIFIED SITE SNOMED Code(s): 31675917 Comment: Having muscle ache in the back, one dose flexeril ordered. Status and Disposition: inpatient
[2019-03-29] MEDS: Ferric Gluconate IV* 125 MG in NS 0.9% 100 ML* 100 ML IVPB SCH (11:20)
[2019-03-29] MEDS: Insulin GLARGINE(*) 1 UNITS UNIT SUBCUT SCH (12:18)
[2019-03-29] MEDS: Warfarin TAB(*) 6 MG PO SCH (17:55)
[2019-03-29] MEDS: Atorvastatin* 20 MG TAB PO SCH (17:55)
[2019-03-29] MEDS: Gabapentin CAP(*) 100 MG PO SCH (17:55)
[2019-03-30] MEDS: Pantoprazole IV* 40 MG IV SCH (02:22)
[2019-03-30] MEDS: ZOSYN 3.375 GM Q8H per EXTENDED INFUSION IVPB SCH ×2 (05:27)
[2019-03-30 06:52] LABS: INR 3.19 (0.82-1.09)
[2019-03-30 07:00] LABS: BUN/Creatinine Ratio 15.2 (8-20); C Reactive Protein 61.17 mg/L (<8.01); Calcium 8.8 mg/dL (8.6-10.3); EGFR African American 41.5 (>60); EGFR Non-African American 34.3 (>60); Potassium 3.8 mmol/L (3.5-5.0)
[2019-03-30] MEDS: Budesonide NEB* 0.25 MG/2 ML NEB.SOLN INH SCH ×2 (07:24→20:12)
[2019-03-30] MEDS: HYDROcodone/ACETAMIN 5-325 MG* 1 TAB PO PRN ×2 (07:50→21:15)
[2019-03-30] MEDS ORDERED: Furosemide TAB* 40 MG PO SCH (09:00)
[2019-03-30] MEDS: Insulin LISPRO* 1 UNITS UNIT SUBCUT SCH ×4 (09:33→22:04)
[2019-03-30] MEDS: Docusate CAP* 100 MG PO SCH ×2 (09:43→20:28)
[2019-03-30] MEDS: Cholecalciferol TAB* 1000 UNITS PO SCH (09:43)
[2019-03-30] MEDS: BuPROPion XL* 300 MG TAB.XL PO SCH (09:43)
[2019-03-30] MEDS: predniSONE TAB* 20 MG PO SCH (09:44)
[2019-03-30] MEDS: traMADol TAB* 50 MG PO SCH ×2 (09:44→20:28)
[2019-03-30] MEDS: Magnesium Oxide TAB* 400 MG PO SCH ×2 (09:44→20:28)
[2019-03-30] MEDS: Sertraline* 25 MG TAB PO SCH (09:45)
[2019-03-30] MEDS: Metoprolol Succinate XL TAB* 50 MG PO SCH (09:53)
--- NOTE | 2019-03-30 11:03 | PN ---
Subjective Date of Service: 03/30/19 Interval History: Feels good Occasional cough, currently on 4 liters nasal canula, at home about 3 liters no fever no chest pain. Family History: Unchanged from Admission Social History: Unchanged from Admission Past Medical History: Unchanged from Admission Objective Active Medications: Acetaminophen (Tylenol Tab*) 650 mg PO Q4H PRN PRN Reason: FEVER/PAIN Last Admin: 03/29/19 03:53 Dose: 650 mg Hydrocodone Bitart/Acetaminophen ([place] 5-325 Tab*) 2 tab PO QID PRN PRN Reason: PAIN - MODERATE Last Admin: 03/30/19 07:50 Dose: 2 tab Al Hydrox/Mg Hydrox/Simethicone (Maalox Plus*) 30 ml PO Q6H PRN PRN Reason: INDIGESTION Albuterol/Ipratropium (Duoneb (Albuterol 2.5 Mg/Ipratropium 0.5 Mg)) 1 neb INH [id number] AWAKE PRN PRN Reason: sob/wheexing Last Admin: 03/29/19 17:57 Dose: 1 neb Amoxicillin/Clavulanate Potassium (Augmentin Tab*) 875 mg PO BID [facility] Atorvastatin Calcium (Lipitor*) 20 mg PO QPM [facility] Last Admin: 03/29/19 17:55 Dose: 20 mg Budesonide (Pulmicort Neb*) 0.25 mg INH RT.BID [facility] Last Admin: 03/30/19 07:24 Dose: 0.25 mg Bupropion HCl (Bupropion Xl*) 300 mg PO DAILY [facility] Last Admin: 03/30/19 09:43 Dose: 300 mg Cholecalciferol (Vitamin D Tab*) 1,000 units PO DAILY [facility] Last Admin: 03/30/19 09:43 Dose: 1,000 units Dextrose (D50w Syringe 50 Ml*) 12.5 gm IV PUSH .FOR FS < 60 - SS PRN PRN Reason: FS < 60 Docusate Sodium (Colace Cap*) 100 mg PO BID [facility] Last Admin: 03/30/19 09:43 Dose: 100 mg Gabapentin (Neurontin Cap(*)) 200 mg PO QPM [facility] Last Admin: 03/29/19 17:55 Dose: 200 mg Ferric Sodium Gluconate Complex 125 mg/ Sodium Chloride 110 mls @ 110 mls/hr IVPB DAILY [facility] Last Admin: 03/29/19 11:20 Dose: 110 mls/hr Insulin Glargine (Lantus(*)) 16 units SUBCUT Q24H [facility] Last Admin: 03/29/19 12:18 Dose: 16 units Insulin Human Lispro (Humalog*) 0 units SUBCUT ACHS [facility]; Protocol Last Admin: 03/30/19 09:33 Dose: Not Given Magnesium Oxide (Magox 400 Tab*) 800 mg PO BID [facility] Last Admin: 03/30/19 09:44 Dose: 800 mg Metoprolol Succinate (Toprol Xl Tab*) 50 mg PO DAILY [facility] Last Admin: 03/30/19 09:53 Dose: 50 mg Nitroglycerin (Nitroglycerin Tab 0.4 Mg*) 0.4 mg SL Q5M PRN PRN Reason: ANGINA Pantoprazole Sodium (Protonix Iv*) 40 mg IV Q12H [facility] Last Admin: 03/30/19 02:22 Dose: 40 mg Pharmacy Profile Note (Coumadin Daily Reminder*) 1 note FOLLOW UP 1700 [facility] Prednisone (Deltasone Tab*) 20 mg PO DAILY [facility] Last Admin: 03/30/19 09:44 Dose: 20 mg Sertraline HCl (Zoloft*) 75 mg PO DAILY [facility] Last Admin: 03/30/19 09:45 Dose: 75 mg Tramadol HCl (Ultram*) 50 mg PO BID [facility] Last Admin: 03/30/19 09:44 Dose: 50 mg Warfarin Sodium (Coumadin Tab(*)) 4 mg PO 1700 [facility]; Protocol Vital Signs - 8 hr 03/30/19 03/30/19 03/30/19 03:13 07:16 07:29 Temperature 98.4 F 97.8 F Pulse Rate 63 69 95 Respiratory 18 17 18 Rate Blood Pressure 127/56 115/56 (mmHg) O2 Sat by Pulse 93 95 98 Oximetry 03/30/19 03/30/19 03/30/19 07:50 09:42 09:44 Temperature Pulse Rate Respiratory 20 17 Rate Blood Pressure 115/60 (mmHg) O2 Sat by Pulse Oximetry Oxygen Devices in Use Now: Nasal Cannula Appearance: She is sitting in a chair, reading, not in distress Eyes: PERRLA Respiratory: - - mild expiratory wheezing Cardiovascular: NL Sounds; No Murmurs; No JVD, RRR Abdominal: NL Sounds; No Tenderness; No Distention, No Hepatosplenomegaly Extremities: No Edema Neurological: Alert and Oriented x 3 Result Diagrams: 03/29/19 07:40 03/30/19 06:15 Additional Lab and Data: Laboratory Tests 03/25/19 03/25/19 03/26/19 13:50 22:07 06:32 Glucose 142 H POC Glucose (mg/dL) 140 H Hemoglobin A1c Vancomycin Trough 20.0 03/26/19 03/26/19 03/26/19 06:32 07:31 11:00 Glucose POC Glucose (mg/dL) 160 H 357 H Hemoglobin A1c 6.1 H Vancomycin Trough Microbiology and Other Data: Microbiology 03/24/19 16:43 Gastric Antrum CLOtest - Final 03/23/19 05:00 Sputum Expectorated Gram Stain - Final 03/21/19 14:44 Blood Venous Aerobic Blood Culture - Final 03/21/19 14:44 Blood Venous Anaerobic Blood Culture - Final No Growth Day 5 No Growth Day 5 03/21/19 14:43 Blood Venous Aerobic Blood Culture - Final 03/21/19 14:43 Blood Venous Anaerobic Blood Culture - Final No Growth Day 5 No Growth Day 5 03/23/19 05:00 Sputum Expectorated Sputum Culture - Preliminary Yamilet Albicans Assess/Plan/Problems-Billing Assessment: 68 year old woman with antiphospholipid Ab syndrome, RA, here with GI hemorrhage and effusion/pulmonary infiltrates - Patient Problems (1) Anti-phospholipid antibody syndrome Current Visit: Yes Status: Acute Priority: Medium Code(s): D68.61 - ANTIPHOSPHOLIPID SYNDROME SNOMED Code(s): 60639982 Comment: -Patient has h/o PE, anticoagulation was on hold due to bleeding - lovenox- coumadin bridge---d/c lovenox today and INR is 3.7 - hold coumadin today, resume 4mg tomorrow. -INR daily - Bruising at the right flank region noted- CT abdomen ruled out hemorrhage/ bleeding. (2) Pleural effusion Current Visit: Yes Status: Acute Priority: Medium Code(s): J90 - PLEURAL EFFUSION, NOT ELSEWHERE CLASSIFIED SNOMED Code(s): 34933576 Comment: -Differential includes neoplasm, RA, parapneumonic effusion, TB. cytology is negative for malignancy (3) COPD exacerbation Current Visit: No Status: Acute Priority: Medium Code(s): J44.1 - CHRONIC OBSTRUCTIVE PULMONARY DISEASE W (ACUTE) EXACERBATION SNOMED Code(s): 204808240 Comment: - Breathing minimally improved on PO prednisone,change zosyn to augmentin. - Chronically on nebulizer, inhaled steroids, O2 pulmonary consult - tapering prednisone from 40mg to 20mg now to 10mg (home dose is 5mg) (4) DNR (do not resuscitate) Current Visit: No Status: Acute Priority: High (5) Upper GI bleed Current Visit: Yes Status: Acute Code(s): K92.2 - GASTROINTESTINAL HEMORRHAGE, UNSPECIFIED SNOMED Code(s): 45042750 Comment: no further bleeding continue PPI EGD showed gastritis. (6) Anemia Current Visit: Yes Status: Acute Code(s): D64.9 - ANEMIA, UNSPECIFIED SNOMED Code(s): 665831417 Comment: acute with chronic Received one unit PRBC this admission, EGD showed gastritis. will change IV ferrous gluconate to oral. (7) Muscle ache Current Visit: Yes Status: Acute Code(s): M79.10 - MYALGIA, UNSPECIFIED SITE SNOMED Code(s): 43177875 Comment: resolved. (8) Pneumonia Current Visit: Yes Status: Acute Code(s): J18.9 - PNEUMONIA, UNSPECIFIED ORGANISM SNOMED Code(s): 613804849 Comment: will pleural effusion was on vancomycin, zosyn now changed to augmentin. Status and Disposition: inpatient
[2019-03-30] MEDS: Ferric Gluconate IV* 125 MG in NS 0.9% 100 ML* 100 ML IVPB SCH (11:38)
[2019-03-30] MEDS: Insulin GLARGINE(*) 1 UNITS UNIT SUBCUT SCH (12:45)
[2019-03-30] MEDS: Ferrous Gluconate TAB* 324 MG TAB PO SCH (12:46)
[2019-03-30] MEDS ORDERED: Insulin LISPRO* 1 UNITS UNIT SUBCUT ONE (18:58)
[2019-03-30] MEDS: Gabapentin CAP(*) 100 MG PO SCH (19:25)
[2019-03-30] MEDS: Atorvastatin* 20 MG TAB PO SCH (19:25)
[2019-03-30] MEDS: Pantoprazole TAB * 40 MG TAB PO SCH (20:28)
[2019-03-30] MEDS: Amoxicillin/Clavulanate TAB* 875 MG PO SCH (20:28)
[2019-03-31] MEDS: HYDROcodone/ACETAMIN 5-325 MG* 1 TAB PO PRN ×2 (03:05→12:18)
[2019-03-31 06:36] LABS: INR 2.67 (0.82-1.09)
[2019-03-31 06:52] LABS: BUN/Creatinine Ratio 19.4 (8-20); Calcium 9.5 mg/dL (8.6-10.3); EGFR African American 40.2 (>60); EGFR Non-African American 33.3 (>60); Potassium 3.9 mmol/L (3.5-5.0)
[2019-03-31] MEDS: Budesonide NEB* 0.25 MG/2 ML NEB.SOLN INH SCH (07:49)
[2019-03-31] MEDS: Insulin LISPRO* 1 UNITS UNIT SUBCUT SCH ×2 (08:01→12:13)
[2019-03-31] MEDS: BuPROPion XL* 300 MG TAB.XL PO SCH (08:02)
[2019-03-31] MEDS: traMADol TAB* 50 MG PO SCH (08:02)
[2019-03-31] MEDS: Cholecalciferol TAB* 1000 UNITS PO SCH (08:02)
[2019-03-31] MEDS: Metoprolol Succinate XL TAB* 50 MG PO SCH (08:02)
[2019-03-31] MEDS: Magnesium Oxide TAB* 400 MG PO SCH (08:03)
[2019-03-31] MEDS: Ferrous Gluconate TAB* 324 MG TAB PO SCH (08:03)
[2019-03-31] MEDS: Amoxicillin/Clavulanate TAB* 875 MG PO SCH (08:03)
[2019-03-31] MEDS: predniSONE TAB* 20 MG PO SCH (08:03)
[2019-03-31] MEDS: Sertraline* 25 MG TAB PO SCH (08:03)
[2019-03-31] MEDS: Pantoprazole TAB * 40 MG TAB PO SCH (08:04)
[2019-03-31] MEDS: Docusate CAP* 100 MG PO SCH (08:04)
--- NOTE | 2019-03-31 11:07 | DS ---
DISCHARGE SUMMARY: DATE OF ADMISSION: DATE OF DISCHARGE: ADDENDUM: PHYSICAL EXAMINATION: Blood pressure is 131/61, heart rate of 67, O2 sat of 95 % on 3 L nasal cannula, temperature of 97.6 Fahrenheit. General: This is a well- developed elderly female, sitting on bed, in no acute distress. Pupils are equal, round, and reactive to light. Atraumatic and normocephalic. Lungs with mild wheezing, with no rhonchi or crackles. Heart: No chest wall tenderness. Regular rate and rhythm. Abdomen: Bowel sounds are normoactive in all 4 quadrants. Abdomen is soft, nontender, nondistended. Extremities: Trace lower extremity edema. Neurological: Alert and oriented x3. Skin: There is bruising noted at the right flank region, has subsided from the demarcation site, with no tenderness. The patient also underwent thoracentesis of the right pleural effusion which was negative for malignancy. [id number]/CPS #: [id number] MTDD
[2019-03-31 11:33] VITALS: BP 145/61
--- NOTE | 2019-03-31 11:51 | DS ---
CC: Dr. Travis; Dr. Ivan Callahan; Dr. Dugan; Dr. Cheatham; Dr. Rivera; Dr. Ballesteros; Dr. Ramirez; Dr. Randall Arrieta DISCHARGE SUMMARY: DATE OF ADMISSION: 03/21/19 DATE OF DISCHARGE: 03/31/19 PRIMARY CARE PROVIDER: Dr. Travis. REASON FOR THE ADMISSION: Shortness of breath. DISCHARGE DIAGNOSIS: 1. Acute on chronic respiratory failure 2. Pneumonia 3. Pleural Effusion 4. Gastritis 5. History of anti-phospholipid syndrome with history of DVT/PE 6. COPD exacerbation 7. History of Diabetes 8. Right lung mass- needs follow up, recommended to see Dr. Ramirez as well as Dr. Callahan HOSPITAL COURSE: This is a 68-year-old female with history of oxygen-dependent COPD, smoker, with history of antiphospholipid syndrome, with history of PE, DVT , on Coumadin, who was presented to the emergency room because of shortness of breath. The patient was found to have acute on chronic anemia, was also found to have possible GI bleeding, and was also found to have shortness of breath and found to have questionable mass in the right lung as well as pleural effusion. The patient was admitted to the hospital, Gastroenterology was consulted, Hematology was consulted. The patient was admitted to the hospital, Gastroenterology was consulted. The patient underwent an EGD on 03/24/19, which found the patient to have gastritis, the patient usually takes omeprazole at home, was changed to pantoprazole 40 mg b.i.d. The pathology of the stomach biopsy revealed mild reactive hyperplasia with gastritis. The patient also underwent a chest thorax CTA, which found right upper lobe consolidation consistent with right upper lobe pneumonia and a loculated right pleural effusion. The patient was started on broad-spectrum antibiotics with vancomycin and Zosyn. This was eventually changed to Augmentin. Pulmonary, Dr. Ramirez, was also consulted and plan was made to taper off steroids to her home dose of 5 mg daily. Through the course, the patient was started on a higher dose of prednisone for her COPD. The patient also required 1 unit of packed RBC during the course. The patient continued to improve with her respiratory status. Once the GI bleeding issue had resolved, the patient was started on Lovenox bridged to Coumadin. This was complicated by the patient developing a bruise at the left flank region for which the patient underwent a stat CT of the abdomen and pelvis , which did not find any evidence of bleeding. The area of the bruising was demarcated and has improved through the hospital course. Eventually, the Lovenox was discontinued and INR has been in the range of 2 to 3; this morning, it is 2.67. The patient remained in stable condition, is able to ambulate, and has been weaned off to her home oxygen level. The patient is requesting to be discharged today as the patient's private caregiver is going out of town for few days and she would not have a ride for the next few days. For the pleural effusion, underwent right thoracentesis. fluid was sent for pathology, negative for malignancy. Consultants during the course also included Dr. Mode Redman, Dr. Keny Albert as well as Dr. Oakes and Dr. Ivan Callahan. DISCHARGE MEDICATIONS: New medications include: 1. Amoxicillin/clavulanate 875/125 b.i.d. for the next 5 days. 2. Omeprazole 40mg BID 3. Ferrous gluconate. Continue: 1. Atorvastatin 20 mg daily. 2. Budesonide 0.25 mg inhaled twice a day. 3. Bupropion 300 mg daily. 4. Vitamin D 1000 units daily. 5. Gabapentin 200 mg at bedtime. 6. [place] 5/325 two tabs at bedtime. 7. Lantus 16 units every 24 hours. 8. Magnesium oxide 800 mg b.i.d. 9. Metoprolol succinate 50 mg daily. 10. Sertraline 75 mg daily. 11. Prednisone 5 mg daily. 12. Tramadol 50 mg b.i.d. as needed. 13. Coumadin 4 mg daily- change in home dosing. 14. Continue azathioprine 50 mg in the morning. 15. Abatacept 125 mg subcu weekly. 16. Furosemide 40 mg Sunday, , and Sunday. 17. Ipratropium 0.5 mg inhaled twice a day. 18. Iron complex 150 mg at bedtime. 19. Metformin 500 mg b.i.d. 20. Salmeterol (Serevent Diskus) 1 puff inhaled b.i.d. 21. Tiotropium 2.5 mcg inhaled daily. FOLLOWUP INSTRUCTIONS: Include to follow up with the primary care doctor, Dr. Kameron Travis, as well as follow up with Dr. Ramirez, program checker, as well as Dr. Dugan and Dr. Ivan Callahan from Oncology. The patient to return to the emergency room for any fevers, chills, cough, shortness of breath or any palpitations or if any new symptoms occur. HOME CARE SKILLS: The patient did not require anything. She said that she has a private caregiver that she pays out of pocket for. DISCHARGE CONDITION: Improved. DISCHARGE DISPOSITION: Home. Continue home oxygenation. [id number]/CPS #: [id number] MTDBladimir
[2019-03-31] MEDS: Insulin GLARGINE(*) 1 UNITS UNIT SUBCUT SCH (12:14)
[2019-03-31] MEDS ORDERED: Warfarin TAB(*) 4 MG PO SCH (17:00)
== END 2019-03-31 14:45 | disposition home or self-care (01) | DRG 377 ==
LOC: ED 11:38 → MED 14:20 → MEDTELE 03-23 10:38
PROVIDERS: ADMIT Internal Medicine; ATTEND Internal Medicine
PROC: 0DB68ZX Excision of Stomach, Via Natural or Artificial Opening Endoscopic, Diagnostic (ICD-10-PCS; 2019-03-24)
PROC: 0W993ZX Drainage of Right Pleural Cavity, Percutaneous Approach, Diagnostic (ICD-10-PCS; principal; 2019-03-25)
PROC: 30233N1 Transfusion of Nonautologous Red Blood Cells into Peripheral Vein, Percutaneous Approach (ICD-10-PCS; 2019-03-31)
DX: K92.2 Gastrointestinal hemorrhage, unspecified (principal); J18.9 Pneumonia, unspecified organism; J96.21 Acute and chronic respiratory failure with hypoxia; D68.61 Antiphospholipid syndrome; N17.9 Acute kidney failure, unspecified; J90 Pleural effusion, not elsewhere classified; J44.1 Chronic obstructive pulmonary disease with (acute) exacerbation; D50.0 Iron deficiency anemia secondary to blood loss (chronic); D63.8 Anemia in other chronic diseases classified elsewhere; E11.9 Type 2 diabetes mellitus without complications; E78.00 Pure hypercholesterolemia, unspecified; I11.0 Hypertensive heart disease with heart failure; G47.33 Obstructive sleep apnea (adult) (pediatric); J44.9 Chronic obstructive pulmonary disease, unspecified; M06.9 Rheumatoid arthritis, unspecified; F17.210 Nicotine dependence, cigarettes, uncomplicated; F41.9 Anxiety disorder, unspecified; F32.9 Major depressive disorder, single episode, unspecified; N18.3 Chronic kidney disease, stage 3 (moderate); E11.22 Type 2 diabetes mellitus with diabetic chronic kidney disease; E78.5 Hyperlipidemia, unspecified; R91.8 Other nonspecific abnormal finding of lung field; R79.89 Other specified abnormal findings of blood chemistry; I27.20 Pulmonary hypertension, unspecified; K29.70 Gastritis, unspecified, without bleeding; Z66 Do not resuscitate; I48.0 Paroxysmal atrial fibrillation; Z86.14 Personal history of Methicillin resistant Staphylococcus aureus infection; Z88.1 Allergy status to other antibiotic agents; Z88.8 Allergy status to other drugs, medicaments and biological substances; Z82.49 Family history of ischemic heart disease and other diseases of the circulatory system; Z82.5 Family history of asthma and other chronic lower respiratory diseases; Z80.52 Family history of malignant neoplasm of bladder; Z86.711 Personal history of pulmonary embolism; Z86.718 Personal history of other venous thrombosis and embolism; Z79.4 Long term (current) use of insulin; Z79.01 Long term (current) use of anticoagulants
CPT/HCPCS: 32555; 36415; 71045; 71046; 71250; 71275; 74176; 80048; 80053; 80202; 82272; 82565; 82728; 82947; 83036; 83540; 83550; 83605; 83615; 83735; 83880; 83921; 84157; 84484; 84520; 85014; 85018; 85025; 85027; 85610; 85730; 86140; 86850; 86900; 86901; 86922; 86927; 87040; 87070; 87077; 87106; 87205; 88112; 88305; 89051; 93005; 93306; 94640; 99156; 99232; 99233; 99285; 99406; A9270-GY; G8978-GP-CI; G8979-GP-CI; G8980-GP-CI; J1650; J1940; J1956; J2250; J2270; J2310; J2543; J2916; J2920; J3010; J3370; J7512; P9017; P9040; Q9967